=== PATIENT | female | born 1950 | race Caucasian/White ===

== ENCOUNTER 2020-12-06 01:38 | Observation (INO) ==
[2020-12-06] MEDS ORDERED: ONDANSETRON INJ 2 MG/ML 2 ML VIAL IV STA (01:48)
--- NOTE | 2020-12-06 01:50 | Emergency Department Note ---
History of Present Illness General Chief complaint: Abdominal Pain Stated complaint: ABDOMINAL PAIN Time Seen by Provider: 12/06/20 01:43 Source: patient Mode of arrival: EMS Limitations: no limitations History of Present Illness Provider complaint: Nausea, vomiting, diarrhea Onset (ago): day(s) 5 Location: abdomen Radiation: non-radiation Severity: moderate Pain Consistency: + colicky Relieved By: + none Exacerbated By: + eating Associated symptoms: + fever/chills, + loss of appetite, + malaise and + nausea/vomiting; no shortness of breath Treatments prior to arrival: none This is a 70-year-old female brought in by EMS due to concern for recurrent nausea, vomiting, diarrhea and abdominal pain. Patient states she began having symptoms on Thursday, had mild accompanying fevers, lightheadedness. No recent change in diet or known sick contact. Patient had been at a family member's house for and subsequently drove home on Thursday. She states Thursday she felt slightly improved although still not back to normal. She states on Thursday she was feeling improved and shows that she attempted to eat again, and then all of the symptoms began all over again. Patient denies any blood in the emesis or stool. No recurrent fevers today. No prior history of IBS, IBD, or PUD. No other change in medications. Pt seen during a time of high acuity and national emergency pandemic while wearing PPE. Home Medications Medication Instructions Recorded Confirmed Type amitriptyline 50 mg PO QPM 12/15/18 12/06/20 History omeprazole 40 mg capsule,delayed 40 mg PO QPM #90 cap 08/22/20 12/06/20 Rx release rosuvastatin 20 mg tablet 40 mg PO QPM #180 tab 08/22/20 12/06/20 Rx bupropion HCl 150 mg tablet,12 hr 150 mg PO BID #180 ea 10/26/20 12/06/20 Rx sustained-release metoprolol tartrate 25 mg tablet 25 mg PO BID #180 tab 10/26/20 12/06/20 Rx ondansetron 4 mg PO Q6H PRN #20 tab 12/07/20 Rx Allergies Allergy/AdvReac Type Severity Reaction Status Date / Time No Known Allergies Allergy Unverified 12/06/20 01:58 Past Med/Surg History Medical History Depression Fibromyalgia GERD without esophagitis History of diverticulitis Hyperlipidemia Leukocytosis Osteoporosis last Dexa noted 2019 Thoracic spine tumor Tobacco abuse Surgical History H/O abdominoplasty History of cholecystectomy History of tonsillectomy Hx of breast implants, bilateral Previous back surgery 2016 Family History Mother Myocardial infarction Stroke Father Cancer Denies family history of Ovarian cancer Prostate cancer Breast cancer Colorectal cancer Social History Smoking Status: Current every day smoker Tobacco Type: Cigarettes Age Started Using Tobacco: 37; packs per day: 1; Cigarettes Per Day: 20; Second Hand Exposure: Yes; Hx Alcohol Use: No Hx Substance Use: No Preferred Language: British Communication Ability: Effective Visual Impairment: Limited Hearing Ability: Normal 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 and A total of 10 systems reviewed and were otherwise negative Physical Exam Vital Signs Vital Signs - 24 hr 12/06/20 01:48 12/06/20 02:33 12/06/20 03:31 Temperature 36.8 C Temperature Source Oral Pulse Rate 109 H 109 H 102 H Respiratory Rate 18 20 23 Respiratory Effort / Characteristics Non-Labored Spontaneous Respiratory Depth Normal Respiratory Pattern Regular Blood Pressure 153/91 H 138/87 145/81 H Blood Pressure Mean 111 104 102 Blood Pressure Position Sitting Pulse Oximetry 99 96 Oxygen Delivery Method Room Air Room Air Sepsis Recent Fever Within 48 Hours No Sepsis New/Unexplained Change in Mental Status N/A Sepsis Action Taken by Nursing No Action Required 12/06/20 04:00 12/06/20 04:30 Temperature Temperature Source Pulse Rate 106 H 106 H Respiratory Rate 19 21 Respiratory Effort / Characteristics Respiratory Depth Respiratory Pattern Blood Pressure 129/77 156/74 H Blood Pressure Mean 94 101 Blood Pressure Position Pulse Oximetry Oxygen Delivery Method Sepsis Recent Fever Within 48 Hours Sepsis New/Unexplained Change in Mental Status Sepsis Action Taken by Nursing GENERAL: alert, uncomfortable and anxious appearing, well nourished, no distress, non-toxic EYE EXAM: normal conjunctiva, PERRL and EOM's grossly intact OROPHARYNX: no exudate, no erythema, lips, buccal mucosa, and tongue normal and mucous membranes are dry NECK: supple, no nuchal rigidity, no adenopathy, non-tender LUNGS: Clear to auscultation. Normal chest wall mechanics, no w/r/r HEART: no murmurs, S1 normal and S2 normal ABDOMEN: abdomen soft, non-tender, normo-active bowel sounds, no masses, no rebound or guarding. BACK: Back is symmetrical on inspection and there is no deformity, no midline tenderness, no CVA tenderness. SKIN: no rashes and no bruising UPPER EXTREMITIES: upper extremities are grossly normal. FROM, nml pulses b/l. LOWER EXTREMITIES: No pitting edema. FROM, nml pulses b/l. NEURO EXAM: Normal sensorium, cranial nerves II-XII grossly intact, normal speech, no gross weakness of arms, no gross weakness of legs. Gross sensation intact. Course Course 0332: Pt updated on results. States she does not use alcohol. Has already have her gallbladder removed. 0445: Patient updated on CT results. Still tachycardic. No active vomiting and nausea is improved although still states she does not feel well. Given patient does live alone she is concerned for going home and having recurrent vomiting and diarrhea. Etiology of her elevated lipase is still unclear, although could be related to a viral process. 0520: DIscussed with Dr. Marc. Administered Medications Discontinued Medications Amitriptyline HCl (Amitriptyline Hcl 50 Mg Tab) 50 mg PO QPM [facility] Stop: 01/05/21 20:59 Last Admin: 12/06/20 21:44 Dose: 50 mg Documented by: [id number] Bupropion HCl (Bupropion Sr 150 Mg Tabcr) 150 mg PO BID MARYLU Stop: 01/05/21 09:02 Last Admin: 12/07/20 08:18 Dose: 150 mg Documented by: [id number] Admin: 12/06/20 21:44 Dose: 150 mg Documented by: [id number] Admin: 12/06/20 09:35 Dose: 150 mg Documented by: [id number] Famotidine (Famotidine 20mg/5ml Iv Push) 20 mg IV ONE STA Stop: 12/06/20 03:39 Last Admin: 12/06/20 03:43 Dose: 20 mg Documented by: [id number] Sodium Chloride (Nss 1000ml) 1,000 mls @ 500 mls/hr IV .Q2H MARYLU Stop: 01/05/21 01:59 Last Admin: 12/06/20 04:12 Dose: Not Given Documented by: [id number] Infusion: 12/06/20 04:09 Dose: 0 mls/hr Documented by: [id number] Admin: 12/06/20 02:08 Dose: 500 mls/hr Documented by: [id number] Acetaminophen (Ofirmev) 1,000 mg in 100 mls @ 400 mls/hr IV NOW STA Stop: 12/06/20 02:05 Last Infusion: 12/06/20 02:24 Dose: 0 mls/hr Documented by: [id number] Admin: 12/06/20 02:09 Dose: 400 mls/hr Documented by: [id number] Sodium Chloride (Nss 1000ml) 1,000 mls @ 999 mls/hr IV .Q1H1M ONE Stop: 12/06/20 05:43 Last Infusion: 12/06/20 06:03 Dose: 0 mls/hr Documented by: [id number] Admin: 12/06/20 05:02 Dose: 999 mls/hr Documented by: [id number] Lactated Ringer's (Lr) 1,000 mls @ 125 mls/hr IV .Q8H MARYLU Stop: 12/07/20 01:02 Last Infusion: 12/07/20 01:43 Dose: 0 mls/hr Documented by: [id number] Admin: 12/06/20 17:46 Dose: 125 mls/hr Documented by: [id number] Infusion: 12/06/20 17:45 Dose: 0 mls/hr Documented by: [id number] Admin: 12/06/20 09:35 Dose: 125 mls/hr Documented by: [id number] Ioversol (Optiray 320 100ml) 100 ml IV ONCE ONE Stop: 12/06/20 03:34 Last Admin: 12/06/20 03:33 Dose: 93 ml Documented by: [id number] Metoprolol Tartrate (Metoprolol Tartrate 25 Mg Tab) 25 mg PO BID MARYLU Stop: 01/05/21 09:02 Last Admin: 12/07/20 08:18 Dose: 25 mg Documented by: [id number] Admin: 12/06/20 21:44 Dose: 25 mg Documented by: [id number] Admin: 12/06/20 09:35 Dose: 25 mg Documented by: [id number] Ondansetron HCl (Ondansetron Inj 2 Mg/Ml 2 Ml Vial) 4 mg IV NOW STA Stop: 12/06/20 01:49 Last Admin: 12/06/20 02:04 Dose: Not Given Documented by: [id number] Ondansetron HCl (Ondansetron Inj 2 Mg/Ml 2 Ml Vial) 4 mg IV Q6H PRN PRN Reason: Nausea And Vomiting Stop: 01/05/21 09:02 Last Admin: 12/06/20 17:10 Dose: 4 mg Documented by: [id number] Admin: 12/06/20 09:35 Dose: 4 mg Documented by: [id number] Pantoprazole Sodium (Pantoprazole 40 Mg Tab) 40 mg PO QPM MARYLU Stop: 01/05/21 20:59 Last Admin: 12/06/20 21:44 Dose: 40 mg Documented by: [id number] Potassium Chloride (Potassium Chloride Crtab 20 Meq Tabcr) 40 meq PO NOW STA Stop: 12/06/20 04:53 Last Admin: 12/06/20 05:02 Dose: 40 meq Documented by: [id number] Rosuvastatin Calcium (Rosuvastatin Calcium 20 Mg Tab) 40 mg PO QPM MARYLU Stop: 01/05/21 20:59 Last Admin: 12/06/20 21:44 Dose: 40 mg Documented by: [id number] Medical Decision Making Differential Diagnosis Differential: Gastroenteritis, Food Borne, Esophageal Perforation, , Electrolyte Abnormality, Dehydration, Intraabdominal Infection, UTI/Pyelonephritis, Bowel Obstruction, Biliary Pathology, amongst other pathology entertained. Medical Records Attestation: I reviewed the patient's medical records. Home Medications Current Medication List: was personally reviewed by me Laboratory Data Attestation: I reviewed the patient's lab results. Result diagrams: 12/07/20 09:30 12/07/20 09:30 Lab Results 12/06/20 12/06/2012/06/21 Range/Units 02:05 02:05 02:05 WBC 11.77 H (4.8-10.8) K/uL RBC 4.49 (4.2-5.4) M/uL Hgb 15.1 (12.0-16.0) g/dL Hct 42.1 (37-47) % MCV 93.8 (80-100) fL MCH 33.6 (25-34) pg MCHC 35.9 (32-36) g/dL RDW Std Deviation 41.5 (36.4-46.3) fL RDW Coeff of Armand 12.3 (11.5-14.5) % Plt Count 295 (130-400) K/uL MPV 9.6 (7.4-10.4) fL Immature Gran % (Auto) 0.5 % Neut % (Auto) 80.5 % Lymph % (Auto) 12.3 % Zavala % (Auto) 6.3 % Eos % (Auto) 0.3 % Baso % (Auto) 0.1 % Neut # (Auto) 9.48 H (1.4-6.5) K/uL Lymph # (Auto) 1.45 (1.2-3.4) K/uL Zavala # (Auto) 0.74 H (0.11-0.59) K/uL Eos # (Auto) 0.03 (0-0.5) K/uL Baso # (Auto) 0.01 (0-0.2) K/uL Immature Gran # (Auto) 0.06 H (0.00-0.02) K/uL RBC Morphology Unremarkable Sodium 140 (136-145) mmol/L Potassium 3.2 L (3.5-5.1) mmol/L Chloride 106 (98-107) mmol/L Carbon Dioxide 28 (21-32) mmol/L Anion Gap 6.0 (3-11) BUN 11 (7-18) mg/dl Creatinine 1.14 (0.6-1.2) mg/dl Est Cr Clr Drug Dosing Not Reportable Est GFR ( Amer) 57.2 ml/min Est GFR (Non-Af Amer) 49.4 ml/min BUN/Creatinine Ratio 9.4 L (10-20) Glucose 180 H (70-99) mg/dl Lactate 2.3 H* (0.4-2.0) mmol/L Calcium 9.1 (8.5-10.1) mg/dl Magnesium 2.0 (1.8-2.4) mg/dl Total Bilirubin 0.7 (0.2-1) mg/dl AST 21 (15-37) U/L ALT 25 (12-78) U/L Alkaline Phosphatase 113 (45-117) U/L Troponin I < 0.015 (0-0.045) ng/ml Total Protein 7.6 (6.4-8.2) gm/dl Albumin 4.0 (3.4-5.0) gm/dl Globulin 3.6 (2.5-4.0) gm/dl Albumin/Globulin Ratio 1.1 (0.9-2) Lipase 904 H (73-393) U/L COVID-19 Eval Order SARS-CoV-2 (PCR) (Negative) 12/06/20 12/06/20 12/06/20 Range/Units 04:00 05:00 05:00 WBC (4.8-10.8) K/uL RBC (4.2-5.4) M/uL Hgb (12.0-16.0) g/dL Hct (37-47) % MCV (80-100) fL MCH (25-34) pg MCHC (32-36) g/dL RDW Std Deviation (36.4-46.3) fL RDW Coeff of Armand (11.5-14.5) % Plt Count (130-400) K/uL MPV (7.4-10.4) fL Immature Gran % (Auto) % Neut % (Auto) % Lymph % (Auto) % Zavala % (Auto) % Eos % (Auto) % Baso % (Auto) % Neut # (Auto) (1.4-6.5) K/uL Lymph # (Auto) (1.2-3.4) K/uL Zavala # (Auto) (0.11-0.59) K/uL Eos # (Auto) (0-0.5) K/uL Baso # (Auto) (0-0.2) K/uL Immature Gran # (Auto) (0.00-0.02) K/uL RBC Morphology Sodium (136-145) mmol/L Potassium (3.5-5.1) mmol/L Chloride (98-107) mmol/L Carbon Dioxide (21-32) mmol/L Anion Gap (3-11) BUN (7-18) mg/dl Creatinine (0.6-1.2) mg/dl Est Cr Clr Drug Dosing Est GFR ( Amer) ml/min Est GFR (Non-Af Amer) ml/min BUN/Creatinine Ratio (10-20) Glucose (70-99) mg/dl Lactate 2.5 H* (0.4-2.0) mmol/L Calcium (8.5-10.1) mg/dl Magnesium (1.8-2.4) mg/dl Total Bilirubin (0.2-1) mg/dl AST (15-37) U/L ALT (12-78) U/L Alkaline Phosphatase (45-117) U/L Troponin I (0-0.045) ng/ml Total Protein (6.4-8.2) gm/dl Albumin (3.4-5.0) gm/dl Globulin (2.5-4.0) gm/dl Albumin/Globulin Ratio (0.9-2) Lipase (73-393) U/L COVID-19 Eval Order Covid19 at [facility] SARS-CoV-2 (PCR) NEGATIVE (Negative) Imaging Data Radiologist's Impression: CT abdomen pelvis with contrast: Comparison 12/21/2014. Lower thoracic spinal canal lipoma, as before. Hepatic steatosis. Calcified hepatic and splenic granulomas. Right renal cyst. No hydronephrosis. Solid organs otherwise unremarkable. Calcified abdominal aorta without aneurysm. Cholecystectomy, as before. No biliary dilatation. Absent appendix, consistent with surgical history. Mildly dilated and thickened small bowel with scattered air-fluid levels which may reflect nonspecific enteritis. Partial obstruction not excluded in the appropriate clinical setting. Liquid stool within the ascending and transverse colon which may reflect diarrheal illness. Sigmoid diverticulosis. No definite CT evidence for diverticulitis. Unremarkable uterus. No acute osseous abnormality. Radiologist: Francisco Roa MD ECG Data Attestation: I personally reviewed and interpreted this ECG as follows: Indication: + nausea Rate (beats per minute): 112 Rhythm: + sinus tachycardia ECG Intervals/blocks: + Normal QRS and + Normal QT ECG Coleman: + Normal ECG ST segments: + Normal ST segments MDM Narrative This is a 70-year-old female who presents with predominantly GI symptoms of unclear etiology. Labs drawn and sent, patient started on IV fluids and given medication for nausea and pain. Patient found to have an elevated lipase. Denies use of alcohol and is already had a prior cholecystectomy. In light of this patient sent for CT imaging. Patient symptoms were slightly improved although not resolved with treatment here. Initial elevated lactate I felt was likely secondary to dehydration. Patient had no further vomiting or diarrhea while here. Patient did have persistent tachycardia of unclear etiology after 1500 mL of IV fluids. I suspect this may be a combination of residual volume depletion, anxiety about her symptoms, and concern for etiology. Given patient still having difficulty tolerating p.o., persistent tachycardia, persistent elevated lactic acid, and elevated lipase of unclear etiology, case discussed with hospitalist for additional evaluation management. I do not suspect bacteremia/sepsis, GI bleed, perforation, mesenteric ischemia, colitis, or bowel obstruction. An order was placed for continuous cardiac monitoring. The monitor shows a rate of _112_ with _sinus tachycardia__ rhythm. Impression & Plan Abdominal pain, Nausea vomiting and diarrhea, Elevated lactic acid level, Elevated lipase Discharge Plan Visit Data Chief Complaint: Abdominal Pain Stated Complaint: ABDOMINAL PAIN ED Provider: Abi Smith Discharge Problem: Abdominal pain, Nausea vomiting and diarrhea, Elevated lactic acid level, Elevated lipase Patient Disposition: Admitted As Inpatient Discharge Instructions Interventions: ED Discharge Assessment Last Done: 12/06/20 08:42 Discharge Problem: Abdominal pain Qualifiers: Abdominal location: generalized Qualified Code(s): R10.84 - Generalized abdominal pain
[2020-12-06] MEDS ORDERED: ACETAMINOPHEN 1,000 MG/100 ML VIAL IV STA (01:51)
[2020-12-06] MEDS: SODIUM CHLORIDE 0.9% 1000ML 1,000 ML IV SCH ×2 (02:08→04:12)
[2020-12-06 02:20] LABS: Hematocrit (blood only) 42.1 % (37-47); Hemoglobin 15.1 g/dL (12.0-16.0); Mean Corpuscular Hemoglobin 33.6 pg (25-34); Mean Corpuscular Hgb Conc 35.9 g/dL (32-36); Mean Corpuscular Volume 93.8 fL (80-100); Mean Platelet Volume 9.6 fL (7.4-10.4); Platelet Count 295 K/uL (130-400); RDW Coefficient of Variation 12.3 % (11.5-14.5); RDW Standard Deviation 41.5 fL (36.4-46.3); Red Blood Count 4.49 M/uL (4.2-5.4); White Blood Count 11.77 K/uL (4.8-10.8)
[2020-12-06 02:39] LABS: Basophils # (auto) 0.01 K/uL (0-0.2); Basophils % (auto) 0.1 %; Eosinophils # (auto) 0.03 K/uL (0-0.5); Eosinophils % (auto) 0.3 %; Immature Granulocytes # (auto) 0.06 K/uL (0.00-0.02); Immature Granulocytes % (auto) 0.5 %; Lymphocytes # (auto) 1.45 K/uL (1.2-3.4); Lymphocytes % (auto) 12.3 %; Monocytes # (auto) 0.74 K/uL (0.11-0.59); Monocytes % (auto) 6.3 %; Neutrophils # (auto) 9.48 K/uL (1.4-6.5); Neutrophils % (auto) 80.5 %; RBC Morphology Unremarkable
[2020-12-06 02:41] LABS: Alanine Aminotransferase 25 U/L (12-78); Aspartate Aminotransferase 21 U/L (15-37); BUN Creatinine Ratio 9.4 (10-20); Blood Urea Nitrogen 11 mg/dl (7-18); Calcium 9.1 mg/dl (8.5-10.1); Carbon Dioxide 28 mmol/L (21-32); Chloride 106 mmol/L (98-107); Est GFR (African American) 57.2 ml/min; Est GFR (Non-African American) 49.4 ml/min; Glucose 180 mg/dl (70-99); Lipase 904 U/L (73-393); Potassium 3.2 mmol/L (3.5-5.1); Sodium 140 mmol/L (136-145)
[2020-12-06 02:46] LABS: Albumin Globulin Ratio 1.1 (0.9-2); Alkaline Phosphatase 113 U/L (45-117); Bilirubin,Total 0.7 mg/dl (0.2-1); Globulin 3.6 gm/dl (2.5-4.0); Total Protein 7.6 gm/dl (6.4-8.2); Troponin I < 0.015 ng/ml (0-0.045)
[2020-12-06] MEDS ORDERED: OPTIRAY 320 100ml IV ONE (03:33)
[2020-12-06] MEDS ORDERED: FAMOTIDINE 20MG/5ML IV PUSH IV STA (03:38)
[2020-12-06] MEDS ORDERED: SODIUM CHLORIDE 0.9% 1000ML 1,000 ML IV ONE (04:43)
[2020-12-06] MEDS ORDERED: POTASSIUM CHLORIDE CRTAB 20 MEQ TABCR PO STA (04:52)
--- NOTE | 2020-12-06 06:35 | History & Physical Report ---
Date of Service December 06, 2020 Assessment & Plan (1) Nausea vomiting and diarrhea: Suspect gastroenteritis. Patient hemodynamically stable -Check stool cultures -Check c. diff. No recent antibiotic use -IVF - LR at 125mL/hr x 2 liters -K repletion -Zofran PRN -Mildly elevated lipase - no comment on pancreatic inflammation on CT. Patient with diffuse abdominal pain. Monitor clinically for developing pancreatitis. -Mildly elevated lactate at 2.3 which did not improve with IV fluids. Repeat Present on Admission?: Yes (2) Hyperlipidemia: Chronic -Continue Crestor Present on Admission?: Yes (3) Fibromyalgia: Chronic -Continue Amitriptyline Present on Admission?: Yes (4) Depression: Chronic -Continue Bupropion Present on Admission?: Yes (5) GERD without esophagitis: Chronic -Continue Omeprazole F/E/N - LR at 125mL/hr x 2 liters, K repletion with PO, Clear liquid diet as tolerated Ppx - low risk for DVT Code -Full Dispo - Observation to medical Present on Admission?: Yes History of Present Illness Chief Complaint: nausea, vomiting, diarrhea Primary Care Provider: EWA Escobar Adelfo is a 70yo female presenting with nausea, vomiting and diarrhea. She was in [place] 5 days ago for her [id number] . She ate spaghetti with meat sauce after which she felt slightly ill. She developed vomiting at 0200 the next morning. She reports multiple episodes of non-bloody/non-bilious vomiting as well as non-bloody diarrhea. She had a brief resolution of symptoms for the last 1.5 days but they restarted today. She states she has had nonstop vomiting today and nonstop diarrhea. Also with subjective fevers and chills at home and diaphoresis. ER Course: Tylenol, Pepcid, Zofran, Potassium, NSS Allergies Allergy/AdvReac Type Severity Reaction Status Date / Time No Known Allergies Allergy Unverified 12/06/20 01:58 Home Medications Medication Instructions Recorded Confirmed Type amitriptyline 50 mg PO QPM 12/15/18 12/06/20 History omeprazole 40 mg capsule,delayed 40 mg PO QPM #90 cap 08/22/20 12/06/20 Rx release rosuvastatin 20 mg tablet 40 mg PO QPM #180 tab 08/22/20 12/06/20 Rx bupropion HCl 150 mg tablet,12 hr 150 mg PO BID #180 ea 10/26/20 12/06/20 Rx sustained-release metoprolol tartrate 25 mg tablet 25 mg PO BID #180 tab 10/26/20 12/06/20 Rx Past Med/Surg History Medical History Depression Fibromyalgia GERD without esophagitis History of diverticulitis Hyperlipidemia Leukocytosis Osteoporosis last Dexa noted 2019 Thoracic spine tumor Tobacco abuse Surgical History H/O abdominoplasty History of cholecystectomy History of tonsillectomy Hx of breast implants, bilateral Previous back surgery 2016 Family History Mother Myocardial infarction Stroke Father Cancer Denies family history of Ovarian cancer Prostate cancer Breast cancer Colorectal cancer Social History Smoking Status: Current every day smoker Tobacco Type: Cigarettes Age Started Using Tobacco: 37; packs per day: 1; Cigarettes Per Day: 20; Second Hand Exposure: No; Hx Alcohol Use: No Hx Substance Use: No Preferred Language: Senegalese Visual Impairment: Limited Hearing Ability: Normal 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 Beliefs That Will Affect Care: None marital status: Current Living Situation: Family and Other Current Living Situation Comment: living w son How many Children do You have: 2 Feels Safe at Home: Yes Childhood Exposure to Second-Hand Smoke: Yes caffeine: Yes during the past year weight has: increased > 10 lbs Dental Care, Regularly: Yes Physical Activity Frequency: Does not Exercise Seatbelt Use: sometimes Sunscreen Use: Yes Review of Systems Review of Systems: All systems reviewed & are unremarkable except as noted in HPI & below Physical Exam Physical Exam: General: patient resting comfortably, NAD, ill in appearance, AA&O x 4 Skin: warm, dry, intact, no rashes or lesions HEENT: NC/AT, PERRL, EOMI, anicteric sclera, conjunctiva without injection, external ear normal to inspection and nontender, nares patent, moist mucus membranes, dentition intact, no oropharyngeal lesions, neck supple, trachea midline, no LAD, no thyromegaly, no JVD Heart: +S1/S2, regular, no m/r/g Lungs: equal air entry bilaterally, no rales/rhonchi/wheezes Abd: +BS, soft, diffusely tender without rebound/guarding/peritoneal signs, no masses/organomegaly/ascites Ext: warm, 2+ pulses in UE/LE bilaterally, no clubbing/cyanosis or edema Neuro: nonfocal, patient AA&O x 4, speech intact, no facial droop, moving all extremities on command with equal strength 5/5 Results & Data Results & Data ([facility]) Vital Signs (Past 12 Hours) Vital Signs Temp Pulse Resp BP Pulse Ox 12/06/20 06:00 97 H 18 123/69 12/06/20 05:02 95 H 22 12/06/20 04:30 106 H 21 156/74 H 12/06/20 04:00 106 H 19 129/77 12/06/20 03:31 102 H 23 145/81 H 12/06/20 02:33 109 H 20 138/87 96 12/06/20 01:48 36.8 C 109 H 18 153/91 H 99 Laboratory Results Laboratory Results WBC 11.77 K/uL (4.8-10.8) H 12/06/20 02:05 RBC 4.49 M/uL (4.2-5.4) 12/06/20 02:05 Hgb 15.1 g/dL (12.0-16.0) 12/06/20 02:05 Hct 42.1 % (37-47) 12/06/20 02:05 MCV 93.8 fL (80-100) 12/06/20 02:05 MCH 33.6 pg (25-34) 12/06/20 02:05 MCHC 35.9 g/dL (32-36) 12/06/20 02:05 RDW Std Deviation 41.5 fL (36.4-46.3) 12/06/20 02:05 RDW Coeff of Armand 12.3 % (11.5-14.5) 12/06/20 02:05 Plt Count 295 K/uL (130-400) 12/06/20 02:05 MPV 9.6 fL (7.4-10.4) 12/06/20 02:05 Immature Gran % (Auto) 0.5 % 12/06/20 02:05 Neut % (Auto) 80.5 % 12/06/20 02:05 Lymph % (Auto) 12.3 % 12/06/20 02:05 [place]gett % (Auto) 6.3 % 12/06/20 02:05 Eos % (Auto) 0.3 % 12/06/20 02:05 Baso % (Auto) 0.1 % 12/06/20 02:05 Neut # (Auto) 9.48 K/uL (1.4-6.5) H 12/06/20 02:05 Lymph # (Auto) 1.45 K/uL (1.2-3.4) 12/06/20 02:05 Daggett # (Auto) 0.74 K/uL (0.11-0.59) H 12/06/20 02:05 Eos # (Auto) 0.03 K/uL (0-0.5) 12/06/20 02:05 Baso # (Auto) 0.01 K/uL (0-0.2) 12/06/20 02:05 Immature Gran # (Auto) 0.06 K/uL (0.00-0.02) H 12/06/20 02:05 RBC Morphology Unremarkable 12/06/20 02:05 Sodium 140 mmol/L (136-145) 12/06/20 02:05 Potassium 3.2 mmol/L (3.5-5.1) L 12/06/20 02:05 Chloride 106 mmol/L (98-107) 12/06/20 02:05 Carbon Dioxide 28 mmol/L (21-32) 12/06/20 02:05 Anion Gap 6.0 (3-11) 12/06/20 02:05 BUN 11 mg/dl (7-18) 12/06/20 02:05 Creatinine 1.14 mg/dl (0.6-1.2) 12/06/20 02:05 Est Cr Clr Drug Dosing Not Reportable 12/06/20 02:05 Est GFR ( Amer) 57.2 ml/min 12/06/20 02:05 Est GFR (Non-Af Amer) 49.4 ml/min 12/06/20 02:05 BUN/Creatinine Ratio 9.4 (10-20) L 12/06/20 02:05 Glucose 180 mg/dl (70-99) H 12/06/20 02:05 Lactate 2.5 mmol/L (0.4-2.0) H* 12/06/20 04:00 Calcium 9.1 mg/dl (8.5-10.1) 12/06/20 02:05 Magnesium 2.0 mg/dl (1.8-2.4) 12/06/20 02:05 Total Bilirubin 0.7 mg/dl (0.2-1) 12/06/20 02:05 AST 21 U/L (15-37) 12/06/20 02:05 ALT 25 U/L (12-78) 12/06/20 02:05 Alkaline Phosphatase 113 U/L (45-117) 12/06/20 02:05 Troponin I < 0.015 ng/ml (0-0.045) 12/06/20 02:05 Total Protein 7.6 gm/dl (6.4-8.2) 12/06/20 02:05 Albumin 4.0 gm/dl (3.4-5.0) 12/06/20 02:05 Globulin 3.6 gm/dl (2.5-4.0) 12/06/20 02:05 Albumin/Globulin Ratio 1.1 (0.9-2) 12/06/20 02:05 Lipase 904 U/L (73-393) H 12/06/20 02:05 COVID-19 Eval Order Covid19 at [facility] 12/06/20 05:00 SARS-CoV-2 (PCR) NEGATIVE (Negative) 12/06/20 05:00 PG Care Time/CCT Total # of Minutes Spent Total Time Spent with Patient: Total time spent is greater than 50% in coordination of care (as documented) at patient's floor/unit and/or counseling patient: Coding Level of Care Code 86162 Initial Inpt Care Lvl 2 Diagnoses Nausea vomiting and diarrhea R11.2; R19.7 Hyperlipidemia E78.5 Hyperlipidemia type: unspecified Fibromyalgia M79.7 Depression F32.9 Depression Type: major depressive disorder Major depression recurrence: unspecified whether recurrent Active/Remission status: remission status unspecified GERD without esophagitis K21.9 (1) Hyperlipidemia Hyperlipidemia type: unspecified Qualified Code(s): E78.5 - Hyperlipidemia, unspecified (2) Depression Depression Type: major depressive disorder Major depression recurrence: unspecified whether recurrent Active/Remission status: remission status unspecified Qualified Code(s): F32.9 - Major depressive disorder, single episode, unspecified
--- NOTE | 2020-12-06 07:49 | XRay Report ---
PA CHEST WITH ABDOMINAL SERIES CLINICAL HISTORY: Nausea and vomiting. Diarrhea. FINDINGS: A PA chest radiograph is correlated with chest CT dated 08/06/2020. The cardiomediastinal silhouette is unremarkable noting atherosclerotic calcification of the thoracic aorta. There is mild elevation of the right hemidiaphragm and bibasilar atelectasis. No airspace consolidation or pleural effusion is i dentified. No pneumothorax is seen. The skeletal structures are osteopenic. The bony thorax is grossl y intact. Supine and erect abdominal radiographs are correlated with abdominal CT dated 12/21/2014. Cholecystect juan m clips are noted in the right upper quadrant. There is a nonobstructed abdominal bowel gas pattern . No evidence of intraperitoneal free air is seen. Calcified splenic granulomas are seen in the left upper quadrant. There is no radiographic evidence of nephrolithiasis. Phleboliths are seen in the pel vis. The lumbosacral spine and bony pelvis appear intact. IMPRESSION: 1. No active disease in the chest. 2. Nonobstructed abdominal bowel gas pattern. ACT 112: Negative or not required by law. Electronically signed by: Narinder Velasquez M.D. 12/06/2020 7:48 AM
--- NOTE | 2020-12-06 08:00 | CT Scan Report ---
CT SCAN OF THE ABDOMEN AND PELVIS WITH IV CONTRAST CLINICAL HISTORY: Generalized abdominal pain. Nausea and vomiting. Diarrhea. COMPARISON STUDY: Abdominal CT dated 12/21/2014. Abdominal radiographs dated 12/06/2020. TECHNIQUE: Following the IV administration of 93 cc of Optiray 320, CT scan of the abdomen and pelvi s is performed from the lung bases to the proximal femora. Images are reviewed in the axial, sagittal , and coronal planes. IV contrast was administered without complication. A dose lowering technique wa s utilized adhering to the principles of ALARA. CT DOSE: 825.11 mGycm FINDINGS: Lung bases: The heart is normal in size and without pericardial effusion. The lung bases are clear no ting dependent atelectasis. There is a tiny hiatal hernia. Bilateral breast implants are partially im aged. Liver: The contrast-enhanced liver is normal in size and contour. The liver demonstrates diffusely di minished attenuation consistent with hepatic steatosis. There is no intrahepatic biliary ductal dilat ation. The hepatic veins and portal veins are patent. Gallbladder: Surgically absent noting clips in the gallbladder fossa. Spleen: Normal in size and attenuation. There are calcified splenic granulomas. Pancreas: Unremarkable. Adrenal glands: Unremarkable. Kidneys: The contrast enhanced kidneys are normal in size and without hydronephrosis. The kidneys enh ance symmetrically. A subcentimeter cortical hypodensity in the right kidney likely represents a cyst but is too small for definitive characterization. Abdominal vasculature: The abdominal aorta is normal in course and caliber noting moderate to advance d atherosclerotic calcification. Bowel: The small bowel loops are mildly distended and fluid-filled, measuring up to 2.4 cm diameter. Liquid stool is also seen throughout the colon. There is no focal transition point to suggest high-gr jessica obstruction. No pneumatosis intestinalis or portal venous gas is seen. Scattered bowel loops appe ar mildly thick-walled and hyperemic. There is mild to moderate colonic diverticulosis without CT bev dence of acute diverticulitis. The appendix is not identified and reported surgically absent. Peritoneum: There is no intraperitoneal free air or abdominal ascites. There is a fat-containing umbi lical hernia. Lymphadenopathy: None. Pelvic viscera: The bladder, uterus, and adnexa are normal as visualized. Skeletal structures: No lytic or blastic lesions are seen. Postoperative change is noted in the thora cic spine. 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 IMPRESSION: 1. Findings suggest a nonspecific enterocolitis. Clinical correlation will be required. 2. The small bowel loops are mildly distended with no focal transition point or evidence of high-grad e obstruction. Low-grade or partial obstruction would be impossible to exclude. 3. No intraperitoneal free air or abdominal ascites is identified. 4. Hepatic steatosis. 5. 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 6. Additional findings as above. ACT 112: Negative or not required by law. Electronically signed by: Narinder Velasquez M.D. 12/06/2020 7:59 AM
[2020-12-06] MEDS ORDERED: ACETAMINOPHEN 325 MG TAB PO PRN (09:03)
[2020-12-06] MEDS: ONDANSETRON INJ 2 MG/ML 2 ML VIAL IV PRN ×2 (09:35→17:10)
[2020-12-06] MEDS: METOPROLOL TARTRATE 25 MG TAB PO SCH ×2 (09:35→21:44)
[2020-12-06] MEDS: LACTATED RINGER'S 1,000 ML IV SCH ×2 (09:35→17:46)
[2020-12-06] MEDS: buPROPion SR 150 MG TABCR PO SCH ×2 (09:35→21:44)
[2020-12-06] MEDS ORDERED: AMITRIPTYLINE HCL 50 MG TAB PO SCH (21:00)
[2020-12-06] MEDS ORDERED: PANTOprazole 40 MG TAB PO SCH (21:00)
[2020-12-06] MEDS ORDERED: ROSUVASTATIN CALCIUM 20 MG TAB PO SCH (21:00)
--- NOTE | 2020-12-07 05:43 | Electrocardiogram Report ---
Test Reason : Blood Pressure : / mmHG Vent. Rate : 112 BPM Atrial Rate : 112 BPM P-R Int : 188 ms QRS Dur : 074 ms QT Int : 332 ms P-R-T Axes : 044 018 041 degrees QTc Int : 453 ms Sinus tachycardia Nonspecific ST abnormality Abnormal ECG No previous ECGs available Confirmed by Gustavo Almanzar ([id number]) on 12/07/2020 5:43:30 AM Referred By: REFERRED SELF Confirmed By:Gustavo Almanzar
[2020-12-07] MEDS: METOPROLOL TARTRATE 25 MG TAB PO SCH (08:18)
[2020-12-07] MEDS: buPROPion SR 150 MG TABCR PO SCH (08:18)
[2020-12-07 09:42] LABS: Basophils # (auto) 0.01 K/uL (0-0.2); Basophils % (auto) 0.1 %; Eosinophils # (auto) 0.11 K/uL (0-0.5); Eosinophils % (auto) 1.2 %; Hematocrit (blood only) 33.3 % (37-47); Hemoglobin 11.7 g/dL (12.0-16.0); Immature Granulocytes # (auto) 0.02 K/uL (0.00-0.02); Immature Granulocytes % (auto) 0.2 %; Lymphocytes # (auto) 3.72 K/uL (1.2-3.4); Lymphocytes % (auto) 41.4 %; Mean Corpuscular Hemoglobin 33.2 pg (25-34); Mean Corpuscular Hgb Conc 35.1 g/dL (32-36); Mean Corpuscular Volume 94.6 fL (80-100); Mean Platelet Volume 9.6 fL (7.4-10.4); Monocytes # (auto) 0.57 K/uL (0.11-0.59); Monocytes % (auto) 6.3 %; Neutrophils # (auto) 4.55 K/uL (1.4-6.5); Neutrophils % (auto) 50.8 %; Platelet Count 240 K/uL (130-400); RDW Coefficient of Variation 12.7 % (11.5-14.5); RDW Standard Deviation 43.6 fL (36.4-46.3); Red Blood Count 3.52 M/uL (4.2-5.4); White Blood Count 8.98 K/uL (4.8-10.8)
[2020-12-07 10:41] LABS: BUN Creatinine Ratio 6.2 (10-20); Bilirubin,Total 0.4 mg/dl (0.2-1); Calcium 8.2 mg/dl (8.5-10.1); Creatinine Clr Calc Pharmacy 58.1 ml/min; Est GFR (African American) 80.5 ml/min; Est GFR (Non-African American) 69.4 ml/min; Globulin 2.9 gm/dl (2.5-4.0); Potassium 3.3 mmol/L (3.5-5.1); Total Protein 5.9 gm/dl (6.4-8.2)
--- NOTE | 2020-12-07 15:54 | Discharge Summary ---
Date of Service December 07, 2020 Admission HPI Per Admitting Provider Hortensia Emanuel is a 70yo female presenting with nausea, vomiting and diarrhea. She was in [place] 5 days ago for her [id number]'s . She ate spaghetti with meat sauce after which she felt slightly ill. She developed vomiting at 0200 the next morning. She reports multiple episodes of non-bloody/non-bilious vomiting as well as non-bloody diarrhea. She had a brief resolution of symptoms for the last 1.5 days but they restarted today. She states she has had nonstop vomiting today and nonstop diarrhea. Also with subjective fevers and chills at home and diaphoresis. ER Course: Tylenol, Pepcid, Zofran, Potassium, NSS Admission Exam Per Admitting Provider General: patient resting comfortably, NAD, ill in appearance, AA&O x 4 Skin: warm, dry, intact, no rashes or lesions HEENT: NC/AT, PERRL, EOMI, anicteric sclera, conjunctiva without injection, external ear normal to inspection and nontender, nares patent, moist mucus membranes, dentition intact, no oropharyngeal lesions, neck supple, trachea midline, no LAD, no thyromegaly, no JVD Heart: +S1/S2, regular, no m/r/g Lungs: equal air entry bilaterally, no rales/rhonchi/wheezes Abd: +BS, soft, diffusely tender without rebound/guarding/peritoneal signs, no masses/organomegaly/ascites Ext: warm, 2+ pulses in UE/LE bilaterally, no clubbing/cyanosis or edema Neuro: nonfocal, patient AA&O x 4, speech intact, no facial droop, moving all extremities on command with equal strength 5/5 Principal Diagnosis Non-specific enterocolitis Discharge Data Allergies Allergy/AdvReac Type Severity Reaction Status Date / Time No Known Allergies Allergy Unverified 12/17/20 10:36 Consultations 12/06/20 04:52 ED Decision to Admit Stat Ordered Studies 12/06/20 02:43 CT abd pelvis IV con only Urgent IMPRESSION: 1. Findings suggest a nonspecific enterocolitis. Clinical correlation will be re quired. 2. The small bowel loops are mildly distended with no focal transition point or evidence of high-grade obstruction. Low-grade or partial obstruction would be impossible to exclude. 3. No intraperitoneal free air or abdominal ascites is identified. 4. Hepatic steatosis. 5. 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 6. Additional findings as above. Hospital Course (1) Nausea vomiting and diarrhea: Alba Emanuel is a 70 year old female observed at [facility] from December 06 07/10/2020 due to nausea, vomiting, diarrhea, abdominal pain. CT abdomen/pelvis showed nonspecific enterocolitis with mildly distended small bowel loops. C. difficile testing was negative. Stool cultures are negative to date but final culture is outstanding on discharge. She improved overnight and is now tolerating a low fiber, lactose intolerant diet. Recommend sticking to a low fiber and lactose diet for the next 7 days. If mild pain recurs go back to a clear liquid diet and follow up with your primary care physician. If severe please return to the ER as a possible low-grade or partial obstruction would be impossible to exclude on CT and possible symptom may develop into a full bowel obstruction. Use ondansetron for nausea. Use Imodium as needed for diarrhea. She was also noted to have hypokalemia, recommend over the counter potassium supplements (20 meq PO daily) for the duration of the diarrhea. She was also noted to have reflux with excessive Tums use. Recommend reducing Tums to once weekly as needed. Use omeprazole as you have been regularly and famotidine (pepcid) if you need something extra. Recommended she follows up with her PCP for this. (2) Hyperlipidemia: (3) Fibromyalgia: (4) Depression: (5) GERD without esophagitis: Total Time Total Time Spent Total Time Spent (In Minutes): 35 Discharge Plan Discharge Items Patient Disposition: Home - Self-Care Reason For Visit: NAUSEA, VOMITING, DIARRHEA Discharge Diagnosis: Non-specific enterocolitis Activity: Resume your previous activity Non-emergency contact: Primary Care Provider Call non-emergency contact if: you have any medication questions and your symptoms worsen Follow-up/Referrals: Kevan Simpson CRNP [Primary Care Provider] - 12/17/20 10:20 am Diet: Low Fiber and Lactose Intolerant Addtl Attending Provider Instructions: You are observed at [facility] from December 06 07/10/2020 due to nausea, vomiting, diarrhea, abdominal pain. CT abdomen/pelvis showed nonspecific enterocolitis with mildly distended small bowel loops. C. difficile testing was negative. Stool cultures are negative to date but final culture is outstanding on discharge. Recommend sticking to a low fiber and lactose diet for the next 7 days. If mild pain recurs go back to a clear liquid diet and follow up with your primary care physician. If severe please return to the ER as a possible low-grade or partial obstruction would be impossible to exclude on CT and possible symptom may develop into a full bowel obstruction. Use ondansetron for nausea. Use Imodium as needed for diarrhea. Your potassium was also noted to be mildly low from your diarrhea. If you continue to have diarrhea recommend potassium supplementation in electrolyte drinks or potassium chloride 20 meq PO daily for the duration of the diarrhea. Regarding your reflux recommend reducing Tums to once weekly as needed. Use omeprazole as you have been regularly and famotidine (pepcid) if you need something extra. Please follow up with your PCP regarding this. Kind regards, Dr Vahid Kim Pending Studies at Discharge: Yes Stand-Alone Forms: [facility] DoubleRecall, Smoking Cessation Medications and DC Order Prescriptions: New ondansetron 4 mg tablet,disintegrating 4 mg PO Q6H PRN (Reason: nausea and vomiting) Qty: 20 RF: 0 Continued bupropion HCl 150 mg tablet sustained-release 12 hr 150 mg PO BID Qty: 180 RF: 2 metoprolol tartrate 25 mg tablet 25 mg PO BID Qty: 180 RF: 2 omeprazole 40 mg capsule,delayed release(DR/EC) 40 mg PO QPM Qty: 90 RF: 3 rosuvastatin 20 mg tablet 40 mg PO QPM Qty: 180 RF: 5 amitriptyline 50 mg tablet 50 mg PO QPM RF: 0 Discharge Orders: Discharge Order (Routine); Ordered 12/07/20 Ordered By: Vahid Dover/Other Patient Handouts: Low-Fiber Diet, Communicating About Pain, ED Food Poison Or Gastroenteritis, ED Fibromyalgia Admission Data Admit Date/Time: 12/06/20 06:30 Attending Provider: Vahid Kim Admit Provider: Melissa Marc Primary Care Provider: Kevan Simpson Other Providers: Melissa Marc Other Interventions: Discharge Summary Assessment (RN) Last Done: 12/07/20 16:19 Coding Level of Care Code 72468 OBS Care - Discharge Diagnoses Nausea vomiting and diarrhea R11.2; R19.7 Hyperlipidemia E78.5 Hyperlipidemia type: unspecified Fibromyalgia M79.7 Depression F32.9 Active/Remission status: remission status unspecified Depression Type: major depressive disorder Major depression recurrence: unspecified whether recurrent GERD without esophagitis K21.9
== END 2020-12-07 17:08 | disposition home or self-care (01) ==
LOC: 3N 01:38 → ED 01:38 → SUATTDRO 06:30 → 3N 08:42
DX: M79.7 Fibromyalgia; R11.2 Nausea with vomiting, unspecified; E78.5 Hyperlipidemia, unspecified; F17.210 Nicotine dependence, cigarettes, uncomplicated; K21.9 Gastro-esophageal reflux disease without esophagitis; R74.02 Elevation of levels of lactic acid dehydrogenase [LDH]; Z79.899 Other long term (current) drug therapy; R19.7 Diarrhea, unspecified; R74.8 Abnormal levels of other serum enzymes

== ENCOUNTER 2022-07-14 14:28 | Inpatient (IN) ==
[2022-07-14 16:31] LABS: Basophils # (auto) 0.03 K/uL (0-0.2); Basophils % (auto) 0.3 %; Eosinophils # (auto) 0.09 K/uL (0-0.50); Eosinophils % (auto) 0.9 %; Hematocrit (blood only) 36.9 % (37.0-47.0); Hemoglobin 12.5 g/dl (12.0-16.0); Immature Granulocytes # (auto) 0.05 K/uL (0.01-0.20); Immature Granulocytes % (auto) 0.5 %; Lymphocytes # (auto) 3.16 K/uL (1.2-3.4); Lymphocytes % (auto) 30.4 %; Mean Corpuscular Hemoglobin 33.6 pg (25.0-34.0); Mean Corpuscular Hgb Conc 33.9 g/dL (32.0-36.0); Mean Corpuscular Volume 99.2 fL (80.0-100.0); Mean Platelet Volume 9.3 fL (9.4-12.4); Monocytes # (auto) 0.47 K/uL (0.11-0.59); Monocytes % (auto) 4.5 %; Neutrophils % (auto) 63.4 %; Platelet Count 379 K/uL (130-400); RDW Coefficient of Variation 13.1 % (11.5-14.5); RDW Standard Deviation 46.6 fL (36.4-46.3); Red Blood Count 3.72 M/uL (4.20-5.40)
[2022-07-14 16:40] LABS: Appearance Urine Clear (Clear); Bilirubin Urine Negative (Negative); Blood Urine Negative (Negative); Color Urine Yellow; Glucose Urine UA Negative (Negative); Ketones Urine Negative (Negative); Leukocyte Esterase Urine Negative (Negative); Nitrite Urine Negative (Negative); Protein Urine Negative (Negative); Specific Gravity Urine 1.008 (1.000-1.030); Urobilinogen Urine Negative (Negative); pH Urine 6.5 (4.5-7.5)
[2022-07-14 16:53] LABS: Albumin Globulin Ratio 1.2 (0.9-2); BUN Creatinine Ratio 10.6 (10-20); Bilirubin,Total 0.7 mg/dl (0.2-1.0); Calcium 9.2 mg/dl (8.5-10.1); Creatinine Clr Calc Pharmacy 53.2 ml/min; Est GFR (African American) 80.5 ml/min; Est GFR (Non-African American) 69.4 ml/min; Globulin 3.4 gm/dl (2.5-4.0); Potassium 4.2 mmol/L (3.5-5.1); Total Protein 7.4 gm/dl (6.0-8.3)
[2022-07-14] MEDS ORDERED: MoRPHine SULFATE 4 MG/ML 1 ML CARP\\VIAL IV STA ×2 (17:32→18:53)
[2022-07-14] MEDS ORDERED: ACETAMINOPHEN 1,000 MG/100 ML VIAL IV STA (17:32)
[2022-07-14] MEDS ORDERED: ONDANSETRON INJ 2 MG/ML 2 ML VIAL IV STA (17:32)
--- NOTE | 2022-07-14 17:36 | Emergency Department Note ---
Impression & Plan Abdominal pain, Nausea & vomiting, Diverticulitis, Failure of outpatient treatment ED Provider Note ED Provider Note NAME: BRENDA HENRY AGE:72 SEX: Female : 1950 ARRIVES VIA: Private vehicle INFORMANT: Patient ED PROVIDER(s): Abi Smith DO CHIEF COMPLAINT: Abdominal pain, nausea HPI: This is a 72-year-old female who presents emerged part due to concern for persistent abdominal pain and nausea. Patient states the end of June she had a virtual colonoscopy performed at [facility] and was diagnosed with severe diverticulitis. Patient states she had multiple episodes of diverticulitis previously and they typically get better with Cipro and Flagyl. She states she was started on Cipro and Flagyl and had finished a 10-day course but was not feeling any better and since now finishing the course she has begun to feel worse. She states she is fatigued, has abdominal bloating, has had minimal stool out, has nausea and decreased appetite. She denies fevers or chills. She denies noting any blood with her bowel movements. No change in urine. PAST MEDICAL HISTORY:See Below PAST SURGICAL HISTORY:See Below FAMILY HISTORY:See Below SOCIAL HISTORY:See Below HOME MEDICATIONS:See Below ALLERGIES:See Below VITALS:See Below PHYSICAL EXAMINATION: GENERAL: alert, well appearing, well nourished, no distress, non-toxic EYE EXAM: normal conjunctiva, PERRL and EOM's grossly intact OROPHARYNX: no exudate, no erythema, lips, buccal mucosa, and tongue normal and mucous membranes are moist NECK: supple, no nuchal rigidity, no adenopathy, non-tender LUNGS: Clear to auscultation. Normal chest wall mechanics, no w/r/r HEART: no murmurs, S1 normal and S2 normal ABDOMEN: abdomen soft, tenderness with palpation across the lower abdomen, normo-active bowel sounds, no masses, no rebound or guarding. BACK: Back is symmetrical on inspection and there is no deformity, no midline tenderness, no CVA tenderness. SKIN: no rashes, petechiae, orbruising UPPER EXTREMITIES: upper extremities are grossly normal. FROM, nml pulses b/l. LOWER EXTREMITIES: No pitting edema. FROM, nml pulses b/l. NEURO EXAM: Normal sensorium, cranial nerves II-XII grossly intact, normal speech, no facial droop,nogross weakness of arms, no gross weakness of legs. Gross sensation intact. No ataxia. Vital Signs: reviewed and remarkable Differential Diagnosis: Differential diagnoses includes but is not limited to small bowel obstruction, ischemic bowel, irritable bowel disease, irritable bowel syndrome, appendicitis, diverticulitis, malignancy, hernia, urinary tract infection, perforation, complicated diverticulitis, Flora syndrome MEDICAL DECISION MAKING: THis is a 72 yo female with a history of diverticulitis and recent treatment for diverticulitis who presents with worsening pain, nausea, decreased oral intake, and increased fatigue. Prior virtual colonoscopy concerning for diverticulitis as well as possible mass/malignancy but also revealed severe diverticulitis. Patient with worsening symptoms despite outpatient treatment. VS stable on arrival although patient appeared clinically dehydrated. Labs drawn and sent, IV established, pt started on IVF and given morphine for pain and zofran for nausea. She was sent for CT a/p which revealed diverticulitis. Patient started on IV zosyn and flagyl. DUe to persistent pain requiring multiple doses of IV narcotics, dehydration, and recent failed outpatient treatment, case was discussed with hospitalist. All results discussed with patient at bedside. Consultation(s): [] ER Treatment Provided: See below Diagnostics Interpreted By Me: -ECG: [] -Cardiac Monitoring: An order was placed for continuous cardiac monitoring. The monitor shows a rate of [] with [] rhythm. -Laboratory studies: As stated above and show below. 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 Depression Diverticulitis Fibromyalgia GERD without esophagitis History of diverticulitis Hyperlipidemia Hypertension Osteoporosis last Dexa noted 2019 Pre-diabetes Slow to wake up after anesthesia "a long time ago after tonsillectomy as a child", no issues since Suprapubic pain 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 Tobacco abuse still currently smokes Surgical History H/O abdominoplasty History of cholecystectomy History of esophagogastroduodenoscopy (EGD) History of tonsillectomy Hx of appendectomy Hx of breast implants, bilateral Hx of colonoscopy Hx of tubal ligation Previous back surgery 2016 Family History Mother Myocardial infarction Stroke Father Cancer Denies family history of Ovarian cancer Prostate cancer Breast cancer Colorectal cancer Social History Smoking Status: Current every day smoker Tobacco Type: Cigarettes Age Started Using Tobacco: 37; packs per day: 1; Cigarettes Per Day: 20; Second Hand Exposure: No; Hx Alcohol Use: No Hx Substance Use: No Preferred Language: Armenian Communication Ability: Effective Visual Impairment: Limited Hearing Ability: Normal Consultant In Ergonomics And Safety Required: No Beliefs That Will Affect Care: None marital status: Current Living Situation: Family Current Living Situation Comment: living w son How many Children do You have: 2 Other Information That Helps Us Care for You: No Feels Safe at Home: Yes Safety Concerns: Feels Safe At This Time Childhood Exposure to Second-Hand Smoke: Yes caffeine: Yes during the past year weight has: increased > 10 lbs Dental Care, Regularly: Yes Physical Activity Frequency: Does not Exercise Seatbelt Use: always Sunscreen Use: Yes Assistive Devices: None Allergies Allergies Allergy/AdvReac Type Severity Reaction Status Date / Time No Known Allergies Allergy Verified 07/14/22 20:51 Home Meds Home Medications Medication Instructions Recorded Confirmed atorvastatin 80 mg tablet 80 mg PO HS 03/20/22 07/14/22 omeprazole 40 mg capsule,delayed 40 mg PO HS 03/20/22 07/14/22 release metoprolol tartrate 25 mg tablet 25 mg PO BID 07/14/22 07/14/22 Previous Rx's Medication Instructions Recorded potassium chloride 20 mEq 20 meq PO BID 2 weeks #28 tabs 07/02/22 tablet,extended release(part/cryst) Results & Data (ED) Vital Signs Vital Signs - 24 hr 07/14/22 14:41 07/14/22 18:27 Temperature 37.1 C Temperature Source Temporal Artery Scan Pulse Rate 105 H Pulse Rate [Apical] 76 Respiratory Rate 18 16 Respiratory Effort / Characteristics Non-Labored Spontaneous Respiratory Depth Normal Respiratory Pattern Regular Blood Pressure 123/74 Blood Pressure [Left Arm] 106/52 L Blood Pressure Mean 90 Blood Pressure Mean [Left Arm] 70 Blood Pressure Position Sitting Pulse Oximetry 96 97 Oxygen Delivery Method Room Air Room Air Sepsis Recent Fever Within 48 Hours No Sepsis New/Unexplained Change in Mental Status N/A Sepsis Action Taken by Nursing No Action Required Laboratory Data 07/14/22 16:10 07/14/22 16:10 Lab Results 07/14/22 07/14/22 07/14/22 Range/Units 16:10 16:10 19:00 WBC 10.40 (4.8-10.8) K/ul RBC 3.72 L (4.20-5.40) M/uL Hgb 12.5 (12.0-16.0) g/dl Hct 36.9 L (37.0-47.0) % MCV 99.2 (80.0-100.0) fL MCH 33.6 (25.0-34.0) pg MCHC 33.9 (32.0-36.0) g/dL RDW Std Deviation 46.6 H (36.4-46.3) fL RDW Coeff of Armand 13.1 (11.5-14.5) % Plt Count 379 (130-400) K/uL MPV 9.3 L (9.4-12.4) fL Immature Gran % (Auto) 0.5 % Neut % (Auto) 63.4 % Lymph % (Auto) 30.4 % Randolph % (Auto) 4.5 % Eos % (Auto) 0.9 % Baso % (Auto) 0.3 % Neut # (Auto) 6.60 H (1.40-6.50) K/uL Lymph # (Auto) 3.16 (1.2-3.4) K/uL Randolph # (Auto) 0.47 (0.11-0.59) K/uL Eos # (Auto) 0.09 (0-0.50) K/uL Baso # (Auto) 0.03 (0-0.2) K/uL Immature Gran # (Auto) 0.05 (0.01-0.20) K/uL Sodium 139 (136-145) mmol/L Potassium 4.2 (3.5-5.1) mmol/L Chloride 104 (98-107) mmol/L Carbon Dioxide 30 (21-32) mmol/L Anion Gap 5 (3-11) BUN 9 (6-23) mg/dl Creatinine 0.85 (0.6-1.2) mg/dl Est Cr Clr Drug Dosing 53.2 ml/min Est GFR ( Amer) 80.5 ml/min Est GFR (Non-Af Amer) 69.4 ml/min BUN/Creatinine Ratio 10.6 (10-20) Glucose 101 H (70-99(Fasting)) mg/dl Calcium 9.2 (8.5-10.1) mg/dl Total Bilirubin 0.7 (0.2-1.0) mg/dl AST 9 L (13-39) U/L ALT 4 L (7-52) U/L Alkaline Phosphatase 110 H (34-104) U/L Total Protein 7.4 (6.0-8.3) gm/dl Albumin 4.0 (3.4-5.0) gm/dl Globulin 3.4 (2.5-4.0) gm/dl Albumin/Globulin Ratio 1.2 (0.9-2) Lipase 25 (11-82) U/L SARS-CoV-2, RNA, NAAT NEGATIVE (NEGATIVE) Administered Medications Atorvastatin Calcium (Atorvastatin 40 Mg Tab) 80 mg PO HS MARYLU Stop: 08/13/22 21:34 Last Admin: 07/15/22 20:01 Dose: 80 mg Documented By: Admin: 07/14/22 22:24 Dose: 80 mg Documented By: CONSUELO Acetaminophen (Ofirmev) 1,000 mg in 100 mls @ 400 mls/hr IV Q8H PRN PRN Reason: mild pain (1,2,3) Stop: 07/17/22 21:34 Last Infusion: 07/15/22 11:04 Dose: 0 mls/hr Documented By: Admin: 07/15/22 09:24 Dose: 400 mls/hr Documented By: ANNI Lactated Ringer's (Lr) 1,000 mls @ 105 mls/hr IV .Q9H32M MARYLU Stop: 08/13/22 21:34 Last Admin: 07/15/22 20:55 Dose: 105 mls/hr Documented By: Infusion: 07/15/22 15:35 Dose: 105 mls/hr Documented By: Admin: 07/15/22 06:03 Dose: 105 mls/hr Documented By: Infusion: 07/15/22 06:03 Dose: 105 mls/hr Documented By: TKEbony Admin: 07/14/22 22:20 Dose: 105 mls/hr Documented By: TKEbony Piperacillin Sod/Tazobactam (Sod 4.5 gm/ Dextrose) 120 mls @ 30 mls/hr IV Q8H MARYLU; Protocol Stop: 07/25/22 02:59 Last Admin: 07/15/22 20:00 Dose: 30 mls/hr Documented By: Infusion: 07/15/22 16:20 Dose: 0 mls/hr Documented By: SMJuliet Admin: 07/15/22 11:59 Dose: 30 mls/hr Documented By: Infusion: 07/15/22 06:01 Dose: 0 mls/hr Documented By: Admin: 07/15/22 02:00 Dose: 30 mls/hr Documented By: CONSUELO Metoprolol Tartrate (Metoprolol Tartrate 25 Mg Tab) 25 mg PO BID MARYLU Stop: 08/13/22 21:34 Last Admin: 07/15/22 20:01 Dose: 25 mg Documented By: Admin: 07/15/22 09:24 Dose: Not Given Documented By: Admin: 07/14/22 22:26 Dose: Not Given Documented By: CONSUELO Pantoprazole Sodium (Pantoprazole 40 Mg Tab) 40 mg PO HS MARYLU Stop: 08/13/22 21:59 Last Admin: 07/15/22 20:01 Dose: 40 mg Documented By: Admin: 07/14/22 22:24 Dose: 40 mg Documented By: CONSUELO Potassium Chloride (Potassium Chloride Crtab 20 Meq Tabcr) 20 meq PO BID [facility] Stop: 08/13/22 21:34 Last Admin: 07/15/22 20:00 Dose: 20 meq Documented By: Admin: 07/15/22 09:24 Dose: Not Given Documented By: SMJuliet Admin: 07/14/22 22:24 Dose: 20 meq Documented By: TKEbony Discontinued Medications Sodium Chloride (Nss 1000ml) 1,000 mls @ 250 mls/hr IV .Q4H MARYLU Stop: 08/13/22 17:44 Last Infusion: 07/14/22 22:06 Dose: 0 mls/hr Documented By: Admin: 07/14/22 20:53 Dose: 250 mls/hr Documented By: Infusion: 07/14/22 20:53 Dose: 250 mls/hr Documented By: Admin: 07/14/22 17:52 Dose: 250 mls/hr Documented By: ZAINAB Acetaminophen (Ofirmev) 1,000 mg in 100 mls @ 400 mls/hr IV NOW STA Stop: 07/14/22 17:46 Last Infusion: 07/14/22 18:06 Dose: 0 mls/hr Documented By: Admin: 07/14/22 17:51 Dose: 400 mls/hr Documented By: ZAINAB Piperacillin Sod/Tazobactam Sod (Zosyn) 4.5 gm in 120 mls @ 240 mls/hr IV NOW O NE Stop: 07/14/22 19:06 Last Infusion: 07/14/22 19:42 Dose: 0 mls/hr Documented By: Admin: 07/14/22 19:04 Dose: 240 mls/hr Documented By: MARTHA Metronidazole (Flagyl) 500 mg in 100 mls @ 100 mls/hr IV NOW STA Stop: 07/14/22 19:52 Last Infusion: 07/14/22 20:54 Dose: 0 mls/hr Documented By: Admin: 07/14/22 19:47 Dose: 100 mls/hr Documented By: MARTHA Ioversol (Optiray 350 100ml) 87 ml IV ONCE ONE Stop: 07/14/22 18:14 Last Admin: 07/14/22 18:13 Dose: 87 ml Documented By: ELMA Morphine Sulfate (Morphine Sulfate 4 Mg/Ml 1 Ml Carp\\Vial) 4 mg IV NOW STA Stop: 07/14/22 17:33 Last Admin: 07/14/22 17:51 Dose: 4 mg Documented By: ZAINAB Morphine Sulfate (Morphine Sulfate 4 Mg/Ml 1 Ml Carp\\Vial) 4 mg IV NOW STA Stop: 07/14/22 18:54 Last Admin: 07/14/22 19:05 Dose: 4 mg Documented By: MARTHA Ondansetron HCl (Ondansetron Inj 2 Mg/Ml 2 Ml Vial) 4 mg IV NOW STA Stop: 07/14/22 17:33 Last Admin: 07/14/22 17:52 Dose: 4 mg Documented By: [facility] Imaging Data Radiologist's Impression: Abdomen/Pelvis CT 07/14/22 17:32 CT SCAN OF THE ABDOMEN AND PELVIS WITH IV CONTRAST CLINICAL HISTORY: Lower abdominal pain. Reported history of recent diverticulitis. COMPARISON STUDY: Abdominal CT dated 12/06/2020. TECHNIQUE: Following the IV administration of 87 cc of Optiray 350, CT scan of the abdomen and pelvis is performed from the lung bases to the proximal femora. Images are reviewed in the axial, sagittal, and coronal planes. IV contrast was administered without complication. A dose lowering technique was utilized adhering to the principles of ALARA. CT DOSE: 359.03 mGy.cm FINDINGS: Lung bases: The heart is normal in size and without pericardial effusion. The ashvin ng bases are clear noted bibasilar atelectasis. Bilateral breast implants are partially visualized. Liver: The contrast-enhanced liver is normal in size, contour, and attenuation. There is minimal central intrahepatic biliary ductal dilatation. The hepatic veins and portal veins are patent. Gallbladder: Surgically absent noting clips in the gallbladder fossa. Spleen: Normal in size and attenuation. There are calcified splenic granulomas. Pancreas: Unremarkable. Adrenal glands: Unremarkable. Kidneys: The contrast enhanced kidneys are normal in size and without hydronephrosis. The kidneys enhance symmetrically. Scattered subcentimeter cor tical hypodensities likely represent cysts but are too small for definitive characterization. Abdominal vasculature: The abdominal aorta is normal in course and caliber notin g advanced atherosclerotic calcification. Bowel: There is moderate colonic diverticulosis. There are significant wall thickening and edema involving the sigmoid colon with surrounding inflammation consistent with acute diverticulitis. No organized/drainable fluid collection is seen to indicate abscess. No bowel obstruction is seen. There are mildly thick- walled loops of small bowel in the pelvis adjacent to the diverticular disease. Mild fecal retention is noted in the right colon. Prominent fluid filled loops of small bowel may represent a mild ileus. The appendix is not identified and reported surgically absent. Peritoneum: There is no intraperitoneal free air or abdominal ascites. Lymphadenopathy: None. Pelvic viscera: The bladder, uterus, and adnexa are normal as visualized. Skeletal structures: The skeletal structures are osteopenic. No lytic or blastic lesions are seen. 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 Mild lumbosacral spondylosis is observed. IMPRESSION: 1. Acute diverticulitis of the sigmoid colon. 2. No intraperitoneal free air is identified and there is no organized fluid collection to suggest abscess. 3. Mild wall thickening involving loops of small bowel in the pelvis is likely related to adjacent diverticulitis. 4. There is no bowel obstruction. Prominent loops of fluid-filled small bowel may represent a mild ileus. Clinical correlation will be required. 5. Additional findings as above. ACT 112: Negative or not required by law. Electronically signed by: Narinder Velasquez M.D. 07/14/2022 6:26 PM Discharge Plan Visit Data Chief Complaint: Abdominal Pain Stated Complaint: SEVERE LOWER ABD PAIN ED Provider: Abi Smith Discharge Problem: Abdominal pain, Nausea & vomiting, Diverticulitis, Failure of outpatient treatment Patient Disposition: Admitted As Inpatient Discharge Instructions Interventions: ED Discharge Assessment Last Done: 07/14/22 21:30
[2022-07-14] MEDS: SODIUM CHLORIDE 0.9% 1000ML 1,000 ML IV SCH ×2 (17:52→20:53)
[2022-07-14] MEDS ORDERED: OPTIRAY 350 100ml IV ONE (18:13)
--- NOTE | 2022-07-14 18:28 | CT Scan Report ---
CT SCAN OF THE ABDOMEN AND PELVIS WITH IV CONTRAST CLINICAL HISTORY: Lower abdominal pain. Reported history of recent diverticulitis. COMPARISON STUDY: Abdominal CT dated 12/06/2020. TECHNIQUE: Following the IV administration of 87 cc of Optiray 350, CT scan of the abdomen and pelvi s is performed from the lung bases to the proximal femora. Images are reviewed in the axial, sagittal , and coronal planes. IV contrast was administered without complication. A dose lowering technique wa s utilized adhering to the principles of ALARA. CT DOSE: 359.03 mGy.cm FINDINGS: Lung bases: The heart is normal in size and without pericardial effusion. The lung bases are clear no billie bibasilar atelectasis. Bilateral breast implants are partially visualized. Liver: The contrast-enhanced liver is normal in size, contour, and attenuation. There is minimal cent ral intrahepatic biliary ductal dilatation. The hepatic veins and portal veins are patent. Gallbladder: Surgically absent noting clips in the gallbladder fossa. Spleen: Normal in size and attenuation. There are calcified splenic granulomas. Pancreas: Unremarkable. Adrenal glands: Unremarkable. Kidneys: The contrast enhanced kidneys are normal in size and without hydronephrosis. The kidneys enh ance symmetrically. Scattered subcentimeter cortical hypodensities likely represent cysts but are too small for definitive characterization. Abdominal vasculature: The abdominal aorta is normal in course and caliber noting advanced atheroscle rotic calcification. Bowel: There is moderate colonic diverticulosis. There are significant wall thickening and edema invo lving the sigmoid colon with surrounding inflammation consistent with acute diverticulitis. No organi zed/drainable fluid collection is seen to indicate abscess. No bowel obstruction is seen. There are m ildly thick-walled loops of small bowel in the pelvis adjacent to the diverticular disease. Mild feca l retention is noted in the right colon. Prominent fluid filled loops of small bowel may represent a mild ileus. The appendix is not identified and reported surgically absent. Peritoneum: There is no intraperitoneal free air or abdominal ascites. Lymphadenopathy: None. Pelvic viscera: The bladder, uterus, and adnexa are normal as visualized. Skeletal structures: The skeletal structures are osteopenic. No lytic or blastic lesions are seen. Th ere is a right-sided pars defect at L5. Mild lumbosacral spondylosis is observed. IMPRESSION: 1. Acute diverticulitis of the sigmoid colon. 2. No intraperitoneal free air is identified and there is no organized fluid collection to suggest ab scess. 3. Mild wall thickening involving loops of small bowel in the pelvis is likely related to adjacent di verticulitis. 4. There is no bowel obstruction. Prominent loops of fluid-filled small bowel may represent a mild il eus. Clinical correlation will be required. 5. Additional findings as above. ACT 112: Negative or not required by law. Electronically signed by: Narinder Velasquez M.D. 07/14/2022 6:26 PM
[2022-07-14] MEDS ORDERED: PIPERACILLIN/TAZOBACTAM 4.5 GM/120 ML BAG IV ONE (18:37)
[2022-07-14] MEDS ORDERED: metroNIDAZOLE 500 MG/100 ML BAG IV STA (18:53)
--- NOTE | 2022-07-14 19:53 | History & Physical Report ---
Date of Service July 14, 2022 Assessment & Plan (1) Diverticulitis: Plan: CT A/P showing acute sigmoid diverticulitis without abscess or perforation. Also with mild wall thickening involving loops of small bowel likely related to diverticulitis. Also with prominent loops of fluid-filled small bowel representing mild ileus. Persistent despite Cipro/Flagyl x10 days. - s/p Zosyn/Flagyl in ED - continue with Zosyn monotherapy - ordered blood cx (not taken before initation of abx) - s/p 1L NSS bolus - continue with full maintenance IVFs with LR @105cc/hr - maintain NPO status due to mild ileus and nausea with intolerance of PO intake - PRN Zofran for N/V - PRN graduated pain regimen: Tylenol 1g IV; Morphine 2mg IV; Morphine 4mg IV - trend CBC in AM (2) Abnormal CT scan, sigmoid colon: Plan: Virtual colonoscopy on 06/27 (done by Dr. Broderick) showed 8cm circumferential mass involving proximal sigmoid colon - smooth muscle hypertrophy vs colonic neoplasm with recs for further eval/biopsy. May be contributing to CT appearance of diverticulitis as well as ileus. - consult GI - appreciate recs (3) Hyperlipidemia: Plan: Continue home Atorvastatin (4) Hypertension: Plan: Normotensive thus far. Continue home Metoprolol tartrate. (5) Tobacco abuse: Plan: 40 pack year smoking history, currently 1ppd. - counseled on cessation (6) GERD without esophagitis: Plan: Protonix per hospital formulary. PRN Zofran as stated above. Plan FEN/GI: NPO, LR @105cc/hr DVT Prophylaxis: SCDs, will hold on chemoppx for now (pending GI recs) Code Status: full Disposition: med/surg History of Present Illness Chief Complaint: abdominal pain Primary Care Provider: EWA Escobar Alba Emanuel is a 72yo female with PMHx significant for HLD and tobacco use disorder (40 pack year history, currently 1ppd) who presented to [facility] ED for for persistent abdominal pain and nausea despite recent 10-day course of Cipro/Flagyl for diverticulitis.Patient states the end of June she had a virtual colonoscopy performed at [facility] and was diagnosed with severe diverticulitis. Of note the colonoscopy also showed 8cm circumferential mass involving proximal sigmoid colon - smooth muscle hypertrophy vs colonic neoplasm with recs for further eval/biopsy. Patient states she had multiple episodes of diverticulitis previously and they typically get better with Cipro and Flagyl.She states she was started on Cipro and Flagyl and had finished a 10-day course but was not feeling any better and since now finishing the course she has begun to feel worse.She states she is fatigued, has abdominal bloating, has had minimal stool out, has nausea and decreased appetite as well as intermittent subjective fever/chills.No hematochezia/melena. In the ED the patient was afebrile and hemodynamically stable on room air. CBC/CMP/lipase WNL. UA clean. CT A/P showing acute sigmoid diverticulitis wi thout abscess or perforation. Also with mild wall thickening involving loops of small bowel likely related to diverticulitis. Also with prominent loops of fluid-filled small bowel representing mild ileus. Patient was given Tylenol 1g, Morphine 4mg IV x2, NSS 1L bolus, Zofran 4mg IV, and Zosyn/Flagyl. Allergies Allergy/AdvReac Type Severity Reaction Status Date / Time No Known Allergies Allergy Verified 07/14/22 20:51 Home Medications Medication Instructions Recorded Confirmed Type atorvastatin 80 mg tablet 80 mg PO HS 03/20/22 07/14/22 History omeprazole 40 mg capsule,delayed 40 mg PO HS 03/20/22 07/14/22 History release potassium chloride 20 mEq 20 meq PO BID 2 weeks #28 tabs 07/02/22 07/14/22 Rx tablet,extended release(part/cryst) metoprolol tartrate 25 mg tablet 25 mg PO BID 07/14/22 07/14/22 History 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 Depression Diverticulitis Fibromyalgia GERD without esophagitis History of diverticulitis Hyperlipidemia Hypertension Osteoporosis last Dexa noted 2018 Pre-diabetes Slow to wake up after anesthesia "a long time ago after tonsillectomy as a child", no issues since Suprapubic pain 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 Tobacco abuse still currently smokes Surgical History H/O abdominoplasty History of cholecystectomy History of esophagogastroduodenoscopy (EGD) History of tonsillectomy Hx of appendectomy Hx of breast implants, bilateral Hx of colonoscopy Hx of tubal ligation Previous back surgery 2016 Family History Mother Myocardial infarction Stroke Father Cancer Denies family history of Ovarian cancer Prostate cancer Breast cancer Colorectal cancer Social History Smoking Status: Current every day smoker Tobacco Type: Cigarettes Age Started Using Tobacco: 37; packs per day: 1; Cigarettes Per Day: 20; Second Hand Exposure: No; Hx Alcohol Use: No Hx Substance Use: No Preferred Language: Gabonese Communication Ability: Effective Visual Impairment: Limited Hearing Ability: Normal Ampoule Examiner Required: No Beliefs That Will Affect Care: None marital status: Current Living Situation: Family Current Living Situation Comment: living w son How many Children do You have: 2 Other Information That Helps Us Care for You: No Feels Safe at Home: Yes Safety Concerns: Feels Safe At This Time Childhood Exposure to Second-Hand Smoke: Yes caffeine: Yes during the past year weight has: increased > 10 lbs Dental Care, Regularly: Yes Physical Activity Frequency: Does not Exercise Seatbelt Use: always Sunscreen Use: Yes Assistive Devices: None Review of Systems Review of Systems: All systems reviewed & are unremarkable except as noted in HPI & below Physical Exam Physical Exam: General: A&Ox3. NAD. Cooperative. HEENT: Atraumatic, normocephalic. Pulm: CTAB A&P. -wheezes, -rales, -rhonchi. Symmetrical chest rise. No increase work of breathing. No respiratory distress. Cardiac: RRR, -mrg. Radial pulses intact and symmetrical. Abdominal: soft, non-distended, generalized tenderness but worst in LLQ, without guarding/rebound, hypoactive BS x 4 Skin: warm, dry, no rash Results & Data Results & Data ([facility]) Vital Signs (Past 12 Hours) Vital Signs Temp Pulse Pulse Resp BP BP Pulse Ox 07/14/22 19:11 71 07/14/22 19:04 73 16 112/56 L 93 07/14/22 18:27 76 16 106/52 L 97 07/14/22 14:41 37.1 C 105 H 18 123/74 96 O2 Del Method 07/14/22 19:11 07/14/22 19:04 Room Air 07/14/22 18:27 Room Air 07/14/22 14:41 Room Air Supervising Physician Co-Signing Physician Notes Attending addendum: I have physically seen this patient, have supervised the medical residents activities, and agree with the H&P unless as otherwise noted. Assessment and Plan: Diverticulitis- CT scan abdomen pelvis consistent with acute sigmoid diverticulitis without abscess or perforation Received Zosyn and Flagyl IV in ED Zosyn 4.5 g IV every 8 hours Follow blood culture and sensitivity Received 1 L normal saline from the ED continue with LR at 105 MLS per hour N.p.o. for now due to associated mild ileus Zofran 4 mg IV every 6 hours as needed Acetaminophen 1 g IV every 8 hours as needed mild pain or fever Morphine sulfate 2 mg IV every 4 hours as needed for moderate pain Morphine sulfate 4 mg IV every 4 hours as needed for severe pain 8 cm circumferential mass in the proximal sigmoid colon- Noted on virtual colonoscopy on 06/27/2022 Patient will need to have full colonoscopy once diverticulitis cleared Hyperlipidemia- Continue atorvastatin Hypertension- 6 continue Toprol tartrate with hold parameters Tobacco abuse- Cessation counseling Remaining orders and notations as noted Resident Activity Tracking Resident Involvement: Resident Care Provided Care Provided: Adult Hospital Medicine (3) Hyperlipidemia Hyperlipidemia type: unspecified Qualified Code(s): E78.5 - Hyperlipidemia, unspecified
[2022-07-14] MEDS ORDERED: MoRPHine SULFATE 4 MG/ML 1 ML CARP\\VIAL IV PRN (21:35)
[2022-07-14] MEDS: LACTATED RINGER'S 1,000 ML IV SCH (22:20)
[2022-07-14] MEDS: ATORVASTATIN 40 MG TAB PO SCH (22:24)
[2022-07-14] MEDS: PANTOprazole 40 MG TAB PO SCH (22:24)
[2022-07-14] MEDS: POTASSIUM CHLORIDE CRTAB 20 MEQ TABCR PO SCH (22:24)
[2022-07-14] MEDS: METOPROLOL TARTRATE 25 MG TAB PO SCH (22:26)
[2022-07-15] MEDS: PIPERACILLIN/TAZOBACTAM 4.5 GM in DEXTROSE 5% 100 ML IV SCH ×3 (02:00→20:00)
[2022-07-15] MEDS: LACTATED RINGER'S 1,000 ML IV SCH ×2 (06:03→20:55)
[2022-07-15 06:38] LABS: Basophils # (auto) 0.01 K/uL (0-0.2); Basophils % (auto) 0.1 %; Eosinophils # (auto) 0.06 K/uL (0-0.50); Eosinophils % (auto) 0.8 %; Hematocrit (blood only) 30.4 % (37.0-47.0); Hemoglobin 10.3 g/dl (12.0-16.0); Immature Granulocytes # (auto) 0.03 K/uL (0.01-0.20); Immature Granulocytes % (auto) 0.4 %; Lymphocytes # (auto) 1.66 K/uL (1.2-3.4); Lymphocytes % (auto) 21.6 %; Mean Corpuscular Hemoglobin 33.8 pg (25.0-34.0); Mean Corpuscular Hgb Conc 33.9 g/dL (32.0-36.0); Mean Corpuscular Volume 99.7 fL (80.0-100.0); Mean Platelet Volume 9.7 fL (9.4-12.4); Monocytes # (auto) 0.42 K/uL (0.11-0.59); Monocytes % (auto) 5.5 %; Neutrophils # (auto) 5.51 K/uL (1.40-6.50); Neutrophils % (auto) 71.6 %; Platelet Count 285 K/uL (130-400); RDW Coefficient of Variation 12.9 % (11.5-14.5); RDW Standard Deviation 47.4 fL (36.4-46.3); Red Blood Count 3.05 M/uL (4.20-5.40); White Blood Count 7.69 K/ul (4.8-10.8)
[2022-07-15 06:43] LABS: BUN Creatinine Ratio 8.6 (10-20); Calcium 8.1 mg/dl (8.5-10.1); Creatinine Clr Calc Pharmacy 48.6 ml/min; Est GFR (African American) 72.2 ml/min; Est GFR (Non-African American) 62.3 ml/min; Magnesium 2.1 mg/dl (1.7-2.4); Potassium 4.2 mmol/L (3.5-5.1)
[2022-07-15] MEDS: ACETAMINOPHEN 1,000 MG/100 ML VIAL IV PRN (09:24)
[2022-07-15] MEDS: POTASSIUM CHLORIDE CRTAB 20 MEQ TABCR PO SCH ×2 (09:24→20:00)
[2022-07-15] MEDS: METOPROLOL TARTRATE 25 MG TAB PO SCH ×2 (09:24→20:01)
--- NOTE | 2022-07-15 10:49 | Gastrointestinal Consultation ---
Date of Consultation July 15, 2022 Assessment & Plan (1) Diverticulitis: -Continue IV Zosyn -Ok to advance to liquid diet -Pain control -Consider bowel regimen with Miralax 17 gm daily -Avoid fiber supplementation during acute flare -See #2 (2) Abnormal CT scan, sigmoid colon: Patient is being arranged to see an advanced endoscopist at a tertiary center for further evaluation of this finding. The 8 cm circumferential mass seen on CT colonography is likely due to hypertrophic smooth muscle thickening in the setting of recurrent diverticulitis, however will need direct visualization/biopsy to rule out neoplasm. The CT colonography also identified several large polyps that will need addressed as well. Would avoid colonoscopy evaluation for 6-8 weeks after acute diverticulitis. History of Present Illness Reason for Consultation: Diverticulitis Attending Physician: Jonathan Morgan History of Present Illness Patient is a 72 yo female with PMH of hypertension, GERD, osteoporosis, tobacco abuse, depression, fibromyalgia, hyperlipidemia, & recurrent diverticulitis. In March 2022, she underwent a colonoscopy that indicated significant diverticulosis of the sigmoid colon and the pediatric endoscope was unable to be advanced beyond the sigmoid colon so the procedure was aborted. She was advised to have a virtual colonoscopy which was performed on 06/27/22. This indicated extensive diverticulosis with acute sigmoid diverticulitis with long segment circumferential thickening of the sigmoid colon. This area indicated an 8 cm circumferential mass that appears to be either smooth muscle hypertrophy vs neoplasm. She was treated with po Cipro & Flagyl, however did not improve. She notes that her abdominal pain became so unbearable that she presented to the ED. She is now on IV Zosyn and IV Morphine and has had improvement of her symptoms. She notes constipation but she is now passing gas. She is NPO. She is very thirsty. She denies other new complaints. Outpatient GI clinic nursing staff is arranging an appointment with an advanced endoscopist at a tertiary center for further evaluation of CT findings once her diverticulitis resolves. She notes family history of GI malignancy but notes family history of diverticulitis. H/H 10.3/30.4. WBC count 7,690. Allergies Allergy/AdvReac Type Severity Reaction Status Date / Time No Known Allergies Allergy Verified 07/14/22 20:51 Home Medications Medication Instructions Recorded Confirmed Type atorvastatin 80 mg tablet 80 mg PO HS 03/20/22 07/14/22 History omeprazole 40 mg capsule,delayed 40 mg PO HS 03/20/22 07/14/22 History release potassium chloride 20 mEq 20 meq PO BID 2 weeks #28 tabs 07/02/22 07/14/22 Rx tablet,extended release(part/cryst) metoprolol tartrate 25 mg tablet 25 mg PO BID 07/14/22 07/14/22 History Patient History Medical History Abnormal CT scan, sigmoid colon (06/27/22) 8 cm 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 Depression Diverticulitis Fibromyalgia GERD without esophagitis History of diverticulitis Hyperlipidemia Hypertension Osteoporosis last Dexa noted 2018 Pre-diabetes Slow to wake up after anesthesia "a long time ago after tonsillectomy as a child", no issues since Suprapubic pain 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 Tobacco abuse still currently smokes Surgical History H/O abdominoplasty History of cholecystectomy History of esophagogastroduodenoscopy (EGD) History of tonsillectomy Hx of appendectomy Hx of breast implants, bilateral Hx of colonoscopy Hx of tubal ligation Previous back surgery 2016 Family History Mother Myocardial infarction Stroke Father Cancer Denies family history of Ovarian cancer Prostate cancer Breast cancer Colorectal cancer Social History Smoking Status: Current every day smoker Tobacco Type: Cigarettes Age Started Using Tobacco: 37; packs per day: 1; Cigarettes Per Day: 20; Second Hand Exposure: No; Hx Alcohol Use: No Hx Substance Use: No Preferred Language: Welsh Communication Ability: Effective Visual Impairment: Limited Hearing Ability: Normal Embedded Engineer Required: No Beliefs That Will Affect Care: None marital status: Current Living Situation: Family Current Living Situation Comment: living w son How many Children do You have: 2 Other Information That Helps Us Care for You: No Feels Safe at Home: Yes Safety Concerns: Feels Safe At This Time Childhood Exposure to Second-Hand Smoke: Yes caffeine: Yes during the past year weight has: increased > 10 lbs Dental Care, Regularly: Yes Physical Activity Frequency: Does not Exercise Seatbelt Use: always Sunscreen Use: Yes Assistive Devices: None Review of Systems Constitutional: no fever and no chills Respiratory: no cough and no dyspnea Cardiovascular: no chest pain Gastrointestinal: + abdominal pain (improving) and + constipation Psychiatric: no problem reported Physical Exam Constitutional: well developed Respiratory: normal respiratory effort Gastrointestinal (Abdomen): normal bowel sounds, soft, nontender, no hepatosplenomegaly Psychiatric: A+Ox3, euthymic affect Results & Data ([facility]) Vital Signs (Past 12 Hours) Vital Signs Temp Pulse Resp BP Pulse Ox O2 Del Method 07/15/22 07:34 37.3 C 86 18 97/62 L 97 Room Air 07/15/22 00:01 35.5 C L 69 16 103/62 96 Room Air 07/14/22 23:05 36.4 C L 68 14 97/68 L 97 Room Air PG Care Time/CCT Total # of Minutes Spent Total Time Spent with Patient: Total time spent is greater than 50% in coordination of care (as documented) at patient's floor/unit and/or counseling patient: Coding Level of Care Code INP/OBS CONSULT LVL 4, 60 MIN Diagnoses Diverticulitis K57.[address] scan, sigmoid colon R93.3
--- NOTE | 2022-07-15 16:30 | Surgery Consultation ---
Date of Consultation July 15, 2022 Assessment & Plan (1) Abdominal pain: (2) Diverticulitis: (3) Abnormal CT scan, sigmoid colon: Plan 72-year-old female with history of recurrent episodes of diverticulitis treated with oral antibiotics for 10+ years presented to the emergency room with increasing abdominal pain with no significant improvement of her symptoms with a 10-day course of oral Cipro and Flagyl. She had a colonoscopy in March 2022 in which scope was not able to be traversed past the sigmoid colon and then underwent a virtual CT colonoscopy on 06/27/2022 which showed acute sigmoid diverticulitis with 8 cm circumferential mass versus thickening. She has not easton d any biopsy. CT scan here showing significant acute sigmoid diverticulitis with no evidence of obstruction, perforation, abscess. She has no leukocytosis, afebrile and her pain is improving with IV Zosyn. Plan: Dr. Harrison and I reviewed patient's CT scan from 07/14/[address] Chen in radiology. He believes based on her history that this is a episode of severe acute and chronic sigmoid diverticulitis with significant surrounding inflammation. There is some reactive lymph nodes however these are not significantly increased in size to suggest this might be a neoplasm. Dr. Laureano discussed with patient her imaging findings are consistent with a severe acute diverticulitis and with this we would recommend conservative management with IV antibiotics, pain management as needed, IV antiemetics emetics as needed, and slow advancement of diet (will revert back to clear liquids as she had pain with full liquids). She will need an advanced endoscopist for colonoscopy when she is out of this acute phase for colonoscopy and possible biopsy. Given her recurrent episodes of diverticulitis for 10+ years and this episode of severe diverticulitis causing admission she will need surgical management of her diverticulitis once she is through this acute phase. She she has expressed interest in seeing colorectal specialist Dr. Cohen from [facility]. Dr. Harrison has seen and examined patient and agrees with above. Please see addendum for further recommendations/plan History of Present Illness Reason for Consultation: Sigmoid diverticulitis with possible mass Requesting Physician: Tasneem Sánchez PA-C Attending Physician: Jonathan Morgan History of Present Illness Alba is a pleasant 72-year-old female with history of recurrent diverticulitis for 10+ years treated with oral antibiotics on multiple occasions, hypertension, prediabetes, osteoporosis, GERD, depression, fibromyalgia, hyperlipidemia who presented to the emergency room with increasing abdominal pain in the setting of recent 10-day course of oral Cipro and Flagyl for acute diverticulitis. Her history is pertinent for a colonoscopy for screening purposes in March in which a colonoscopy scope was unable to be traversed through the sigmoid colon. She then had a virtual CT colonoscopy on 06/27/2022 at [facility] which showed Extensive colonic diverticulitis involving the proximal sigmoid colon with 8 cm 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 and a few colonic polyps. She states she presented to the emergency room because her pain was not improving and she was not feeling any better with oral antibiotics. She had significant abdominal pain. She states that her bowel movements have been irregular for many years usually thin in nature. However recently she has noticed decrease bowel movements with her last bowel movement being 5 days and has been passing some mucus and some blood as well. She denies of any significant unintentional weight loss. There is no significant family history of colon cancer. CT scan of abdomen and pelvis with IV contrast yesterday showing significant acute sigmoid diverticulitis however no evidence of obstruction or perforation or abscess. She has no leukocytosis. She is hemodynamically stable. She states her pain is significantly improved since presentation to the emergency room. And she has noticed improvement with IV antibiotics. She did start some full liquids for lunch and started having some abdominal pain and nausea. Has not had any vomiting here in the hospital. She denies of any stool in her urine or passing any gas within her urine stream. Allergies Allergy/AdvReac Type Severity Reaction Status Date / Time No Known Allergies Allergy Verified 07/14/22 20:51 Home Medications Medication Instructions Recorded Confirmed Type atorvastatin 80 mg tablet 80 mg PO HS 03/20/22 07/14/22 History omeprazole 40 mg capsule,delayed 40 mg PO HS 03/20/22 07/14/22 History release potassium chloride 20 mEq 20 meq PO BID 2 weeks #28 tabs 07/02/22 07/14/22 Rx tablet,extended release(part/cryst) metoprolol tartrate 25 mg tablet 25 mg PO BID 07/14/22 07/14/22 History Patient History Medical History Abnormal CT scan, sigmoid colon (06/27/22) 8 cm 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 Depression Diverticulitis Fibromyalgia GERD without esophagitis History of diverticulitis Hyperlipidemia Hypertension Osteoporosis last Dexa noted 2019 Pre-diabetes Slow to wake up after anesthesia "a long time ago after tonsillectomy as a child", no issues since Suprapubic pain 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 Tobacco abuse still currently smokes Surgical History H/O abdominoplasty History of cholecystectomy History of esophagogastroduodenoscopy (EGD) History of tonsillectomy Hx of appendectomy Hx of breast implants, bilateral Hx of colonoscopy Hx of tubal ligation Previous back surgery 2016 Family History Mother Myocardial infarction Stroke Father Cancer Denies family history of Ovarian cancer Prostate cancer Breast cancer Colorectal cancer Social History Smoking Status: Current every day smoker Tobacco Type: Cigarettes Age Started Using Tobacco: 37; packs per day: 1; Cigarettes Per Day: 20; Second Hand Exposure: No; Hx Alcohol Use: No Hx Substance Use: No Preferred Language: [place] Communication Ability: Effective Visual Impairment: Limited Hearing Ability: Normal Test Rider Required: No Beliefs That Will Affect Care: None marital status: Current Living Situation: Family Current Living Situation Comment: living w son How many Children do You have: 2 Other Information That Helps Us Care for You: No Feels Safe at Home: Yes Safety Concerns: Feels Safe At This Time Childhood Exposure to Second-Hand Smoke: Yes caffeine: Yes during the past year weight has: increased > 10 lbs Dental Care, Regularly: Yes Physical Activity Frequency: Does not Exercise Seatbelt Use: always Sunscreen Use: Yes Assistive Devices: None Review of Systems Review of Systems: All systems reviewed & are unremarkable except as noted in HPI & below Physical Exam Constitutional: WD/WN, vitals as above well groomed, cooperative, comfortable and + overweight; no acute distress, not ill appearing and not frail appearing Neck: normal visual inspection and trachea midline Respiratory: normal respiratory effort; no respiratory distress, no labored breathing and no retractions Gastrointestinal (Abdomen): Inspection/Auscultation: + abdomen distended (mild distention), normal bowel sounds and + abdominal surgical scar (lower midline transverse abdominoplasty scar); no high-pitched sounds Percussion/Palpation: + abdomen tender (lower abdomen more on the LLQ ) and abdomen soft; no guarding, abdomen not rigid and abdomen not firm Skin: no rashes, warm and dry Psychiatric: Orientation: alert and oriented x 3 Results & Data ([facility]) Vital Signs (Past 12 Hours) Vital Signs Temp Pulse Pulse Resp BP Pulse Ox O2 Del Method 07/15/22 15:24 36.8 C 72 18 150/80 H 99 Room Air 07/15/22 07:34 37.3 C 86 18 97/62 L 97 Room Air Laboratory Results 07/15/22 07/15/22 07/14/22 Range/Units 05:51 05:51 Unknown WBC 7.69 (4.8-10.8) K/ul RBC 3.05 L (4.20-5.40) M/uL Hgb 10.3 L (12.0-16.0) g/dl Hct 30.4 L (37.0-47.0) % MCV 99.7 (80.0-100.0) fL MCH 33.8 (25.0-34.0) pg MCHC 33.9 (32.0-36.0) g/dL RDW Std Deviation 47.4 H (36.4-46.3) fL RDW Coeff of Armand 12.9 (11.5-14.5) % Plt Count 285 (130-400) K/uL MPV 9.7 (9.4-12.4) fL Immature Gran % (Auto) 0.4 % Neut % (Auto) 71.6 % Lymph % (Auto) 21.6 % Placer % (Auto) 5.5 % Eos % (Auto) 0.8 % Baso % (Auto) 0.1 % Neut # (Auto) 5.51 (1.40-6.50) K/uL Lymph # (Auto) 1.66 (1.2-3.4) K/uL Placer # (Auto) 0.42 (0.11-0.59) K/uL Eos # (Auto) 0.06 (0-0.50) K/uL Baso # (Auto) 0.01 (0-0.2) K/uL Immature Gran # (Auto) 0.03 (0.01-0.20) K/uL Sodium 139 (136-145) mmol/L Potassium 4.2 (3.5-5.1) mmol/L Chloride 107 (98-107) mmol/L Carbon Dioxide 28 (21-32) mmol/L Anion Gap 4 (3-11) BUN 8 (6-23) mg/dl Creatinine 0.93 (0.6-1.2) mg/dl Est Cr Clr Drug Dosing 48.6 ml/min Est GFR ( Amer) 72.2 ml/min Est GFR (Non-Af Amer) 62.3 ml/min BUN/Creatinine Ratio 8.6 L (10-20) Glucose 104 H (70-99(Fasting)) mg/dl Calcium 8.1 L (8.5-10.1) mg/dl Magnesium 2.1 (1.7-2.4) mg/dl Total Bilirubin (0.2-1.0) mg/dl AST (13-39) U/L ALT (7-52) U/L Alkaline Phosphatase (34-104) U/L Total Protein (6.0-8.3) gm/dl Albumin (3.4-5.0) gm/dl Globulin (2.5-4.0) gm/dl Albumin/Globulin Ratio (0.9-2) Lipase (11-82) U/L Procalcitonin (0-0.5) ng/ml Urine Color Yellow Urine Appearance Clear (Clear) Urine pH 6.5 (4.5-7.5) Ur Specific [place] 1.008 (1.000-1.030) Urine Protein Negative (Negative) Urine Glucose (UA) Negative (Negative) Urine Ketones Negative (Negative) Urine Blood Negative (Negative) Urine Nitrite Negative (Negative) Urine Bilirubin Negative (Negative) Urine Urobilinogen Negative (Negative) Ur Leukocyte Esterase Negative (Negative) SARS-CoV-2, RNA, NAAT (NEGATIVE) 07/14/22 07/14/22 07/14/22 Range/Units 20:36 19:00 16:10 WBC (4.8-10.8) K/ul RBC (4.20-5.40) M/uL Hgb (12.0-16.0) g/dl Hct (37.0-47.0) % MCV (80.0-100.0) fL MCH (25.0-34.0) pg MCHC (32.0-36.0) g/dL RDW Std Deviation (36.4-46.3) fL RDW Coeff of Armand (11.5-14.5) % Plt Count (130-400) K/uL MPV (9.4-12.4) fL Immature Gran % (Auto) % Neut % (Auto) % Lymph % (Auto) % [place] % (Auto) % Eos % (Auto) % Baso % (Auto) % Neut # (Auto) (1.40-6.50) K/uL Lymph # (Auto) (1.2-3.4) K/uL [place] # (Auto) (0.11-0.59) K/uL Eos # (Auto) (0-0.50) K/uL Baso # (Auto) (0-0.2) K/uL Immature Gran # (Auto) (0.01-0.20) K/uL Sodium 139 (136-145) mmol/L Potassium 4.2 (3.5-5.1) mmol/L Chloride 104 (98-107) mmol/L Carbon Dioxide 30 (21-32) mmol/L Anion Gap 5 (3-11) BUN 9 (6-23) mg/dl Creatinine 0.85 (0.6-1.2) mg/dl Est Cr Clr Drug Dosing 53.2 ml/min Est GFR ( Amer) 80.5 ml/min Est GFR (Non-Af Amer) 69.4 ml/min BUN/Creatinine Ratio 10.6 (10-20) Glucose 101 H (70-99(Fasting)) mg/dl Calcium 9.2 (8.5-10.1) mg/dl Magnesium (1.7-2.4) mg/dl Total Bilirubin 0.7 (0.2-1.0) mg/dl AST 9 L (13-39) U/L ALT 4 L (7-52) U/L Alkaline Phosphatase 110 H (34-104) U/L Total Protein 7.4 (6.0-8.3) gm/dl Albumin 4.0 (3.4-5.0) gm/dl Globulin 3.4 (2.5-4.0) gm/dl Albumin/Globulin Ratio 1.2 (0.9-2) Lipase 25 (11-82) U/L Procalcitonin 0.10 (0-0.5) ng/ml Urine Color Urine Appearance (Clear) Urine pH (4.5-7.5) Ur Specific [place] (1.000-1.030) Urine Protein (Negative) Urine Glucose (UA) (Negative) Urine Ketones (Negative) Urine Blood (Negative) Urine Nitrite (Negative) Urine Bilirubin (Negative) Urine Urobilinogen (Negative) Ur Leukocyte Esterase (Negative) SARS-CoV-2, RNA, NAAT NEGATIVE (NEGATIVE) 07/14/22 Range/Units 16:10 WBC 10.40 (4.8-10.8) K/ul RBC 3.72 L (4.20-5.40) M/uL Hgb 12.5 (12.0-16.0) g/dl Hct 36.9 L (37.0-47.0) % MCV 99.2 (80.0-100.0) fL MCH 33.6 (25.0-34.0) pg MCHC 33.9 (32.0-36.0) g/dL RDW Std Deviation 46.6 H (36.4-46.3) fL RDW Coeff of Armand 13.1 (11.5-14.5) % Plt Count 379 (130-400) K/uL MPV 9.3 L (9.4-12.4) fL Immature Gran % (Auto) 0.5 % Neut % (Auto) 63.4 % Lymph % (Auto) 30.4 % Placer % (Auto) 4.5 % Eos % (Auto) 0.9 % Baso % (Auto) 0.3 % Neut # (Auto) 6.60 H (1.40-6.50) K/uL Lymph # (Auto) 3.16 (1.2-3.4) K/uL Pl[place] # (Auto) 0.47 (0.11-0.59) K/uL Eos # (Auto) 0.09 (0-0.50) K/uL Baso # (Auto) 0.03 (0-0.2) K/uL Immature Gran # (Auto) 0.05 (0.01-0.20) K/uL Sodium (136-145) mmol/L Potassium (3.5-5.1) mmol/L Chloride (98-107) mmol/L Carbon Dioxide (21-32) mmol/L Anion Gap (3-11) BUN (6-23) mg/dl Creatinine (0.6-1.2) mg/dl Est Cr Clr Drug Dosing ml/min Est GFR ( Amer) ml/min Est GFR (Non-Af Amer) ml/min BUN/Creatinine Ratio (10-20) Glucose (70-99(Fasting)) mg/dl Calcium (8.5-10.1) mg/dl Magnesium (1.7-2.4) mg/dl Total Bilirubin (0.2-1.0) mg/dl AST (13-39) U/L ALT (7-52) U/L Alkaline Phosphatase (34-104) U/L Total Protein (6.0-8.3) gm/dl Albumin (3.4-5.0) gm/dl Globulin (2.5-4.0) gm/dl Albumin/Globulin Ratio (0.9-2) Lipase (11-82) U/L Procalcitonin (0-0.5) ng/ml Urine Color Urine Appearance (Clear) Urine pH (4.5-7.5) Ur Specific [place] (1.000-1.030) Urine Protein (Negative) Urine Glucose (UA) (Negative) Urine Ketones (Negative) Urine Blood (Negative) Urine Nitrite (Negative) Urine Bilirubin (Negative) Urine Urobilinogen (Negative) Ur Leukocyte Esterase (Negative) SARS-CoV-2, RNA, NAAT (NEGATIVE) Diagnostic Findings CT SCAN OF THE ABDOMEN AND PELVIS WITH IV CONTRAST CLINICAL HISTORY: Lower abdominal pain. Reported history of recent diverticulitis. COMPARISON STUDY: Abdominal CT dated 12/06/2020. TECHNIQUE: Following the IV administration of 87 cc of Optiray 350, CT scan of the abdomen and pelvis is performed from the lung bases to the proximal femora. Images are reviewed in the axial, sagittal, and coronal planes. IV contrast was administered without complication. A dose lowering technique was utilized adhering to the principles of ALARA. CT DOSE: 359.03 mGy.cm FINDINGS: Lung bases: The heart is normal in size and without pericardial effusion. The lung bases are clear noted bibasilar atelectasis. Bilateral breast implants are partially visualized. Liver: The contrast-enhanced liver is normal in size, contour, and attenuation. There is minimal central intrahepatic biliary ductal dilatation. The hepatic veins and portal veins are patent. Gallbladder: Surgically absent noting clips in the gallbladder fossa. Spleen: Normal in size and attenuation. There are calcified splenic granulomas. Pancreas: Unremarkable. Adrenal glands: Unremarkable. Kidneys: The contrast enhanced kidneys are normal in size and without hydronephrosis. The kidneys enhance symmetrically. Scattered subcentimeter cortical hypodensities likely represent cysts but are too small for definitive characterization. Abdominal vasculature: The abdominal aorta is normal in course and caliber noting advanced atherosclerotic calcification. Bowel: There is moderate colonic diverticulosis. There are significant wall thickening and edema involving the sigmoid colon with surrounding inflammation consistent with acute diverticulitis. No organized/drainable fluid collection is seen to indicate abscess. No bowel obstruction is seen. There are mildly thick- walled loops of small bowel in the pelvis adjacent to the diverticular disease. Mild fecal retention is noted in the right colon. Prominent fluid filled loops of small bowel may represent a mild ileus. The appendix is not identified and reported surgically absent. Peritoneum: There is no intraperitoneal free air or abdominal ascites. Lymphadenopathy: None. Pelvic viscera: The bladder, uterus, and adnexa are normal as visualized. Skeletal structures: The skeletal structures are osteopenic. No lytic or blastic lesions are seen. 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 Mild lumbosacral spondylosis is observed. IMPRESSION: 1. Acute diverticulitis of the sigmoid colon. 2. No intraperitoneal free air is identified and there is no organized fluid collection to suggest abscess. 3. Mild wall thickening involving loops of small bowel in the pelvis is likely related to adjacent diverticulitis. 4. There is no bowel obstruction. Prominent loops of fluid-filled small bowel may represent a mild ileus. Clinical correlation will be required. 5. Additional findings as above. OUTPATIENT VIRTUAL COLONOSCOPY 06/27/2022 AT [facility] - Extensive diverticulosis of the descending colon and sigmoid colon. Diverticular and colonic wall thickening within the proximal sigmoid colon, suggests acute diverticulitis. Moderate inflammatory changes within the surrounding pericolonic fat. Trace fluid within the sigmoid mesentery. No extraluminal free air locules within the pericolonic fat. - Long segment circumferential wall thickening of the proximal sigmoid colon extending a proximal 8 cm in length. - 6.8 mm polyp in the proximal ascending colon 134 cm from the rectum. - 17.4 mm polyp within the distal ascending colon, 150 cm from the rectum. - Partial cecumectomy and appendectomy. EXTRACOLONIC This examination was performed with low-dose technique which limits evaluation of the extracolonic abdomen and pelvis. - Cholecystectomy. Numerous calcified granulomata throughout the spleen. IMPRESSION IMPRESSION C-RADS - 4: Colonic mass 1. Extensive colonic diverticulitis. Suspect acute diverticulitis involving the proximal sigmoid colon. No perforation 2. 8 cm 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, smooth muscle hypertrophy of diverticulosis versus colonic neoplasm. Further evaluation with biopsy recommended. 3. 17.4 mm polyp within the distal ascending colon. Management: Consider direct visualization/biopsy.
--- NOTE | 2022-07-15 16:34 | Hospitalist Progress Note ---
Date of Service July 15, 2022 Assessment & Plan (1) Diverticulitis: Plan: CT A/P showing acute sigmoid diverticulitis without abscess or perforation. Also with mild wall thickening involving loops of small bowel likely related to diverticulitis. Also with prominent loops of fluid-filled small bowel representing mild ileus. Persistent despite Cipro/Flagyl x10 days outpatient Also with recent virtual colo in June 2022 (incomplete [place] in 03/2022 due to sigmoid colon) 1. extensive colonic diverticulitis. 2. 8cm Circumferential mass involving the proximal sigmoid colon, smooth muscle hypertrophy of the diverticulosis vs colonic neoplasm 3. 17.4 mm polyp in the distal AC - s/p Zosyn/Flagyl in ED - continue with Zosyn monotherapy - ordered blood cx (not taken before initation of abx) pending - tolerating full liquid diet - PRN Zofran for N/V - PRN graduated pain regimen: Tylenol 1g IV; Morphine 2mg IV; Morphine 4mg IV - trend CBC in AM - Consult surgery - GI following and per the note, "Patient is being arranged to see an advanced endoscopist at a tertiary center for further evaluation of this finding" (2) Abnormal CT scan, sigmoid colon: Plan: - Consult surgery - GI following. (3) Abdominal pain: Plan: - see above #1 and #2 - on full liquid diet - on Tylenol and Morphine as needed (4) Hypertension: Plan: continue home Metoprolol continue to monitor (5) Hyperlipidemia: Plan: continue home atorvastatin (6) Tobacco abuse: Plan: Currently still smoking 1ppd Discussed cessation Plan Encourage up nd OOB SCDs Admission and Anticipated Discharge Date Admission Date: July 14, 2022 Subjective Patient is awake in bed and appears uncomfortable. She states she is sick of the abdominal pain and wants to feel better. Review of Systems Review of Systems: Patient denies any chest pain, SOB, Dyspnea, vomiting. She states she has not had a BM since admission. She was having some BRB GA over the past few weeks from time to time She denies any urinary sxs. She admits to a 10-15# weight loss over the pas few months and states she has had the lower abdominal pain now for the past 2 months All other ROS negative unless stated otherwise in the HPI Physical Exam Constitutional: WD/WN, vitals as above Neck: trachea midline, no thyromegaly Cardiovascular: RRR, no murmur, no edema Extremities: normal capillary refill; no calf tenderness and no edema Gastrointestinal (Abdomen): Inspection/Auscultation: abdomen normal to inspection and + abdomen distended Percussion/Palpation: + abdomen tender and abdomen soft tender to palpation over suprapubic and LLQ, No R/R voluntary guarding Skin: no rashes, warm and dry Psychiatric: A+Ox3, euthymic affect Results & Data Results & Data ([facility] [place]) Vital Signs (Past 12 Hours) Vital Signs Temp Pulse Pulse Resp BP Pulse Ox O2 Del Method 07/15/22 15:24 36.8 C 72 18 150/80 H 99 Room Air 07/15/22 07:34 37.3 C 86 18 97/62 L 97 Room Air Laboratory Results Abnormal lab results 07/14/22 07/14/22 07/15/22 Range/Units 16:10 16:10 05:51 RBC 3.72 L 3.05 L (4.20-5.40) M/uL Hgb 10.3 L (12.0-16.0) g/dl Hct 36.9 L 30.4 L (37.0-47.0) % RDW Std Deviation 46.6 H 47.4 H (36.4-46.3) fL MPV 9.3 L (9.4-12.4) fL Neut # (Auto) 6.60 H (1.40-6.50) K/uL BUN/Creatinine Ratio (10-20) Glucose 101 H (70-99(Fasting)) mg/dl Calcium (8.5-10.1) mg/dl AST 9 L (13-39) U/L ALT 4 L (7-52) U/L Alkaline Phosphatase 110 H (34-104) U/L 07/15/22 Range/Units 05:51 RBC (4.20-5.40) M/uL Hgb (12.0-16.0) g/dl Hct (37.0-47.0) % RDW Std Deviation (36.4-46.3) fL MPV (9.4-12.4) fL Neut # (Auto) (1.40-6.50) K/uL BUN/Creatinine Ratio 8.6 L (10-20) Glucose 104 H (70-99(Fasting)) mg/dl Calcium 8.1 L (8.5-10.1) mg/dl AST (13-39) U/L ALT (7-52) U/L Alkaline Phosphatase (34-104) U/L Diagnostic Findings Abdomen/Pelvis CT 07/14/22 17:32 CT SCAN OF THE ABDOMEN AND PELVIS WITH IV CONTRAST CLINICAL HISTORY: Lower abdominal pain. Reported history of recent diverticulitis. COMPARISON STUDY: Abdominal CT dated 12/06/2020. TECHNIQUE: Following the IV administration of 87 cc of Optiray 350, CT scan of the abdomen and pelvis is performed from the lung bases to the proximal femora. Images are reviewed in the axial, sagittal, and coronal planes. IV contrast was administered without complication. A dose lowering technique was utilized adh ering to the principles of ALARA. CT DOSE: 359.03 mGy.cm FINDINGS: Lung bases: The heart is normal in size and without pericardial effusion. The lung bases are clear noted bibasilar atelectasis. Bilateral breast implants are partially visualized. Liver: The contrast-enhanced liver is normal in size, contour, and attenuation. There is minimal central intrahepatic biliary ductal dilatation. The hepatic veins and portal veins are patent. Gallbladder: Surgically absent noting clips in the gallbladder fossa. Spleen: Normal in size and attenuation. There are calcified splenic granulomas. Pancreas: Unremarkable. Adrenal glands: Unremarkable. Kidneys: The contrast enhanced kidneys are normal in size and without hydronephrosis. The kidneys enhance symmetrically. Scattered subcentimeter cortical hypodensities likely represent cysts but are too small for definitive characterization. Abdominal vasculature: The abdominal aorta is normal in course and caliber noting advanced atherosclerotic calcification. Bowel: There is moderate colonic diverticulosis. There are significant wall thickening and edema involving the sigmoid colon with surrounding inflammation consistent with acute diverticulitis. No organized/drainable fluid collection is seen to indicate abscess. No bowel obstruction is seen. There are mildly thick- walled loops of small bowel in the pelvis adjacent to the diverticular disease. Mild fecal retention is noted in the right colon. Prominent fluid filled loops of small bowel may represent a mild ileus. The appendix is not identified and reported surgically absent. Peritoneum: There is no intraperitoneal free air or abdominal ascites. Lymphadenopathy: None. Pelvic viscera: The bladder, uterus, and adnexa are normal as visualized. Skeletal structures: The skeletal structures are osteopenic. No lytic or blastic lesions are seen. 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 Mild lumbosacral spondylosis is observed. IMPRESSION: 1. Acute diverticulitis of the sigmoid colon. 2. No intraperitoneal free air is identified and there is no organized fluid collection to suggest abscess. 3. Mild wall thickening involving loops of small bowel in the pelvis is likely related to adjacent diverticulitis. 4. There is no bowel obstruction. Prominent loops of fluid-filled small bowel may represent a mild ileus. Clinical correlation will be required. 5. Additional findings as above. ACT 112: Negative or not required by law. Electronically signed by: Narinder Velasquez M.D. 07/14/2022 6:26 PM PG Care Time/CCT Total # of Minutes Spent Total Time Spent with Patient: Total time spent is greater than 50% in coordination of care (as documented) at patient's floor/unit and/or counseling patient: Coding Level of Care Code 53773 SUB INP/OBS CARE 235MIN Diagnoses Diverticulitis K57.[address] scan, sigmoid colon R93.3 Abdominal pain R10.9 Hypertension I10 Hyperlipidemia E78.5 Hyperlipidemia type: unspecified Tobacco abuse Z72.0 (5) Hyperlipidemia Hyperlipidemia type: unspecified Qualified Code(s): E78.5 - Hyperlipidemia, unspecified
[2022-07-15] MEDS: ATORVASTATIN 40 MG TAB PO SCH (20:01)
[2022-07-15] MEDS: PANTOprazole 40 MG TAB PO SCH (20:01)
--- NOTE | 2022-07-15 21:20 | Billing Data ---
Date of Service July 15, 2022 Coding Level of Care Code 13001 INT INP/OBS CARE
[2022-07-16] MEDS: PIPERACILLIN/TAZOBACTAM 4.5 GM in DEXTROSE 5% 100 ML IV SCH ×3 (03:12→18:28)
[2022-07-16] MEDS: LACTATED RINGER'S 1,000 ML IV SCH ×2 (03:13→12:28)
[2022-07-16] MEDS: METOPROLOL TARTRATE 25 MG TAB PO SCH ×2 (09:22→19:32)
[2022-07-16] MEDS: POTASSIUM CHLORIDE CRTAB 20 MEQ TABCR PO SCH ×2 (09:23→19:32)
[2022-07-16] MEDS: MoRPHine SULFATE 2 MG/ML CARP IV PRN (10:21)
[2022-07-16] MEDS: ONDANSETRON INJ 2 MG/ML 2 ML VIAL IV PRN (10:21)
--- NOTE | 2022-07-16 12:52 | Surgery Progress Note ---
Date of Service July 16, 2022 Assessment & Plan (1) Abdominal pain: (2) Diverticulitis: (3) Abnormal CT scan, sigmoid colon: Plan 72-year-old female with history of recurrent episodes of diverticulitis treated with oral antibiotics for 10+ years presented to the emergency room with increasing abdominal pain with no significant improvement of her symptoms with a 10-day course of oral Cipro and Flagyl. She had a colonoscopy in March 2022 in which scope was not able to be traversed past the sigmoid colon and then underwent a virtual CT colonoscopy on 06/27/2022 which showed acute sigmoid diverticulitis with 8 cm circumferential mass versus thickening. She has not had any biopsy. CT scan here showing significant acute sigmoid diverticulitis with no evidence of obstruction, perforation, abscess. She has no leukocytosis, afebrile and her pain is improving with IV Zosyn. Plan: Dr. Harrison and I reviewed patient's CT scan from 07/14/[address] Chen in radiology. He believes based on her history that this is a episode of severe acute and chronic sigmoid diverticulitis with significant surrounding inflammation. There is some reactive lymph nodes however these are not significantly increased in size to suggest this might be a neoplasm. Dr. Laureano discussed with patient her imaging findings are consistent with a severe acute diverticulitis and with this we would recommend conservative management with IV antibiotics, pain management as needed, IV antiemetics emetics as needed, and slow advancement of diet (will revert back to clear liquids as she had pain with full liquids). She will need an advanced endoscopist for colonoscopy when she is out of this acute phase for colonoscopy and possible biopsy. Given her recurrent episodes of diverticulitis for 10+ years and this episode of severe diverticulitis causing admission she will need surgical management of her diverticulitis once she is through this acute phase. She she has expressed interest in seeing colorectal specialist Dr. Cohen from [facility]. Now having bowel movements with increased pain prior and after. Advised to ask for pain management as needed (she is not taking anything). Also advised there is medication for nausea as needed. Continue clear liquids today. She will likely need at least 4 days of IV zosyn given the severe diverticulitis. Hopefully now that she is about 48 hours of IV antibiotics she will start noticing an improvement in her pain and discomfort. Encourage ambulation continue medical management Dr. Harrison has seen patient and agrees with above. Admission and Anticipated Discharge Date Admission Date: July 14, 2022 Subjective started having bowel movement this am and is having some more pain due to that. Cramping pain at baseline and then severe pain prior and after bowel movements soft loose stools with some blood x 4 mild nausea, no vomiting had sweats last night Physical Exam Constitutional: WD/WN, vitals as above cooperative and comfortable; no acute distress and not ill appearing Neck: normal visual inspection and trachea midline Respiratory: normal respiratory effort; no respiratory distress Gastrointestinal (Abdomen): Inspection/Auscultation: abdomen normal to inspection, + abdomen distended (mild), + abdominal surgical scar (low transverse scar) and + caput medusae present; + abnormal bowel sounds Percussion/Palpation: + abdomen tender (LLQ on mild palpation), + guarding (voluntary LLQ) and abdomen soft; abdomen not rigid and abdomen not firm Skin: no rashes, warm and dry Psychiatric: Orientation: alert and oriented x 3 Results & Data ([facility]) Vital Signs (Past 12 Hours) Vital Signs Temp Pulse Resp BP Pulse Ox O2 Del Method 07/16/22 09:21 80 112/67 07/16/22 06:55 36.7 C 64 18 132/70 96 Room Air
--- NOTE | 2022-07-16 16:02 | Hospitalist Progress Note ---
Date of Service July 16, 2022 Assessment & Plan (1) Diverticulitis: Plan: CT A/P showing acute sigmoid diverticulitis without abscess or perforation. Also with mild wall thickening involving loops of small bowel likely related to diverticulitis. Also with prominent loops of fluid-filled small bowel representing mild ileus. Persistent despite Cipro/Flagyl x10 days. - s/p Zosyn/Flagyl in ED - continue with Zosyn monotherapy - ordered blood cx (not taken before initation of abx) - s/p 1L NSS bolus - continue with full maintenance IVFs with LR @105cc/hr - maintain NPO status due to mild ileus and nausea with intolerance of PO intake - PRN Zofran for N/V - PRN graduated pain regimen: Tylenol 1g IV; Morphine 2mg IV; Morphine 4mg IV - Monitor CBC in AM - Surgery was consulted and appreciate their recs Advised at least 4 days of IV Zosyn (currently almost at 48 hour gladis with 5 doses) (2) Abnormal CT scan, sigmoid colon: Plan: Virtual colonoscopy on 06/27 (done by Dr. Broderick) showed 8cm circumferential mass involving proximal sigmoid colon - smooth muscle hypertrophy vs colonic neoplasm with recs for further eval/biopsy. May be contributing to CT appearance of diverticulitis as well as ileus. - GI on consult - appreciate recs - Surgery on consult - appreciate recs Patient will eventually need a full colonoscopy 6-8 weeks after resolution of this infection for biopsy and direct visualization GI is arranging appointment with [facility] in [place] Then may eventually need outpatient colon resection (3) Hyperlipidemia: Plan: Continue home Atorvastatin (4) Hypertension: Plan: Normotensive thus far. BP 111/69 Continue home Metoprolol tartrate. (5) Tobacco abuse: Plan: 40 pack year smoking history, currently 1ppd. - counseled on cessation (6) GERD without esophagitis: Plan: Protonix per hospital formulary. PRN Zofran as stated above. Plan FEN/GI: clear liquid diet DVT Prophylaxis: SCDs, will hold on chemoppx for now (pending GI recs) Encourage up and OOB/ambulation Code Status: full Disposition: med/surg Admission and Anticipated Discharge Date Admission Date: July 14, 2022 Subjective Patient is awake in bed and she states that her bowels are continuing to move multiple times per day and are brown loose and BRB ME in toilet and with wiping. She continues to have lower abdominal pain. Yesterday she did not tolerate full liquid diet and surgery down graded her diet to clears. She seems to be tolerating the clear diet for now. Review of Systems Review of Systems: Patient denies any chest pain, SOB, Dyspnea, vomiting. She was having some BRB ME over the past few weeks from time to time and currently with liquid BMs and BRB ME. She denies any urinary sxs. She admits to a 10-15# weight loss over the pas few months and states she has had the lower abdominal pain now for the past 2 months All other ROS negative unless stated otherwise in the HPI Physical Exam Constitutional: WD/WN, vitals as above Neck: trachea midline, no thyromegaly Cardiovascular: RRR, no murmur, no edema Extremities: normal capillary refill; no calf tenderness and no edema Gastrointestinal (Abdomen): Inspection/Auscultation: abdomen normal to inspection and + abdomen distended Percussion/Palpation: + abdomen tender and abdomen soft Pain to palpation suprapubic and LLQ, no rebound or rigidity Skin: no rashes, warm and dry Psychiatric: A+Ox3, euthymic affect Results & Data Results & Data ([facility]) Vital Signs (Past 12 Hours) Vital Signs Temp Pulse Resp BP Pulse Ox O2 Del Method 07/16/22 15:11 37.0 C 71 18 111/69 96 Room Air 07/16/22 09:21 80 112/67 07/16/22 06:55 36.7 C 64 18 132/70 96 Room Air PG Care Time/CCT Total # of Minutes Spent Total Time Spent with Patient: Total time spent is greater than 50% in coordination of care (as documented) at patient's floor/unit and/or counseling patient: Coding Level of Care Code 75482 SUB INP/OBS CARE 235MIN Diagnoses Diverticulitis K57.[address] scan, sigmoid colon R93.3 Hyperlipidemia E78.5 Hyperlipidemia type: unspecified Hypertension I10 Tobacco abuse Z72.0 GERD without esophagitis K21.9 (3) Hyperlipidemia Hyperlipidemia type: unspecified Qualified Code(s): E78.5 - Hyperlipidemia, unspecified
[2022-07-16] MEDS: ATORVASTATIN 40 MG TAB PO SCH (19:31)
[2022-07-16] MEDS: PANTOprazole 40 MG TAB PO SCH (19:31)
[2022-07-16] MEDS: ACETAMINOPHEN 1,000 MG/100 ML VIAL IV PRN (22:15)
[2022-07-17] MEDS: PIPERACILLIN/TAZOBACTAM 4.5 GM in DEXTROSE 5% 100 ML IV SCH ×3 (04:38→18:09)
[2022-07-17 07:08] LABS: Basophils # (auto) 0.02 K/uL (0-0.2); Basophils % (auto) 0.3 %; Eosinophils # (auto) 0.08 K/uL (0-0.50); Eosinophils % (auto) 1.2 %; Hematocrit (blood only) 29.4 % (37.0-47.0); Hemoglobin 10.1 g/dl (12.0-16.0); Immature Granulocytes # (auto) 0.01 K/uL (0.01-0.20); Immature Granulocytes % (auto) 0.2 %; Lymphocytes # (auto) 2.34 K/uL (1.2-3.4); Mean Corpuscular Hemoglobin 33.9 pg (25.0-34.0); Mean Corpuscular Hgb Conc 34.4 g/dL (32.0-36.0); Mean Corpuscular Volume 98.7 fL (80.0-100.0); Mean Platelet Volume 9.8 fL (9.4-12.4); Monocytes # (auto) 0.32 K/uL (0.11-0.59); Monocytes % (auto) 4.9 %; Neutrophils # (auto) 3.73 K/uL (1.40-6.50); Neutrophils % (auto) 57.4 %; Platelet Count 277 K/uL (130-400); RDW Coefficient of Variation 12.5 % (11.5-14.5); RDW Standard Deviation 45.1 fL (36.4-46.3); Red Blood Count 2.98 M/uL (4.20-5.40)
[2022-07-17 07:15] LABS: BUN Creatinine Ratio 4.5 (10-20); Calcium 8.2 mg/dl (8.5-10.1); Creatinine Clr Calc Pharmacy 51.3 ml/min; Est GFR (African American) 77.2 ml/min; Est GFR (Non-African American) 66.6 ml/min; Potassium 3.6 mmol/L (3.5-5.1)
[2022-07-17] MEDS: POTASSIUM CHLORIDE CRTAB 20 MEQ TABCR PO SCH ×2 (08:12→21:19)
[2022-07-17] MEDS: METOPROLOL TARTRATE 25 MG TAB PO SCH ×2 (08:13→21:16)
[2022-07-17] MEDS: MoRPHine SULFATE 2 MG/ML CARP IV PRN (08:14)
[2022-07-17] MEDS ORDERED: ACETAMINOPHEN 325 MG TAB PO PRN (09:44)
--- NOTE | 2022-07-17 09:49 | Surgery Progress Note ---
Date of Service July 17, 2022 Assessment & Plan (1) Abdominal pain: (2) Diverticulitis: (3) Abnormal CT scan, sigmoid colon: Plan 72-year-old female with history of recurrent episodes of diverticulitis treated with oral antibiotics for 10+ years presented to the emergency room with increasing abdominal pain with no significant improvement of her symptoms with a 10-day course of oral Cipro and Flagyl. She had a colonoscopy in March 2022 in which scope was not able to be traversed past the sigmoid colon and then underwent a virtual CT colonoscopy on 06/27/2022 which showed acute sigmoid diverticulitis with 8 cm circumferential mass versus thickening. She has not had any biopsy. CT scan here showing significant acute sigmoid diverticulitis with no evidence of obstruction, perforation, abscess. She has no leukocytosis, afebrile and her pain is improving with IV Zosyn. Plan: Dr. Harrsion and I reviewed patient's CT scan from 07/14/[address] Chen in radiology. He believes based on her history that this is a episode of severe acute and chronic sigmoid diverticulitis with significant surrounding inflammation. There is some reactive lymph nodes however these are not significantly increased in size to suggest this might be a neoplasm. Dr. Laureano discussed with patient her imaging findings are consistent with a severe acute diverticulitis and with this we would recommend conservative management with IV antibiotics, pain management as needed, IV antiemetics emetics as needed, and slow advancement of diet. She will need an advanced endoscopist for colonoscopy when she is out of this acute phase for colonoscopy and possible biopsy. Given her recurrent episodes of diverticulitis for 10+ years and this episode of severe diverticulitis causing admission she will need surgical management of her diverticulitis once she is through this acute phase. She she has expressed interest in seeing colorectal specialist Dr. Cohen from [facility]. She will likely need at least 4 days of IV zosyn given the severe diverticulitis. (currently 2.5 days IV Zosyn) Advance to full liquids for lunch stopped IV tylenol and start PO Tylenol and Percocet prn pain IV morphine for severe pain still available continue medical management Admission and Anticipated Discharge Date Admission Date: July 14, 2022 Subjective had diarrhea with blood this am around 3 am with abdominal pressure prior and now pain had morphine which helped mild nausea but improving still having sweats at night but no fevers Physical Exam Constitutional: WD/WN, vitals as above cooperative and comfortable; no acute distress, not ill appearing and not frail appearing Neck: normal visual inspection and trachea midline Respiratory: normal respiratory effort; no respiratory distress Gastrointestinal (Abdomen): Inspection/Auscultation: abdomen normal to inspection and normal bowel sounds; abdomen not distended Percussion/P alpation: + abdomen tender (LUQ and LLQ, slowly improving), + guarding (Voluntary in LLQ) and abdomen soft; abdomen not rigid Skin: no rashes, warm and dry Psychiatric: Orientation: alert and oriented x 3 Results & Data ([facility]) Vital Signs (Past 12 Hours) Vital Signs Temp Pulse Resp BP Pulse Ox O2 Del Method 07/17/22 07:23 36.7 C 60 18 133/69 95 Room Air 07/16/22 23:33 36.6 C 64 16 97/59 L 98 Room Air Laboratory Results 07/17/22 07/17/22 Range/Units 06:26 06:26 WBC 6.50 (4.8-10.8) K/ul RBC 2.98 L (4.20-5.40) M/uL Hgb 10.1 L (12.0-16.0) g/dl Hct 29.4 L (37.0-47.0) % MCV 98.7 (80.0-100.0) fL MCH 33.9 (25.0-34.0) pg MCHC 34.4 (32.0-36.0) g/dL RDW Std Deviation 45.1 (36.4-46.3) fL RDW Coeff of Armand 12.5 (11.5-14.5) % Plt Count 277 (130-400) K/uL MPV 9.8 (9.4-12.4) fL Immature Gran % (Auto) 0.2 % Neut % (Auto) 57.4 % Lymph % (Auto) 36.0 % [place] % (Auto) 4.9 % Eos % (Auto) 1.2 % Baso % (Auto) 0.3 % Neut # (Auto) 3.73 (1.40-6.50) K/uL Lymph # (Auto) 2.34 (1.2-3.4) K/uL [place] # (Auto) 0.32 (0.11-0.59) K/uL Eos # (Auto) 0.08 (0-0.50) K/uL Baso # (Auto) 0.02 (0-0.2) K/uL Immature Gran # (Auto) 0.01 (0.01-0.20) K/uL Sodium 140 (136-145) mmol/L Potassium 3.6 (3.5-5.1) mmol/L Chloride 108 H (98-107) mmol/L Carbon Dioxide 27 (21-32) mmol/L Anion Gap 5 (3-11) BUN 4 L (6-23) mg/dl Creatinine 0.88 (0.6-1.2) mg/dl Est Cr Clr Drug Dosing 51.3 ml/min Est GFR ( Amer) 77.2 ml/min Est GFR (Non-Af Amer) 66.6 ml/min BUN/Creatinine Ratio 4.5 L (10-20) Glucose 124 H (70-99(Fasting)) mg/dl Calcium 8.2 L (8.5-10.1) mg/dl
--- NOTE | 2022-07-17 13:03 | Hospitalist Progress Note ---
Date of Service July 17, 2022 Assessment & Plan (1) Diverticulitis: Plan: CT A/P showing acute sigmoid diverticulitis without abscess or perforation despite Cipro/Flagyl x10 days. - s/p Zosyn/Flagyl in ED - continue with Zosyn monotherapy - ordered blood cx (not taken before initiation of abx) - s/p 1L NSS bolus - continued mIVFs with LR @105cc/hr - kept NPO on admit - PRN graduated pain regimen: Tylenol 1g IV; Morphine 2mg IV; Morphine 4mg IV - Advanced to clears on 07/16 and now on fulls on 07/17 - Surgery consulted, recommending 4 days of IV Zosyn and will assist in referral to colorectal surgery (2) Abnormal CT scan, sigmoid colon: Plan: Virtual colonoscopy on 06/27 (done by Dr. Broderick) showed 8cm circumferential mass involving proximal sigmoid colon - smooth muscle hypertrophy vs colonic neoplasm with recs for further eval/biopsy. May be contributing to CT appearance of diverticulitis as well as ileus. - GI on consult - appreciate recs - Surgery on consult - believes appearance is more likely secondary to severe diverticulitis Patient will eventually need a full colonoscopy 6-8 weeks after resolution of this infection for biopsy and direct visualization Plan is [facility] (3) Hyperlipidemia: Plan: Continue home Atorvastatin (4) Hypertension: Plan: Controlled Continue home Metoprolol tartrate. (5) Tobacco abuse: Plan: 40 pack year smoking history, currently 1ppd. - counseled on cessation - will provide nicotine patch upon request (6) GERD without esophagitis: Plan: Protonix per hospital formulary. PRN Zofran as stated above. Plan Continue hospitalization, today day #3/4 of IV Zosyn. Dietary advancement as outlined above to fulls. Patient is considered high risk due to severe acute diverticulitis with risk of perforation in addition also receiving IV narcotics for pain control. Above plan of care has been d/w Dr. Morgan. Admission and Anticipated Discharge Date Admission Date: July 14, 2022 Subjective Patient seen this morning. She is currently resting comfortably in bed and has no complaints. Noted that she was up early this AM passing BRB and a large golf- ball sized blood clot from rectum. Has since tapered off. She denies abd pain at present and denies n/v. She is tolerating clear liquids. Physical Exam Physical Exam: GENERAL: 72 yo Well-developed, well-nourished WF. NAD. LUNGS: Clear to auscultation bilaterally. CARDIOVASCULAR: Regular rate and rhythm. ABDOMEN: Soft, non-tender and non-distended. No palpable masses. Bowel sounds normoactive x 4 quad. Results & Data Results & Data ([facility]) Vital Signs (Past 12 Hours) Vital Signs Temp Pulse Resp BP Pulse Ox O2 Del Method 07/17/22 07:23 36.7 C 60 18 133/69 95 Room Air Laboratory Results 07/17/22 06:26 07/17/22 06:26 PG Care Time/CCT Total # of Minutes Spent Total Time Spent with Patient: Total time spent is greater than 50% in coordination of care (as documented) at patient's floor/unit and/or counseling patient: Coding Level of Care Code 46397 SUB INP/OBS CARE 3/50MIN Diagnoses Diverticulitis K57.[address] scan, sigmoid colon R93.3 Hyperlipidemia E78.5 Hyperlipidemia type: unspecified Hypertension I10 Tobacco abuse Z72.0 GERD without esophagitis K21.9 (3) Hyperlipidemia Hyperlipidemia type: unspecified Qualified Code(s): E78.5 - Hyperlipidemia, unspecified
[2022-07-17] MEDS: oxyCODONE/ACETAMINOPHEN 5mg/325mg TAB PO PRN (13:04)
[2022-07-17] MEDS: PANTOprazole 40 MG TAB PO SCH (21:18)
[2022-07-17] MEDS: ATORVASTATIN 40 MG TAB PO SCH (21:19)
[2022-07-17] MEDS: ACETAMINOPHEN 1,000 MG/100 ML VIAL IV PRN (21:55)
[2022-07-18] MEDS: PIPERACILLIN/TAZOBACTAM 4.5 GM in DEXTROSE 5% 100 ML IV SCH ×3 (03:25→18:15)
[2022-07-18] MEDS: oxyCODONE/ACETAMINOPHEN 5mg/325mg TAB PO PRN ×3 (05:37→16:10)
[2022-07-18] MEDS: METOPROLOL TARTRATE 25 MG TAB PO SCH ×2 (08:31→20:14)
[2022-07-18] MEDS: POTASSIUM CHLORIDE CRTAB 20 MEQ TABCR PO SCH ×2 (08:31→20:14)
--- NOTE | 2022-07-18 11:07 | Surgery Progress Note ---
Date of Service July 18, 2022 Assessment & Plan (1) Abdominal pain: (2) Diverticulitis: (3) Abnormal CT scan, sigmoid colon: Plan 72-year-old female with history of recurrent episodes of diverticulitis treated with oral antibiotics for 10+ years presented to the emergency room with increasing abdominal pain with no significant improvement of her symptoms with a 10-day course of oral Cipro and Flagyl. She had a colonoscopy in March 2022 in which scope was not able to be traversed past the sigmoid colon and then underwent a virtual CT colonoscopy on 06/27/2022 which showed acute sigmoid diverticulitis with 8 cm circumferential mass versus thickening. She has not had any biopsy. CT scan here showing significant acute sigmoid diverticulitis with no evidence of obstruction, perforation, abscess. She has no leukocytosis, afebrile and her pain is improving with IV Zosyn. Plan: Dr. Harrison and I reviewed patient's CT scan from 07/14/[address] Chen in radiology. He believes based on her history that this is a episode of severe acute and chronic sigmoid diverticulitis with significant surrounding inflammation. There is some reactive lymph nodes however these are not significantly increased in size to suggest this might be a neoplasm. Dr. Laureano discussed with patient her imaging findings are consistent with a severe acute diverticulitis and with this we would recommend conservative management with IV antibiotics, pain management as needed, IV antiemetics emetics as needed, and slow advancement of diet. She will need an advanced endoscopist for colonoscopy when she is out of this acute phase for colonoscopy and possible biopsy. Given her recurrent episodes of diverticulitis for 10+ years and this episode of severe diverticulitis causing admission she will need surgical management of her diverticulitis once she is through this acute phase. She she has expressed interest in seeing colorectal specialist Dr. Cohen from [facility]. She will likely need at least 4 days of IV zosyn given the severe diverticulitis. (currently 3.5 days IV Zosyn) Advance to low fiber for lunch continue pain management as needed continue medical management, discussed with Hemalatha VALADEZ with medicine plan for possible discharge tomorrow with Augmentin. Will need Diflucan given history of yeast infection. Discussed with patient GI follow-up for colonoscopy and outpatient colorectal referral with Dr. Cohen. Appointment time is in discharge instructions. [facility] surgery covering this weekend Dr. Harrison has seen and examined pt, agrees with above. Admission and Anticipated Discharge Date Admission Date: July 14, 2022 Subjective feeling better but still having pain pain is not as constant and not as severe, percocet controls pain soft stools today, no blood no fevers tolerating full liquids Physical Exam Constitutional: WD/WN, vitals as above cooperative and comfortable; no acute distress and not ill appearing Neck: normal visual inspection and trachea midline Respiratory: normal respiratory effort; no respiratory distress Gastrointestinal (Abdomen): Inspection/Auscultation: abdomen normal to inspection; abdomen not distended Percussion/Palpation: + abdomen tender (LLQ on palpation) and abdomen soft; no guarding and abdomen not rigid Skin: no rashes, warm and dry Psychiatric: A+Ox3, euthymic affect Results & Data ([facility]) Vital Signs (Past 12 Hours) Vital Signs Temp Pulse Resp BP Pulse Ox O2 Del Method 07/18/22 07:05 36.6 C 60 16 110/67 96 Room Air
--- NOTE | 2022-07-18 11:22 | Hospitalist Progress Note ---
Date of Service July 18, 2022 Assessment & Plan (1) Diverticulitis: Plan: CT A/P showing acute sigmoid diverticulitis without abscess or perforation despite Cipro/Flagyl x10 days. - s/p Zosyn/Flagyl in ED - continue with Zosyn monotherapy - ordered blood cx (not taken before initiation of abx) - s/p 1L NSS bolus - continued mIVFs with LR @105cc/hr - kept NPO on admit - PRN graduated pain regimen: Tylenol 1g IV; Percocet; Morphine for severe/breakthrough - Advanced to clears on 07/16, fulls on 07/17, low residue on 07/18 - Surgery consulted, recommending 4 days of IV Zosyn and will assist in referral to colorectal surgery - Will plan to transition to Augmentin on 07/19 and treat for 10 days (for total duration of 14 days) (2) Abnormal CT scan, sigmoid colon: Plan: Virtual colonoscopy on 06/27 (done by Dr. Broderick) showed 8cm circumferential mass involving proximal sigmoid colon - smooth muscle hypertrophy vs colonic neoplasm with recs for further eval/biopsy. May be contributing to CT appearance of diverticulitis as well as ileus. - GI on consult - appreciate recs - Surgery on consult - believes appearance is more likely secondary to severe diverticulitis - Patient will eventually need a full colonoscopy 6-8 weeks after resolution of this infection for biopsy and direct visualization - Plan is to see Dr. Cohen with [facility] (3) Hyperlipidemia: Plan: - Continue home Atorvastatin (4) Hypertension: Plan: Controlled - Continue home Metoprolol tartrate. (5) Tobacco abuse: Plan: 40 pack year smoking history, currently 1ppd. - counseled on cessation - will provide nicotine patch upon request (6) GERD without esophagitis: Plan: - Protonix per hospital formulary. PRN Zofran as stated above. Plan Continue hospitalization, today day #4/4 of IV Zosyn. Transition to Augmentin tomorrow AM. Advance diet. Patient is considered high risk due to severe acute diverticulitis with risk of perforation in addition also receiving IV narcotics for pain control. Above plan of care has been d/w Dr. Pierce. Admission and Anticipated Discharge Date Admission Date: July 14, 2022 Subjective Patient seen on daily rounds this morning. She is tolerating full liquids. No n/v. Still with some abdominal discomfort but is relieved by Percocet. Soft BMs, no hematochezia or melena or dal[place] blood/clots. Remains fearful about going home. Physical Exam Physical Exam: GENERAL: 72 yo Well-developed, well-nourished WF. NAD. LUNGS: Clear to auscultation bilaterally. CARDIOVASCULAR: Regular rate and rhythm. ABDOMEN: Soft, non-distended. No palpable masses. Mildly TTP in LLQ. Bs normoactive x 4 quad. Results & Data Results & Data ([place]) Vital Signs (Past 12 Hours) Vital Signs Temp Pulse Resp BP Pulse Ox O2 Del Method 07/18/22 07:05 36.6 C 60 16 110/67 96 Room Air PG Care Time/CCT Total # of Minutes Spent Total Time Spent with Patient: Total time spent is greater than 50% in coordination of care (as documented) at patient's floor/unit and/or counseling patient: Coding Level of Care Code 06268 SUB INP/OBS CARE 3/50MIN Diagnoses Diverticulitis K57.[address] scan, sigmoid colon R93.3 Hyperlipidemia E78.5 Hyperlipidemia type: unspecified Hypertension I10 Tobacco abuse Z72.0 GERD without esophagitis K21.9 (3) Hyperlipidemia Hyperlipidemia type: unspecified Qualified Code(s): E78.5 - Hyperlipidemia, unspecified
[2022-07-18] MEDS: ACETAMINOPHEN 1,000 MG/100 ML VIAL IV PRN (19:43)
[2022-07-18] MEDS: ATORVASTATIN 40 MG TAB PO SCH (20:14)
[2022-07-18] MEDS: PANTOprazole 40 MG TAB PO SCH (20:14)
[2022-07-19] MEDS: oxyCODONE/ACETAMINOPHEN 5mg/325mg TAB PO PRN (00:53)
[2022-07-19] MEDS: ONDANSETRON INJ 2 MG/ML 2 ML VIAL IV PRN ×3 (04:44→12:25)
--- NOTE | 2022-07-19 05:17 | Surgery Progress Note ---
Date of Service July 19, 2022 Assessment & Plan (1) Diverticulitis: Plan: Patient has been admitted on the hospitalist service. Proceed as follows: Continue antibiotics in the form of intravenous Zosyn and oral Augmentin Continue diet as tolerated Continue analgesics Continue antiemetics Patient will follow-up with gastroenterology for colonoscopy and Dr. Cohen of colorectal surgery once she has recovered from this acute illness Admission and Anticipated Discharge Date Admission Date: July 14, 2022 Supervising Physician Co-Signing Physician Notes As per Dhruv Oliva physician physical therapist assistant The patient does describe more pain than previously which appears to be going towards the left flank area The abdomen shows minimal guarding in the left left flank and left lower quadrant Patient is voicing frustration with the ongoing issues regarding diverticular problem now with a possible mass in these to be further defined she wanted were not taken to that part of colon including the mass out at this time At this time we will continue low fiber diet but if the pain persists may have to back down to a full liquid diet Subjective Patient is resting comfortably in bed. The patient notes that she has had some slight worsening abdominal pain each time her diet has been advanced and this held true yesterday when her diet was advanced to solids. She denies any fevers, shakes, or chills. She denies any nausea or vomiting. She notes that she has had a small bowel movement over the past 24 hours. Physical Exam Gastrointestinal (Abdomen): Abdomen is soft and nondistended. She does have some tenderness in the left lower quadrant without rebound tenderness. Bowel sounds are hypoactive. Results & Data ([facility]) Vital Signs (Past 12 Hours) Vital Signs Temp Pulse Resp BP Pulse Ox O2 Del Method 07/19/22 04:38 36.6 C 73 18 104/66 97 Room Air 07/18/22 20:15 36.7 C 68 18 110/66 95 Room Air PG Care Time/CCT Total # of Minutes Spent Total Time Spent with Patient: Total time spent is greater than 50% in coordination of care (as documented) at patient's floor/unit and/or counseling patient: Coding Level of Care Code 83495 SUB INP/OBS CARE 06/25MIN Diagnoses Diverticulitis K57.92
[2022-07-19] MEDS: MoRPHine SULFATE 2 MG/ML CARP IV PRN ×2 (05:44→12:02)
[2022-07-19] MEDS: METOPROLOL TARTRATE 25 MG TAB PO SCH (08:41)
[2022-07-19] MEDS: POTASSIUM CHLORIDE CRTAB 20 MEQ TABCR PO SCH (08:41)
[2022-07-19] MEDS ORDERED: AMOXICILLIN/CLAVULANATE 875 MG TAB PO SCH (09:00)
--- NOTE | 2022-07-19 11:07 | Discharge Summary ---
Date of Service July 19, 2022 Admission HPI Per Admitting Provider Alba Emanuel is a 72yo female with PMHx significant for HLD and tobacco use disorder (40 pack year history, currently 1ppd) who presented to [facility] ED for for persistent abdominal pain and nausea despite recent 10-day course of Cipro/Flagyl for diverticulitis.Patient states the end of June she had a virtual colonoscopy performed at [facility] and was diagnosed with severe diverticulitis. Of note the colonoscopy also showed 8cm circumferential mass involving proximal sigmoid colon - smooth muscle hypertrophy vs colonic neoplasm with recs for further eval/biopsy. Patient states she had multiple episodes of diverticulitis previously and they typically get better with Cipro and Flagyl.She states she was started on Cipro and Flagyl and had finished a 10-day course but was not feeling any better and since now finishing the course she has begun to feel worse.She states she is fatigued, has abdominal bloating, has had minimal stool out, has nausea and decreased appetite as well as intermittent subjective fever/chills.No hematochezia/melena. In the ED the patient was afebrile and hemodynamically stable on room air. CBC/CMP/lipase WNL. UA clean. CT A/P showing acute sigmoid diverticulitis without abscess or perforation. Also with mild wall thickening involving loops of small bowel likely related to diverticulitis. Also with prominent loops of fluid-filled small bowel representing mild ileus. Patient was given Tylenol 1g, Morphine 4mg IV x2, NSS 1L bolus, Zofran 4mg IV, and Zosyn/Flagyl. Principal Diagnosis 1. Diverticulitis 2. Abnormal CT of sigmoid colon Discharge Exam GENERAL: 72 yo Well-developed, well-nourished WF. NAD. LUNGS: Clear to auscultation bilaterally. CARDIOVASCULAR: Regular rate and rhythm. ABDOMEN: Soft, non-distended. No palpable masses. Mild TTP in LLQ. Bs normoactive x 4 quad. Discharge Data Allergies Allergy/AdvReac Type Severity Reaction Status Date / Time No Known Allergies Allergy Verified 07/14/22 20:51 Consultations 07/14/22 19:38 ED Decision to Admit Stat 07/14/22 21:35 Consult Gastroenterology Routine 07/15/22 16:10 Consult General Surgery Routine Ordered Studies Abdomen/Pelvis CT 07/14/22 17:32 CT SCAN OF THE ABDOMEN AND PELVIS WITH IV CONTRAST CLINICAL HISTORY: Lower abdominal pain. Reported history of recent diverticulitis. COMPARISON STUDY: Abdominal CT dated 12/06/2020. TECHNIQUE: Following the IV administration of 87 cc of Optiray 350, CT scan of the abdomen and pelvis is performed from the lung bases to the proximal femora. Images are reviewed in the axial, sagittal, and coronal planes. IV contrast was administered without complication. A dose lowering technique was utilized adhering to the principles of ALARA. CT DOSE: 359.03 mGy.cm FINDINGS: Lung bases: The heart is normal in size and without pericardial effusion. The lung bases are clear noted bibasilar atelectasis. Bilateral breast implants are partially visualized. Liver: The contrast-enhanced liver is normal in size, contour, and attenuation. There is minimal central intrahepatic biliary ductal dilatation. The hepatic veins and portal veins are patent. Gallbladder: Surgically absent noting clips in the gallbladder fossa. Spleen: Normal in size and attenuation. There are calcified splenic granulomas. Pancreas: Unremarkable. Adrenal glands: Unremarkable. Kidneys: The contrast enhanced kidneys are normal in size and without hydronephrosis. The kidneys enhance symmetrically. Scattered subcentimeter cortical hypodensities likely represent cysts but are too small for definitive characterization. Abdominal vasculature: The abdominal aorta is normal in course and caliber noti ng advanced atherosclerotic calcification. Bowel: There is moderate colonic diverticulosis. There are significant wall thickening and edema involving the sigmoid colon with surrounding inflammation consistent with acute diverticulitis. No organized/drainable fluid collection is seen to indicate abscess. No bowel obstruction is seen. There are mildly thick- walled loops of small bowel in the pelvis adjacent to the diverticular disease. Mild fecal retention is noted in the right colon. Prominent fluid filled loops of small bowel may represent a mild ileus. The appendix is not identified and reported surgically absent. Peritoneum: There is no intraperitoneal free air or abdominal ascites. Lymphadenopathy: None. Pelvic viscera: The bladder, uterus, and adnexa are normal as visualized. Skeletal structures: The skeletal structures are osteopenic. No lytic or blastic lesions are seen. 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 Mild lumbosacral spondylosis is observed. IMPRESSION: 1. Acute diverticulitis of the sigmoid colon. 2. No intraperitoneal free air is identified and there is no organized fluid collection to suggest abscess. 3. Mild wall thickening involving loops of small bowel in the pelvis is likely related to adjacent diverticulitis. 4. There is no bowel obstruction. Prominent loops of fluid-filled small bowel may represent a mild ileus. Clinical correlation will be required. 5. Additional findings as above. ACT 112: Negative or not required by law. Electronically signed by: Narinder Velasquez M.D. 07/14/2022 6:26 PM Hospital Course (1) Diverticulitis: CT A/P showing acute sigmoid diverticulitis without abscess or perforation despite Cipro/Flagyl x10 days. - s/p Zosyn/Flagyl in ED - continue with Zosyn monotherapy - ordered blood cx (not taken before initiation of abx) - s/p 1L NSS bolus - continued mIVFs with LR @105cc/hr - kept NPO on admit - PRN graduated pain regimen: Tylenol 1g IV; Percocet; Morphine for severe/breakthrough - Advanced to clears on 07/16, fulls on 07/17, low residue on 07/18 and tolerating - Surgery consulted, recommending 4 days of IV Zosyn (which has been completed) - Patient has scheduled appt to colorectal surgery (Dr. Cohen) on 09/01/22 - Will plan to transition to Augmentin on 07/19 and treat for 10 days (for total duration of 14 days) (2) Abnormal CT scan, sigmoid colon: Virtual colonoscopy on 06/27 (done by Dr. Broderick) showed 8cm circumferential mass involving proximal sigmoid colon - smooth muscle hypertrophy vs colonic neoplasm with recs for further eval/biopsy. May be contributing to CT appearance of diverticulitis as well as ileus. - GI on consult - appreciate recs - Surgery on consult - believes appearance is more likely secondary to severe diverticulitis - Patient will eventually need a full colonoscopy 6-8 weeks after resolution of this infection for biopsy and direct visualization - Plan is to see Dr. Cohen with quan at [facility] (3) Hyperlipidemia: - Continue home Atorvastatin (4) Hypertension: Controlled - Continue home Metoprolol tartrate. (5) Tobacco abuse: 40 pack year smoking history, currently 1ppd. - counseled on cessation - will provide nicotine patch upon request (6) GERD without esophagitis: - Protonix per hospital formulary. PRN Zofran as stated above. Plan Continue hospitalization, completed 4 days of IV Zosyn and has been transitioned to Augmentin starting this morning. She is tolerating advanced diet and pain is adequately controlled. She is felt to be medically and hemodynamically stable for discharge home today on 9 more days of Augmentin. Pt has had yeast infections associated with use of this antibiotic and requested Diflucan, rx has been sent to her pharmacy. She has a scheduled follow up with Dr. Cohen (colorectal surgeon) at [facility] on 09/01/22. Will follow up with GI to schedule a colonoscopy 6-8 weeks after resolution of acute diverticular flare. Above plan of care has been d/w Dr. Pierce who has also seen and evaluated this patient and agrees with aforementioned. Total Time Total Time Spent Total Time Spent (In Minutes): >30 minutes Discharge Plan Discharge Items Patient Disposition: Home - Self-Care Reason For Visit: DIVERTICULITIS Discharge Diagnosis: diverticulitis Activity: Resume your previous activity Non-emergency contact: Primary Care Provider, Surgeon and Design Engineer Call non-emergency contact if: you have any medication questions and your symptoms worsen Follow-up/Referrals: Kevan Simpson CRNP [Primary Care Provider] - Diet: Low Fiber Addtl Attending Provider Instructions: You were hospitalized due to severe diverticulitis that failed treatment on oral antibiotics at home. You were placed on IV antibiotics, given fluids, pain and anti-nausea medications and have slowly shown improvement. You're now tolerating solid food and although you are still having some pain, overall you are doing better. There will continue to be discomfort as your colon heals. In the event that you have worsening pain, nausea, or vomiting, you need to promptly be re- evaluated in the emergency room. You have now been transitioned to oral antibiotics, called Augmentin, which you will need to continue for the next 9 days. Your next dose is due on 07/19 with dinner. Make sure you take this antibiotic with food to minimize any nausea. You may experience diarrhea with this medication, that is a common side effect. We are sending you home with Percocet to take as needed for pain. Please ensure that you do not drive or operate any machinery while taking this medication. You can take Tylenol in between doses of the Percocet if needed but be mindful that Percocet also contains Tylenol and you cannot exceed 3000mg of Tylenol in a 24 hour period of time. You have also been sent in Diflucan 150mg tablets to use as directed for a vaginal yeast infection. Please follow up as scheduled with gastroenterology to arrange for a follow up colonoscopy 6-8 weeks after resolution of your diverticulitis for further work up of the abnormal findings in your colon. You will need to follow up with your primary care provider within 1 week of discharge. In the event of any questions or concerns after you leave the hospital, please call the nonemergency number listed on your discharge paperwork. In the event of a medical emergency, call 911. [facility] Provider Instructions: Surgical discharge instructions/Recommendations: Low fiber diet for 2-4 weeks. You will need a colonoscopy in about 6-8 weeks once through acute phase to evaluate your colon and potential biopsy. I have set you up with a referral to colorectal specialist Dr. Fide Cohen with [facility] on 09/01/2022 at 9:00 am at [facility]. Pending Studies at Discharge: No Stand-Alone Forms: [facility], Smoking Cessation Medications and DC Order Prescriptions: New oxycodone-acetaminophen [Percocet] 5-325 mg Tablet 1 tab PO Q4H PRN (Reason: pain) Qty: 15 0RF amoxicillin-pot clavulanate 875-125 mg Tablet 1 tab PO BIDM Qty: 19 0RF fluconazole [Diflucan] 150 mg tablet 150 mg PO Q3D Qty: 3 0RF Rx Instructions: may repeat second dose 72 hrs after first dose if symptoms persist Continued potassium chloride 20 mEq tablet,ER particles/crystals 20 meq PO BID 14 Days Qty: 28 0RF atorvastatin 80 mg tablet 80 mg PO HS omeprazole 40 mg capsule,delayed release(DR/EC) 40 mg PO HS metoprolol tartrate 25 mg tablet 25 mg PO BID Admission Data Admit Date/Time: 07/14/22 20:15 Attending Provider: Edilberto Pierce Admit Provider: Sandip Ocampo Primary Care Provider: Kevan Simpson Other Providers: Marquise Francois ; Gerry Broderick ; Ramiro Harrison ; Steven Baird ; Bainka Gabriel ; Niki Orozco ; Wale Monreal ; Dave Perez ; Mariana Lee ; Roxana Hernández ; Lit Oliva Jr ; Rosario Martinez ; Kevan Dacosta ; Dana Fitzgerald Coding Level of Care Code HOSP INP/OBS DISCH >30 MIN Diagnoses Diverticulitis K57.[address] scan, sigmoid colon R93.3 Hyperlipidemia E78.5 Hyperlipidemia type: unspecified Hypertension I10 Tobacco abuse Z72.0 GERD without esophagitis K21.9
[2022-07-19] MEDS ORDERED: FAMOTIDINE 40 MG TABLET PO ONE (12:36)
[2022-07-19] MEDS ORDERED: ONDANSETRON 4 MG OD TAB PO STA (12:36)
--- NOTE | 2022-07-20 11:19 | Electrocardiogram Report ---
Test Reason : Blood Pressure : / mmHG Vent. Rate : 076 BPM Atrial Rate : 076 BPM P-R Int : 188 ms QRS Dur : 076 ms QT Int : 376 ms P-R-T Axes : 040 008 056 degrees QTc Int : 423 ms Normal sinus rhythm Normal ECG When compared with ECG of 22-APR-2022 12:26, No significant change was found Confirmed by Ismael Kyle ([id number]) on 07/20/2022 11:19:22 AM Referred By: REFERRED SELF Confirmed By:Ismael Kyle
== END 2022-07-19 15:09 | disposition home or self-care (01) | DRG 392 ==
LOC: ED 14:28 → SUATTDRO 20:15 → 3E 20:15

== ENCOUNTER 2022-09-03 13:06 | Inpatient (IN) ==
[2022-09-03 13:43] LABS: Basophils # (auto) 0.04 K/uL (0-0.2); Basophils % (auto) 0.3 %; Eosinophils # (auto) 0.19 K/uL (0-0.50); Eosinophils % (auto) 1.5 %; Hematocrit (blood only) 37.1 % (37.0-47.0); Hemoglobin 13.3 g/dl (12.0-16.0); Immature Granulocytes # (auto) 0.06 K/uL (0.01-0.20); Immature Granulocytes % (auto) 0.5 %; Lymphocytes % (auto) 38.1 %; Mean Corpuscular Hemoglobin 31.6 pg (25.0-34.0); Mean Corpuscular Hgb Conc 35.8 g/dL (32.0-36.0); Mean Corpuscular Volume 88.1 fL (80.0-100.0); Mean Platelet Volume 9.2 fL (9.4-12.4); Monocytes # (auto) 0.73 K/uL (0.11-0.59); Monocytes % (auto) 5.9 %; Neutrophils % (auto) 53.7 %; Platelet Count 286 K/uL (130-400); RDW Coefficient of Variation 14.6 % (11.5-14.5); RDW Standard Deviation 47.3 fL (36.4-46.3); Red Blood Count 4.21 M/uL (4.20-5.40); White Blood Count 12.32 K/ul (4.8-10.8)
--- NOTE | 2022-09-03 13:55 | XRay Report ---
XR chest 1V not portable HISTORY: Shortness of breath. Cough. Atypical Chest pain, nonspecific COMPARISON: Chest CT 08/12/2021. FINDINGS: The lungs are clear. Cardiac silhouette is normal in size. No pleural effusions. No pneumot horax. Prior cholecystectomy. IMPRESSION: No acute process. ACT 112: Negative or not required by law. Electronically signed by: Richard Alegria M.D. 09/03/2022 1:53 PM
[2022-09-03 13:58] LABS: Alanine Aminotransferase 44 U/L (7-52); Albumin Globulin Ratio 1.2 (0.9-2); Albumin Level 4.5 gm/dl (3.4-5.0); Alkaline Phosphatase 345 U/L (34-104); Anion Gap 15 (3-11); Aspartate Aminotransferase 43 U/L (13-39); BUN Creatinine Ratio 27.9 (10-20); Bilirubin,Total 0.5 mg/dl (0.2-1.0); Blood Urea Nitrogen 38 mg/dl (6-23); Calcium 10.2 mg/dl (8.6-10.3); Carbon Dioxide 17 mmol/L (21-32); Chloride 92 mmol/L (98-107); Est GFR (African American) 45.6 ml/min; Est GFR (Non-African American) 39.3 ml/min; Globulin 3.9 gm/dl (2.5-4.0); Glucose 131 mg/dl (70-99(Fasting)); Potassium 5.1 mmol/L (3.5-5.1); Sodium 124 mmol/L (136-145); Total Protein 8.4 gm/dl (6.0-8.3)
[2022-09-03 14:11] LABS: Partial Thromboplastin Ratio 0.8; Partial Thromboplastin Time 23.1 Seconds (21.0-31.0); Prothrombin Time 10.2 Seconds (9.0-12.0)
[2022-09-03 14:14] LABS: Troponin I High Sensitivity 58.2 pg/ml (0-14)
[2022-09-03] MEDS ORDERED: SODIUM CHLORIDE 0.9% 1000ML 1,000 ML IV ONE ×3 (14:29→22:30)
--- NOTE | 2022-09-03 14:40 | Emergency Department Note ---
History of Present Illness General Chief Complaint: Cardiac Assessment Stated Complaint: SOB, CHEST TIGHTNESS Time Seen by Provider: 09/03/22 14:21 History of Present Illness Provider Complaint: shortness of breath Onset (ago): day(s) (3) Severity: moderate Maximum Pain Intensity: 5 Relieved By: + nothing Exacerbated By: + exertion Associated symptoms: + palpitations and + other (back pain); no chest pain, no fever, no cough, no hemoptysis or no abdominal pain HPI Narrative: Patient was recently discharged from [facility] status post colectomy. Patient states she is not taking any Eliquis for the last 6 days. Patient is also reporting pain between her shoulder blades. Home Medications Medication Instructions Recorded Confirmed Type atorvastatin 80 mg tablet 80 mg PO HS 03/20/22 09/03/22 History omeprazole 40 mg capsule,delayed 40 mg PO HS 03/20/22 09/03/22 History release metoprolol tartrate 25 mg tablet 25 mg PO BID 07/14/22 09/03/22 History ondansetron 4 mg disintegrating 4 mg PO Q8H PRN nausea and 07/24/22 09/03/22 Rx tablet vomiting #30 tabs sertraline 50 mg tablet 50 mg PO DAILY #90 tabs 08/26/22 09/03/22 Rx Allergies Allergy/AdvReac Type Severity Reaction Status Date / Time No Known Allergies Allergy Verified 09/03/22 15:56 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 present Depression Diverticulitis Fibromyalgia GERD without esophagitis History of diverticulitis History of flexible sigmoidoscopy History of open sigmoidectomy Hyperlipidemia Hypertension Osteoporosis last Dexa noted 2019 Pre-diabetes Slow to wake up after anesthesia "a long time ago after tonsillectomy as a child", no issues since 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 Tobacco abuse still currently smokes Surgical History H/O abdominoplasty History of cholecystectomy History of esophagogastroduodenoscopy (EGD) History of tonsillectomy Hx of appendectomy Hx of breast implants, bilateral Hx of colonoscopy Hx of exploratory laparotomy Hx of tubal ligation Previous back surgery 2016 Family History Mother Myocardial infarction Stroke Father Cancer Denies family history of Ovarian cancer Prostate cancer Breast cancer Colorectal cancer Social History Smoking Status: Former smoker Tobacco Type: Cigarettes Age Started Using Tobacco: 37; packs per day: 1; Cigarettes Per Day: 20; Second Hand Exposure: No; Hx Alcohol Use: No Hx Substance Use: No Preferred Language: Turkish Communication Ability: Effective Visual Impairment: Limited Hearing Ability: Normal Bounty Hunter Required: No Beliefs That Will Affect Care: None marital status: Current Living Situation: Family Current Living Situation Comment: living w son How many Children do You have: 2 Feels Safe at Home: Yes Childhood Exposure to Second-Hand Smoke: Yes caffeine: Yes during the past year weight has: increased > 10 lbs Dental Care, Regularly: Yes Physical Activity Frequency: Does not Exercise Seatbelt Use: always Sunscreen Use: Yes Assistive Devices: None Physical Exam Vital Signs: Vital Signs - 24 hr 09/03/22 13:10 09/03/22 14:30 09/03/22 14:30 Temperature 35 C L Temperature Source Temporal Artery Sc an Pulse Rate 130 H 130 H Pulse Rate [Left B rachial] 126 H Pulse Rhythm Regular Pulse Rhythm [Left Brachial] Regular Pulse Strength [Le ft Brachial] Normal Respiratory Rate 20 18 Respiratory Effort / Characteristics Non-Labored Sponta neous Respiratory Depth Normal Respiratory Patter n Regular Blood Pressure 103/67 Blood Pressure [Le ft Arm] 75/56 L Blood Pressure Maddie n 79 Blood Pressure Maddie n [Left Arm] 62 Blood Pressure Pos ition [Left Arm] Lying Pulse Oximetry 99 99 99 Oxygen Delivery Me thod Room Air Room Air Room Air Oxygen Flow Rate Sepsis Recent Feve r Within 48 Hours No Sepsis New/Unexpla ined Change in Men jessica Status N/A Sepsis Action Take n by Nursing No Action Required Oxygen Flow Rate - Titration Pulse Oximetry Pos t Tiitration 09/03/22 14:49 09/03/22 15:01 09/03/22 15:49 Temperature 36.3 C L Temperature Source Oral Pulse Rate Pulse Rate [Left B rachial] 94 H 81 Pulse Rhythm Pulse Rhythm [Left Brachial] Regular Regular Pulse Strength [Le ft Brachial] Normal Normal Respiratory Rate 19 18 Respiratory Effort / Characteristics Non-Labored Sponta neous Non-Labored Sponta neous Respiratory Depth Normal Normal Respiratory Patter n Regular Blood Pressure Blood Pressure [Le ft Arm] 105/71 118/75 Blood Pressure Maddie n Blood Pressure Maddie n [Left Arm] 82 89 Blood Pressure Pos ition [Left Arm] Pulse Oximetry 89 L 97 100 Oxygen Delivery Me thod Room Air Nasal Cannula Room Air Oxygen Flow Rate 2 Sepsis Recent Feve r Within 48 Hours Sepsis New/Unexpla ined Change in Men jessica Status Sepsis Action Take n by Nursing Oxygen Flow Rate - Titration 2 Pulse Oximetry Pos t Tiitration 94 09/03/22 16:32 Temperature Temperature Source Pulse Rate 83 Pulse Rate [Left B rachial] Pulse Rhythm Pulse Rhythm [Left Brachial] Pulse Strength [Le ft Brachial] Respiratory Rate Respiratory Effort / Characteristics Respiratory Depth Respiratory Patter n Blood Pressure Blood Pressure [Le ft Arm] Blood Pressure Maddie n Blood Pressure Maddie n [Left Arm] Blood Pressure Pos ition [Left Arm] Pulse Oximetry Oxygen Delivery Me thod Oxygen Flow Rate Sepsis Recent Feve r Within 48 Hours Sepsis New/Unexpla ined Change in Men jessica Status Sepsis Action Take n by Nursing Oxygen Flow Rate - Titration Pulse Oximetry Pos t Tiitration Physical Exam: Physical Exam HENT: Exam performed. -Head: Normocephalic and atraumatic. -Right Ear: External ear normal. No mastoid erythema -Left Ear: External ear normal. No mastoid erythema CV: Tachycardic rate, regular rhythm, normal heart sounds and intact distal pulses. There is no peripheral edema. Palpable radial pulses bue. PULM/CHEST: Effort normal and breath sounds normal. No respiratory distress. No stridor. She has no wheezes. She has no rales. ABD: The abdomen is soft. Colostomy is present there is no tenderness. There is no rebound, no guarding NEURO: Motor and sensation grossly intact. SKIN: Skin is warm and dry. She is not diaphoretic. PSYCH: She has a normal mood and affect. Behavior is normal. Judgment and thought content normal. Course Course 1421: The patient was evaluated in room A12. A complete history and physical exam was performed Cardiac monitoring: An order was placed for continuous cardiac monitoring. The monitor shows a rate of 120 with sinus tachycardia rhythm interpreted by me Patient was seen during a time of extreme volume and extreme acuity in the emergency department. Nursing triage protocols were initiated and labs were drawn by protocol in the triage area. Patient found to be hypotensive. 2 L IV fluids ordered for the patient lactic and blood cultures ordered for the patient. 1600: Vital signs stable. Patient's blood pressure improved status post 2 L IV fluid infusion. Labs showed a mild leukocytosis of 12.32. Sodium 124. Creatinine 1.36. Lactic acid elevated 2.4. High-sensitivity troponin elevated 58.2. Urinalysis does appear to be infected with 1+ bacteria. Patient treated with cefepime empirically. CTA of the chest negative for PE. CT of the abdomen pelvis shows no abscess perforation or obstruction. Mild colitis. Patient will be admitted to the [facility] hospitalist team will discuss the case with the hospitalist. Administered Medications Discontinued Medications Sodium Chloride (Nss 1000ml) 1,000 mls @ 999 mls/hr IV .Q1H1M ONE Stop: 09/03/22 15:29 Last Infusion: 09/03/22 15:36 Dose: 0 mls/hr Documented By: Admin: 09/03/22 14:32 Dose: 999 mls/hr Documented By: TARIQ Sodium Chloride (Nss 1000ml) 1,000 mls @ 999 mls/hr IV .Q1H1M ONE Stop: 09/03/22 15:40 Last Infusion: 09/03/22 16:17 Dose: 0 mls/hr Documented By: Admin: 09/03/22 15:14 Dose: 999 mls/hr Documented By: TARIQ Cefepime HCl (Maxipime) 2,000 mg in 20 mls @ 5 mls/min IV NOW STA; Protocol Stop: 09/03/22 16:02 Last Admin: 09/03/22 16:06 Dose: 5 mls/min Documented By: TARIQ Ioversol (Optiray 320 500ml) 116 ml IV ONCE ONE Stop: 09/03/22 14:58 Last Admin: 09/03/22 14:57 Dose: 116 ml Documented By: PRECIOUS Miscellaneous (Patient's Height &/Or Weight Needed) 1 each N/A NOW STA Stop: 09/03/22 14:44 Last Admin: 09/03/22 15:14 Dose: 1 each Documented By: TARIQ Medical Decision Making Medical Records Attestation: I reviewed the patient's medical records. External medical records reviewed. Patient was seen in the emergency department July 29, 2022 for recurrent diverticulitis. At that time the [facility] hospitalist team Dr. Morgan was consulted for admission as patient had recurrent diverticulitis with no evidence of abscess perforation. The patient had no fevers and white blood cell count 11.2. Patient was evaluated for admission and the [facility] Hospitalist team did not think that they could manage patient here and attempt was made to transfer the patient to [facility] where the patient was scheduled to meet with a colorectal surgeon however that was not able to be completed so then the [facility] hospitalist team transferred the patient to [facility]. While at [facility] the patient was transitioned to TPN on July 31. She had a full liquid diet on August 01. On August 05, [address] abdomen pelvis showed an unchanged laboratory appearing of the sigmoid colon with fatty stranding and tethering involving uterus and adjacent small bowel loops concerning for fistulous tract. On August 06 the patient was taken to the OR for laparoscopic procedure but then was converted to an open exploratory laparotomy and sigmoidectomy with end-to-end colorectal anastomosis. There were no complications from the procedure. Postop day 1 her hemoglobin fell to 7.6 and patient was transfused 1 unit packed red blood cells. The ostomy appeared healthy with viable output and the patient was deemed stable for discharge tomorrow 08/11/2022. The patient had a follow-up appointment with her primary care physician Kevan Graves the following day. The patient had a subsequent visit on August 26, 2022 with her PCP again and at that time the patient was hypotensive so her metoprolol was held and she was supposed to restart her metoprolol if her pulse was greater than 90. Home Medications Current Medication List: was personally reviewed by me Laboratory Data Attestation: I reviewed the patient's lab results. 09/03/22 13:17 09/03/22 13:17 Lab Results 09/03/22 09/03/22 09/03/22 Range/Units 12:25 13:17 13:17 WBC 12.32 H (4.8-10.8) K/ul RBC 4.21 (4.20-5.40) M/uL Hgb 13.3 (12.0-16.0) g/dl Hct 37.1 (37.0-47.0) % MCV 88.1 (80.0-100.0) fL MCH 31.6 (25.0-34.0) pg MCHC 35.8 (32.0-36.0) g/dL RDW Std Deviation 47.3 H (36.4-46.3) fL RDW Coeff of Armand 14.6 H (11.5-14.5) % Plt Count 286 (130-400) K/uL MPV 9.2 L (9.4-12.4) fL Immature Gran % (Auto) 0.5 % Neut % (Auto) 53.7 % Lymph % (Auto) 38.1 % [place] % (Auto) 5.9 % Eos % (Auto) 1.5 % Baso % (Auto) 0.3 % Neut # (Auto) 6.60 H (1.40-6.50) K/uL Lymph # (Auto) 4.70 H (1.2-3.4) K/uL [place] # (Auto) 0.73 H (0.11-0.59) K/uL Eos # (Auto) 0.19 (0-0.50) K/uL Baso # (Auto) 0.04 (0-0.2) K/uL Immature Gran # (Auto) 0.06 (0.01-0.20) K/uL PT 10.2 (9.0-12.0) Seconds INR 1.0 (0.9-1.1) APTT 23.1 (21.0-31.0) Seconds PTT Ratio 0.8 VBG pH (7.36-7.41) VBG pCO2 (38-50) mmHg VBG pO2 mmHg VBG HCO3 mmol/L VBG O2 Saturation % VBG Base Excess mEq/L Sodium (136-145) mmol/L Potassium (3.5-5.1) mmol/L Chloride (98-107) mmol/L Carbon Dioxide (21-32) mmol/L Anion Gap (3-11) BUN (6-23) mg/dl Creatinine (0.6-1.2) mg/dl Est Cr Clr Drug Dosing Est GFR ( Amer) ml/min Est GFR (Non-Af Amer) ml/min BUN/Creatinine Ratio (10-20) Glucose (70-99(Fasting)) mg/dl Lactate (0.4-2.0) mmol/L Calcium (8.6-10.3) mg/dl Total Bilirubin (0.2-1.0) mg/dl AST (13-39) U/L ALT (7-52) U/L Alkaline Phosphatase (34-104) U/L Troponin I High Sens (0-14) pg/ml Total Protein (6.0-8.3) gm/dl Albumin (3.4-5.0) gm/dl Globulin (2.5-4.0) gm/dl Albumin/Globulin Ratio (0.9-2) Urine Color Yellow Urine Appearance Cloudy A (Clear) Urine pH 5.5 (4.5-7.5) Ur Specific [address] 1.032 H (1.000-1.030) Urine Protein Trace H (Negative) Urine Glucose (UA) Negative (Negative) Urine Ketones Negative (Negative) Urine Blood Trace H (Negative) Urine Nitrite Negative (Negative) Urine Bilirubin Negative (Negative) Urine Urobilinogen Negative (Negative) Ur Leukocyte Esterase 3+ H (Negative) Urine WBC (Auto) >30 H (0-5) /hpf Urine RBC (Auto) 0-4 (0-4) /hpf U Hyaline Cast (Auto) 5-10 H (0-5) /lpf U Epithel Cells (Auto) >30 H (0-5) /lpf Urine Bacteria (Auto) 1+ H (Negative) 09/03/22 09/03/22 09/03/22 Range/Units 13:17 15:07 16:43 WBC (4.8-10.8) K/ul RBC (4.20-5.40) M/uL Hgb (12.0-16.0) g/dl Hct (37.0-47.0) % MCV (80.0-100.0) fL MCH (25.0-34.0) pg MCHC (32.0-36.0) g/dL RDW Std Deviation (36.4-46.3) fL RDW Coeff of Armand (11.5-14.5) % Plt Count (130-400) K/uL MPV (9.4-12.4) fL Immature Gran % (Auto) % Neut % (Auto) % Lymph % (Auto) % [place] % (Auto) % Eos % (Auto) % Baso % (Auto) % Neut # (Auto) (1.40-6.50) K/uL Lymph # (Auto) (1.2-3.4) K/uL [place] # (Auto) (0.11-0.59) K/uL Eos # (Auto) (0-0.50) K/uL Baso # (Auto) (0-0.2) K/uL Immature Gran # (Auto) (0.01-0.20) K/uL PT (9.0-12.0) Seconds INR (0.9-1.1) APTT (21.0-31.0) Seconds PTT Ratio VBG pH (7.36-7.41) VBG pCO2 (38-50) mmHg VBG pO2 mmHg VBG HCO3 mmol/L VBG O2 Saturation % VBG Base Excess mEq/L Sodium 124 L (136-145) mmol/L Potassium 5.1 (3.5-5.1) mmol/L Chloride 92 L (98-107) mmol/L Carbon Dioxide 17 L (21-32) mmol/L Anion Gap 15 H (3-11) BUN 38 H (6-23) mg/dl Creatinine 1.36 H (0.6-1.2) mg/dl Est Cr Clr Drug Dosing Not Reportable Est GFR ( Amer) 45.6 ml/min Est GFR (Non-Af Amer) 39.3 ml/min BUN/Creatinine Ratio 27.9 H (10-20) Glucose 131 H (70-99(Fasting)) mg/dl Lactate 2.4 H* 1.4 (0.4-2.0) mmol/L Calcium 10.2 (8.6-10.3) mg/dl Total Bilirubin 0.5 (0.2-1.0) mg/dl AST 43 H (13-39) U/L ALT 44 (7-52) U/L Alkaline Phosphatase 345 H (34-104) U/L Troponin I High Sens 58.2 H* (0-14) pg/ml Total Protein 8.4 H (6.0-8.3) gm/dl Albumin 4.5 (3.4-5.0) gm/dl Globulin 3.9 (2.5-4.0) gm/dl Albumin/Globulin Ratio 1.2 (0.9-2) Urine Color Urine Appearance (Clear) Urine pH (4.5-7.5) Ur Specific [address] (1.000-1.030) Urine Protein (Negative) Urine Glucose (UA) (Negative) Urine Ketones (Negative) Urine Blood (Negative) Urine Nitrite (Negative) Urine Bilirubin (Negative) Urine Urobilinogen (Negative) Ur Leukocyte Esterase (Negative) Urine WBC (Auto) (0-5) /hpf Urine RBC (Auto) (0-4) /hpf U Hyaline Cast (Auto) (0-5) /lpf U Epithel Cells (Auto) (0-5) /lpf Urine Bacteria (Auto) (Negative) 09/03/22 09/03/22 Range/Units 16:43 16:43 WBC (4.8-10.8) K/ul RBC (4.20-5.40) M/uL Hgb (12.0-16.0) g/dl Hct (37.0-47.0) % MCV (80.0-100.0) fL MCH (25.0-34.0) pg MCHC (32.0-36.0) g/dL RDW Std Deviation (36.4-46.3) fL RDW Coeff of Armand (11.5-14.5) % Plt Count (130-400) K/uL MPV (9.4-12.4) fL Immature Gran % (Auto) % Neut % (Auto) % Lymph % (Auto) % [place] % (Auto) % Eos % (Auto) % Baso % (Auto) % Neut # (Auto) (1.40-6.50) K/uL Lymph # (Auto) (1.2-3.4) K/uL [place] # (Auto) (0.11-0.59) K/uL Eos # (Auto) (0-0.50) K/uL Baso # (Auto) (0-0.2) K/uL Immature Gran # (Auto) (0.01-0.20) K/uL PT (9.0-12.0) Seconds INR (0.9-1.1) APTT (21.0-31.0) Seconds PTT Ratio VBG pH 7.28 L (7.36-7.41) VBG pCO2 34 L (38-50) mmHg VBG pO2 28 mmHg VBG HCO3 16 mmol/L VBG O2 Saturation < 60.0 % VBG Base Excess -9.8 mEq/L Sodium 124 L (136-145) mmol/L Potassium 4.3 (3.5-5.1) mmol/L Chloride 100 (98-107) mmol/L Carbon Dioxide 17 L (21-32) mmol/L Anion Gap 7 (3-11) BUN 31 H (6-23) mg/dl Creatinine 1.07 (0.6-1.2) mg/dl Est Cr Clr Drug Dosing 40.1 Est GFR ( Amer) 60.9 ml/min Est GFR (Non-Af Amer) 52.6 ml/min BUN/Creatinine Ratio 29.0 H (10-20) Glucose 99 (70-99(Fasting)) mg/dl Lactate (0.4-2.0) mmol/L Calcium 8.2 L D (8.6-10.3) mg/dl Total Bilirubin (0.2-1.0) mg/dl AST (13-39) U/L ALT (7-52) U/L Alkaline Phosphatase (34-104) U/L Troponin I High Sens (0-14) pg/ml Total Protein (6.0-8.3) gm/dl Albumin (3.4-5.0) gm/dl Globulin (2.5-4.0) gm/dl Albumin/Globulin Ratio (0.9-2) Urine Color Urine Appearance (Clear) Urine pH (4.5-7.5) Ur Specific [address] (1.000-1.030) Urine Protein (Negative) Urine Glucose (UA) (Negative) Urine Ketones (Negative) Urine Blood (Negative) Urine Nitrite (Negative) Urine Bilirubin (Negative) Urine Urobilinogen (Negative) Ur Leukocyte Esterase (Negative) Urine WBC (Auto) (0-5) /hpf Urine RBC (Auto) (0-4) /hpf U Hyaline Cast (Auto) (0-5) /lpf U Epithel Cells (Auto) (0-5) /lpf Urine Bacteria (Auto) (Negative) Imaging Data Attestation: I personally reviewed and interpreted this imaging study as follows: My Impression: Chest x-ray negative. Airway clear. No pneumothorax. No consolidation. No cardiomegaly or cephalization.. No free air under the diaphragm. No fractures of the skeletal structures. Radiologist's Impression: Chest X-Ray 09/03/22 13:13 XR chest 1V not portable HISTORY: Shortness of breath. Cough. Atypical Chest pain, nonspecific COMPARISON: Chest CT 08/12/2021. FINDINGS: The lungs are clear. Cardiac silhouette is normal in size. No pleural effusions. No pneumothorax. Prior cholecystectomy. IMPRESSION: No acute process. ACT 112: Negative or not required by law. Electronically signed by: Richard Alegria M.D. 09/03/2022 1:53 PM Chest CTA 09/03/22 14:30 CT ANGIOGRAPHY OF THE CHEST, PULMONARY EMBOLUS PROTOCOL CLINICAL HISTORY: Possible sepsis. Evaluate for pulmonary embolus. COMPARISON STUDY: Chest CT August 12, 2021 and chest radiograph performed earlier today. TECHNIQUE: Following IV administration of 116 mL of Optiray, helical axial images of the chest were obtained utilizing the pulmonary embolus protocol. Maximal intensity projections and sagittal and coronal reformats were viewed on an independent 3D workstation. IV contrast was administered without complicat ion. Automated exposure control was utilized for the study. A dose lowering technique was utilized adhering to the principles of ALARA. FINDINGS: No pulmonary emboli are identified. There is no thoracic aortic dissection. Size of the heart is normal. There is no pericardial effusion. No enlarged thoracic lymph nodes are present. Calcified mediastinal and right hilar lymph nodes are incidentally noted. Bilateral breast implants are present. No pneumothorax or pleural effusion. There is no consolidation to suggest pneumonia. There are no suspicious pulmonary nodules. The abdomen and pelvis CT will be reported separately. Calcified granulomas within the spleen are present.. Postoperative findings within the thoracic spine are similar to prior CT. IMPRESSION: 1. No pulmonary emboli identified. 2. No acute intrathoracic findings. ACT 112: Negative or not required by law. Electronically signed by: Duong Chen M.D. 09/03/2022 3:22 PM Abdomen/Pelvis CT 09/03/22 14:[address] WITH IV CONTRAST CT DOSE: 585.51 mGy.cm HISTORY: sepsis TECHNIQUE: Multiaxial CT images of the abdomen and pelvis were performed follow ing the use of intravenous contrast. A dose lowering technique was utilized adhering to the principles of ALARA. COMPARISON STUDY: Abdomen and pelvis CT 07/29/2022. FINDINGS: The lung bases are clear. No pneumoperitoneum. No pneumatosis. There is a right L5 pars defect. Postoperative changes again noted within the lower thoracic spine. No acute fractures identified. Bilateral breast implants are partially visualized. Interval midline incision for a right lower quadrant ileostomy and partial resection of the sigmoid colon with a rectosigmoid anastomosis. Mild thickening and fat stranding at the rectosigmoid anastomosis. This favors the recent postoperative change. A low-grade residual colitis could also have a similar appearance. No perforation or abscess identified. A few colonic diverticula. No evidence for acute diverticulitis. Mild thickening, fat stranding, enhancement at the midline incision which favors the recent postoperative change. No fluid collections to suggest an abscess. The bladder is unremarkable. The uterus and adnexa are within normal limits. No pelvic free fluid or pelvic lymphadenopathy. Cholecystectomy. The main portal vein is patent. The liver, pancreas, and adrenal glands unremarkable. Multiple calcified splenic granulomas. There are 2 hypodense lesions within the right kidney which favor cysts. The left kidney enhances normally. No hydronephrosis. No retroperitoneal lymphadenopathy. Moderate calcified plaque within the normal caliber abdominal aorta. R appendectomy. IMPRESSION: 1. Interval postoperative changes consistent with partial resection of the sigmoid colon and a right lower quadrant ileostomy. 2. Mild thickening and adjacent fat stranding at the rectosigmoid anastomosis. This favors the recent postoperative change. A residual low-grade colitis could also have a similar appearance. 3. No abscess or perforation identified at this time. 4. No evidence for a bowel obstruction. 5. Cholecystectomy. ACT 112: Negative or not required by law. Electronically signed by: Richard Alegria M.D. 09/03/2022 3:55 PM ECG Data Attestation: I personally reviewed and interpreted this ECG as follows: Interpretation: Sinus tachycardia with rate 140. MA 166 QRS [address] elevation or ST depression. [facility] Narrative 1421: The patient was evaluated in room A12. A complete history and physical exam was performed Cardiac monitoring: An order was placed for continuous cardiac monitoring. The monitor shows a rate of 120 with sinus tachycardia rhythm interpreted by me Patient was seen during a time of extreme volume and extreme acuity in the emergency department. Nursing triage protocols were initiated and labs were drawn by protocol in the triage area. Patient found to be hypotensive. 2 L IV fluids ordered for the patient lactic and blood cultures ordered for the patient. 1600: Vital signs stable. Patient's blood pressure improved status post 2 L IV fluid infusion. Labs showed a mild leukocytosis of 12.32. Sodium 124. Creatinine 1.36. Lactic acid elevated 2.4. High-sensitivity troponin elevated 58.2. Urinalysis does appear to be infected with 1+ bacteria. Patient treated with cefepime empirically. CTA of the chest negative for PE. CT of the abdomen pelvis shows no abscess perforation or obstruction. Mild colitis. Patient will be admitted to the [facility] hospitalist team will discuss the case with the hospitalist. Impression & Plan Sepsis, Acute hyponatremia, Elevated troponin, Acute UTI Critical Care Time Critical Care Time: Yes Total Critical Care Time: 43 I have personally spent greater than 43 minutes of critical care time in the direct management of this patient. This includes bedside care, interpretation of diagnostic studies, and testing, discussion with consultants, patient, and family members, and other required patient management activities. This 43 minutes is in excess of all separately billable procedures. Discharge Plan Visit Data Chief Complaint: Cardiac Assessment Stated Complaint: SOB, CHEST TIGHTNESS ED Provider: Justin Dial Discharge Problem: Sepsis, Acute hyponatremia, Elevated troponin, Acute UTI Patient Disposition: Admitted As Inpatient Forms Stand Alone Forms: My [facility] Prescriptions Prescriptions: No Action sertraline 50 mg tablet 50 mg PO DAILY Qty: 90 3RF ondansetron 4 mg tablet,disintegrating 4 mg PO Q8H PRN (Reason: nausea and vomiting) Qty: 30 0RF atorvastatin 80 mg tablet 80 mg PO HS omeprazole 40 mg capsule,delayed release(DR/EC) 40 mg PO HS metoprolol tartrate 25 mg tablet 25 mg PO BID Rx Instructions: PER PT "NOT REGULARLY, I FORGET TO TAKE". Referrals Referrals: Kevan Simpson CRNP [Primary Care Provider] - Sepsis Qualifiers: Sepsis type: sepsis due to unspecified organism Sepsis acute organ dysfunction status: without acute organ dysfunction Qualified Code(s): A41.9 - Sepsis, unspecified organism
[2022-09-03] MEDS ORDERED: Patient's HEIGHT &/or WEIGHT Needed STA (14:43)
[2022-09-03] MEDS ORDERED: OPTIRAY 320 500ml IV ONE (14:57)
--- NOTE | 2022-09-03 15:24 | CT Scan Report ---
CT ANGIOGRAPHY OF THE CHEST, PULMONARY EMBOLUS PROTOCOL CLINICAL HISTORY: Possible sepsis. Evaluate for pulmonary embolus. COMPARISON STUDY: Chest CT August 12, 2021 and chest radiograph performed earlier today. TECHNIQUE: Following IV administration of 116 mL of Optiray, helical axial images of the chest were o btained utilizing the pulmonary embolus protocol. Maximal intensity projections and sagittal and cor onal reformats were viewed on an independent 3D workstation. IV contrast was administered without co mplication. Automated exposure control was utilized for the study. A dose lowering technique was ut ilized adhering to the principles of ALARA. FINDINGS: No pulmonary emboli are identified. There is no thoracic aortic dissection. Size of the he art is normal. There is no pericardial effusion. No enlarged thoracic lymph nodes are present. Calcif ied mediastinal and right hilar lymph nodes are incidentally noted. Bilateral breast implants are pre sent. No pneumothorax or pleural effusion. There is no consolidation to suggest pneumonia. There are no suspicious pulmonary nodules. The abdomen and pelvis CT will be reported separately. Calcified gra nulomas within the spleen are present.. Postoperative findings within the thoracic spine are similar to prior CT. IMPRESSION: 1. No pulmonary emboli identified. 2. No acute intrathoracic findings. ACT 112: Negative or not required by law. Electronically signed by: Duong Chen M.D. 09/03/2022 3:22 PM
[2022-09-03 15:48] LABS: Appearance Urine Cloudy (Clear); Bacteria Urine Automated 1+ (Negative); Bilirubin Urine Negative (Negative); Blood Urine Trace (Negative); Color Urine Yellow; Epithelial Cell Urine Auto >30 /lpf (0-5); Glucose Urine UA Negative (Negative); Ketones Urine Negative (Negative); Leukocyte Esterase Urine 3+ (Negative); Nitrite Urine Negative (Negative); Protein Urine Trace (Negative); Specific Gravity Urine 1.032 (1.000-1.030); Urobilinogen Urine Negative (Negative); WBC Urine Automated >30 /hpf (0-5); pH Urine 5.5 (4.5-7.5)
--- NOTE | 2022-09-03 15:56 | CT Scan Report ---
ABDOMEN AND PELVIS CT WITH IV CONTRAST CT DOSE: 585.51 mGy.cm HISTORY: sepsis TECHNIQUE: Multiaxial CT images of the abdomen and pelvis were performed following the use of intrave nous contrast. A dose lowering technique was utilized adhering to the principles of ALARA. COMPARISON STUDY: Abdomen and pelvis CT 07/29/2022. FINDINGS: The lung bases are clear. No pneumoperitoneum. No pneumatosis. There is a right L5 pars def ect. Postoperative changes again noted within the lower thoracic spine. No acute fractures identified . Bilateral breast implants are partially visualized. Interval midline incision for a right lower angelito drant ileostomy and partial resection of the sigmoid colon with a rectosigmoid anastomosis. Mild thic kening and fat stranding at the rectosigmoid anastomosis. This favors the recent postoperative change . A low-grade residual colitis could also have a similar appearance. No perforation or abscess identi fied. A few colonic diverticula. No evidence for acute diverticulitis. Mild thickening, fat stranding , enhancement at the midline incision which favors the recent postoperative change. No fluid collecti ons to suggest an abscess. The bladder is unremarkable. The uterus and adnexa are within normal limit s. No pelvic free fluid or pelvic lymphadenopathy. Cholecystectomy. The main portal vein is patent. T he liver, pancreas, and adrenal glands unremarkable. Multiple calcified splenic granulomas. There are 2 hypodense lesions within the right kidney which favor cysts. The left kidney enhances normally. No hydronephrosis. No retroperitoneal lymphadenopathy. Moderate calcified plaque within the normal enzo steve abdominal aorta. R appendectomy. IMPRESSION: 1. Interval postoperative changes consistent with partial resection of the sigmoid colon and a right lower quadrant ileostomy. 2. Mild thickening and adjacent fat stranding at the rectosigmoid anastomosis. This favors the recent postoperative change. A residual low-grade colitis could also have a similar appearance. 3. No abscess or perforation identified at this time. 4. No evidence for a bowel obstruction. 5. Cholecystectomy. ACT 112: Negative or not required by law. Electronically signed by: Richard Alegria M.D. 09/03/2022 3:55 PM
[2022-09-03] MEDS ORDERED: CEFEPIME 2,000 MG/20 ML VIAL IV STA (15:59)
--- NOTE | 2022-09-03 16:22 | History & Physical Report ---
Date of Service September 03, 2022 Assessment & Plan (1) Sepsis: Plan: Suspected urinary source (foul smelling urine) - follow up urine and blood cultures Watery stool suspected just due to colostomy however will take stool PCR and c. diff toxin PCR to rule these out as sources but not suspected based on CT and no acute changes. Switch antibiotics to Zosyn as previously tolerated and unclear if hives secondary to this Add daptomycin empirically given recent hospital admission (2) Acute UTI: (3) Metabolic acidosis: Plan: Mixed anion and non-anion gap metabolic acidosis Lactate level increased due to hypotension - improved with IV fluids Suspect non-anion gap due to bicarb loss from high output colostomy - await sodium workup to decide on IV fluids. (4) Acute hyponatremia: Plan: Repeat level following NSS bolus given in the ER. Serum osm, urine osm/Na if not improving. TSH and cortisol level. ?SIADH due to infection +/- sertraline. Will d/c sertraline and place on 1L fluid restriction ?high free water intake as described by the patient (5) Elevated troponin: Plan: low suspicion of ACS as no acute chest pain or shortness of breath - back pain is more acute on chronic pain will trend troponin levels and get TTE to further investigate (6) Hypertension: Plan: Stop metoprolol as current issue is hypotension (7) Colostomy present: Plan: Test stool PCR, c. diff toxin PCR (8) Urticaria: Plan: Fexofenadine 180mg PO daily Plan VTE Prophylaxis - Lovenox 40mg SQ daily Diet - low fiber, fluid restrict Disposition - admit to PCU Admission and Anticipated Discharge Date Admission Date: September 03, 2022 History of Present Illness Chief Complaint: Shortness of breath, palpitations, chills Primary Care Provider: EWA Escobar Alba Emanuel is a 72 year old female with recent sigmoidectomy performed on August 06 who presents to the ER with increased heart rate, shortness of breath, chills and back pain between shoulder blades. She reports the back pain is chronic ever since she had thoracic spine surgery for a tumor in [place] 4-5 years ago but it is just worse than usual. Worse whenever she gets up and moves and around. She was seen by her PCP last week and was noted to be hypotensive as was told to stop her metoprolol if her BP was low. She has not taken this for the last 2 days. In the ER she was noted to be tachycardic and hypotensive with WBC 12.32 concerning for sepsis. Lactate 2.4. She was given fluid bolus NSS 2L. She was given cefepime 2g IV for empiric coverage. Suspected source urine - she reports her urine smelled horrible since the surgery. She has difficulty ambulating therefore holds in her urine frequently. She reports no acute changes in her abdominal pain or stool output since surgery. No acute URI symptoms. She was also noted to be hyponatremic - Na level 124. She reports high free water intake to keep up with her colostomy output. She also recently started Zoloft due to concerns with insomnia and depression. Allergies Allergy/AdvReac Type Severity Reaction Status Date / Time No Known Allergies Allergy Verified 09/03/22 15:56 Home Medications Medication Instructions Recorded Confirmed Type atorvastatin 80 mg tablet 80 mg PO HS 03/20/22 09/03/22 History omeprazole 40 mg capsule,delayed 40 mg PO HS 03/20/22 09/03/22 History release metoprolol tartrate 25 mg tablet 25 mg PO BID 07/14/22 09/03/22 History ondansetron 4 mg disintegrating 4 mg PO Q8H PRN nausea and 07/24/22 09/03/22 Rx tablet vomiting #30 tabs sertraline 50 mg tablet 50 mg PO DAILY #90 tabs 08/26/22 09/03/22 Rx 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 present Depression Diverticulitis Fibromyalgia GERD without esophagitis History of diverticulitis History of flexible sigmoidoscopy History of open sigmoidectomy Hyperlipidemia Hypertension Osteoporosis last Dexa noted 2019 Pre-diabetes Slow to wake up after anesthesia "a long time ago after tonsillectomy as a child", no issues since 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 Tobacco abuse still currently smokes Surgical History H/O abdominoplasty History of cholecystectomy History of esophagogastroduodenoscopy (EGD) History of tonsillectomy Hx of appendectomy Hx of breast implants, bilateral Hx of colonoscopy Hx of exploratory laparotomy Hx of tubal ligation Previous back surgery 2016 Family History Mother Myocardial infarction Stroke Father Cancer Denies family history of Ovarian cancer Prostate cancer Breast cancer Colorectal cancer Social History Smoking Status: Former smoker Tobacco Type: Cigarettes Age Started Using Tobacco: 37; packs per day: 1; Cigarettes Per Day: 20; Second Hand Exposure: No; Hx Alcohol Use: No Hx Substance Use: No Preferred Language: Hebrew Communication Ability: Effective Visual Impairment: Limited Hearing Ability: Normal Skinning Machine Feeder Required: No Beliefs That Will Affect Care: None marital status: Current Living Situation: Family Current Living Situation Comment: living w son How many Children do You have: 2 Feels Safe at Home: Yes Safety Concerns: Feels Safe At This Time Childhood Exposure to Second-Hand Smoke: Yes caffeine: Yes during the past year weight has: increased > 10 lbs Dental Care, Regularly: Yes Physical Activity Frequency: Does not Exercise Seatbelt Use: always Sunscreen Use: Yes Assistive Devices: Glasses and Walker Review of Systems Review of Systems: All systems reviewed & are unremarkable except as noted in HPI & below Physical Exam Constitutional: WD/WN, vitals as above Eyes: + anicteric sclerae; normal pupil size ENMT: external ear and nose normal, oropharynx normal Neck: trachea midline, no thyromegaly Respiratory: normal respiratory effort, lungs clear to auscultation Cardiovascular: Rate/Rhythm: regular rhythm and + tachycardic Heart Sounds: no murmur Extremities: normal capillary refill; no calf tenderness and no pedal edema Gastrointestinal (Abdomen): Inspection/Auscultation: normal bowel sounds; abdomen not distended Percussion/Palpation: + abdomen tender (generalized, mild) and abdomen soft; no guarding and abdomen not rigid healthy pink colostomy with liquid brown output umbilical open surgical wound without surrounding cellulitis Musculoskeletal: no cyanosis or clubbing, extremities motor strength 5/5 Spine: + thoracic spinal tenderness Skin: + rash (raised urticaria on anterior abdomen) Neurologic: moves all extremities and awake; not confused Psychiatric: A+Ox3, euthymic affect Genitourinary: no CVA tenderness Results & Data Results & Data Vital Signs (Past 12 Hours) Vital Signs Temp Pulse Pulse Resp BP BP Pulse Ox 09/03/22 15:49 81 18 118/75 100 09/03/22 15:01 36.3 C L 94 H 19 105/71 97 09/03/22 14:49 89 L 09/03/22 14:30 126 H 18 75/56 L 99 09/03/22 14:30 130 H 99 09/03/22 13:10 35 C L 130 H 20 103/67 99 O2 Del Method O2 Flow Rate 09/03/22 15:49 Room Air 09/03/22 15:01 Nasal Cannula 2 09/03/22 14:49 Room Air 09/03/22 14:30 Room Air 09/03/22 14:30 Room Air 09/03/22 13:10 Room Air Laboratory Results Abnormal lab results 09/03/22 09/03/22 09/03/22 Range/Units 12:25 12:25 13:17 WBC 12.32 H (4.8-10.8) K/ul RDW Std Deviation 47.3 H (36.4-46.3) fL RDW Coeff of Armand 14.6 H (11.5-14.5) % MPV 9.2 L (9.4-12.4) fL Neut # (Auto) 6.60 H (1.40-6.50) K/uL Lymph # (Auto) 4.70 H (1.2-3.4) K/uL Th[place]morton # (Auto) 0.73 H (0.11-0.59) K/uL VBG pH (7.36-7.41) VBG pCO2 (38-50) mmHg Sodium (136-145) mmol/L Chloride (98-107) mmol/L Carbon Dioxide (21-32) mmol/L Anion Gap (3-11) BUN (6-23) mg/dl Creatinine (0.6-1.2) mg/dl BUN/Creatinine Ratio (10-20) Glucose (70-99(Fasting)) mg/dl Osmolality (280-300) mOsm/kg Lactate (0.4-2.0) mmol/L Calcium (8.6-10.3) mg/dl AST (13-39) U/L Alkaline Phosphatase (34-104) U/L Troponin I High Sens (0-14) pg/ml Total Protein (6.0-8.3) gm/dl Urine Appearance Cloudy A (Clear) Ur Specific [place] 1.032 H (1.000-1.030) Urine Protein Trace H (Negative) Urine Blood Trace H (Negative) Ur Leukocyte Esterase 3+ H (Negative) Urine WBC (Auto) >30 H (0-5) /hpf U Hyaline Cast (Auto) 5-10 H (0-5) /lpf U Epithel Cells (Auto) >30 H (0-5) /lpf Urine Bacteria (Auto) 1+ H (Negative) Urine Osmolality 489 L (500-800) mOsm/kg 09/03/22 09/03/22 09/03/22 Range/Units 13:17 13:17 15:07 WBC (4.8-10.8) K/ul RDW Std Deviation (36.4-46.3) fL RDW Coeff of Armand (11.5-14.5) % MPV (9.4-12.4) fL Neut # (Auto) (1.40-6.50) K/uL Lymph # (Auto) (1.2-3.4) K/uL [place]mort[place] # (Auto) (0.11-0.59) K/uL VBG pH (7.36-7.41) VBG pCO2 (38-50) mmHg Sodium 124 L (136-145) mmol/L Chloride 92 L (98-107) mmol/L Carbon Dioxide 17 L (21-32) mmol/L Anion Gap 15 H (3-11) BUN 38 H (6-23) mg/dl Creatinine 1.36 H (0.6-1.2) mg/dl BUN/Creatinine Ratio 27.9 H (10-20) Glucose 131 H (70-99(Fasting)) mg/dl Osmolality 279 L (280-300) mOsm/kg Lactate 2.4 H* (0.4-2.0) mmol/L Calcium (8.6-10.3) mg/dl AST 43 H (13-39) U/L Alkaline Phosphatase 345 H (34-104) U/L Troponin I High Sens 58.2 H* (0-14) pg/ml Total Protein 8.4 H (6.0-8.3) gm/dl Urine Appearance (Clear) Ur Specific [place] (1.000-1.030) Urine Protein (Negative) Urine Blood (Negative) Ur Leukocyte Esterase (Negative) Urine WBC (Auto) (0-5) /hpf U Hyaline Cast (Auto) (0-5) /lpf U Epithel Cells (Auto) (0-5) /lpf Urine Bacteria (Auto) (Negative) Urine Osmolality (500-800) mOsm/kg 09/03/22 09/03/22 09/03/22 Range/Units 16:43 16:43 16:43 WBC (4.8-10.8) K/ul RDW Std Deviation (36.4-46.3) fL RDW Coeff of Armand (11.5-14.5) % MPV (9.4-12.4) fL Neut # (Auto) (1.40-6.50) K/uL Lymph # (Auto) (1.2-3.4) K/uL [place] # (Auto) (0.11-0.59) K/uL VBG pH 7.28 L (7.36-7.41) VBG pCO2 34 L (38-50) mmHg Sodium 124 L (136-145) mmol/L Chloride (98-107) mmol/L Carbon Dioxide 17 L (21-32) mmol/L Anion Gap (3-11) BUN 31 H (6-23) mg/dl Creatinine (0.6-1.2) mg/dl BUN/Creatinine Ratio 29.0 H (10-20) Glucose (70-99(Fasting)) mg/dl Osmolality (280-300) mOsm/kg Lactate (0.4-2.0) mmol/L Calcium 8.2 L D (8.6-10.3) mg/dl AST (13-39) U/L Alkaline Phosphatase (34-104) U/L Troponin I High Sens 67.7 H* (0-14) pg/ml Total Protein (6.0-8.3) gm/dl Urine Appearance (Clear) Ur Specific [place] (1.000-1.030) Urine Protein (Negative) Urine Blood (Negative) Ur Leukocyte Esterase (Negative) Urine WBC (Auto) (0-5) /hpf U Hyaline Cast (Auto) (0-5) /lpf U Epithel Cells (Auto) (0-5) /lpf Urine Bacteria (Auto) (Negative) Urine Osmolality (500-800) mOsm/kg 09/03/22 Range/Units 22:46 WBC (4.8-10.8) K/ul RDW Std Deviation (36.4-46.3) fL RDW Coeff of Armand (11.5-14.5) % MPV (9.4-12.4) fL Neut # (Auto) (1.40-6.50) K/uL Lymph # (Auto) (1.2-3.4) K/uL [place] # (Auto) (0.11-0.59) K/uL VBG pH (7.36-7.41) VBG pCO2 (38-50) mmHg Sodium 126 L (136-145) mmol/L Chloride (98-107) mmol/L Carbon Dioxide 17 L (21-32) mmol/L Anion Gap (3-11) BUN 26 H (6-23) mg/dl Creatinine (0.6-1.2) mg/dl BUN/Creatinine Ratio 23.2 H (10-20) Glucose 106 H (70-99(Fasting)) mg/dl Osmolality (280-300) mOsm/kg Lactate (0.4-2.0) mmol/L Calcium 8.2 L (8.6-10.3) mg/dl AST (13-39) U/L Alkaline Phosphatase (34-104) U/L Troponin I High Sens 63.3 H* (0-14) pg/ml Total Protein (6.0-8.3) gm/dl Urine Appearance (Clear) Ur Specific [place] (1.000-1.030) Urine Protein (Negative) Urine Blood (Negative) Ur Leukocyte Esterase (Negative) Urine WBC (Auto) (0-5) /hpf U Hyaline Cast (Auto) (0-5) /lpf U Epithel Cells (Auto) (0-5) /lpf Urine Bacteria (Auto) (Negative) Urine Osmolality (500-800) mOsm/kg Diagnostic Findings XR chest 1V not portable HISTORY: Shortness of breath. Cough. Atypical Chest pain, nonspecific COMPARISON: Chest CT 08/12/2021. FINDINGS: The lungs are clear. Cardiac silhouette is normal in size. No pleural effusions. No pneumothorax. Prior cholecystectomy. IMPRESSION: No acute process. CT ANGIOGRAPHY OF THE CHEST, PULMONARY EMBOLUS PROTOCOL CLINICAL HISTORY: Possible sepsis. Evaluate for pulmonary embolus. COMPARISON STUDY: Chest CT August 12, 2021 and chest radiograph performed e marcos today. TECHNIQUE: Following IV administration of 116 mL of Optiray, helical axial images of the chest were obtained utilizing the pulmonary embolus protocol. Maximal intensity projections and sagittal and coronal reformats were viewed on an independent 3D workstation. IV contrast was administered without complication. Automated exposure control was utilized for the study. A dose lowering technique was utilized adhering to the principles of ALARA. FINDINGS: No pulmonary emboli are identified. There is no thoracic aortic dissection. Size of the heart is normal. There is no pericardial effusion. No enlarged thoracic lymph nodes are present. Calcified mediastinal and right hilar lymph nodes are incidentally noted. Bilateral breast implants are present. No pneumothorax or pleural effusion. There is no consolidation to suggest pneumonia. There are no suspicious pulmonary nodules. The abdomen and pelvis CT will be reported separately. Calcified granulomas within the spleen are p resent.. Postoperative findings within the thoracic spine are similar to prior CT. IMPRESSION: 1. No pulmonary emboli identified. 2. No acute intrathoracic findings. ABDOMEN AND PELVIS CT WITH IV CONTRAST CT DOSE: 585.51 mGy.cm HISTORY: sepsis TECHNIQUE: Multiaxial CT images of the abdomen and pelvis were performed following the use of intravenous contrast. A dose lowering technique was utilized adhering to the principles of ALARA. COMPARISON STUDY: Abdomen and pelvis CT 07/29/2022. FINDINGS: The lung bases are clear. No pneumoperitoneum. No pneumatosis. There is a right L5 pars defect. Postoperative changes again noted within the lower thoracic spine. No acute fractures identified. Bilateral breast implants are partially visualized. Interval midline incision for a right lower quadrant ileostomy and partial resection of the sigmoid colon with a rectosigmoid anastomosis. Mild thickening and fat stranding at the rectosigmoid anastomosis. This favors the recent postoperative change. A low-grade residual colitis could also have a similar appearance. No perforation or abscess identified. A few colonic diverticula. No evidence for acute diverticulitis. Mild thickening, fat stranding, enhancement at the midline incision which favors the recent postoperative change. No fluid collections to suggest an abscess. The bladder is unremarkable. The uterus and adnexa are within normal limits. No pelvic free fluid or pelvic lymphadenopathy. Cholecystectomy. The main portal vein is patent. The liver, pancreas, and adrenal glands unremarkable. Multiple calcified splenic granulomas. There are 2 hypodense lesions within the right kidney which favor cysts. The left kidney enhances normally. No hydronephrosis. No retroperitoneal lymphadenopathy. Moderate calcified plaque within the normal caliber abdominal aorta. R appendectomy. IMPRESSION: 1. Interval postoperative changes consistent with partial resection of the sigmoid colon and a right lower quadrant ileostomy. 2. Mild thickening and adjacent fat stranding at the rectosigmoid anastomosis. This favors the recent postoperative change. A residual low-grade colitis could also have a similar appearance. 3. No abscess or perforation identified at this time. 4. No evidence for a bowel obstruction. 5. Cholecystectomy. Medications Administered ER Medications Given: Code Status & VTE Plan Code Status Full VTE Prophylaxis Plan VTE Prophylaxis will be ordered: Yes PG Care Time/CCT Total # of Minutes Spent Total Time Spent with Patient: Total time spent is greater than 50% in coordination of care (as documented) at patient's floor/unit and/or counseling patient: Coding Level of Care Code 25904 INT INP/OBS CARE 3/75MIN Diagnoses Sepsis A41.9 Sepsis acute organ dysfunction status: without acute organ dysfunction Sepsis type: sepsis due to unspecified organism Acute UTI N39.0 Metabolic acidosis E87.20 Acute hyponatremia E87.1 Elevated troponin R77.8 Hypertension I10 Colostomy present Z93.3 Urticaria L50.9 (1) Sepsis Sepsis acute organ dysfunction status: without acute organ dysfunction Sepsis type: sepsis due to unspecified organism Qualified Code(s): A41.9 - Sepsis, unspecified organism
[2022-09-03 16:24] LABS: RBC Urine Automated 0-4 /hpf (0-4)
[2022-09-03 16:54] LABS: Base Excess VBG -9.8 mEq/L; HCO3 VBG 16 mmol/L; Oxygen Saturation VBG < 60.0 %; PCO2 VBG 34 mmHg (38-50); PO2 VBG 28 mmHg; pH VBG 7.28 (7.36-7.41)
[2022-09-03 17:14] LABS: Calcium 8.2 mg/dl (8.6-10.3); Creatinine Clr Calc Pharmacy 40.1 ml/min; Est GFR (African American) 60.9 ml/min; Est GFR (Non-African American) 52.6 ml/min; Potassium 4.3 mmol/L (3.5-5.1)
[2022-09-03] MEDS ORDERED: ACETAMINOPHEN 325 MG TAB PO PRN (18:04)
[2022-09-03] MEDS ORDERED: ONDANSETRON INJ 2 MG/ML 2 ML VIAL IV PRN (18:04)
[2022-09-03] MEDS ORDERED: PIPERACILLIN/TAZOBACTAM 3.375 GM (over 30 mins) IV ONE (18:30)
[2022-09-03 18:37] LABS: Adenovirus F 40/41 PCR Not Detected (NotDetected); Astrovirus PCR Not Detected (NotDetected); Campylobacter PCR Not Detected (NotDetected); Cryptosporidium PCR Not Detected (NotDetected); Cyclospora cayetanensis PCR Not Detected (NotDetected); Entamoeba histolytica PCR Not Detected (NotDetected); Enteroaggregative E.coli(EAEC) Not Detected (NotDetected); Enteropathogenic E.coli (EPEC) Not Detected (NotDetected); Enterotoxigenic E.coli (ETEC) Not Detected (NotDetected); Giardia lamblia PCR Not Detected (NotDetected); Norovirus GI/GII PCR Not Detected (NotDetected); Plesiomonas shigelloides PCR Not Detected (NotDetected); Rotavirus A PCR Not Detected (NotDetected); Salmonella PCR Not Detected (NotDetected); Sapovirus PCR Not Detected (NotDetected); Shiga-like Toxin E.coli (STEC) Not Detected (NotDetected); Shigella/Enteroinvasive E.coli Not Detected (NotDetected); Vibrio cholerae PCR Not Detected (NotDetected); Vibrio species PCR Not Detected (NotDetected); Yersinia enterocolitica PCR Not Detected (NotDetected)
[2022-09-03] MEDS ORDERED: DAPTOmycin 300 MG in SYRINGE 0 ML IV SCH (19:00)
[2022-09-03] MEDS: FEXOFENADINE HCL 180 MG TAB PO SCH (20:23)
[2022-09-03] MEDS ORDERED: PANTOprazole 40 MG in SYRINGE 0 ML IV SCH (21:00)
[2022-09-03] MEDS ORDERED: ATORVASTATIN 40 MG TAB PO SCH (21:00)
[2022-09-03] MEDS: PIPERACILLIN/TAZOBACTAM 3.375 GM in DEXTROSE 5% 100 ML IV SCH (23:09)
[2022-09-03] MEDS ORDERED: SODIUM CHLORIDE 0.9% 1000ML 1,000 ML IV SCH (23:30)
[2022-09-03 23:38] LABS: BUN Creatinine Ratio 23.2 (10-20); Calcium 8.2 mg/dl (8.6-10.3); Creatinine Clr Calc Pharmacy 35.3 ml/min; Est GFR (African American) 57.6 ml/min; Est GFR (Non-African American) 49.7 ml/min; Potassium 3.9 mmol/L (3.5-5.1)
[2022-09-03 23:40] LABS: Troponin I High Sensitivity 63.3 pg/ml (0-14)
[2022-09-04] MEDS ORDERED: STAT IV STA (01:43)
[2022-09-04] MEDS ORDERED: SODIUM BICARBONATE 8.4% 150 MEQ in DEXTROSE 5% 1,000 ML IV SCH (02:00)
[2022-09-04 05:59] LABS: Basophils # (auto) 0.03 K/uL (0-0.2); Basophils % (auto) 0.4 %; Eosinophils # (auto) 0.25 K/uL (0-0.50); Hematocrit (blood only) 25.6 % (37.0-47.0); Hemoglobin 9.1 g/dl (12.0-16.0); Immature Granulocytes # (auto) 0.06 K/uL (0.01-0.20); Immature Granulocytes % (auto) 0.7 %; Lymphocytes # (auto) 2.78 K/uL (1.2-3.4); Lymphocytes % (auto) 33.6 %; Mean Corpuscular Hemoglobin 31.8 pg (25.0-34.0); Mean Corpuscular Hgb Conc 35.5 g/dL (32.0-36.0); Mean Corpuscular Volume 89.5 fL (80.0-100.0); Mean Platelet Volume 8.9 fL (9.4-12.4); Monocytes # (auto) 0.38 K/uL (0.11-0.59); Monocytes % (auto) 4.6 %; Neutrophils # (auto) 4.77 K/uL (1.40-6.50); Neutrophils % (auto) 57.7 %; Platelet Count 187 K/uL (130-400); RDW Coefficient of Variation 14.7 % (11.5-14.5); RDW Standard Deviation 48.1 fL (36.4-46.3); Red Blood Count 2.86 M/uL (4.20-5.40); White Blood Count 8.27 K/ul (4.8-10.8)
[2022-09-04 06:09] LABS: Albumin Globulin Ratio 1.3 (0.9-2); Albumin Level 3.1 gm/dl (3.4-5.0); BUN Creatinine Ratio 18.2 (10-20); Bilirubin,Total 0.5 mg/dl (0.2-1.0); Calcium 7.7 mg/dl (8.6-10.3); Creatinine Clr Calc Pharmacy 35.9 ml/min; Est GFR (African American) 58.9 ml/min; Est GFR (Non-African American) 50.8 ml/min; Globulin 2.3 gm/dl (2.5-4.0); Total Protein 5.4 gm/dl (6.0-8.3)
[2022-09-04 06:12] LABS: Troponin I High Sensitivity 49.8 pg/ml (0-14)
[2022-09-04] MEDS: PIPERACILLIN/TAZOBACTAM 3.375 GM in DEXTROSE 5% 100 ML IV SCH ×3 (08:29→23:22)
[2022-09-04] MEDS: ENOXAPARIN INJ 40 MG/0.4 ML SYR SQ SCH (08:34)
[2022-09-04] MEDS: FEXOFENADINE HCL 180 MG TAB PO SCH (08:35)
--- NOTE | 2022-09-04 08:38 | XCELERA ---
[id number] [id number]
--- NOTE | 2022-09-04 08:59 | Electrocardiogram Report ---
Test Reason : Blood Pressure : / mmHG Vent. Rate : 086 BPM Atrial Rate : 086 BPM P-R Int : 180 ms QRS Dur : 072 ms QT Int : 362 ms P-R-T Axes : 038 -14 010 degrees QTc Int : 433 ms Normal sinus rhythm Normal ECG When compared with ECG of 03-SEP-2022 13:17, Vent. rate has decreased BY 54 BPM Confirmed by Sarbjit Morfin ([id number]) on 09/04/2022 8:58:55 AM Referred By: Kevan Simpson Confirmed By:aSrbjit Morfin
--- NOTE | 2022-09-04 09:00 | Electrocardiogram Report ---
Test Reason : Blood Pressure : / mmHG Vent. Rate : 140 BPM Atrial Rate : 140 BPM P-R Int : 166 ms QRS Dur : 070 ms QT Int : 260 ms P-R-T Axes : 042 -32 056 degrees QTc Int : 396 ms Sinus tachycardia with occasional Premature ventricular complexes Left atrial enlargement Left axis deviation Low voltage QRS Abnormal ECG When compared with ECG of 19-JUL-2022 14:35, Premature ventricular complexes are now Present Vent. rate has increased BY 64 BPM Confirmed by Sarbjit Morfin ([id number]) on 09/03/2022 4:37:31 PM Referred By: Kevan Simpson Confirmed By:Sarbjit Morfin
--- NOTE | 2022-09-04 09:01 | Electrocardiogram Report ---
Test Reason : Blood Pressure : / mmHG Vent. Rate : 083 BPM Atrial Rate : 083 BPM P-R Int : 200 ms QRS Dur : 076 ms QT Int : 376 ms P-R-T Axes : 054 020 039 degrees QTc Int : 441 ms Normal sinus rhythm Normal ECG When compared with ECG of 04-SEP-2022 03:34, No significant change Confirmed by Sarbjit Morfin ([id number]) on 09/04/2022 9:01:12 AM Referred By: Kevan Simpson Confirmed By:Sarbjit Morfin
--- NOTE | 2022-09-04 15:46 | Hospitalist Progress Note ---
Date of Service September 04, 2022 Assessment & Plan (1) Sepsis: Plan: Suspected on admission. Blood and urine cultures remain negative. Daptomycin has been discontinued. She will remain on Zosyn until final cultures are negative. C. difficile assay is negative. (2) Acute UTI: Plan: Ruled out. Urine culture is negative to date (3) Metabolic acidosis: Plan: Mild on admission. Treated with bicarbonate infusion. Now resolved. Suspect non-anion gap due to bicarb loss from high output colostomy (4) Acute hyponatremia: Plan: Mild on admission. Possible SIADH. Serum osmolarity is mildly low. Improving with fluid restriction. Sodium up to 130. Serial labs ordered. (5) Elevated troponin: Plan: low suspicion of ACS as no acute chest pain or shortness of breath. No acute EKG changes. Telemetry (6) Hypertension: Plan: Hypotensive on admission. Metoprolol is on hold. Telemetry (7) Colostomy present: Plan: C. difficile assay is negative (8) Urticaria: Plan: Fexofenadine 180mg PO daily. No current complaints Plan The patient has requested SNF placement. OT and PT assessments requested. Admission and Anticipated Discharge Date Admission Date: September 03, 2022 Subjective Alert and oriented. She has a plethora of complaints, nonspecific. She presented with weakness and rapid heart rate which she says is chronic. Sodium was low and osmolarity mildly low. Sertraline was discontinued as possible cause of SIADH. She does have sinus tachycardia but her blood pressure is somewhat low. Thyroid profile is pending. She was given a bicarbonate drip on admission which has been discontinued. Daptomycin was discontinued and she remains on intravenous Zosyn. However, urine and blood cultures are negative to date. Zosyn will be discontinued tomorrow, September 05, if cultures remain negat susanne. She is requesting SNF placement at discharge. OT and PT evaluations requested Review of Systems Review of Systems: Constitutional-no fever. Generalized weakness. Difficulty with ambulation ENT-no blurred vision, no double vision, no epistaxis, no sore throat Respiratory-no cough, no wheezing. She does complain of shortness of breath with exertion and with her chest discomfort Cardiac-she has palpitations and intermittent chest pain but this does not seem to be a new problem for her. No syncope GI-no nausea, vomiting, diarrhea, melena, hematochezia -no urinary retention, no urinary incontinence, no dysuria, no hematuria Musculoskeletal-no joint pain, no muscle tenderness Skin-no bruising, no rashes, no pruritus Neuro-generalized weakness. Ambulatory dysfunction. No focal deficits Psych-flat affect. Physical Exam Physical Exam: General-alert and oriented x3. No acute distress HEENT-head atraumatic and normocephalic, pupils equal and reactive to light, extraocular muscles intact Neck-no lymphadenopathy or thyromegaly, trachea midline Chest-clear to auscultation percussion. No rales wheezing or rhonchi Cardiac-tachycardic regular rate and rhythm, normal S1 and S2 Abdomen-normal bowel sounds, nontender, no hepatosplenomegaly Extremities-no cyanosis, clubbing, or edema Neuro-cranial nerves II through XII intact, motor and sensory function within normal limits, strength symmetrical with generalized weakness, no focal deficits Psych-flat affect Results & Data Results & Data Vital Signs (Past 12 Hours) Vital Signs Temp Pulse Pulse Resp BP BP Pulse Ox 09/04/22 15:19 36.7 C 115 H 18 99/58 L 98 09/04/22 11:47 81 09/04/22 11:17 36.6 C 105 H 16 92/52 L 100 09/04/22 07:22 36.8 C 75 16 97/51 L 99 09/04/22 05:30 76 98/55 L 09/04/22 04:00 87 100/53 L 09/04/22 03:40 36.6 C 102 H 24 88/54 L 99 O2 Del Method 09/04/22 15:19 Room Air 09/04/22 11:47 09/04/22 11:17 Room Air 09/04/22 07:22 Room Air 09/04/22 05:30 09/04/22 04:00 09/04/22 03:40 Room Air Laboratory Results 09/04/22 05:26 09/04/22 05:26 PG Care Time/CCT Total # of Minutes Spent Total Time Spent with Patient: Total time spent is greater than 50% in coordination of care (as documented) at patient's floor/unit and/or counseling patient: Coding Level of Care Code 85179 SUB INP/OBS CARE 3/50MIN Diagnoses Sepsis A41.9 Sepsis acute organ dysfunction status: without acute organ dysfunction Sepsis type: sepsis due to unspecified organism Acute UTI N39.0 Metabolic acidosis E87.20 Acute hyponatremia E87.1 Elevated troponin R77.8 Hypertension I10 Colostomy present Z93.3 Urticaria L50.9 (1) Sepsis Sepsis acute organ dysfunction status: without acute organ dysfunction Sepsis type: sepsis due to unspecified organism Qualified Code(s): A41.9 - Sepsis, unspecified organism
[2022-09-05 06:11] LABS: Basophils # (auto) 0.03 K/uL (0-0.2); Basophils % (auto) 0.4 %; Eosinophils # (auto) 0.23 K/uL (0-0.50); Hemoglobin 9.9 g/dl (12.0-16.0); Immature Granulocytes # (auto) 0.02 K/uL (0.01-0.20); Immature Granulocytes % (auto) 0.3 %; Lymphocytes # (auto) 3.11 K/uL (1.2-3.4); Lymphocytes % (auto) 40.5 %; Mean Corpuscular Hemoglobin 31.4 pg (25.0-34.0); Mean Corpuscular Hgb Conc 35.4 g/dL (32.0-36.0); Mean Corpuscular Volume 88.9 fL (80.0-100.0); Mean Platelet Volume 9.4 fL (9.4-12.4); Monocytes # (auto) 0.38 K/uL (0.11-0.59); Neutrophils % (auto) 50.8 %; Platelet Count 206 K/uL (130-400); RDW Coefficient of Variation 14.8 % (11.5-14.5); RDW Standard Deviation 48.1 fL (36.4-46.3); Red Blood Count 3.15 M/uL (4.20-5.40); White Blood Count 7.67 K/ul (4.8-10.8)
[2022-09-05 06:35] LABS: BUN Creatinine Ratio 10.4 (10-20); Calcium 8.2 mg/dl (8.6-10.3); Creatinine Clr Calc Pharmacy 41.1 ml/min; Est GFR (African American) 69.4 ml/min; Est GFR (Non-African American) 59.9 ml/min; Potassium 3.2 mmol/L (3.5-5.1)
[2022-09-05] MEDS: PIPERACILLIN/TAZOBACTAM 3.375 GM in DEXTROSE 5% 100 ML IV SCH (08:57)
[2022-09-05] MEDS: FEXOFENADINE HCL 180 MG TAB PO SCH (08:57)
[2022-09-05] MEDS: ENOXAPARIN INJ 40 MG/0.4 ML SYR SQ SCH (08:59)
[2022-09-05] MEDS ORDERED: POTASSIUM CHLORIDE CRTAB 20 MEQ TABCR PO STA (09:42)
[2022-09-05] MEDS: METOPROLOL TARTRATE 25 MG TAB PO SCH ×2 (10:20→21:10)
--- NOTE | 2022-09-05 14:09 | Hospitalist Progress Note ---
Date of Service September 05, 2022 Assessment & Plan (1) Sepsis: Plan: Suspected on admission. Blood and urine cultures remain negative. Daptomycin and Zosyn have been discontinued. C. difficile assay is negative. (2) Acute UTI: Plan: Ruled out. Urine culture is negative to date (3) Metabolic acidosis: Plan: Mild on admission. Treated with bicarbonate infusion. Now resolved. Suspect non-anion gap due to bicarb loss from high output colostomy (4) Acute hyponatremia: Plan: Mild on admission. Possible SIADH. Serum osmolarity is mildly low. Improving with fluid restriction. Sodium up to 130 and stable. Serial labs ordered. (5) Elevated troponin: Plan: Appears to be due to demand ischemia. No evidence of ACS. No acute EKG changes. Telemetry (6) Hypertension: Plan: Low-dose metoprolol has been restarted. Tachycardia has resolved. Thyroid profile is unremarkable. Telemetry (7) Colostomy present: Plan: C. difficile assay is negative (8) Urticaria: Plan: Fexofenadine 180mg PO daily. No current complaints Plan Anticipate discharge to SNF or IPR when arrangements are finalized. Admission and Anticipated Discharge Date Admission Date: September 03, 2022 Subjective Alert and oriented. Low-dose metoprolol was restarted today, September 05, and has already helped with heart rate and blood pressure. Sodium stable at 130. Potassium supplementation given today for potassium 3.2. Zosyn has been discontinued. Physical therapy evaluation completed and they do recommend IPR or SNF at discharge. Review of Systems Review of Systems: Constitutional-no fever. Generalized weakness. Difficulty with ambulation ENT-no blurred vision, no double vision, no epistaxis, no sore throat Respiratory-no cough, no wheezing. She does complain of shortness of breath with exertion and with her chest discomfort Cardiac-she has palpitations and intermittent chest pain but this does not seem to be a new problem for her. No syncope GI-no nausea, vomiting, diarrhea, melena, hematochezia -no urinary retention, no urinary incontinence, no dysuria, no hematuria Musculoskeletal-no joint pain, no muscle tenderness Skin-no bruising, no rashes, no pruritus Neuro-generalized weakness. Ambulatory dysfunction. No focal deficits Psych-flat affect. Physical Exam Physical Exam: General-alert and oriented x3. No acute distress HEENT-head atraumatic and normocephalic, pupils equal and reactive to light, extraocular muscles intact Neck-no lymphadenopathy or thyromegaly, trachea midline Chest-clear to auscultation percussion. No rales wheezing or rhonchi Cardiac- regular rate and rhythm, normal S1 and S2. Tachycardia has resolved Abdomen-normal bowel sounds, nontender, no hepatosplenomegaly Extremities-no cyanosis, clubbing, or edema Neuro-cranial nerves II through XII intact, motor and sensory function within normal limits, strength symmetrical with generalized weakness, no focal deficits Psych-flat affect Results & Data Results & Data Vital Signs (Past 12 Hours) Vital Signs Temp Pulse Pulse Resp BP BP Pulse Ox 09/05/22 12:11 36.4 C L 82 22 91/58 L 99 09/05/22 08:00 83 09/05/22 08:00 09/05/22 08:34 36.8 C 95 H 17 108/67 99 09/05/22 04:42 36.3 C L 94 H 18 106/59 L 99 O2 Del Method 09/05/22 12:11 Room Air 09/05/22 08:00 09/05/22 08:00 Room Air 09/05/22 08:34 Room Air 09/05/22 04:42 Room Air Laboratory Results 09/05/22 05:29 09/05/22 05:29 PG Care Time/CCT Total # of Minutes Spent Total Time Spent with Patient: Total time spent is greater than 50% in coordination of care (as documented) at patient's floor/unit and/or counseling patient: Coding Level of Care Code 61081 SUB INP/OBS CARE 3/50MIN Diagnoses Sepsis A41.9 Sepsis acute organ dysfunction status: without acute organ dysfunction Sepsis type: sepsis due to unspecified organism Acute UTI N39.0 Metabolic acidosis E87.20 Acute hyponatremia E87.1 Elevated troponin R77.8 Hypertension I10 Colostomy present Z93.3 Urticaria L50.9 (1) Sepsis Sepsis acute organ dysfunction status: without acute organ dysfunction Sepsis type: sepsis due to unspecified organism Qualified Code(s): A41.9 - Sepsis, unspecified organism
[2022-09-06 06:27] LABS: Basophils # (auto) 0.03 K/uL (0-0.2); Basophils % (auto) 0.3 %; Eosinophils % (auto) 4.4 %; Hematocrit (blood only) 31.9 % (37.0-47.0); Hemoglobin 11.3 g/dl (12.0-16.0); Immature Granulocytes # (auto) 0.04 K/uL (0.01-0.20); Immature Granulocytes % (auto) 0.4 %; Lymphocytes # (auto) 3.85 K/uL (1.2-3.4); Lymphocytes % (auto) 42.7 %; Mean Corpuscular Hemoglobin 31.6 pg (25.0-34.0); Mean Corpuscular Hgb Conc 35.4 g/dL (32.0-36.0); Mean Corpuscular Volume 89.1 fL (80.0-100.0); Mean Platelet Volume 9.4 fL (9.4-12.4); Monocytes # (auto) 0.37 K/uL (0.11-0.59); Monocytes % (auto) 4.1 %; Neutrophils # (auto) 4.32 K/uL (1.40-6.50); Neutrophils % (auto) 48.1 %; Platelet Count 253 K/uL (130-400); RDW Coefficient of Variation 14.6 % (11.5-14.5); RDW Standard Deviation 47.8 fL (36.4-46.3); Red Blood Count 3.58 M/uL (4.20-5.40); White Blood Count 9.01 K/ul (4.8-10.8)
[2022-09-06 06:47] LABS: BUN Creatinine Ratio 12.4 (10-20); Creatinine Clr Calc Pharmacy 40.7 ml/min; Est GFR (African American) 68.6 ml/min; Est GFR (Non-African American) 59.2 ml/min; Potassium 3.8 mmol/L (3.5-5.1)
[2022-09-06] MEDS: METOPROLOL TARTRATE 25 MG TAB PO SCH (07:55)
[2022-09-06] MEDS: ENOXAPARIN INJ 40 MG/0.4 ML SYR SQ SCH (07:55)
[2022-09-06] MEDS: FEXOFENADINE HCL 180 MG TAB PO SCH (07:55)
--- NOTE | 2022-09-06 10:57 | Discharge Summary ---
Date of Service September 06, 2022 Admission HPI Per Admitting Provider Alba Emanuel is a 72 year old female with recent sigmoidectomy performed on August 06 who presents to the ER with increased heart rate, shortness of breath, chills and back pain between shoulder blades. She reports the back pain is chronic ever since she had thoracic spine surgery for a tumor in [place] 4-5 years ago but it is just worse than usual. Worse whenever she gets up and moves and around. She was seen by her PCP last week and was noted to be hypotensive as was told to stop her metoprolol if her BP was low. She has not taken this for the last 2 days. In the ER she was noted to be tachycardic and hypotensive with WBC 12.32 concerning for sepsis. Lactate 2.4. She was given fluid bolus NSS 2L. She was given cefepime 2g IV for empiric coverage. Suspected source urine - she reports her urine smelled horrible since the surgery. She has difficulty ambulating therefore holds in her urine frequently. She reports no acute changes in her abdominal pain or stool output since surgery. No acute URI symptoms. She was also noted to be hyponatremic - Na level 124. She reports high free water intake to keep up with her colostomy output. She also recently started Zoloft due to concerns with insomnia and depression. Principal Diagnosis Sinus tachycardia, demand ischemia, hyponatremia due to SIADH, hypokalemia, hypotension Discharge Exam General-alert and oriented x3. No acute distress HEENT-head atraumatic and normocephalic, pupils equal and reactive to light, extraocular muscles intact Neck-no lymphadenopathy or thyromegaly, trachea midline Chest-clear to auscultation percussion. No rales wheezing or rhonchi Cardiac- regular rate and rhythm, normal S1 and S2. Tachycardia has resolved Abdomen-normal bowel sounds, nontender, no hepatosplenomegaly Extremities-no cyanosis, clubbing, or edema Neuro-cranial nerves II through XII intact, motor and sensory function within normal limits, strength symmetrical with generalized weakness, no focal deficits Psych-flat affect Discharge Data Allergies Allergy/AdvReac Type Severity Reaction Status Date / Time No Known Allergies Allergy Verified 09/03/22 15:56 Consultations 09/03/22 16:08 ED Decision to Admit Stat Ordered Studies 09/03/22 14:30 CT angio chest PE protocol Stat 09/03/22 14:42 CT abd pelvis IV con only Stat Hospital Course (1) Sepsis: Suspected on admission. Blood and urine cultures are negative. Daptomycin and Zosyn have been discontinued. C. difficile assay is negative. (2) Acute UTI: Ruled out. Urine culture is negative to date (3) Metabolic acidosis: Mild on admission. Treated with bicarbonate infusion. Now resolved. Suspect non-anion gap due to bicarb loss from high output colostomy (4) Acute hyponatremia: Mild on admission. Possible SIADH. Serum osmolarity is mildly low. Improved with fluid restriction. Sodium now stable. Serial labs ordered. (5) Elevated troponin: Appears to be due to demand ischemia. No evidence of ACS. No acute EKG changes. Telemetry (6) Hypertension: Low-dose metoprolol has been restarted. Tachycardia has resolved. Thyroid profile is unremarkable. Telemetry (7) Colostomy present: C. difficile assay is negative (8) Urticaria: Fexofenadine 180mg PO daily. No current complaints Plan Discharge to [facility] todaySeptember 06 Total Time Total Time Spent Total Time Spent (In Minutes): 40 minutes Discharge Plan Discharge Items Patient Disposition: Transfer Inpatient Rehab Fac Reason For Visit: SEPSIS, SUSPECTED URINE SOURCE Discharge Diagnosis: Tachycardia, demand ischemia, hyponatremia due to SIADH, hypokalemia, transient hypotension Activity: Resume your previous activity Non-emergency contact: Primary Care Provider Call non-emergency contact if: you have any medication questions and your symptoms worsen Follow-up/Referrals: Kevan Simpson CRNP [Primary Care Provider] - Diet: Regular and Heart Healthy Add Attending Provider Instructions: Follow-up with primary care provider after discharge from [facility] Pending Studies at Discharge: No Stand-Alone Forms: [facility] Skilled Items Patient informed of condition?: Yes DNR: No Discharge Level of Care: Acute rehab Communicable Disease: No Discharge Prognosis: Stable Lines: None Urinary Catheter: No Medications and DC Order Prescriptions: New metoprolol tartrate 25 mg Tablet 12.5 mg PO BID Qty: 0 0RF Continued sertraline 50 mg tablet 50 mg PO DAILY Qty: 90 3RF ondansetron 4 mg tablet,disintegrating 4 mg PO Q8H PRN (Reason: nausea and vomiting) Qty: 30 0RF atorvastatin 80 mg tablet 80 mg PO HS omeprazole 40 mg capsule,delayed release(DR/EC) 40 mg PO HS Discontinued metoprolol tartrate 25 mg tablet 25 mg PO BID Rx Instructions: PER PT "NOT REGULARLY, I FORGET TO TAKE". Discharge Orders: Discharge Order (Routine); Ordered 09/06/22 Ordered By: Lit Lyn Admission Data Admit Date/Time: 09/03/22 16:45 Attending Provider: Lit Lyn Admit Provider: Vahid Kim Primary Care Provider: Kevan Simpson Other Providers: Vahid Kim ; [facility] Coding Level of Care Code 18673 INP/OBS DISCH >30 MIN Diagnoses Sepsis A41.9 Sepsis acute organ dysfunction status: without acute organ dysfunction Sepsis type: sepsis due to unspecified organism Acute UTI N39.0 Metabolic acidosis E87.20 Acute hyponatremia E87.1 Elevated troponin R77.8 Hypertension I10 Colostomy present Z93.3 Urticaria L50.9
--- NOTE | 2022-09-16 10:44 | Coding Query ---
To promote full compliance with coding requirements relating to patient care, provider participation is requested in all cases of streetcar motorman uncertainty. Please assist us with the question(s) below: Coding Question(s): The diagnosis below was documented in the ER, H&P with suspected urinary source, and the Progress Notes document Sepsis, suspected on admission, and acute UTI is documented as ruled-out, and the Discharge Summary documents,"Sepsis: Suspected on admission. Blood and urine cultures are negative. Daptomycin and Zosyn have been discontinued. C. difficile assay is negative". It is not clear if Sepsis was initially suspected and treated, or if Sepsis was Ruled-Out. Please indicate if it is still a possible diagnosis or ruled out. Physician's Response(s): SEPSIS/SUSPECTED SEPSIS ( ) Diagnosed and POA. Please specify further, in your clinical opinion, the most likely source: ( ) most likely source is: ( ) unknown source ( ) Diagnosed and not POA. Please specify further, in your clinical opinion, the most likely source: ( ) most likely source is: ( ) unknown source ( x ) Ruled out ( ) Other (please specify) MTDD
--- NOTE | 2022-09-16 10:47 | Coding Query ---
CODING QUERY To promote full compliance with coding requirements relating to patient care, provider participation is requested in all cases of director of pulmonary unit uncertainty. Please assist us with the question(s) below: Coding Question(s): Please specify below, in your clinical opinion, the diagnosis most responsible for occasioning the inpatient admission: ( ) Metabolic Acidosis ( x ) Hypotension ( ) Sinus Tachycardia ( ) Hyponatremia due to SIADH ( ) Sepsis ( ) Other: Please Specify Physician's Response(s): Thank you Alyssa Kowalski Principal Diagnosis: "that condition established after study, to be chiefly responsible for occasioning the admission of the patient to the hospital for care." Co-Existing Principal Diagnosis: "when two or more diagnoses equally meet the criteria for principal diagnosis as determined by the circumstances of admission, diagnostic work up, and/or therapy provided, and the Alphabetic Index, Tabular List, or another coding guideline does not provide sequencing direction, any one of the diagnoses may be sequenced first." "When the physician has documented what appears to be a current diagnosis in the body of the record, but has not included the diagnosis in the final diagnostic statement, the physician should be asked whether the diagnosis should be added." (Source [facility]oding [facility] 2 QTR90. p3-4) TRACIE
== END 2022-09-06 13:20 | DRG 315 ==
LOC: ED 13:06 → 2E 16:45 → SUATTDRO 16:45 → 2E 17:40

== ENCOUNTER 2022-09-29 23:26 | Inpatient (IN) ==
[2022-09-29] MEDS ORDERED: SODIUM CHLORIDE 0.9% 1000ML 1,000 ML IV STA (23:54)
[2022-09-30] MEDS ORDERED: fentaNYL citrate PF 100 MCG/2 ML VIAL IV ONE ×2 (00:01→01:36)
[2022-09-30] MEDS ORDERED: ONDANSETRON INJ 2 MG/ML 2 ML VIAL IV STA (00:03)
[2022-09-30 00:17] LABS: Basophils # (auto) 0.02 K/uL (0-0.2); Basophils % (auto) 0.3 %; Eosinophils # (auto) 0.06 K/uL (0-0.50); Eosinophils % (auto) 0.8 %; Hematocrit (blood only) 30.7 % (37.0-47.0); Hemoglobin 10.7 g/dl (12.0-16.0); Immature Granulocytes # (auto) 0.02 K/uL (0.01-0.20); Immature Granulocytes % (auto) 0.3 %; Lymphocytes # (auto) 3.23 K/uL (1.2-3.4); Lymphocytes % (auto) 44.9 %; Mean Corpuscular Hemoglobin 31.6 pg (25.0-34.0); Mean Corpuscular Hgb Conc 34.9 g/dL (32.0-36.0); Mean Corpuscular Volume 90.6 fL (80.0-100.0); Mean Platelet Volume 9.5 fL (9.4-12.4); Monocytes # (auto) 0.28 K/uL (0.11-0.59); Monocytes % (auto) 3.9 %; Neutrophils # (auto) 3.59 K/uL (1.40-6.50); Neutrophils % (auto) 49.8 %; Platelet Count 126 K/uL (130-400); RDW Coefficient of Variation 15.4 % (11.5-14.5); RDW Standard Deviation 50.8 fL (36.4-46.3); Red Blood Count 3.39 M/uL (4.20-5.40)
[2022-09-30 00:25] LABS: Alanine Aminotransferase 26 U/L (7-52); Albumin Globulin Ratio 1.4 (0.9-2); Albumin Level 3.8 gm/dl (3.4-5.0); Alkaline Phosphatase 212 U/L (34-104); Anion Gap 11 (3-11); Aspartate Aminotransferase 23 U/L (13-39); BUN Creatinine Ratio 6.8 (10-20); Bilirubin,Total 0.7 mg/dl (0.2-1.0); Blood Urea Nitrogen 9 mg/dl (6-23); Calcium 6.7 mg/dl (8.6-10.3); Carbon Dioxide 23 mmol/L (21-32); Chloride 98 mmol/L (98-107); Est GFR (African American) 46.8 ml/min; Est GFR (Non-African American) 40.4 ml/min; Globulin 2.8 gm/dl (2.5-4.0); Glucose 128 mg/dl (70-99(Fasting)); Lipase 42 U/L (11-82); Potassium 3.9 mmol/L (3.5-5.1); Sodium 132 mmol/L (136-145); Total Protein 6.6 gm/dl (6.0-8.3)
[2022-09-30] MEDS ORDERED: CALCIUM GLUCONATE 1,000 MG/60 ML BAG IV STA (00:39)
[2022-09-30] MEDS ORDERED: OPTIRAY 320 100ml IV ONE (00:40)
--- NOTE | 2022-09-30 01:16 | CT Scan Report ---
Exam(s): CT ABDOMEN + PELVIS With Contrast IV Amt: 86 ml optiray 320 EXAM: CT Abdomen and Pelvis With Intravenous Contrast CLINICAL HISTORY: Reason for exam: R flank pain. TECHNIQUE: Axial computed tomography images of the abdomen and pelvis with intravenous contrast. Automated exposure control was utilized for the study. A dose lowering technique was utilized adhering to the principles of ALARA. CONTRAST: Patient received 86 ml optiray 320 of IV contrast COMPARISON: 09/03/22 FINDINGS: There are partially imaged bilateral breast implants. Subsegmental atelectasis is present at the right lung base. Gallbladder is surgically absent. There is no biliary dilatation. Liver, pancreas, and adrenal glands are unremarkable. There are multiple calcified splenic granulomata. Kidneys enhance symmetrically. There is no hydronephrosis. Simple cortical cysts in the right kidney are stable from prior; no further follow-up is required. There is aortoiliac atherosclerosis without aneurysm. There is no adenopathy. There is no free air or significant free fluid. There are postoperative changes of the bowel with anastomotic staple line in the sigmoid colon and right lower quadrant ileostomy. There is no bowel obstruction or inflammation. Appendix is not visualized. Uterus and urinary bladder are unremarkable. There are no acute osseous findings. IMPRESSION: No acute or inflammatory process. Electronically signed by: Farhat Hastings M.D. 09/30/22 01:16 AM
[2022-09-30 01:51] LABS: Appearance Urine Turbid (Clear); Bacteria Urine Automated 2+ (Negative); Bilirubin Urine Negative (Negative); Blood Urine 1+ (Negative); Color Urine Yellow; Epithelial Cell Urine Auto >30 /lpf (0-5); Glucose Urine UA Negative (Negative); Ketones Urine Negative (Negative); Leukocyte Esterase Urine 3+ (Negative); Nitrite Urine Negative (Negative); Protein Urine Trace (Negative); RBC Urine Automated 0-4 /hpf (0-4); Specific Gravity Urine 1.023 (1.000-1.030); Urobilinogen Urine Negative (Negative); WBC Urine Automated >30 /hpf (0-5)
--- NOTE | 2022-09-30 01:53 | History & Physical Report ---
Date of Service September 30, 2022 History of Present Illness Chief Complaint: R flank pain Primary Care Provider: EWA Escobar Alba is a 72 year Allergies Allergy/AdvReac Type Severity Reaction Status Date / Time No Known Allergies Allergy Verified 09/30/22 00:51 Home Medications Medication Instructions Recorded Confirmed Type atorvastatin 80 mg tablet 80 mg PO HS 03/20/22 09/30/22 History omeprazole 40 mg capsule,delayed 40 mg PO HS 03/20/22 09/30/22 History release ondansetron 4 mg disintegrating 4 mg PO Q8H PRN nausea and 07/24/22 09/30/22 Rx tablet vomiting #30 tabs metoprolol tartrate 25 mg tablet 12.5 mg PO BID #0 tabs 09/06/22 09/30/22 Rx loperamide 2 mg capsule 4 mg PO QID #360 caps 09/25/22 09/30/22 Rx sodium bicarbonate 325 mg tablet 650 mg PO BID PER [facility] DC 09/25/22 09/30/22 Rx MEDLIST #60 tabs sodium chloride 1,000 mg soluble 1,000 mg PO TID #30 tabs 09/25/22 09/30/22 Rx tablet 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 present Depression Diverticulitis Fibromyalgia GERD without esophagitis History of diverticulitis History of flexible sigmoidoscopy History of open sigmoidectomy Hyperlipidemia Hypertension Osteoporosis last Dexa noted 2018 Pre-diabetes Slow to wake up after anesthesia "a long time ago after tonsillectomy as a child", no issues since 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 Tobacco abuse still currently smokes Surgical History H/O abdominoplasty History of cholecystectomy History of esophagogastroduodenoscopy (EGD) History of tonsillectomy Hx of appendectomy Hx of breast implants, bilateral Hx of colonoscopy Hx of exploratory laparotomy Hx of tubal ligation Previous back surgery 2016 Family History Mother Myocardial infarction Stroke Father Cancer Denies family history of Ovarian cancer Prostate cancer Breast cancer Colorectal cancer Social History Smoking Status: Former smoker Tobacco Type: Cigarettes Age Started Using Tobacco: 37; packs per day: 1; Cigarettes Per Day: 20; Second Hand Exposure: No; Do You Dip or Chew Tobacco: No; Hx Alcohol Use: No Hx Substance Use: No Preferred Language: Belarusian Communication Ability: Effective Visual Impairment: Limited Hearing Ability: Normal 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 Beliefs That Will Affect Care: None marital status: Current Living Situation: Family Current Living Situation Comment: living w son How many Children do You have: 2 Feels Safe at Home: Yes Childhood Exposure to Second-Hand Smoke: Yes Diet: regular caffeine: Yes during the past year weight has: increased > 10 lbs Dental Care, Regularly: Yes Physical Activity Frequency: Does not Exercise Seatbelt Use: always Sunscreen Use: Yes Assistive Devices: Other Results & Data Results & Data Vital Signs (Past 12 Hours) Vital Signs Temp Pulse Pulse Resp BP BP Pulse Ox 09/30/22 01:30 93 H 18 105/59 L 95 09/29/22 23:54 88 09/29/22 23:59 96 09/29/22 23:31 36.5 C 93 H 18 97/69 L 96 O2 Del Method 09/30/22 01:30 Room Air 09/29/22 23:54 09/29/22 23:59 Room Air 09/29/22 23:31 Room Air
--- NOTE | 2022-09-30 02:26 | History & Physical Report ---
Date of Service September 30, 2022 Assessment & Plan (1) Flank pain: Plan: 72yo female presenting with right flank pain. UA suggestive of infection. No stone, hydronephrosis or pyelonephritis noted on CT. UA suggestive of infection - dirty sample -Follow cultures -Ceftriaxone 1gm IV daily -Pain control with Tylenol PRN (2) Diarrhea: Plan: Patient with liquid output from colostomy -Check C.diff -IVF and electrolyte repletion -Monitor I/Os -Continue Sodium bicarbonate (3) Hyponatremia: Plan: Patient with history of hyponatremia. Na mildly low today at 132. She had been on NaCl tablets - did miss several doses but restarted taking them 09/29/22 PM. -Continue NaCl 1gm po TID -Monitor Na (4) GERD without esophagitis: Plan: Chronic. -Protonix 40mg po daily while inpatient (5) Hyperlipidemia: Plan: Chronic. Stable -Continue Atorvastatin 80mg po qHS (6) Hypertension: Plan: Blood pressure borderline low -Hold metoprolol for now -Monitor BP/HR F/E/N - NSS at 100mL/hr x 2L, monitor electrolytes and replete as needed - check ICal, Mg and PO4, Regular diet as tolerated Ppx - Lovenox Code - Full Dispo - Observation to medical History of Present Illness Chief Complaint: nausea, vomiting, weakness Primary Care Provider: EWA Escobar Alba Emanuel is a 72yo female with history fo HTN, HLP, GERD, FM, colostomy in place presenting with 5 days of nausea, vomiting and increased liquid output from her colostomy. Patient was recently admitted to [facility] from - 09/06/22 after presenting with suspected sepsis. Cultures were negative. Patient was treated with empiric antibiotics and ultimately discharged to rehab. She stayed in rehab for two weeks. Reports she greatly improved while at rehab - was able to walk without difficulty, had a good appetite and felt well. She returned home three days after which she developed nausea and vomiting as well as increased liquid output from her colostomy. Also with chills, generalized weakness, poor oral intake and one day of right flank pain. She denies chest pain, cough, SOB, diarrhea, dysuria, urinary frequency or urgency. No additional complaints at this time. In the ER she is afebrile, HR borderline high at 93bpm, blood pressure borderline low at 105/59. ER Course: Calcium gluconate x 1gm Fentanyl 25mcg IV x 2 doses Zofran 4mg IV NSS x 1L Allergies Allergy/AdvReac Type Severity Reaction Status Date / Time No Known Allergies Allergy Verified 09/30/22 00:51 Home Medications Medication Instructions Recorded Confirmed Type atorvastatin 80 mg tablet 80 mg PO HS 03/20/22 09/30/22 History omeprazole 40 mg capsule,delayed 40 mg PO HS 03/20/22 09/30/22 History release ondansetron 4 mg disintegrating 4 mg PO Q8H PRN nausea and 07/24/22 09/30/22 Rx tablet vomiting #30 tabs metoprolol tartrate 25 mg tablet 12.5 mg PO BID #0 tabs 09/06/22 09/30/22 Rx loperamide 2 mg capsule 4 mg PO QID #360 caps 09/25/22 09/30/22 Rx sodium bicarbonate 325 mg tablet 650 mg PO BID PER [facility] DC 09/25/22 09/30/22 Rx MEDLIST #60 tabs sodium chloride 1,000 mg soluble 1,000 mg PO TID #30 tabs 09/25/22 09/30/22 Rx tablet Past Med/Surg History Medical History (Updated 09/30/22 @ 03:36 by Melissa Marc DO) Abnormal CT scan, sigmoid colon (06/27/22) 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 present Depression Diverticulitis Fibromyalgia GERD without esophagitis History of diverticulitis History of flexible sigmoidoscopy History of open sigmoidectomy Hyperlipidemia Hypertension Osteoporosis last Dexa noted 2019 Pre-diabetes Slow to wake up after anesthesia "a long time ago after tonsillectomy as a child", no issues since 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 Tobacco abuse still currently smokes Urticaria Surgical History H/O abdominoplasty History of cholecystectomy History of esophagogastroduodenoscopy (EGD) History of tonsillectomy Hx of appendectomy Hx of breast implants, bilateral Hx of colonoscopy Hx of exploratory laparotomy Hx of tubal ligation Previous back surgery 2016 Family History Mother Myocardial infarction Stroke Father Cancer Denies family history of Ovarian cancer Prostate cancer Breast cancer Colorectal cancer Social History Smoking Status: Former smoker Tobacco Type: Cigarettes Age Started Using Tobacco: 37; packs per day: 1; Cigarettes Per Day: 20; Second Hand Exposure: No; Do You Dip or Chew Tobacco: No; Hx Alcohol Use: No Hx Substance Use: No Preferred Language: [place] Communication Ability: Effective Visual Impairment: Limited Hearing Ability: Normal Private Inquiry Agent Required: No Beliefs That Will Affect Care: None marital status: Current Living Situation: Family Current Living Situation Comment: living w son How many Children do You have: 2 Feels Safe at Home: Yes Childhood Exposure to Second-Hand Smoke: Yes Diet: regular caffeine: Yes during the past year weight has: increased > 10 lbs Dental Care, Regularly: Yes Physical Activity Frequency: Does not Exercise Seatbelt Use: always Sunscreen Use: Yes Assistive Devices: Other Review of Systems Review of Systems: All systems reviewed & are unremarkable except as noted in HPI & below Physical Exam Physical Exam: General: patient resting comfortably, NAD, non-toxic in appearance, AA&O x 4 Skin: warm, dry, intact, no rashes or lesions HEENT: NC/AT, PERRL, EOMI, anicteric sclera, conjunctiva without injection, external ear normal to inspection and nontender, nares patent, slightly dry mucus membranes, dentition intact, no oropharyngeal lesions, neck supple, trachea midline, no LAD, no thyromegaly, no JVD Heart: +S1/S2, regular, no m/r/g Lungs: equal air entry bilaterally, no rales/rhonchi/wheezes Abd: +BS hyperactive, soft, NT/ND, no masses/organomegaly/ascites, ostomy in place with liquid output Right flank pain present Ext: warm, 2+ pulses in UE/LE bilaterally, no clubbing/cyanosis or edema Neuro: nonfocal, patient AA&O x 4, speech intact, no facial droop, moving all extremities on command with equal strength 5/5 Results & Data Results & Data Vital Signs (Past 12 Hours) Vital Signs Temp Pulse Pulse Resp BP BP Pulse Ox 09/30/22 01:30 93 H 18 105/59 L 95 09/29/22 23:54 88 09/29/22 23:59 96 09/29/22 23:31 36.5 C 93 H 18 97/69 L 96 O2 Del Method 09/30/22 01:30 Room Air 09/29/22 23:54 09/29/22 23:59 Room Air 09/29/22 23:31 Room Air Laboratory Results Laboratory Results WBC 7.20 K/ul (4.8-10.8) 09/29/22 23:48 RBC 3.39 M/uL (4.20-5.40) L 09/29/22 23:48 Hgb 10.7 g/dl (12.0-16.0) L 09/29/22 23:48 Hct 30.7 % (37.0-47.0) L 09/29/22 23:48 MCV 90.6 fL (80.0-100.0) 09/29/22 23:48 MCH 31.6 pg (25.0-34.0) 09/29/22 23:48 MCHC 34.9 g/dL (32.0-36.0) 09/29/22 23:48 RDW Std Deviation 50.8 fL (36.4-46.3) H 09/29/22 23:48 RDW Coeff of Armand 15.4 % (11.5-14.5) H 09/29/22 23:48 Plt Count 126 K/uL (130-400) L 09/29/22 23:48 MPV 9.5 fL (9.4-12.4) 09/29/22 23:48 Immature Gran % (Auto) 0.3 % 09/29/22 23:48 Neut % (Auto) 49.8 % 09/29/22 23:48 Lymph % (Auto) 44.9 % 09/29/22 23:48 Dent % (Auto) 3.9 % 09/29/22 23:48 Eos % (Auto) 0.8 % 09/29/22 23:48 Baso % (Auto) 0.3 % 09/29/22 23:48 Neut # (Auto) 3.59 K/uL (1.40-6.50) 09/29/22 23:48 Lymph # (Auto) 3.23 K/uL (1.2-3.4) 09/29/22 23:48 Dent # (Auto) 0.28 K/uL (0.11-0.59) 09/29/22 23:48 Eos # (Auto) 0.06 K/uL (0-0.50) 09/29/22 23:48 Baso # (Auto) 0.02 K/uL (0-0.2) 09/29/22 23:48 Immature Gran # (Auto) 0.02 K/uL (0.01-0.20) 09/29/22 23:48 Sodium 132 mmol/L (136-145) L 09/29/22 23:48 Potassium 3.9 mmol/L (3.5-5.1) 09/29/22 23:48 Chloride 98 mmol/L (98-107) 09/29/22 23:48 Carbon Dioxide 23 mmol/L (21-32) 09/29/22 23:48 Anion Gap 11 (3-11) 09/29/22 23:48 BUN 9 mg/dl (6-23) 09/29/22 23:48 Creatinine 1.33 mg/dl (0.6-1.2) H 09/29/22 23:48 Est Cr Clr Drug Dosing Not Reportable 09/29/22 23:48 Est GFR ( Amer) 46.8 ml/min 09/29/22 23:48 Est GFR (Non-Af Amer) 40.4 ml/min 09/29/22 23:48 BUN/Creatinine Ratio 6.8 (10-20) L 09/29/22 23:48 Glucose 128 mg/dl (70-99(Fasting)) H 09/29/22 23:48 Calcium 6.7 mg/dl (8.6-10.3) L 09/29/22 23:48 Total Bilirubin 0.7 mg/dl (0.2-1.0) 09/29/22 23:48 AST 23 U/L (13-39) 09/29/22 23:48 ALT 26 U/L (7-52) 09/29/22 23:48 Alkaline Phosphatase 212 U/L (34-104) H 09/29/22 23:48 Total Protein 6.6 gm/dl (6.0-8.3) 09/29/22 23:48 Albumin 3.8 gm/dl (3.4-5.0) 09/29/22 23:48 Globulin 2.8 gm/dl (2.5-4.0) 09/29/22 23:48 Albumin/Globulin Ratio 1.4 (0.9-2) 09/29/22 23:48 Lipase 42 U/L (11-82) 09/29/22 23:48 Urine Color Yellow 09/30/22 01:41 Urine Appearance Turbid (Clear) A 09/30/22 01:41 Urine pH 5.0 (4.5-7.5) 09/30/22 01:41 Ur Specific [place] 1.023 (1.000-1.030) 09/30/22 01:41 Urine Protein Trace (Negative) H 09/30/22 01:41 Urine Glucose (UA) Negative (Negative) 09/30/22 01:41 Urine Ketones Negative (Negative) 09/30/22 01:41 Urine Blood 1+ (Negative) H 09/30/22 01:41 Urine Nitrite Negative (Negative) 09/30/22 01:41 Urine Bilirubin Negative (Negative) 09/30/22 01:41 Urine Urobilinogen Negative (Negative) 09/30/22 01:41 Ur Leukocyte Esterase 3+ (Negative) H 09/30/22 01:41 Urine WBC (Auto) >30 /hpf (0-5) H 09/30/22 01:41 Urine RBC (Auto) 0-4 /hpf (0-4) 09/30/22 01:41 U Hyaline Cast (Auto) 1-5 /lpf (0-5) 09/30/22 01:41 U Epithel Cells (Auto) >30 /lpf (0-5) H 09/30/22 01:41 Urine Bacteria (Auto) 2+ (Negative) H 09/30/22 01:41 SARS-CoV-2, RNA, NAAT NEGATIVE (NEGATIVE) 09/30/22 00:13 Impressions Abdomen/Pelvis CT 09/30/22 00:04 Exam(s): CT ABDOMEN + PELVIS With Contrast IV Amt: 86 ml optiray 320 EXAM: CT Abdomen and Pelvis With Intravenous Contrast CLINICAL HISTORY: Reason for exam: R flank pain. TECHNIQUE: Axial computed tomography images of the abdomen and pelvis with intravenous contrast. Automated exposure control was utilized for the study. A dose lowering technique was utilized adhering to the principles of ALARA. CONTRAST: Patient received 86 ml optiray 320 of IV contrast COMPARISON: 09/03/22 FINDINGS: There are partially imaged bilateral breast implants. Subsegmental atelectasis is present at the right lung base. Gallbladder is surgically absent. There is no biliary dilatation. Liver, pancreas, and adrenal glands are unremarkable. There are multiple calcified splenic granulomata. Kidneys enhance symmetrically. There is no hydronephrosis. Simple cortical cysts in the right kidney are stable from prior; no further follow-up is required. There is aortoiliac atherosclerosis without aneurysm. There is no adenopathy. There is no free air or significant free fluid. There are postoperative changes of the bowel with anastomotic staple line in the sigmoid colon and right lower quadrant ileostomy. There is no bowel obstruction or inflammation. Appendix is not visualized. Uterus and urinary bladder are unremarkable. There are no acute osseous findings. IMPRESSION: No acute or inflammatory process. Electronically signed by: Farhat Hastings M.D. 09/30/22 01:16 AM PG Care Time/CCT Total # of Minutes Spent Total Time Spent with Patient: Total time spent is greater than 50% in coordination of care (as documented) at patient's floor/unit and/or counseling patient: Coding Level of Care Code 70904 INT INP/OBS CARE 3/75MIN Diagnoses Flank pain R10.9 Diarrhea R19.7 Hyponatremia E87.1 GERD without esophagitis K21.9 Hyperlipidemia E78.5 Hyperlipidemia type: unspecified Hypertension I10 (5) Hyperlipidemia Hyperlipidemia type: unspecified Qualified Code(s): E78.5 - Hyperlipidemia, unspecified
--- NOTE | 2022-09-30 04:02 | Emergency Department Note ---
Impression & Plan Hypocalcemia, H/O ileostomy ED Provider Note CHIEF COMPLAINT: Right flank pain HISTORY OF PRESENT ILLNESS: This 72-year-old female patient with past medical history of diverticulitis status post bowel resection and ileostomy presents to the emergency department approximately 10 days after being discharged [facility]. Patient states she was unable to get her prescription for sodium bic arb tablets filled. Patient states she has just not been feeling well, but notably tonight started with right-sided flank pain. She has been having liquid discharge into the ostomy. She has not had any vomiting there is no gross blood or black stool. She denies any urinary symptoms. Patient did receive IV Zofran prior to my evaluation. REVIEW OF SYSTEMS: A review of systems was performed with positives and pertinent negatives listed in the history of present illness. 10 systems were reviewed and are otherwise negative. ALLERGIES: see below MEDICATIONS: see below PMH: see below SOCIAL HISTORY: see below DDx: Gastroenteritis, food borne illness, infections, appendicitis, dive rticulitis, inflammatory bowel disease, obstruction, GI bleed, biliary pathology, volvulus, as well as other pathologies. PHYSICAL EXAM: Vital signs reviewed. General: Well-appearing 72-year-old female, in no significant distress. HEENT: No scleral icterus, PERRLA, neck supple. Atraumatic. Cardiovascular: Regular rate and rhythm, no extra sounds. Pulmonary: Clear to auscultation bilaterally, normal work of breathing. Abdomen: Soft, mildly tender to palpation in the right upper quadrant, no hayden ound or guarding. Nondistended, positive bowel sounds. No CVA tenderness. Ileostomy noted with liquid brown stool. Musculoskeletal: Atraumatic, no peripheral edema. Neurologic: Patient awake alert and oriented x 3, speech is clear Skin: Warm, dry, no rash EMERGENCY DEPARTMENT COURSE/MDM: This patient was evaluated and appeared to be in no significant distress. IV access was obtained and laboratory work was drawn. External medical records were reviewed. The patient was hydrated with normal saline solution. She was medicated with IV Zofran. Patient did receive IV fentanyl for her discomfort. Laboratory work reveals a hypocalcemia. Sodium is only mildly low at 132. Patient was given 1000 mg of IV calcium gluconate. UA is contaminated and will be sent for culture. Case was discussed with the hospitalist service who will evaluate the patient for admission and further management. MONITORING: An order for cardiac monitoring was placed and the patient is noted to be in a normal sinus rhythm at 93 beats per minute. RADIOLOGY: CT imaging to my review reveals no obstructive uropathy. Otherwise defer to radiology's read below. 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 Tobacco abuse still currently smokes Urticaria Surgical History H/O abdominoplasty History of cholecystectomy History of esophagogastroduodenoscopy (EGD) History of tonsillectomy Hx of appendectomy Hx of breast implants, bilateral Hx of colonoscopy Hx of exploratory laparotomy Hx of tubal ligation Previous back surgery 2016 Family History Mother Myocardial infarction Stroke Father Cancer Denies family history of Ovarian cancer Prostate cancer Breast cancer Colorectal cancer Social History Smoking Status: Former smoker Tobacco Type: Cigarettes Age Started Using Tobacco: 37; packs per day: 1; Cigarettes Per Day: 20; Second Hand Exposure: No; Do You Dip or Chew Tobacco: No; Tobacco Cessation Education Requested by Patient: No Hx Alcohol Use: No Hx Substance Use: No Preferred Language: Serbian Communication Ability: Effective Visual Impairment: Limited Hearing Ability: Normal [employer] Required: No Beliefs That Will Affect Care: None marital status: Current Living Situation: Family Current Living Situation Comment: living w son How many Children do You have: 2 Other Information That Helps Us Care for You: No Feels Safe at Home: Yes Safety Concerns: Feels Safe At This Time Childhood Exposure to Second-Hand Smoke: Yes Diet: regular caffeine: Yes during the past year weight has: increased > 10 lbs Dental Care, Regularly: Yes Physical Activity Frequency: Does not Exercise Seatbelt Use: always Sunscreen Use: Yes Assistive Devices: Glasses and Walker Allergies Allergies Allergy/AdvReac Type Severity Reaction Status Date / Time No Known Allergies Allergy Verified 09/30/22 00:51 Home Meds Home Medications Medication Instructions Recorded Confirmed atorvastatin 80 mg tablet 80 mg PO HS 03/20/22 09/30/22 omeprazole 40 mg capsule,delayed 40 mg PO HS 03/20/22 09/30/22 release Previous Rx's Medication Instructions Recorded ondansetron 4 mg disintegrating 4 mg PO Q8H PRN nausea and 07/24/22 tablet vomiting #30 tabs metoprolol tartrate 25 mg tablet 12.5 mg PO BID #0 tabs 09/06/22 loperamide 2 mg capsule 4 mg PO QID #360 caps 09/25/22 sodium bicarbonate 325 mg tablet 650 mg PO BID PER [facility] DC 09/25/22 MEDLIST #60 tabs sodium chloride 1,000 mg soluble 1,000 mg PO TID #30 tabs 09/25/22 tablet Results & Data (ED) Vital Signs Vital Signs - 24 hr 09/30/22 03:30 09/30/22 03:35 09/30/22 04:10 Temperature 36.8 C Temperature Source Oral Pulse Rate 994 H Pulse Rate [Finger] 94 H 72 Pulse Rhythm [Finger] Regular Pulse Strength [Finger] Normal Respiratory Rate 18 18 Respiratory Effort / Characteristics Non-Labored Spontaneous Respiratory Depth Normal Respiratory Pattern Regular Blood Pressure [Right Arm] 92/58 L 95/65 L Blood Pressure Mean [Right Arm] 69 75 Blood Pressure Position [Right Arm] Semi-fowlers Pulse Oximetry 98 96 Oxygen Delivery Method Room Air Room Air EWS Level of Consciousness - Last Result EWS Temperature - Last Result EWS Respiratory Rate - Last Result EWS Oxygen Saturation - Last Result EWS Oxygen in Use - Last Result EWS Score EWS Clinical Risk 09/30/22 04:10 09/30/22 04:10 09/30/22 04:10 Temperature Temperature Source Pulse Rate Pulse Rate [Finger] Pulse Rhythm [Finger] Pulse Strength [Finger] Respiratory Rate Respiratory Effort / Characteristics Non-Labored Spontaneous Non-Labored Spontaneous Respiratory Depth Normal Normal Respiratory Pattern Regular Regular Blood Pressure [Right Arm] Blood Pressure Mean [Right Arm] Blood Pressure Position [Right Arm] Pulse Oximetry Oxygen Delivery Method Room Air Room Air EWS Level of Consciousness - Last Result Spontaneously Alert EWS Temperature - Last Result 36.8 EWS Respiratory Rate - Last Result 18 EWS Oxygen Saturation - Last Result 96 EWS Oxygen in Use - Last Result No EWS Score 2 EWS Clinical Risk Low Risk 09/30/22 08:28 09/30/22 08:29 09/30/22 07:20 Temperature 36.4 C L Temperature Source Axillary Pulse Rate Pulse Rate [Finger] 84 Pulse Rhythm [Finger] Pulse Strength [Finger] Respiratory Rate 16 Respiratory Effort / Characteristics Non-Labored Spontaneous Respiratory Depth Normal Respiratory Pattern Regular Blood Pressure [Right Arm] 93/60 L Blood Pressure Mean [Right Arm] 71 Blood Pressure Position [Right Arm] Lying Pulse Oximetry 96 Oxygen Delivery Method Room Air Room Air EWS Level of Consciousness - Last Result Spontaneously Alert EWS Temperature - Last Result 36.4 EWS Respiratory Rate - Last Result 16 EWS Oxygen Saturation - Last Result 96 EWS Oxygen in Use - Last Result No EWS Score 2 EWS Clinical Risk Low Risk Home Medications Current Medication List: was personally reviewed by me Laboratory Data Attestation: I reviewed the patient's lab results. 09/29/22 23:48 09/29/22 23:48 Lab Results 09/29/22 09/29/22 09/30/22 Range/Units 23:48 23:48 00:13 WBC 7.20 (4.8-10.8) K/ul RBC 3.39 L (4.20-5.40) M/uL Hgb 10.7 L (12.0-16.0) g/dl Hct 30.7 L (37.0-47.0) % MCV 90.6 (80.0-100.0) fL MCH 31.6 (25.0-34.0) pg MCHC 34.9 (32.0-36.0) g/dL RDW Std Deviation 50.8 H (36.4-46.3) fL RDW Coeff of Armand 15.4 H (11.5-14.5) % Plt Count 126 L (130-400) K/uL MPV 9.5 (9.4-12.4) fL Immature Gran % (Auto) 0.3 % Neut % (Auto) 49.8 % Lymph % (Auto) 44.9 % [place] % (Auto) 3.9 % Eos % (Auto) 0.8 % Baso % (Auto) 0.3 % Neut # (Auto) 3.59 (1.40-6.50) K/uL Lymph # (Auto) 3.23 (1.2-3.4) K/uL [place] # (Auto) 0.28 (0.11-0.59) K/uL Eos # (Auto) 0.06 (0-0.50) K/uL Baso # (Auto) 0.02 (0-0.2) K/uL Immature Gran # (Auto) 0.02 (0.01-0.20) K/uL Sodium 132 L (136-145) mmol/L Potassium 3.9 (3.5-5.1) mmol/L Chloride 98 (98-107) mmol/L Carbon Dioxide 23 (21-32) mmol/L Anion Gap 11 (3-11) BUN 9 (6-23) mg/dl Creatinine 1.33 H (0.6-1.2) mg/dl Est Cr Clr Drug Dosing Not Reportable Est GFR ( Amer) 46.8 ml/min Est GFR (Non-Af Amer) 40.4 ml/min BUN/Creatinine Ratio 6.8 L (10-20) Glucose 128 H (70-99(Fasting)) mg/dl Calcium 6.7 L (8.6-10.3) mg/dl Ionized Calcium (1.12-1.32) mmol/L Phosphorus (2.5-4.9) mg/dl Magnesium (1.7-2.4) mg/dl Total Bilirubin 0.7 (0.2-1.0) mg/dl Direct Bilirubin (0-0.2) mg/dl AST 23 (13-39) U/L ALT 26 (7-52) U/L Alkaline Phosphatase 212 H (34-104) U/L Total Protein 6.6 (6.0-8.3) gm/dl Albumin 3.8 (3.4-5.0) gm/dl Globulin 2.8 (2.5-4.0) gm/dl Albumin/Globulin Ratio 1.4 (0.9-2) Lipase 42 (11-82) U/L Urine Color Urine Appearance (Clear) Urine pH (4.5-7.5) Ur Specific [place] (1.000-1.030) Urine Protein (Negative) Urine Glucose (UA) (Negative) Urine Ketones (Negative) Urine Blood (Negative) Urine Nitrite (Negative) Urine Bilirubin (Negative) Urine Urobilinogen (Negative) Ur Leukocyte Esterase (Negative) Urine WBC (Auto) (0-5) /hpf Urine RBC (Auto) (0-4) /hpf U Hyaline Cast (Auto) (0-5) /lpf U Epithel Cells (Auto) (0-5) /lpf Urine Bacteria (Auto) (Negative) Stl C. diff Tox B Gene (Neg) SARS-CoV-2, RNA, NAAT NEGATIVE (NEGATIVE) 09/30/22 09/30/22 09/30/22 Range/Units 01:41 05:29 05:29 WBC (4.8-10.8) K/ul RBC (4.20-5.40) M/uL Hgb (12.0-16.0) g/dl Hct (37.0-47.0) % MCV (80.0-100.0) fL MCH (25.0-34.0) pg MCHC (32.0-36.0) g/dL RDW Std Deviation (36.4-46.3) fL RDW Coeff of Armand (11.5-14.5) % Plt Count (130-400) K/uL MPV (9.4-12.4) fL Immature Gran % (Auto) % Neut % (Auto) % Lymph % (Auto) % [place] % (Auto) % Eos % (Auto) % Baso % (Auto) % Neut # (Auto) (1.40-6.50) K/uL Lymph # (Auto) (1.2-3.4) K/uL [place] # (Auto) (0.11-0.59) K/uL Eos # (Auto) (0-0.50) K/uL Baso # (Auto) (0-0.2) K/uL Immature Gran # (Auto) (0.01-0.20) K/uL Sodium (136-145) mmol/L Potassium (3.5-5.1) mmol/L Chloride (98-107) mmol/L Carbon Dioxide (21-32) mmol/L Anion Gap (3-11) BUN (6-23) mg/dl Creatinine (0.6-1.2) mg/dl Est Cr Clr Drug Dosing Est GFR ( Amer) ml/min Est GFR (Non-Af Amer) ml/min BUN/Creatinine Ratio (10-20) Glucose (70-99(Fasting)) mg/dl Calcium (8.6-10.3) mg/dl Ionized Calcium 0.92 L (1.12-1.32) mmol/L Phosphorus 4.3 (2.5-4.9) mg/dl Magnesium 0.5 L* (1.7-2.4) mg/dl Total Bilirubin (0.2-1.0) mg/dl Direct Bilirubin (0-0.2) mg/dl AST (13-39) U/L ALT (7-52) U/L Alkaline Phosphatase (34-104) U/L Total Protein (6.0-8.3) gm/dl Albumin (3.4-5.0) gm/dl Globulin (2.5-4.0) gm/dl Albumin/Globulin Ratio (0.9-2) Lipase (11-82) U/L Urine Color Yellow Urine Appearance Turbid A (Clear) Urine pH 5.0 (4.5-7.5) Ur Specific [place] 1.023 (1.000-1.030) Urine Protein Trace H (Negative) Urine Glucose (UA) Negative (Negative) Urine Ketones Negative (Negative) Urine Blood 1+ H (Negative) Urine Nitrite Negative (Negative) Urine Bilirubin Negative (Negative) Urine Urobilinogen Negative (Negative) Ur Leukocyte Esterase 3+ H (Negative) Urine WBC (Auto) >30 H (0-5) /hpf Urine RBC (Auto) 0-4 (0-4) /hpf U Hyaline Cast (Auto) 1-5 (0-5) /lpf U Epithel Cells (Auto) >30 H (0-5) /lpf Urine Bacteria (Auto) 2+ H (Negative) Stl C. diff Tox B Gene (Neg) SARS-CoV-2, RNA, NAAT (NEGATIVE) 09/30/22 09/30/22 Range/Units 06:46 09:33 WBC (4.8-10.8) K/ul RBC (4.20-5.40) M/uL Hgb (12.0-16.0) g/dl Hct (37.0-47.0) % MCV (80.0-100.0) fL MCH (25.0-34.0) pg MCHC (32.0-36.0) g/dL RDW Std Deviation (36.4-46.3) fL RDW Coeff of Armand (11.5-14.5) % Plt Count (130-400) K/uL MPV (9.4-12.4) fL Immature Gran % (Auto) % Neut % (Auto) % Lymph % (Auto) % [place] % (Auto) % Eos % (Auto) % Baso % (Auto) % Neut # (Auto) (1.40-6.50) K/uL Lymph # (Auto) (1.2-3.4) K/uL [place] # (Auto) (0.11-0.59) K/uL Eos # (Auto) (0-0.50) K/uL Baso # (Auto) (0-0.2) K/uL Immature Gran # (Auto) (0.01-0.20) K/uL Sodium 133 L (136-145) mmol/L Potassium 3.3 L (3.5-5.1) mmol/L Chloride 100 (98-107) mmol/L Carbon Dioxide 22 (21-32) mmol/L Anion Gap 11 (3-11) BUN 7 (6-23) mg/dl Creatinine 1.06 (0.6-1.2) mg/dl Est Cr Clr Drug Dosing 40.3 Est GFR ( Amer) 61.6 ml/min Est GFR (Non-Af Amer) 53.2 ml/min BUN/Creatinine Ratio 6.6 L (10-20) Glucose 146 H (70-99(Fasting)) mg/dl Calcium 6.5 L (8.6-10.3) mg/dl Ionized Calcium (1.12-1.32) mmol/L Phosphorus (2.5-4.9) mg/dl Magnesium (1.7-2.4) mg/dl Total Bilirubin 0.5 (0.2-1.0) mg/dl Direct Bilirubin 0.1 (0-0.2) mg/dl AST 17 (13-39) U/L ALT 19 (7-52) U/L Alkaline Phosphatase 169 H (34-104) U/L Total Protein 5.5 L (6.0-8.3) gm/dl Albumin 3.1 L (3.4-5.0) gm/dl Globulin (2.5-4.0) gm/dl Albumin/Globulin Ratio (0.9-2) Lipase (11-82) U/L Urine Color Urine Appearance (Clear) Urine pH (4.5-7.5) Ur Specific [place] (1.000-1.030) Urine Protein (Negative) Urine Glucose (UA) (Negative) Urine Ketones (Negative) Urine Blood (Negative) Urine Nitrite (Negative) Urine Bilirubin (Negative) Urine Urobilinogen (Negative) Ur Leukocyte Esterase (Negative) Urine WBC (Auto) (0-5) /hpf Urine RBC (Auto) (0-4) /hpf U Hyaline Cast (Auto) (0-5) /lpf U Epithel Cells (Auto) (0-5) /lpf Urine Bacteria (Auto) (Negative) Stl C. diff Tox B Gene Negative Cdiff Gene (Neg) SARS-CoV-2, RNA, NAAT (NEGATIVE) Administered Medications Atorvastatin Calcium (Atorvastatin 40 Mg Tab) 80 mg PO HS [facility] Stop: 10/30/22 20:59 Last Admin: 09/30/22 20:51 Dose: 80 mg Documented By: TONIO Enoxaparin Sodium (Enoxaparin Inj 40 Mg/0.4 Ml Syr) 40 mg SQ QAM [facility] Stop: 10/30/22 08:59 Last Admin: 09/30/22 08:10 Dose: Not Given Documented By: MARIJA Ceftriaxone Sodium 1,000 mg/ (Dextrose) 50 mls @ 100 mls/hr IV Q24H [facility]; Protocol Stop: 10/05/22 05:59 Last Infusion: 09/30/22 05:45 Dose: 0 mls/hr Documented By: LUZ MARIA Admin: 09/30/22 05:14 Dose: 100 mls/hr Documented By: LUZ MARIA Ondansetron HCl (Ondansetron Inj 2 Mg/Ml 2 Ml Vial) 4 mg IV Q6H PRN PRN Reason: Nausea Stop: 10/30/22 04:22 Last Admin: 09/30/22 22:30 Dose: 4 mg Documented By: Admin: 09/30/22 08:15 Dose: 4 mg Documented By: MARIJA Pantoprazole Sodium (Pantoprazole 40 Mg Tab) 40 mg PO DAILY [facility] Stop: 10/30/22 08:59 Last Admin: 09/30/22 08:09 Dose: 40 mg Documented By: MARIJA Sodium Bicarbonate (Sodium Bicarbonate 650 Mg Tab) 650 mg PO BID [facility] Stop: 10/30/22 08:59 Last Admin: 09/30/22 20:51 Dose: 650 mg Documented By: Admin: 09/30/22 08:09 Dose: 650 mg Documented By: MARIJA Sodium Chloride (Sodium Chloride 1 Gm Tablet) 1 gm PO TID [facility] Stop: 10/30/22 08:59 Last Admin: 09/30/22 20:51 Dose: 1 gm Documented By: Admin: 09/30/22 13:19 Dose: 1 gm Documented By: Admin: 09/30/22 08:09 Dose: 1 gm Documented By: MARIJA Discontinued Medications Fentanyl Citrate (Fentanyl Citrate Pf 100 Mcg/2 Ml Vial) 25 mcg IV NOW ONE Stop: 09/30/22 00:02 Last Admin: 09/30/22 00:10 Dose: 25 mcg Documented By: ADE Fentanyl Citrate (Fentanyl Citrate Pf 100 Mcg/2 Ml Vial) 25 mcg IV NOW ONE Stop: 09/30/22 01:37 Last Admin: 09/30/22 01:44 Dose: 25 mcg Documented By: ADE Sodium Chloride (Nss 1000ml) 1,000 mls @ 999 mls/hr IV .Q1H1M STA Stop: 09/30/22 00:54 Last Infusion: 09/30/22 01:08 Dose: 0 mls/hr Documented By: Admin: 09/30/22 00:10 Dose: 999 mls/hr Documented By: ADE Calcium Gluconate () 1,000 mg in 60 mls @ 240 mls/hr IV NOW STA Stop: 09/30/22 00:53 Last Infusion: 09/30/22 01:08 Dose: 0 mls/hr Documented By: Admin: 09/30/22 00:49 Dose: 240 mls/hr Documented By: ADE Sodium Chloride (Nss 1000ml) 1,000 mls @ 100 mls/hr IV .Q10H [facility] Stop: 10/01/22 00:22 Last Infusion: 09/30/22 23:45 Dose: 100 mls/hr Documented By: Infusion: 09/30/22 23:00 Dose: 0 mls/hr Documented By: Infusion: 09/30/22 22:50 Dose: 100 mls/hr Documented By: Infusion: 09/30/22 21:30 Dose: 0 mls/hr Documented By: Admin: 09/30/22 16:31 Dose: 100 mls/hr Documented By: Infusion: 09/30/22 14:38 Dose: 100 mls/hr Documented By: Admin: 09/30/22 04:38 Dose: 100 mls/hr Documented By: LUZ MARIA Magnesium Sulfate/Dextrose (Magnesium Sulfate / D5w) 1 gm in 100 mls @ 50 mls/hr IV Q2H [facility] Stop: 09/30/22 14:44 Last Infusion: 09/30/22 14:27 Dose: 0 mls/hr Documented By: Admin: 09/30/22 12:02 Dose: 50 mls/hr Documented By: Infusion: 09/30/22 12:02 Dose: 50 mls/hr Documented By: Admin: 09/30/22 10:09 Dose: 50 mls/hr Documented By: Infusion: 09/30/22 10:09 Dose: 50 mls/hr Documented By: Admin: 09/30/22 08:35 Dose: 50 mls/hr Documented By: Infusion: 09/30/22 08:35 Dose: 0 mls/hr Documented By: Admin: 09/30/22 06:47 Dose: 50 mls/hr Documented By: LUZ MARIA Sodium Chloride (Nss 1000ml) 1,000 mls @ 999 mls/hr IV .Q1H1M ONE Stop: 09/30/22 22:29 Last Infusion: 09/30/22 22:32 Dose: 0 mls/hr Documented By: Admin: 09/30/22 21:33 Dose: 999 mls/hr Documented By: TONIO Sodium Chloride (Nss 1000ml) 500 mls @ 999 mls/hr IV .Q31M ONE Stop: 09/30/22 23:31 Last Infusion: 09/30/22 23:58 Dose: 0 mls/hr Documented By: Admin: 09/30/22 23:04 Dose: 999 mls/hr Documented By: TONIO Calcium Gluconate 1,000 mg/ (Dextrose) 60 mls @ 240 mls/hr IV NOW ONE Stop: 10/01/22 02:07 Last Infusion: 10/01/22 02:27 Dose: 0 mls/hr Documented By: Admin: 10/01/22 02:10 Dose: 240 mls/hr Documented By: TONIO Ioversol (Optiray 320 100ml) 100 ml IV ONCE ONE Stop: 09/30/22 00:41 Last Admin: 09/30/22 00:41 Dose: 86 ml Documented By: OLINDA Ondansetron HCl (Ondansetron Inj 2 Mg/Ml 2 Ml Vial) 4 mg IV NOW STA Stop: 09/30/22 00:04 Last Admin: 09/30/22 00:10 Dose: 4 mg Documented By: ADE Potassium Chloride (Potassium Chloride Crtab 20 Meq Tabcr) 40 meq PO NOW STA Stop: 10/01/22 01:54 Last Admin: 10/01/22 02:10 Dose: 40 meq Documented By: TONIO Imaging Data Radiologist's Impression: Abdomen/Pelvis CT 09/30/22 00:04 Exam(s): CT ABDOMEN + PELVIS With Contrast IV Amt: 86 ml optiray 320 EXAM: CT Abdomen and Pelvis With Intravenous Contrast CLINICAL HISTORY: Reason for exam: R flank pain. TECHNIQUE: Axial computed tomography images of the abdomen and pelvis with intravenous contrast. Automated exposure control was utilized for the study. A dose lowering technique was utilized adhering to the principles of ALARA. CONTRAST: Patient received 86 ml optiray 320 of IV contrast COMPARISON: 09/03/22 FINDINGS: There are partially imaged bilateral breast implants. Subsegmental atelectasis is present at the right lung base. Gallbladder is surgically absent. There is no biliary dilatation. Liver, pancreas, and adrenal glands are unremarkable. There are multiple calcified splenic granulomata. Kidneys enhance symmetrically. There is no hydronephrosis. Simple cortical cysts in the right kidney are stable from prior; no further follow-up is required. There is aortoiliac atherosclerosis without aneurysm. There is no adenopathy. There is no free air or significant free fluid. There are postoperative changes of the bowel with anastomotic staple line in the sigmoid colon and right lower quadrant ileostomy. There is no bowel obstruction or inflammation. Appendix is not visualized. Uterus and urinary bladder are unremarkable. There are no acute osseous findings. IMPRESSION: No acute or inflammatory process. Electronically signed by: Farhat Hastings M.D. 09/30/22 01:16 AM Discharge Plan Visit Data Chief Complaint: Flank Pain Stated Complaint: LOWER RIGHT BACK PAIN,LLEOSTOMY ED Provider: Lupe Mitchell Discharge Problem: Hypocalcemia, H/O ileostomy Patient Disposition: Admitted As Inpatient Discharge Instructions Interventions: ED Discharge Assessment Last Done: 09/30/22 04:03
[2022-09-30] MEDS: SODIUM CHLORIDE 0.9% 1000ML 1,000 ML IV SCH ×2 (04:38→16:31)
[2022-09-30] MEDS: cefTRIAXone SODIUM 1,000 MG in DEXTROSE 5% AD-VAN 50 ML IV SCH (05:14)
[2022-09-30 06:25] LABS: Magnesium 0.5 mg/dl (1.7-2.4); Phosphorus 4.3 mg/dl (2.5-4.9)
[2022-09-30] MEDS: MAGNESIUM SULFATE / D5W 1 GM/100 ML BAG IV SCH ×4 (06:47→12:02)
[2022-09-30] MEDS: SODIUM CHLORIDE 1 GM TABLET PO SCH ×3 (08:09→20:51)
[2022-09-30] MEDS: SODIUM BICARBONATE 650 MG TAB PO SCH ×2 (08:09→20:51)
[2022-09-30] MEDS: PANTOprazole 40 MG TAB PO SCH (08:09)
[2022-09-30] MEDS: ENOXAPARIN INJ 40 MG/0.4 ML SYR SQ SCH (08:10)
[2022-09-30] MEDS: ONDANSETRON INJ 2 MG/ML 2 ML VIAL IV PRN ×2 (08:15→22:30)
[2022-09-30 10:38] LABS: Albumin Level 3.1 gm/dl (3.4-5.0); BUN Creatinine Ratio 6.6 (10-20); Bilirubin Direct 0.1 mg/dl (0-0.2); Bilirubin,Total 0.5 mg/dl (0.2-1.0); Calcium 6.5 mg/dl (8.6-10.3); Creatinine Clr Calc Pharmacy 40.3 ml/min; Est GFR (African American) 61.6 ml/min; Est GFR (Non-African American) 53.2 ml/min; Potassium 3.3 mmol/L (3.5-5.1); Total Protein 5.5 gm/dl (6.0-8.3)
[2022-09-30] MEDS ORDERED: Nursing to Pharmacy Communication SCH (19:30)
[2022-09-30] MEDS: ATORVASTATIN 40 MG TAB PO SCH (20:51)
[2022-09-30] MEDS ORDERED: SODIUM CHLORIDE 0.9% 1000ML 1,000 ML IV ONE (21:29)
[2022-09-30] MEDS ORDERED: SODIUM CHLORIDE 0.9% 1000ML 500 ML IV ONE (23:01)
--- NOTE | 2022-09-30 23:45 | Ultrasound Report ---
DOPPLER ULTRASOUND OF THE MESENTERIC VASCULATURE CLINICAL HISTORY: Right upper quadrant abdominal pain. COMPARISON STUDY: Abdominal CT dated 09/30/2022. FINDINGS: Real-time grayscale and color Doppler sonography of the mesenteric vasculature was performe d. The abdominal aorta is widely patent with noting atherosclerotic plaque and irregularity. Velociti es within the abdominal aorta measure up to 57 cm/s. The celiac trunk is patent with velocities measu ring up to 158 cm/s, and the superior mesenteric artery is patent with velocities measuring up to 13 6 cm/s. The inferior mesenteric artery was not visualized. IMPRESSION: The mesenteric vessels are patent, with no sonographic evidence of stenosis. See above. Dictated: 09/30/2022 10:39 PM Transcribed: 09/30/2022 10:51 PM Ismael [id number] Marquise [id number] Electronically signed by: Narinder Velasquez M.D. 09/30/2022 11:43 PM
[2022-10-01] MEDS ORDERED: Nursing to Pharmacy Communication SCH (00:45)
[2022-10-01] MEDS ORDERED: SODIUM CHLORIDE 0.9% 1000ML 1,000 ML IV SCH (00:45)
[2022-10-01] MEDS ORDERED: CALCIUM GLUCONATE 10% 1,000 MG in DEXTROSE 5% 50 ML IV ONE ×2 (01:53→10:45)
[2022-10-01] MEDS ORDERED: STAT IV STA ×2 (01:53→10:30)
[2022-10-01] MEDS ORDERED: POTASSIUM CHLORIDE CRTAB 20 MEQ TABCR PO STA ×2 (01:53→03:49)
[2022-10-01] MEDS ORDERED: PROMETHAZINE HCL 6.25 MG in SODIUM CHLORIDE 0.9% 50 ML IV STA (02:06)
[2022-10-01 03:39] LABS: Hematocrit (blood only) 23.3 % (37.0-47.0); Mean Corpuscular Hemoglobin 31.9 pg (25.0-34.0); Mean Corpuscular Hgb Conc 34.3 g/dL (32.0-36.0); Mean Corpuscular Volume 92.8 fL (80.0-100.0); Mean Platelet Volume 9.5 fL (9.4-12.4); Platelet Count 100 K/uL (130-400); RDW Coefficient of Variation 15.6 % (11.5-14.5); RDW Standard Deviation 52.4 fL (36.4-46.3); Red Blood Count 2.51 M/uL (4.20-5.40); White Blood Count 4.06 K/ul (4.8-10.8)
[2022-10-01 03:43] LABS: BUN Creatinine Ratio 5.3 (10-20); C Reactive Protein 9.49 mg/dl (0-0.5); Calcium 6.4 mg/dl (8.6-10.3); Creatinine Clr Calc Pharmacy 44.9 ml/min; Est GFR (African American) 70.3 ml/min; Est GFR (Non-African American) 60.7 ml/min; Magnesium 1.4 mg/dl (1.7-2.4); Potassium 3.4 mmol/L (3.5-5.1)
[2022-10-01] MEDS: MAGNESIUM SULFATE / D5W 1 GM/100 ML BAG IV SCH ×2 (04:35→07:12)
[2022-10-01] MEDS: cefTRIAXone SODIUM 1,000 MG in DEXTROSE 5% AD-VAN 50 ML IV SCH (05:20)
[2022-10-01] MEDS: SODIUM CHLORIDE 1 GM TABLET PO SCH ×2 (08:22→20:16)
[2022-10-01] MEDS: SODIUM BICARBONATE 650 MG TAB PO SCH ×2 (08:23→20:16)
[2022-10-01] MEDS: PANTOprazole 40 MG TAB PO SCH (08:23)
[2022-10-01] MEDS: ENOXAPARIN INJ 40 MG/0.4 ML SYR SQ SCH (08:24)
--- NOTE | 2022-10-01 10:43 | Hospitalist Progress Note ---
Date of Service October 01, 2022 Assessment & Plan (1) History of open sigmoidectomy: Plan: s/p sigmoidectomy and colostomy on 08/06/22 with watery high output - Suspect that the majority of her issues may be stemming from her high output ostomy causing nutritional and volume issues - She was taking Imodium QID following her discharge from [facility] [place] - Continue ostomy care - Check stool for occult blood and stool biofire - all negative - C diff gene was negative - Resumed scheduled Imodium - Continue sodium bicarb tabs for mild metabolic acidosis (2) Electrolyte disorder: Plan: Acute/unstable/high risk - Suspect secondary to high output ostomy, hypovolemia and GI losses - CMP, Mag reviewed: on admit Mag 0.5, i-calcium 0.92, K+ 3.2, Na 132 - Mag replaced with total of 6g IV Mag Sulfate - Received 1g of Calcium gluconate, order another gram now - Potassium replaced, repeat labs currently pending - She has received a total of 5L of NSS and currently has maintenance NSS running @ 100 ml/hr - Stop NaCl tablets - previous urine/serum osmol were not overtly diagnostic for SIADH - Did have drop to Na on repeat labs this afternoon to 130 - will stop IVF - Stop Protonix and change to Pepcid to avoid recurrent hypomagnesemia - Vitamin D level ordered, reviewed, low at 11 c/w deficiency. Replacement ordered with D3 5000 IU daily (3) Pancytopenia: Plan: Acute/unstable/uncertain risk - CBC reviewed, wbc 4.06, hgb 8.0, hct 23.3, and platelets 100 - Stop Lovenox d/t platelet count of 100 - Obtain peripheral smear, vitamin b12, folate, iron, anaplasmosis/Babesia smear - Stool check for occult blood - Given amount of fluid she has received since admission, due believe a component of her drop is dilutional - Trend CBC, repeat this afternoon notes wbc normalized, h/h stable, platelets 102 - iron is low at 14, Venofer ordered 300mg IV x1 - Vit B12 is 141, deficient, Cyanocobalamin 1000mcg IM daily x 7 days, then weekly x 4 weeks, then monthly (4) Flank pain: Plan: Acute/stable/low risk - UA suggestive of infection but also could be contaminated given >30 epi cells - Urine and blood cultures ordered/pending - Started on empiric Rocephin 1g IV daily, continue for now, denies gu symptoms - Afebrile, if no growth on culture stop abx (5) Hypertension: Plan: Chronic with borderline BP - Takes low dose Metoprolol at home, currently on hold - Continue IVF and can resume when BP will tolerate (6) GERD without esophagitis: Plan: Chronic/stable - As noted, stop PPI and start on Pepcid 40mg daily Plan SCDs now ordered for DVT ppx since Lovenox has been stopped. CBC, BMP, and Mag has been ordered for tomorrow AM. Above plan of care has been d/w Dr. Gallego. Admission and Anticipated Discharge Date Admission Date: September 30, 2022 Supervising Physician Co-Signing Physician Notes SLIM Supervision Note: I did not personally see or examine the patient today, but I verified all lal points of SLIM Holden's assessment and plan with the following exceptions/additions: None Subjective Patient seen on daily rounds this morning. She is resting in bed, she has no specific complaints but when asked how she is doing she replies "not good or I wouldn't be here." She underwent open exploratory laparotomy, sigmoidectomy with end to side colorectal anastomosis and colostomy on 08/06/22. Since then, she was readmitted 09/03-09/06 for sepsis syndrome with suspected urinary source but this was excluded at time of discharge and antibiotics were discontinued. She was di scharged to acute rehab on 09/06, was doing well at rehab until one week ago. She notes that when she left rehab she was "great" was able to walk laps around the facility. Now, she finds it difficult to perform simple tasks at home, doesn't feel well, has had some intermittent vomiting, denies abd pain. She denies BRB in her ostomy bag or hematemesis or coffee ground emesis. She denies fever but reports that she's always "freezing." She has had high output from her ostomy since surgery and denies that this has gotten worse leading up to her coming to the hospital last evening. Didn't eat breakfast this AM but states she never does. No vomiting since admission. Physical Exam Physical Exam: GENERAL: 72 yo well-developed, well-nourished F. AAOx4. NAD. LUNGS: Clear to auscultation bilaterally CARDIOVASCULAR: Mildly tachycardic no m/g/r ABDOMEN: Soft, non-tender and non-distended. Bs normoactive x 4 quad. Colostomy bag in RLQ, small amount of liquid stool in bag. Results & Data Results & Data Vital Signs (Past 12 Hours) Vital Signs Temp Pulse Resp BP BP Pulse Ox O2 Del Method 10/01/22 07:16 36.6 C 112 H 17 115/69 98 Room Air 10/01/22 02:35 110 H 10/01/22 02:05 135 H 10/01/22 01:45 126 H 09/30/22 23:40 36.7 C 115 H 18 98/63 L 96 Room Air 09/30/22 22:48 36.8 C 114 H 16 94/58 L 97 Room Air Laboratory Results Laboratory Results - last 24 hr 09/30/22 10/01/22 10/01/22 16:03 02:48 02:48 WBC 4.06 L RBC 2.51 L Hgb 8.0 L Hct 23.3 L MCV 92.8 MCH 31.9 MCHC 34.3 RDW Std Deviation 52.4 H RDW Coeff of Armand 15.6 H Plt Count 100 L MPV 9.5 Immature Gran % (Auto) Neut % (Auto) Lymph % (Auto) [place] % (Auto) Eos % (Auto) Baso % (Auto) Neut # (Auto) Lymph # (Auto) [place] # (Auto) Eos # (Auto) Baso # (Auto) Immature Gran # (Auto) Peripher Smr Path Cons Sodium 136 Potassium 3.4 L Chloride 103 Carbon Dioxide 20 L Anion Gap 13 H BUN 5 L Creatinine 0.95 Est Cr Clr Drug Dosing 44.9 Est GFR ( Amer) 70.3 Est GFR (Non-Af Amer) 60.7 BUN/Creatinine Ratio 5.3 L Glucose 141 H Calcium 6.4 L Magnesium 1.9 1.4 L Iron C-Reactive Protein 9.49 H Vitamin B12 25-OH Vitamin D Total Folate Procalcitonin Stool Occult Bld Scrn Stl C. cayetanensis PCR Stool Rotavirus A PCR Stl Adenov F 40/41 PCR Stool Astrovirus (PCR) Stool Campylobacter PCR Stool Cryptosporidium PCR Stl E.coli Shiga Tox PCR Stl Enterotoxigenic E PCR Stool EAEC (PCR) Stl E. histolytica PCR Stool Giardia Lamblia PCR Stool Salmonella PCR Stool Sapovirus (PCR) Stl P. shigelloides PCR Stl Shigella/EIEC PCR St Y.enterocolitica PCR Stool Vibrio (PCR) Stl Vibrio cholerae PCR Stl Norovirus GI/GII PCR Anaplasma Smear Babesia Smear PG Care Time/CCT Total # of Minutes Spent Total Time Spent with Patient: Total time spent is greater than 50% in coordination of care (as documented) at patient's floor/unit and/or counseling patient: Coding Level of Care Code 38359 SUB INP/OBS CARE 3/50MIN Diagnoses History of open sigmoidectomy Z98.890; Z90.49 Electrolyte disorder E87.8 Pancytopenia D61.818 Flank pain R10.9 Hypertension I10 GERD without esophagitis K21.9
[2022-10-01 11:02] LABS: Basophils # (auto) 0.01 K/uL (0-0.2); Basophils % (auto) 0.2 %; Eosinophils # (auto) 0.01 K/uL (0-0.50); Eosinophils % (auto) 0.2 %; Hematocrit (blood only) 24.4 % (37.0-47.0); Hemoglobin 8.3 g/dl (12.0-16.0); Immature Granulocytes # (auto) 0.03 K/uL (0.01-0.20); Immature Granulocytes % (auto) 0.6 %; Lymphocytes # (auto) 1.73 K/uL (1.2-3.4); Mean Corpuscular Hemoglobin 31.9 pg (25.0-34.0); Mean Corpuscular Volume 93.8 fL (80.0-100.0); Mean Platelet Volume 9.1 fL (9.4-12.4); Monocytes # (auto) 0.17 K/uL (0.11-0.59); Monocytes % (auto) 3.5 %; Neutrophils # (auto) 2.86 K/uL (1.40-6.50); Neutrophils % (auto) 59.5 %; Platelet Count 102 K/uL (130-400); RDW Coefficient of Variation 15.5 % (11.5-14.5); RDW Standard Deviation 52.9 fL (36.4-46.3); White Blood Count 4.81 K/ul (4.8-10.8)
[2022-10-01 11:19] LABS: BUN Creatinine Ratio 4.5 (10-20); Calcium 6.4 mg/dl (8.6-10.3); Creatinine Clr Calc Pharmacy 47.9 ml/min; Est GFR (African American) 76.1 ml/min; Est GFR (Non-African American) 65.7 ml/min; Potassium 3.9 mmol/L (3.5-5.1)
[2022-10-01 11:48] LABS: Vitamin D, 25 Hydrox 11.2 ng/ml (30-100)
[2022-10-01 11:54] LABS: Adenovirus F 40/41 PCR Not Detected (NotDetected); Astrovirus PCR Not Detected (NotDetected); Campylobacter PCR Not Detected (NotDetected); Cryptosporidium PCR Not Detected (NotDetected); Cyclospora cayetanensis PCR Not Detected (NotDetected); Entamoeba histolytica PCR Not Detected (NotDetected); Enteroaggregative E.coli(EAEC) Not Detected (NotDetected); Enteropathogenic E.coli (EPEC) Not Detected (NotDetected); Enterotoxigenic E.coli (ETEC) Not Detected (NotDetected); Giardia lamblia PCR Not Detected (NotDetected); Norovirus GI/GII PCR Not Detected (NotDetected); Plesiomonas shigelloides PCR Not Detected (NotDetected); Rotavirus A PCR Not Detected (NotDetected); Salmonella PCR Not Detected (NotDetected); Sapovirus PCR Not Detected (NotDetected); Shiga-like Toxin E.coli (STEC) Not Detected (NotDetected); Shigella/Enteroinvasive E.coli Not Detected (NotDetected); Vibrio cholerae PCR Not Detected (NotDetected); Vibrio species PCR Not Detected (NotDetected); Yersinia enterocolitica PCR Not Detected (NotDetected)
[2022-10-01] MEDS ORDERED: IRON SUCROSE 300 MG in SODIUM CHLORIDE 0.9% 250 ML IV ONE (14:00)
[2022-10-01] MEDS: CHOLECALCIFEROL 5,000 UNITS 125 MCG TAB PO SCH (14:35)
[2022-10-01] MEDS: LOPERAMIDE HCL 2 MG CAP PO SCH ×3 (14:45→20:16)
[2022-10-01] MEDS: CYANOCOBALAMIN 1000 MCG/ML VIAL IM SCH (17:12)
[2022-10-01] MEDS: ATORVASTATIN 40 MG TAB PO SCH (20:16)
[2022-10-02] MEDS: ONDANSETRON INJ 2 MG/ML 2 ML VIAL IV PRN (01:39)
[2022-10-02] MEDS: cefTRIAXone SODIUM 1,000 MG in DEXTROSE 5% AD-VAN 50 ML IV SCH (05:36)
[2022-10-02 07:29] LABS: Calcium 6.8 mg/dl (8.6-10.3); Creatinine Clr Calc Pharmacy 43.1 ml/min; Est GFR (African American) 66.9 ml/min; Est GFR (Non-African American) 57.7 ml/min; Magnesium 1.4 mg/dl (1.7-2.4); Potassium 3.3 mmol/L (3.5-5.1)
[2022-10-02 07:39] LABS: Basophils # (auto) 0.01 K/uL (0-0.2); Basophils % (auto) 0.2 %; Eosinophils # (auto) 0.02 K/uL (0-0.50); Eosinophils % (auto) 0.5 %; Hematocrit (blood only) 21.8 % (37.0-47.0); Hemoglobin 7.6 g/dl (12.0-16.0); Immature Granulocytes # (auto) 0.03 K/uL (0.01-0.20); Immature Granulocytes % (auto) 0.7 %; Lymphocytes # (auto) 1.18 K/uL (1.2-3.4); Lymphocytes % (auto) 27.1 %; Mean Corpuscular Hemoglobin 31.8 pg (25.0-34.0); Mean Corpuscular Hgb Conc 34.9 g/dL (32.0-36.0); Mean Corpuscular Volume 91.2 fL (80.0-100.0); Mean Platelet Volume 9.6 fL (9.4-12.4); Monocytes # (auto) 0.19 K/uL (0.11-0.59); Monocytes % (auto) 4.4 %; Neutrophils # (auto) 2.93 K/uL (1.40-6.50); Neutrophils % (auto) 67.1 %; Platelet Count 112 K/uL (130-400); Polychromasia 1+; RDW Coefficient of Variation 14.9 % (11.5-14.5); RDW Standard Deviation 50.4 fL (36.4-46.3); Red Blood Count 2.39 M/uL (4.20-5.40); White Blood Count 4.36 K/ul (4.8-10.8)
[2022-10-02] MEDS: ACETAMINOPHEN 325 MG TAB PO PRN (07:46)
--- NOTE | 2022-10-02 08:23 | Electrocardiogram Report ---
Test Reason : Blood Pressure : / mmHG Vent. Rate : 115 BPM Atrial Rate : 115 BPM P-R Int : 162 ms QRS Dur : 070 ms QT Int : 328 ms P-R-T Axes : 038 -09 037 degrees QTc Int : 454 ms Sinus tachycardia Low voltage QRS Septal infarct , age undetermined Cannot rule out Inferior infarct , age undetermined Abnormal ECG When compared with ECG of 04-SEP-2022 05:26, Septal infarct is now Present Minimal criteria for Inferior infarct are now Present Confirmed by Marshal Wong [id number]) on 10/01/2022 1:31:01 PM Referred By: REFERRED SELF Confirmed By:Marshal Wong
[2022-10-02] MEDS: CHOLECALCIFEROL 5,000 UNITS 125 MCG TAB PO SCH (08:44)
[2022-10-02] MEDS: SODIUM BICARBONATE 650 MG TAB PO SCH ×2 (08:45→20:15)
[2022-10-02] MEDS: CYANOCOBALAMIN 1000 MCG/ML VIAL IM SCH (08:45)
[2022-10-02] MEDS: FAMOTIDINE 40 MG TABLET PO SCH (08:45)
[2022-10-02] MEDS: SODIUM CHLORIDE 1 GM TABLET PO SCH ×2 (08:46→20:16)
[2022-10-02] MEDS: LOPERAMIDE HCL 2 MG CAP PO SCH ×2 (08:48→15:03)
[2022-10-02] MEDS ORDERED: STAT IV STA (10:17)
[2022-10-02] MEDS ORDERED: CALCIUM GLUCONATE 10% 2,000 MG in DEXTROSE 5% 50 ML IV ONE (10:30)
[2022-10-02] MEDS: POTASSIUM CHLORIDE CRTAB 20 MEQ TABCR PO SCH ×2 (11:46→20:15)
[2022-10-02] MEDS: CYANOCOBALAMIN (B-12) 500 MCG TABLET PO SCH (11:52)
[2022-10-02] MEDS: MAGNESIUM SULFATE / D5W 1 GM/100 ML BAG IV SCH ×3 (12:10→19:31)
--- NOTE | 2022-10-02 13:33 | Hospitalist Progress Note ---
Date of Service October 02, 2022 Assessment & Plan (1) History of open sigmoidectomy: Plan: s/p sigmoidectomy and colostomy on 08/06/22 with watery high output - Suspect that the majority of her issues may be stemming from her high output ostomy causing nutritional and volume issues - She was taking Imodium QID following her discharge from [facility] [place]-not helping-switch to Lomotil -Consult GI for further input - Continue ostomy care - Check stool for occult blood and stool biofire - all negative - C diff gene was negative - Continue sodium bicarb tabs for mild metabolic acidosis (2) Electrolyte disorder: Plan: Hypokalemia, hypomagnesemia, hypocalcemia, hyponatremia - Suspect secondary to high output ostomy, hypovolemia and GI losses -Continue to replace today with IV calcium, IV magnesium, oral potassium and monitor BMP, magnesium level in the morning - Mag replaced with total of 6g IV Mag Sulfate on admission - She has received a total of 5L of NSS on admission and sodium did drop down. Urine osmolality and sodium do seem consistent with possible SIADH but could be skewed by sodium tablets and more likely she has hypovolemic -Restart sodium tablets at a reduced dose of 1 g p.o. twice daily, have since discontinued IV fluids, encourage p.o. intake - Stopped Protonix and changed to Pepcid to avoid recurrent hypomagnesemia - Vitamin D level ordered, reviewed, low at 11 c/w deficiency. Replacement ordered with D3 5000 IU daily which should help improve her calcium levels (3) Pancytopenia: Plan: - CBC reviewed, wbc 4.06, hgb 8.0, hct 23.3, and platelets 100 on admission and hemoglobin slightly lower today at 7.6 likely some hemodilution. Platelets improved 112 -Likely due to severe iron deficiency, B12 deficiency, and borderline low folate deficiency -She is declining injections of B12 but will start oral B12, giving IV Venofer- second dose today - peripheral smear negative , anaplasmosis/Babesia smear negative - Stool check for occult blood -Follow CBC (4) Flank pain: Plan: - UA suggestive of infection but also could be contaminated given >30 epi cells - Urine culture mixed [place], blood cultures remain no growth to date -Continue ceftriaxone as flank pain is now improving. Did have a fever on 10/02 which could be related to pyelonephritis CT abdomen/pelvis no signs of pyelonephritis but does not rule it out (5) Hypertension: Plan: Chronic with borderline low BP likely due to hypovolemia - Takes low dose Metoprolol at home, currently on hold (6) GERD without esophagitis: Plan: Chronic/stable - As noted, stop PPI and start on Pepcid 40mg daily (7) Vitamin D deficiency: Plan: As above (8) B12 deficiency anemia: Plan: As above (9) Iron deficiency anemia: Plan: As above (10) Metabolic acidosis: Plan: As above Continue sodium bicarbonate tablets Follow BMP (11) Hyponatremia: Plan: As above Follow BMP (12) Fever: Plan: Possibly due to pyelonephritis Patient refusing bio fire viral respiratory panel but either way even if has a viral infection, supportive care would be indicated Continue ceftriaxone and follow cultures (13) Adjustment disorder with anxiety: Plan: Related to recent colectomy and multiple prolonged hospitalizations Offered psychiatry evaluation but she declined at this time Plan DVT prophylaxis-SCDs Disposition-continued stay Admission and Anticipated Discharge Date Admission Date: September 30, 2022 Subjective Still having ongoing multiple loose stools not improved with Imodium. Feels weak all over and is frustrated. Is refusing bio fire nasal swab and vitamin B shot as she states she is tired of being in hospitals and has "PTSD" from all of her prolonged recent hospitalizations and does not want to be poked with needles. No nausea and is eating some foods but not much. Physical Exam Constitutional: WD/WN, vitals as above Respiratory: normal respiratory effort, lungs clear to auscultation Cardiovascular: RRR, no murmur, no edema Gastrointestinal (Abdomen): Inspection/Auscultation: normal bowel sounds; + abdomen abnormal to inspection (Colostomy bag in place full of liquid with some pieces of solid stool) and abdomen not distended Percussion/Palpation: abdomen soft; abdomen nontender Psychiatric: Orientation: alert, oriented x 3 and cooperative Results & Data Results & Data Vital Signs (Past 12 Hours) Vital Signs Temp Pulse Resp BP Pulse Ox O2 Del Method 10/02/22 07:33 38.1 C H 112 H 16 103/62 94 Room Air Laboratory Results CBC, BMP, magnesium, vitamin D, calcium level, B12, folate, blood cultures, urine culture all reviewed PG Care Time/CCT Total # of Minutes Spent Total Time Spent with Patient: Total time spent is greater than 50% in coordination of care (as documented) at patient's floor/unit and/or counseling patient: Coding Level of Care Code 65530 SUB INP/OBS CARE 350MIN Diagnoses History of open sigmoidectomy Z98.890; Z90.49 Electrolyte disorder E87.8 Pancytopenia D61.818 Flank pain R10.9 Hypertension I10 GERD without esophagitis K21.9 Vitamin D deficiency E55.9 B12 deficiency anemia D51.9 Iron deficiency anemia D50.9 Metabolic acidosis E87.20 Hyponatremia E87.1 Fever R50.9 Adjustment disorder with anxiety F43.22
[2022-10-02] MEDS ORDERED: IRON SUCROSE 300 MG in SODIUM CHLORIDE 0.9% 250 ML IV SCH (14:00)
[2022-10-02] MEDS: PSYLLIUM or GUAR GUM FIBER POWDER PACKET PO SCH ×2 (15:25→20:16)
[2022-10-02] MEDS: DIPHENOXYLATE/ATROPINE 2.5/0.025MG TAB PO SCH ×2 (18:21→20:16)
[2022-10-02] MEDS: ATORVASTATIN 40 MG TAB PO SCH (20:16)
[2022-10-03] MEDS: cefTRIAXone SODIUM 1,000 MG in DEXTROSE 5% AD-VAN 50 ML IV SCH (06:04)
[2022-10-03 07:34] LABS: Basophils # (auto) 0.01 K/uL (0-0.2); Basophils % (auto) 0.2 %; Eosinophils # (auto) 0.08 K/uL (0-0.50); Eosinophils % (auto) 1.7 %; Hemoglobin 7.7 g/dl (12.0-16.0); Immature Granulocytes # (auto) 0.01 K/uL (0.01-0.20); Immature Granulocytes % (auto) 0.2 %; Lymphocytes # (auto) 1.84 K/uL (1.2-3.4); Lymphocytes % (auto) 39.1 %; Mean Corpuscular Volume 91.3 fL (80.0-100.0); Monocytes # (auto) 0.18 K/uL (0.11-0.59); Monocytes % (auto) 3.8 %; Neutrophils # (auto) 2.59 K/uL (1.40-6.50); Platelet Count 123 K/uL (130-400); RDW Coefficient of Variation 14.9 % (11.5-14.5); RDW Standard Deviation 50.2 fL (36.4-46.3); Red Blood Count 2.41 M/uL (4.20-5.40); White Blood Count 4.71 K/ul (4.8-10.8)
[2022-10-03 08:00] LABS: BUN Creatinine Ratio 5.4 (10-20); Calcium 7.7 mg/dl (8.6-10.3); Creatinine Clr Calc Pharmacy 45.9 ml/min; Est GFR (African American) 72.2 ml/min; Est GFR (Non-African American) 62.3 ml/min
[2022-10-03 08:01] LABS: Polychromasia 1+
[2022-10-03] MEDS: DIPHENOXYLATE/ATROPINE 2.5/0.025MG TAB PO SCH ×4 (08:09→20:37)
[2022-10-03] MEDS: POTASSIUM CHLORIDE CRTAB 20 MEQ TABCR PO SCH (08:09)
[2022-10-03] MEDS: SODIUM BICARBONATE 650 MG TAB PO SCH ×2 (08:09→20:37)
[2022-10-03] MEDS: FAMOTIDINE 40 MG TABLET PO SCH (08:09)
[2022-10-03] MEDS: SODIUM CHLORIDE 1 GM TABLET PO SCH ×2 (08:10→20:37)
[2022-10-03] MEDS: PSYLLIUM or GUAR GUM FIBER POWDER PACKET PO SCH ×2 (08:10→20:37)
[2022-10-03] MEDS: CYANOCOBALAMIN (B-12) 500 MCG TABLET PO SCH (08:10)
[2022-10-03] MEDS: CHOLECALCIFEROL 5,000 UNITS 125 MCG TAB PO SCH (08:10)
--- NOTE | 2022-10-03 10:19 | Gastrointestinal Consultation ---
Date of Consultation October 03, 2022 Assessment & Plan (1) H/O ileostomy: (2) Electrolyte disorder: Plan -Low residue and low lactose diet. -Continue Imodium as prescribed. -Add Octreotide 50 mcg SQ TID. -Consider ostomy nurse consult as patient reports difficulty with leakage. -Outpatient follow up with [facility] colorectal surgery to discuss reversal surgery. Thank you for allowing us to participate in the care of this patient. If you have any questions or concerns, please do not hesitate to contact us. Supervising Physician Co-Signing Physician Notes Agree with EWA Maciel as above Abd: RLQ ostomy with light brown liquid output, NT, ND Continue current therapy and supportive care Octreotide 50 mg SQ TID Recommend outpatient evaluation by [facility] Colorectal surgery to discuss reversal in the future. History of Present Illness Reason for Consultation: High ostomy output Requesting Physician: Dr. Gallego Attending Physician: Kristine Gallego MD History of Present Illness Patient is a 72 y.o. female s/p open exploratory laparotomy with end to side colorectal anastomosis with diverting loop ostomy on 08/06/[address] Benítez at [facility] admitted with right flank pain and significant ostomy output. She has been noted to have associated hypokalemia and hyponatremia. Patient reports liquid output filling her ostomy bag requiring emptying every 2 hours. She states the bag often leaks and messes her bed at night which has become a point of significant frustration. There is no blood in the stool. No black stools. Denies any abdominal pain. Tolerating diet. No nausea or vomiting. Has been using Imodium daily with no improvement. Allergies Allergy/AdvReac Type Severity Reaction Status Date / Time No Known Allergies Allergy Verified 09/30/22 00:51 Home Medications Medication Instructions Recorded Confirmed Type atorvastatin 80 mg tablet 80 mg PO HS 03/20/22 09/30/22 History omeprazole 40 mg capsule,delayed 40 mg PO HS 03/20/22 09/30/22 History release ondansetron 4 mg disintegrating 4 mg PO Q8H PRN nausea and 07/24/22 09/30/22 Rx tablet vomiting #30 tabs metoprolol tartrate 25 mg tablet 12.5 mg PO BID #0 tabs 09/06/22 09/30/22 Rx loperamide 2 mg capsule 4 mg PO QID #360 caps 09/25/22 09/30/22 Rx sodium bicarbonate 325 mg tablet 650 mg PO BID PER [facility] DC 09/25/22 09/30/22 Rx MEDLIST #60 tabs sodium chloride 1,000 mg soluble 1,000 mg PO TID #30 tabs 09/25/22 09/30/22 Rx tablet Patient History Medical History Abnormal CT scan, sigmoid colon (06/27/22) 8 cm 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 B12 deficiency anemia Colostomy present Depression Diverticulitis Fibromyalgia GERD without esophagitis History of diverticulitis History of flexible sigmoidoscopy History of open sigmoidectomy Hyperlipidemia Hypertension Iron deficiency anemia Osteoporosis last Dexa noted 2018 Pre-diabetes Slow to wake up after anesthesia "a long time ago after tonsillectomy as a child", no issues since 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 Tobacco abuse still currently smokes Urticaria Vitamin D deficiency Surgical History H/O abdominoplasty History of cholecystectomy History of esophagogastroduodenoscopy (EGD) History of tonsillectomy Hx of appendectomy Hx of breast implants, bilateral Hx of colonoscopy Hx of exploratory laparotomy Hx of tubal ligation Previous back surgery 2016 Family History Mother Myocardial infarction Stroke Father Cancer Denies family history of Ovarian cancer Prostate cancer Breast cancer Colorectal cancer Social History Smoking Status: Former smoker Tobacco Type: Cigarettes Age Started Using Tobacco: 37; packs per day: 1; Cigarettes Per Day: 20; Second Hand Exposure: No; Do You Dip or Chew Tobacco: No; Tobacco Cessation Education Requested by Patient: No Hx Alcohol Use: No Hx Substance Use: No Preferred Language: Khmer Communication Ability: Effective Visual Impairment: Limited Hearing Ability: Normal Medical Records Library Professor Required: No Beliefs That Will Affect Care: None marital status: Current Living Situation: Family Current Living Situation Comment: living w son How many Children do You have: 2 Other Information That Helps Us Care for You: No Feels Safe at Home: Yes Safety Concerns: Feels Safe At This Time Childhood Exposure to Second-Hand Smoke: Yes Diet: regular caffeine: Yes during the past year weight has: increased > 10 lbs Dental Care, Regularly: Yes Physical Activity Frequency: Does not Exercise Seatbelt Use: always Sunscreen Use: Yes Assistive Devices: Glasses and Walker Review of Systems Constitutional: + fatigue; no fever and no chills Respiratory: no cough and no dyspnea Cardiovascular: no chest pain and no palpitations Gastrointestinal: as per Subjective / HPI Physical Exam Constitutional: WD/WN, vitals as above Eyes: EOM intact bilaterally Neck: normal visual inspection Respiratory: normal respiratory effort, lungs clear to auscultation Cardiovascular: RRR, no murmur, no edema Gastrointestinal (Abdomen): Inspection/Auscultation: + hyperactive bowel sounds; abdomen not distended Percussion/Palpation: abdomen soft; abdomen nontender, no guarding and abdomen not rigid Ostomy in RLQ. Psychiatric: A+Ox3, euthymic affect Results & Data Vital Signs (Past 12 Hours) Vital Signs Temp Pulse Resp BP Pulse Ox O2 Del Method 10/03/22 07:34 37.0 C 95 H 16 99/62 L 96 Room Air 10/02/22 22:44 36.9 C 74 16 105/65 96 Room Air Diagnostic Findings Laboratory Results WBC 4.71 K/ul (4.8-10.8) L 10/03/22 06:43 RBC 2.41 M/uL (4.20-5.40) L 10/03/22 06:43 Hgb 7.7 g/dl (12.0-16.0) L 10/03/22 06:43 Hct 22.0 % (37.0-47.0) L 10/03/22 06:43 MCV 91.3 fL (80.0-100.0) 10/03/22 06:43 MCH 32.0 pg (25.0-34.0) 10/03/22 06:43 MCHC 35.0 g/dL (32.0-36.0) 10/03/22 06:43 RDW Std Deviation 50.2 fL (36.4-46.3) H 10/03/22 06:43 RDW Coeff of Armand 14.9 % (11.5-14.5) H 10/03/22 06:43 Plt Count 123 K/uL (130-400) L 10/03/22 06:43 MPV 10.0 fL (9.4-12.4) 10/03/22 06:43 Immature Gran % (Auto) 0.2 % 10/03/22 06:43 Neut % (Auto) 55.0 % 10/03/22 06:43 Lymph % (Auto) 39.1 % 10/03/22 06:43 [place] % (Auto) 3.8 % 10/03/22 06:43 Eos % (Auto) 1.7 % 10/03/22 06:43 Baso % (Auto) 0.2 % 10/03/22 06:43 Neut # (Auto) 2.59 K/uL (1.40-6.50) 10/03/22 06:43 Lymph # (Auto) 1.84 K/uL (1.2-3.4) 10/03/22 06:43 [place] # (Auto) 0.18 K/uL (0.11-0.59) 10/03/22 06:43 Eos # (Auto) 0.08 K/uL (0-0.50) 10/03/22 06:43 Baso # (Auto) 0.01 K/uL (0-0.2) 10/03/22 06:43 Immature Gran # (Auto) 0.01 K/uL (0.01-0.20) 10/03/22 06:43 Polychromasia 1+ 10/03/22 06:43 Peripher Smr Path Cons 10/01/22 10:42 Peripher Smr Path Cons Cancelled 10/01/22 10:42 Haptoglobin 343 mg/dL (43-212) H 10/02/22 10:28 Sodium 129 mmol/L (136-145) L 10/03/22 06:43 Potassium 4.0 mmol/L (3.5-5.1) D 10/03/22 06:43 Chloride 97 mmol/L (98-107) L 10/03/22 06:43 Carbon Dioxide 26 mmol/L (21-32) 10/03/22 06:43 Anion Gap 6 (3-11) 10/03/22 06:43 BUN 5 mg/dl (6-23) L 10/03/22 06:43 Creatinine 0.93 mg/dl (0.6-1.2) 10/03/22 06:43 Est Cr Clr Drug Dosing 45.9 ml/min 10/03/22 06:43 Est GFR ( Amer) 72.2 ml/min 10/03/22 06:43 Est GFR (Non-Af Amer) 62.3 ml/min 10/03/22 06:43 BUN/Creatinine Ratio 5.4 (10-20) L 10/03/22 06:43 Glucose 110 mg/dl (70-99(Fasting)) H 10/03/22 06:43 Osmolality 264 mOsm/kg (280-300) L 10/01/22 14:23 Calcium 7.7 mg/dl (8.6-10.3) L 10/03/22 06:43 Ionized Calcium 0.92 mmol/L (1.12-1.32) L 09/30/22 05:29 Phosphorus 4.3 mg/dl (2.5-4.9) 09/30/22 05:29 Magnesium 2.0 mg/dl (1.7-2.4) 10/03/22 06:43 Iron 14 mcg/dl (35-150) L 10/01/22 10:42 Total Bilirubin 0.5 mg/dl (0.2-1.0) 09/30/22 09:33 Direct Bilirubin 0.1 mg/dl (0-0.2) 09/30/22 09:33 AST 17 U/L (13-39) 09/30/22 09:33 ALT 19 U/L (7-52) 09/30/22 09:33 Alkaline Phosphatase 169 U/L (34-104) H 09/30/22 09:33 Lactate Dehydrogenase 131 U/L (86-244) 10/02/22 10:28 C-Reactive Protein 9.49 mg/dl (0-0.5) H 10/01/22 02:48 Total Protein 5.5 gm/dl (6.0-8.3) L 09/30/22 09:33 Albumin 3.1 gm/dl (3.4-5.0) L 09/30/22 09:33 Globulin 2.8 gm/dl (2.5-4.0) 09/29/22 23:48 Albumin/Globulin Ratio 1.4 (0.9-2) 09/29/22 23:48 Lipase 42 U/L (11-82) 09/29/22 23:48 Vitamin B12 141 pg/ml (180-914) L 10/01/22 10:42 25-OH Vitamin D Total 11.2 ng/ml (30-100) L 10/01/22 10:42 Folate 7.22 ng/ml (>5.38) 10/01/22 10:42 Procalcitonin 0.09 ng/ml (0-0.5) 10/01/22 02:48 Urine Color Yellow 09/30/22 01:41 Urine Appearance Turbid (Clear) A 09/30/22 01:41 Urine pH 5.0 (4.5-7.5) 09/30/22 01:41 Ur Specific [place] 1.023 (1.000-1.030) 09/30/22 01:41 Urine Protein Trace (Negative) H 09/30/22 01:41 Urine Glucose (UA) Negative (Negative) 09/30/22 01:41 Urine Ketones Negative (Negative) 09/30/22 01:41 Urine Blood 1+ (Negative) H 09/30/22 01:41 Urine Nitrite Negative (Negative) 09/30/22 01:41 Urine Bilirubin Negative (Negative) 09/30/22 01:41 Urine Urobilinogen Negative (Negative) 09/30/22 01:41 Ur Leukocyte Esterase 3+ (Negative) H 09/30/22 01:41 Urine WBC (Auto) >30 /hpf (0-5) H 09/30/22 01:41 Urine RBC (Auto) 0-4 /hpf (0-4) 09/30/22 01:41 U Hyaline Cast (Auto) 1-5 /lpf (0-5) 09/30/22 01:41 U Epithel Cells (Auto) >30 /lpf (0-5) H 09/30/22 01:41 Urine Bacteria (Auto) 2+ (Negative) H 09/30/22 01:41 Urine Osmolality 267 mOsm/kg (500-800) L 10/01/22 14:15 Ur Random Sodium 41 mmol/L 10/01/22 14:15 Stool Occult Bld Scrn Negative (Negative) 10/01/22 09:55 Stl C. cayetanensis PCR Not Detected (NotDetected) 10/01/22 09:55 Stool Rotavirus A PCR Not Detected (NotDetected) 10/01/22 09:55 Stl Adenov F 40/41 PCR Not Detected (NotDetected) 10/01/22 09:55 Stool Astrovirus (PCR) Not Detected (NotDetected) 10/01/22 09:55 Stool Campylobacter PCR Not Detected (NotDetected) 10/01/22 09:55 Stl C. diff Tox B Gene Negative Cdiff Gene (Neg) 09/30/22 06:46 Stool Cryptosporidium PCR Not Detected (NotDetected) 10/01/22 09:55 Stl E.coli Shiga Tox PCR Not Detected (NotDetected) 10/01/22 09:55 Stl Enterotoxigenic E PCR Not Detected (NotDetected) 10/01/22 09:55 Stool EPEC (PCR) Not Detected (NotDetected) 10/01/22 09:55 Stool EAEC (PCR) Not Detected (NotDetected) 10/01/22 09:55 Stl E. histolytica PCR Not Detected (NotDetected) 10/01/22 09:55 Stool Giardia Lamblia PCR Not Detected (NotDetected) 10/01/22 09:55 Stool Salmonella PCR Not Detected (NotDetected) 10/01/22 09:55 Stool Sapovirus (PCR) Not Detected (NotDetected) 10/01/22 09:55 Stl P. shigelloides PCR Not Detected (NotDetected) 10/01/22 09:55 Stl Shigella/EIEC PCR Not Detected (NotDetected) 10/01/22 09:55 St Y.enterocolitica PCR Not Detected (NotDetected) 10/01/22 09:55 Stool Vibrio (PCR) Not Detected (NotDetected) 10/01/22 09:55 Stl Vibrio cholerae PCR Not Detected (NotDetected) 10/01/22 09:55 Stl Norovirus GI/GII PCR Not Detected (NotDetected) 10/01/22 09:55 Anaplasma Smear Cancelled 10/01/22 10:42 Anaplasma Smear See Comment 10/01/22 10:42 Babesia Smear Cancelled 10/01/22 10:42 Babesia Smear See Comment 10/01/22 10:42 SARS-CoV-2, RNA, NAAT NEGATIVE (NEGATIVE) 09/30/22 00:13 Impressions Abdomen/Pelvis CT 09/30/22 00:04 Exam(s): CT ABDOMEN + PELVIS With Contrast IV Amt: 86 ml optiray 320 EXAM: CT Abdomen and Pelvis With Intravenous Contrast CLINICAL HISTORY: Reason for exam: R flank pain. TECHNIQUE: Axial computed tomography images of the abdomen and pelvis with intravenous contrast. Automated exposure control was utilized for the study. A dose lowering technique was utilized adhering to the principles of ALARA. CONTRAST: Patient received 86 ml optiray 320 of IV contrast COMPARISON: 09/03/22 FINDINGS: There are partially imaged bilateral breast implants. Subsegmental atelectasis is present at the right lung base. Gallbladder is surgically absent. There is no biliary dilatation. Liver, pancreas, and adrenal glands are unremarkable. There are multiple calcified splenic granulomata. Kidneys enhance symmetrically. There is no hydronephrosis. Simple cortical cysts in the right kidney are stable from prior; no further follow-up is required. There is aortoiliac atherosclerosis without aneurysm. There is no adenopathy. There is no free air or significant free fluid. There are postoperative changes of the bowel with anastomotic staple line in the sigmoid colon and right lower quadrant ileostomy. There is no bowel obstruction or inflammation. Appendix is not visualized. Uterus and urinary bladder are unremarkable. There are no acute osseous findings. IMPRESSION: No acute or inflammatory process. Electronically signed by: Farhat Hastings M.D. 09/30/22 01:16 AM Mesenteric US 09/30/22 13:10 DOPPLER ULTRASOUND OF THE MESENTERIC VASCULATURE CLINICAL HISTORY: Right upper quadrant abdominal pain. COMPARISON STUDY: Abdominal CT dated 09/30/2022. FINDINGS: Real-time grayscale and color Doppler sonography of the mesenteric vasculature was performed. The abdominal aorta is widely patent with noting atherosclerotic plaque and irregularity. Velocities within the abdominal aorta measure up to 57 cm/s. The celiac trunk is patent with velocities measuring up to 158 cm/s, and the superior mesenteric artery is patent with velocities measuring up to 136 cm/s. The inferior mesenteric artery was not visualized. IMPRESSION: The mesenteric vessels are patent, with no sonographic evidence of stenosis. See above. Dictated: 09/30/2022 10:39 PM Transcribed: 09/30/2022 10:51 PM Ismael [id number] Marquise [id number] Electronically signed by: Narinder Velasquez M.D. 09/30/2022 11:43 PM PG Care Time/CCT Total # of Minutes Spent Total Time Spent with Patient: Total time spent is greater than 50% in coordination of care (as documented) at patient's floor/unit and/or counseling patient: Coding Level of Care Code 18570 INT INP/OBS CARE 3/75MIN Diagnoses H/O ileostomy Z98.890 Electrolyte disorder E87.8
--- NOTE | 2022-10-03 13:15 | Hospitalist Progress Note ---
Date of Service October 03, 2022 Assessment & Plan (1) History of open sigmoidectomy: Plan: s/p sigmoidectomy and colostomy on 08/06/22 with watery high output - Suspect that the majority of her issues may be stemming from her high output ostomy causing multiple nutritional deficiencies and hypovolemia - She was taking Imodium QID following [place] [facility]not helping- switched to Lomotil -Consult GI for further input appreciated-changed to lactose intolerant and low fiber diet, start octreotide-food operations manager assisted patient to enroll with specialty pharmacy to see if octreotide will be covered as an outpatient - Continue ostomy care-consult wound care nurse due to leaking of ostomy bag - Check stool for occult blood and stool biofire - all negative - C diff gene was negative - Continue sodium bicarb tabs for mild metabolic acidosis which is now improving (2) Electrolyte disorder: Plan: Hypokalemia, hypomagnesemia, hypocalcemia, hyponatremia - Suspect secondary to high output ostomy, hypovolemia and GI losses -Replaced calcium with IV and this is improving-start p.o. calcium carbonate 1250 Mg p.o. twice daily -Replaced with IV magnesium and levels have normalized-continue to follow mag levels -Continue to replace oral potassium but reduce dose to 40 mEq once daily- monitor BMP - She initially received a total of 5L of NSS and sodium did drop down. Urine osmolality and sodium do seem consistent with possible SIADH but could be skewed by sodium tablets and more likely she has hypovolemic -Restarted sodium tablets at a reduced dose of 1 g p.o. twice daily, have since discontinued IV fluids, encourage p.o. intake-sodium improving up to 129-follow BMP in the morning - Stopped Protonix and changed to Pepcid to avoid recurrent hypomagnesemia - Vitamin D level low at 11 c/w deficiency. Replacement ordered with D3 5000 IU daily which should help improve her calcium levels (3) Pancytopenia: Plan: Likely due to severe iron deficiency, B12 deficiency, and borderline low folate No evidence of bleeding from anywhere-fecal occult blood negative CBC with wbc 4.06, hgb 7.7, and platelets low 100s Peripheral smear negative , anaplasmosis/Babesia smear negative -Start B12 SQ 1000 mcg once daily x3 doses, then continue oral B12 1000 mcg daily on discharge -Giving IV Venofer-third and final dose given on 5/5 -Follow CBC in the morning (4) Flank pain: Plan: Presented with significant right flank pain and developed fever the day after admission- UA suggestive of infection but also could be contaminated given >30 epi cells - Urine culture mixed [place], blood cultures remain no growth to date -Flank pain now improved after starting on ceftriaxone -Continue ceftriaxone as flank pain is now improving. Did have a fever on 10/02 which could be related to pyelonephritis CT abdomen/pelvis no signs of pyelonephritis but does not rule it out -Plan to continue ceftriaxone and convert to empiric p.o. antibiotics on discharge to complete 10-day course (5) Hypertension: Plan: Now with low BP likely due to hypovolemia - Takes low dose Metoprolol at home, currently on hold for soft blood pressures (6) GERD without esophagitis: Plan: Chronic/stable - As noted, stop PPI due to hypomagnesemia and start on Pepcid 40mg daily (7) Vitamin D deficiency: Plan: As above (8) B12 deficiency anemia: Plan: As above (9) Iron deficiency anemia: Plan: As above (10) Metabolic acidosis: Plan: As above, now improving Continue sodium bicarbonate tablets Working on slowing down high output ostomy Follow BMP (11) Hyponatremia: Plan: As above Follow BMP (12) Fever: Plan: Possibly due to pyelonephritis Patient refusing bio fire viral respiratory panel but either way even if has a viral infection, supportive care would be indicated Continue ceftriaxone and follow cultures (13) Adjustment disorder with anxiety: Plan: Related to recent colectomy and multiple prolonged hospitalizations-has fear of needles but has been able to tolerate blood draws and some subcutaneous injections Offered psychiatry evaluation but she declined at this time Plan DVT prophylaxis-SCDs Disposition-continued stay until ostomy output decreases so that she can keep up with hydration and electrolyte abnormalities without IV replacement Possible discharge in the next 1 to 2 days. Also need to make sure octreotide is approved for outpatient use prior to discharge PT/OT consults placed-OT recommending likely discharge to home if improves, PT consult pending Admission and Anticipated Discharge Date Admission Date: September 30, 2022 Subjective Patient reports feeling a little bit stronger today. She was able to work with physical therapy and walked to the bathroom and back. Still with high output from her ostomy mostly liquid. She reports she is willing to take B12 injections if they can be subcutaneous rather than IM. Denies abdominal pains, no chest pain or shortness of breath. She is eating regular food, no nausea or vomiting, no further flank pain Remains afebrile Physical Exam Constitutional: WD/WN, vitals as above Respiratory: normal respiratory effort, lungs clear to auscultation Cardiovascular: RRR, no murmur, no edema Gastrointestinal (Abdomen): Inspection/Auscultation: normal bowel sounds; + abdomen abnormal to inspection (Colostomy bag in place full of liquid with some pieces of solid stool) and abdomen not distended Percussion/Palpation: abdomen soft; abdomen nontender Psychiatric: Orientation: alert, oriented x 3 and cooperative Results & Data Results & Data Vital Signs (Past 12 Hours) Vital Signs Temp Pulse Resp BP Pulse Ox O2 Del Method 10/03/22 07:34 37.0 C 95 H 16 99/62 L 96 Room Air Laboratory Results CBC, BMP, magnesium, LDH, haptoglobin all reviewed Blood cultures-no growth to date PG Care Time/CCT Total # of Minutes Spent Total Time Spent with Patient: Total time spent is greater than 50% in coordination of care (as documented) at patient's floor/unit and/or counseling patient: Coding Level of Care Code 75585 SUB INP/OBS CARE 3/50MIN Diagnoses History of open sigmoidectomy Z98.890; Z90.49 Electrolyte disorder E87.8 Pancytopenia D61.818 Flank pain R10.9 Hypertension I10 GERD without esophagitis K21.9 Vitamin D deficiency E55.9 B12 deficiency anemia D51.9 Iron deficiency anemia D50.9 Metabolic acidosis E87.20 Hyponatremia E87.1 Fever R50.9 Adjustment disorder with anxiety F43.22
[2022-10-03] MEDS: CALCIUM CARBONATE 1250MG TAB PO SCH ×2 (13:20→20:36)
[2022-10-03] MEDS: OCTREOTIDE ACETATE 100 MCG/ML VIAL SQ SCH ×2 (13:23→20:47)
[2022-10-03] MEDS: CYANOCOBALAMIN 1000 MCG/ML VIAL SC SCH (13:48)
[2022-10-03] MEDS ORDERED: IRON SUCROSE 300 MG in SODIUM CHLORIDE 0.9% 250 ML IV ONE (14:00)
[2022-10-03] MEDS ORDERED: OCTREOTIDE ACETATE IV SCH (14:00)
[2022-10-03] MEDS: ATORVASTATIN 40 MG TAB PO SCH (20:37)
[2022-10-04] MEDS: cefTRIAXone SODIUM 1,000 MG in DEXTROSE 5% AD-VAN 50 ML IV SCH (05:25)
[2022-10-04 07:04] LABS: Basophils # (auto) 0.01 K/uL (0-0.2); Basophils % (auto) 0.3 %; Eosinophils % (auto) 2.7 %; Hematocrit (blood only) 21.6 % (37.0-47.0); Hemoglobin 7.3 g/dl (12.0-16.0); Immature Granulocytes # (auto) 0.01 K/uL (0.01-0.20); Immature Granulocytes % (auto) 0.3 %; Lymphocytes # (auto) 1.57 K/uL (1.2-3.4); Lymphocytes % (auto) 42.9 %; Mean Corpuscular Hemoglobin 31.5 pg (25.0-34.0); Mean Corpuscular Hgb Conc 33.8 g/dL (32.0-36.0); Mean Corpuscular Volume 93.1 fL (80.0-100.0); Mean Platelet Volume 9.7 fL (9.4-12.4); Monocytes # (auto) 0.15 K/uL (0.11-0.59); Monocytes % (auto) 4.1 %; Neutrophils # (auto) 1.82 K/uL (1.40-6.50); Neutrophils % (auto) 49.7 %; Platelet Count 140 K/uL (130-400); RDW Coefficient of Variation 14.7 % (11.5-14.5); RDW Standard Deviation 49.9 fL (36.4-46.3); Red Blood Count 2.32 M/uL (4.20-5.40); White Blood Count 3.66 K/ul (4.8-10.8)
[2022-10-04 07:30] LABS: BUN Creatinine Ratio 4.8 (10-20); Calcium 7.7 mg/dl (8.6-10.3); Est GFR (Non-African American) 54.4 ml/min; Magnesium 1.7 mg/dl (1.7-2.4); Potassium 3.8 mmol/L (3.5-5.1)
[2022-10-04 07:33] LABS: RBC Morphology Unremarkable
[2022-10-04] MEDS: SODIUM CHLORIDE 1 GM TABLET PO SCH ×2 (07:47→20:43)
[2022-10-04] MEDS: POTASSIUM CHLORIDE CRTAB 20 MEQ TABCR PO SCH (07:48)
[2022-10-04] MEDS: CALCIUM CARBONATE 1250MG TAB PO SCH ×2 (07:48→20:43)
[2022-10-04] MEDS: CHOLECALCIFEROL 5,000 UNITS 125 MCG TAB PO SCH (07:48)
[2022-10-04] MEDS: SODIUM BICARBONATE 650 MG TAB PO SCH ×2 (07:48→20:44)
[2022-10-04] MEDS: DIPHENOXYLATE/ATROPINE 2.5/0.025MG TAB PO SCH ×4 (07:49→20:43)
[2022-10-04] MEDS: PSYLLIUM or GUAR GUM FIBER POWDER PACKET PO SCH ×2 (07:49→20:45)
[2022-10-04] MEDS: FAMOTIDINE 40 MG TABLET PO SCH (07:49)
[2022-10-04] MEDS: CYANOCOBALAMIN 1000 MCG/ML VIAL SC SCH (07:55)
[2022-10-04] MEDS: OCTREOTIDE ACETATE 100 MCG/ML VIAL SQ SCH ×3 (09:15→23:08)
--- NOTE | 2022-10-04 16:29 | Hospitalist Progress Note ---
Date of Service October 04, 2022 Assessment & Plan (1) History of open sigmoidectomy: Plan: Mrs. Emanuel is a 72 yo F admitted for hypovolemia and electrolyte disturbances due to high ostomy output. - s/p sigmoidectomy and colostomy on 08/06/22 with watery high output (this was done due to recurrent diverticulitis / colonic cyst) - Suspect that the majority of her issues may be stemming from her high output ostomy causing multiple nutritional deficiencies and hypovolemia - She was taking Imodium QID following her discharge from [facility] [place]-not helping- switched to Lomotil - Consult GI for further input appreciated-changed to lactose intolerant and low fiber diet, started octreotide-affiliate marketing manager assisted patient to enroll with specialty pharmacy to see if octreotide will be covered as an outpatient. - Fortunately ostomy output is slowing -- down from 350cc to 200-250cc today; nursing also reports stool seems to be more formed. - Continue ostomy care-consult wound care nurse due to leaking of ostomy bag (however on further discussion with nurse, bag is not leaking, patient is just nervous it is going to) - Check stool for occult blood and stool biofire - all negative - C diff gene was negative - Continue sodium bicarb tabs for mild metabolic acidosis which is now improving (2) Electrolyte disorder: Plan: Hypokalemia, hypomagnesemia, hypocalcemia, hyponatremia - Suspect secondary to high output ostomy, hypovolemia and GI losses -Replaced calcium with IV and this is improving-start p.o. calcium carbonate 1250 Mg p.o. twice daily -Replaced with IV magnesium and levels have normalized-continue to follow mag levels -Continue to replace oral potassium but reduce dose to 40 mEq once daily- monitor BMP - She initially received a total of 5L of NSS and sodium did drop down. Urine osmolality and sodium do seem consistent with possible SIADH but could be skewed by sodium tablets and more likely she has hypovolemic -Restarted sodium tablets at a reduced dose of 1 g p.o. twice daily, have since discontinued IV fluids, encourage p.o. intake-sodium improving up to 129-follow BMP in the morning - Stopped Protonix and changed to Pepcid to avoid recurrent hypomagnesemia - Vitamin D level low at 11 c/w deficiency. Replacement ordered with D3 5000 IU daily which should help improve her calcium levels (3) Pancytopenia: Plan: Likely due to severe iron deficiency, B12 deficiency, and borderline low folate No evidence of bleeding from anywhere-fecal occult blood negative CBC with wbc 3.66, hgb 7.3, and platelets normalized Peripheral smear negative, anaplasmosis/Babesia smear negative -Start B12 SQ 1000 mcg once daily x3 doses, then continue oral B12 1000 mcg daily on discharge -Giving IV Venofer-third and final dose given on 10/03 -Follow CBC in the [facility] (4) Flank pain: Plan: Presented with significant right flank pain and developed fever the day after admission- UA suggestive of infection but also could be contaminated given >30 epi cells - Urine culture mixed chelsea, blood cultures remain no growth to date -Flank pain now improved after starting on ceftriaxone -Continue ceftriaxone as flank pain is now improving. Did have a fever on 10/02 which could be related to pyelonephritis CT abdomen/pelvis no signs of pyelonephritis but does not rule it out -Plan to continue ceftriaxone and convert to empiric p.o. antibiotics on discharge to complete 10-day course (5) Hypertension: Plan: Now with low BP likely due to hypovolemia - Takes low dose Metoprolol at home, currently on hold for soft blood pressures (6) GERD without esophagitis: Plan: Chronic/stable - As noted, stop PPI due to hypomagnesemia and start on Pepcid 40mg daily (7) Vitamin D deficiency: Plan: As above (8) B12 deficiency anemia: Plan: As above (9) Iron deficiency anemia: Plan: As above (10) Metabolic acidosis: Plan: As above, now improving Continue sodium bicarbonate tablets Working on slowing down high output ostomy Follow BMP (11) Hyponatremia: Plan: As above Follow BMP (12) Fever: Plan: Possibly due to pyelonephritis Patient refusing bio fire viral respiratory panel but either way even if has a viral infection, supportive care would be indicated Continue ceftriaxone and follow cultures (13) Adjustment disorder with anxiety: Plan: Related to recent colectomy and multiple prolonged hospitalizations-has fear of needles but has been able to tolerate blood draws and some subcutaneous injections Offered psychiatry evaluation but she declined at this time Plan DVT prophylaxis-SCDs Disposition-continued stay until ostomy output decreases so that she can keep up with hydration and electrolyte abnormalities without IV replacement Possible discharge in the next 1 to 2 days. Also need to make sure octreotide is approved for outpatient use prior to discharge PT/OT consults placed-OT recommending likely discharge to home if improves, PT recommending home with HH Admission and Anticipated Discharge Date Admission Date: September 30, 2022 Subjective No acute events overnight. Doing well - -spirits are low. She is frustrated with her overall situation. She is upset about the food. Review of Systems Review of Systems: All systems reviewed & are unremarkable except as noted in HPI & below Physical Exam Constitutional: WD/WN, vitals as above no acute distress Eyes: + anicteric sclerae ENMT: external ear and nose normal, oropharynx normal Neck: trachea midline, no thyromegaly Respiratory: normal respiratory effort, lungs clear to auscultation Cardiovascular: RRR, no murmur, no edema Heart Sounds: normal S1 and normal S2 Gastrointestinal (Abdomen): normal bowel sounds, soft, nontender, no hepatosplenomegaly + colostomy bag in place Musculoskeletal: Head/Neck/Chest: normocephalic and head atraumatic Skin: no rashes, warm and dry Neurologic: moves all extremities Psychiatric: A+Ox3, euthymic affect Results & Data Results & Data Vital Signs (Past 12 Hours) Vital Signs Temp Pulse Resp BP Pulse Ox O2 Del Method 10/04/22 15:33 36.9 C 83 18 96/61 L 96 Room Air 10/04/22 07:20 Room Air 10/04/22 07:40 37.1 C 79 19 99/61 L 96 Room Air PG Care Time/CCT Total # of Minutes Spent Total Time Spent with Patient: Total time spent is greater than 50% in coordination of care (as documented) at patient's floor/unit and/or counseling patient: Coding Level of Care Code 19227 SUB INP/OBS CARE 2/35MIN Diagnoses History of open sigmoidectomy Z98.890; Z90.49 Electrolyte disorder E87.8 Pancytopenia D61.818 Flank pain R10.9 Hypertension I10 GERD without esophagitis K21.9 Vitamin D deficiency E55.9 B12 deficiency anemia D51.9 Iron deficiency anemia D50.9 Metabolic acidosis E87.20 Hyponatremia E87.1 Fever R50.9 Adjustment disorder with anxiety F43.22
[2022-10-04] MEDS: ATORVASTATIN 40 MG TAB PO SCH (20:43)
[2022-10-05 07:06] LABS: Hematocrit (blood only) 22.6 % (37.0-47.0); Hemoglobin 7.8 g/dl (12.0-16.0); Mean Corpuscular Hemoglobin 31.8 pg (25.0-34.0); Mean Corpuscular Hgb Conc 34.5 g/dL (32.0-36.0); Mean Corpuscular Volume 92.2 fL (80.0-100.0); Mean Platelet Volume 9.6 fL (9.4-12.4); Platelet Count 166 K/uL (130-400); RDW Coefficient of Variation 14.6 % (11.5-14.5); RDW Standard Deviation 49.1 fL (36.4-46.3); Red Blood Count 2.45 M/uL (4.20-5.40); White Blood Count 3.83 K/ul (4.8-10.8)
[2022-10-05 07:24] LABS: BUN Creatinine Ratio 6.1 (10-20); Calcium 7.8 mg/dl (8.6-10.3); Creatinine Clr Calc Pharmacy 43.1 ml/min; Est GFR (African American) 66.9 ml/min; Est GFR (Non-African American) 57.7 ml/min; Magnesium 1.5 mg/dl (1.7-2.4); Phosphorus 3.5 mg/dl (2.5-4.9)
[2022-10-05 07:32] LABS: Basophils # (auto) 0.01 K/uL (0-0.2); Basophils % (auto) 0.3 %; Eosinophils % (auto) 2.6 %; Immature Granulocytes # (auto) 0.02 K/uL (0.01-0.20); Immature Granulocytes % (auto) 0.5 %; Lymphocytes # (auto) 2.08 K/uL (1.2-3.4); Lymphocytes % (auto) 54.3 %; Monocytes # (auto) 0.14 K/uL (0.11-0.59); Monocytes % (auto) 3.7 %; Neutrophils # (auto) 1.48 K/uL (1.40-6.50); Neutrophils % (auto) 38.6 %; Polychromasia 1+
[2022-10-05] MEDS: FAMOTIDINE 40 MG TABLET PO SCH (07:50)
[2022-10-05] MEDS: CALCIUM CARBONATE 1250MG TAB PO SCH ×2 (07:50→20:22)
[2022-10-05] MEDS: CHOLECALCIFEROL 5,000 UNITS 125 MCG TAB PO SCH (07:50)
[2022-10-05] MEDS: SODIUM CHLORIDE 1 GM TABLET PO SCH ×2 (07:50→20:22)
[2022-10-05] MEDS: DIPHENOXYLATE/ATROPINE 2.5/0.025MG TAB PO SCH ×4 (07:51→20:22)
[2022-10-05] MEDS: SODIUM BICARBONATE 650 MG TAB PO SCH ×2 (07:51→20:22)
[2022-10-05] MEDS: POTASSIUM CHLORIDE CRTAB 20 MEQ TABCR PO SCH (07:51)
[2022-10-05] MEDS: OCTREOTIDE ACETATE 100 MCG/ML VIAL SQ SCH ×3 (07:52→20:28)
[2022-10-05] MEDS: CYANOCOBALAMIN 1000 MCG/ML VIAL SC SCH (07:52)
[2022-10-05] MEDS: PSYLLIUM or GUAR GUM FIBER POWDER PACKET PO SCH ×2 (07:52→20:22)
--- NOTE | 2022-10-05 10:39 | Hospitalist Progress Note ---
Date of Service October 05, 2022 Assessment & Plan (1) Diarrhea: Plan: 72 yo F history of B12/iron deficiency anemia, hypertension, hyperlipidemia, diverticulitis s/p sigmoidectomy with end to side colorectal anastomosis admitted for hypovolemia and electrolyte disturbances due to high ostomy output. - S/p sigmoidectomy and colostomy on 08/06/22 with watery high output (this was done due to recurrent diverticulitis / colonic cyst) - Stool bio fire and Hemoccult negative, C. difficile negative - Likely that the majority of her electrolyte derangement as described below is secondary to her high output ostomy causing multiple nutritional deficiencies and hypovolemia - GI consult appreciated, started on octreotide SQ three times daily. general manager road production assisting patient to enroll with specialty pharmacy to see if octreotide will be covered as an outpatient - Ostomy output is improving however still with liquid brown output, continue psyllium, Imodium, octreotide - Continue ostomy care; ostomy bag changed today due to leaking - Continue sodium bicarb tabs for mild metabolic acidosis which is now improving (2) History of open sigmoidectomy: Plan: - Secondary to recurrent diverticulitis, see above (3) Electrolyte disorder: Plan: - Since admission has been noted to have hypokalemia, hypomagnesemia, hypocalcemia, hyponatremia - Suspect secondary to high output ostomy, hypovolemia and GI losses - Calcium level improving since admission, noted to be in the setting of vitamin D deficiency, will replete both with oral supplementation to continue on discharge - Magnesium level of 1.5 today, will give IV magnesium and repeat level tomorrow; Protonix changed to Pepcid given hypomagnesemia - Potassium 4.0 today, continue daily KCl supplementation with daily BMP while admitted - Hyponatremia resolving with sodium tablets and improvement in ostomy output, continue sodium tablets 1 g p.o. twice daily (4) Pancytopenia: Plan: Likely due to severe iron deficiency, B12 deficiency, and borderline low folate No evidence of bleeding, and FOBT negative Hemoglobin stable at 7.8, static for the last several days Peripheral smear negative, Anaplasma/Babesia smear negative Received B12 1000 mcg subcu x3 doses this admission, continue oral B12 500 mcg daily PO on discharge Received IV Venofer x3 doses this admission, repeat iron studies outpatient to ensure improvement Daily CBC (5) Flank pain: Plan: Presented with significant right flank pain and developed fever the day after admission UA suggestive of infection but also could be contaminant given >30 epithelial cells UCx with mixed chelsea and unfortunately not recollected. BCx negative to date. CTAP without evidence of pyelo, will treat as complicated UTI with Rocephin for now with transition to PO Abx on discharge for total 7 day course (6) Hypertension: Plan: History of, however with low BP in the setting of hypovolemia, and does have previous Hx of BP 90-100s systolic on previous admissions Takes low dose Metoprolol at home, currently on hold (7) GERD without esophagitis: Plan: Chronic/stable As noted, stop PPI due to hypomagnesemia and start on Pepcid 40mg daily (8) Vitamin D deficiency: Plan: As above (9) B12 deficiency anemia: Plan: As above (10) Iron deficiency anemia: Plan: As above (11) Metabolic acidosis: Plan: Improving Continue sodium bicarbonate tablets, also with Hx SIADH Treatment of high output ostomy as above Follow BMP (12) Hyponatremia: Plan: As above Follow BMP (13) Fever: Plan: Possibly due to UTI Patient refusing bio fire viral respiratory panel but either way even if has a viral infection, supportive care would be indicated Continue ceftriaxone as above (14) Adjustment disorder with anxiety: Plan: Related to recent colectomy and multiple prolonged hospitalizations-has fear of needles but has been able to tolerate blood draws and some subcutaneous injections Offered psychiatry evaluation but she declined at this time Plan DVT prophylaxis-SCDs Disposition- continued stay until ostomy output decreases so that she can keep up with hydration and electrolyte abnormalities without IV replacement PT/OT consults placed- OT recommending likely discharge to home if improves, PT recommending home with HH Possible discharge in the next 1 to 2 days. Also need to make sure octreotide is approved for outpatient use prior to discharge Admission and Anticipated Discharge Date Admission Date: September 30, 2022 Subjective Patient without any acute events overnight. She is overall feeling frustrated about her clinical course since her surgery and ostomy, has a lot of health- related anxiety and is feeling defeated over intermittent leakage from ostomy. She thinks that her ostomy output has been better over the last 24 hours compared to initial admission. Last night, she admits that she did not take the octreotide injection from nursing staff. She is also nervous about the prospect of giving herself octreotide injections at home. She denies any chest or abdominal pain, shortness of breath, nausea. Review of Systems Review of Systems: All systems reviewed & are unremarkable except as noted in Subjective Physical Exam Constitutional: WD/WN, vitals as above Respiratory: normal respiratory effort, lungs clear to auscultation Cardiovascular: RRR, no murmur, no edema Gastrointestinal (Abdomen): normal bowel sounds, soft, nontender, no hepatosplenomegaly Colostomy healthy and beefy red in appearance, brown liquid output noted, some small amount of leakage also noted from colostomy bag Skin: no rashes, warm and dry Psychiatric: A+Ox3, euthymic affect Results & Data Results & Data Vital Signs (Past 12 Hours) Vital Signs Temp Pulse Resp BP Pulse Ox O2 Del Method 10/05/22 09:23 Room Air 10/05/22 07:45 36.8 C 84 17 101/58 L 96 Room Air PG Care Time/CCT Total # of Minutes Spent Total Time Spent with Patient: Total time spent is greater than 50% in coordination of care (as documented) at patient's floor/unit and/or counseling patient: Coding Level of Care Code 66048 SUB INP/OBS CARE 3/50MIN Diagnoses Diarrhea R19.7 History of open sigmoidectomy Z98.890; Z90.49 Electrolyte disorder E87.8 Pancytopenia D61.818 Flank pain R10.9 Hypertension I10 GERD without esophagitis K21.9 Vitamin D deficiency E55.9 B12 deficiency anemia D51.9 Iron deficiency anemia D50.9 Metabolic acidosis E87.20 Hyponatremia E87.1 Fever R50.9 Adjustment disorder with anxiety F43.22
[2022-10-05] MEDS: MAGNESIUM SULFATE / D5W 1 GM/100 ML BAG IV SCH ×2 (12:56→16:35)
[2022-10-05] MEDS: cefTRIAXone SODIUM 2,000 MG in DEXTROSE 5% 50 ML IV SCH (15:54)
[2022-10-05] MEDS: ATORVASTATIN 40 MG TAB PO SCH (20:22)
[2022-10-06 07:32] LABS: Hematocrit (blood only) 23.7 % (37.0-47.0); Hemoglobin 8.2 g/dl (12.0-16.0); Mean Corpuscular Hemoglobin 31.8 pg (25.0-34.0); Mean Corpuscular Hgb Conc 34.6 g/dL (32.0-36.0); Mean Corpuscular Volume 91.9 fL (80.0-100.0); Mean Platelet Volume 9.6 fL (9.4-12.4); Platelet Count 192 K/uL (130-400); RDW Coefficient of Variation 14.6 % (11.5-14.5); RDW Standard Deviation 48.6 fL (36.4-46.3); Red Blood Count 2.58 M/uL (4.20-5.40); White Blood Count 4.18 K/ul (4.8-10.8)
[2022-10-06 07:47] LABS: BUN Creatinine Ratio 3.4 (10-20); Calcium 8.1 mg/dl (8.6-10.3); Creatinine Clr Calc Pharmacy 48.5 ml/min; Est GFR (African American) 77.2 ml/min; Est GFR (Non-African American) 66.6 ml/min; Magnesium 1.9 mg/dl (1.7-2.4); Phosphorus 3.4 mg/dl (2.5-4.9); Potassium 4.1 mmol/L (3.5-5.1)
[2022-10-06 08:01] LABS: Basophils # (auto) 0.01 K/uL (0-0.2); Basophils % (auto) 0.2 %; Eosinophils # (auto) 0.11 K/uL (0-0.50); Eosinophils % (auto) 2.6 %; Immature Granulocytes # (auto) 0.01 K/uL (0.01-0.20); Immature Granulocytes % (auto) 0.2 %; Lymphocytes # (auto) 2.15 K/uL (1.2-3.4); Lymphocytes % (auto) 51.4 %; Monocytes # (auto) 0.15 K/uL (0.11-0.59); Monocytes % (auto) 3.6 %; Neutrophils # (auto) 1.75 K/uL (1.40-6.50)
[2022-10-06] MEDS: DIPHENOXYLATE/ATROPINE 2.5/0.025MG TAB PO SCH ×4 (08:08→20:42)
[2022-10-06] MEDS: POTASSIUM CHLORIDE CRTAB 20 MEQ TABCR PO SCH (08:08)
[2022-10-06] MEDS: FAMOTIDINE 40 MG TABLET PO SCH (08:08)
[2022-10-06] MEDS: SODIUM CHLORIDE 1 GM TABLET PO SCH ×2 (08:09→20:42)
[2022-10-06] MEDS: CALCIUM CARBONATE 1250MG TAB PO SCH ×2 (08:09→20:42)
[2022-10-06] MEDS: PSYLLIUM or GUAR GUM FIBER POWDER PACKET PO SCH ×2 (08:09→20:42)
[2022-10-06] MEDS: SODIUM BICARBONATE 650 MG TAB PO SCH ×2 (08:09→20:42)
[2022-10-06] MEDS: CYANOCOBALAMIN (B-12) 500 MCG TABLET PO SCH (08:09)
[2022-10-06] MEDS: CHOLECALCIFEROL 5,000 UNITS 125 MCG TAB PO SCH (08:09)
[2022-10-06] MEDS: OCTREOTIDE ACETATE 100 MCG/ML VIAL SQ SCH (08:14)
--- NOTE | 2022-10-06 12:20 | Hospitalist Progress Note ---
Date of Service October 06, 2022 Assessment & Plan (1) Diarrhea: Plan: 72 yo F history of B12/iron deficiency anemia, hypertension, hyperlipidemia, diverticulitis s/p sigmoidectomy with end to side colorectal anastomosis admitted for hypovolemia and electrolyte disturbances due to high ostomy output. - S/p sigmoidectomy and colostomy on 08/06/22 with watery high output (this was done due to recurrent diverticulitis / colonic cyst) - Stool Biofire and Hemoccult negative, C. difficile negative - Likely that the majority of her electrolyte derangement as described below is secondary to her high output ostomy causing multiple nutritional deficiencies and hypovolemia - GI consult appreciated, started on octreotide SQ three times daily, however patient declines for today given no improvement in stools. employment specialist/program manager assisting patient to enroll with specialty pharmacy to see if octreotide will be covered as an outpatient should she elect to use it - Ostomy output is improving however still with liquid brown output, continue psyllium, Lamotil. Patient reports better stool bulk when she was at rehab center (not on low fiber diet), so will trial regular diet and see if stools improve as if viral gastroenteritis at this point should be able to escalate diet - Continue ostomy care; ostomy bag changed 10/05 due to leaking - Continue sodium bicarb tabs for mild metabolic acidosis and mild hyponatremia, stable for last several days (2) History of open sigmoidectomy: Plan: - Secondary to recurrent diverticulitis, see above (3) Electrolyte disorder: Plan: - Since admission has been noted to have hypokalemia, hypomagnesemia, hypocalcemia, hyponatremia - Suspect secondary to high output ostomy, hypovolemia and GI losses - Calcium level continues to improve since admission (8.1 today), noted to be in the setting of vitamin D deficiency, will replete both with oral supplementation to continue on discharge - Magnesium level of 1.9 today (improved), defer further IV supplementation in favor of resuming home Mag Oxide - Potassium 4.1 today, continue daily KCl supplementation with daily BMP while admitted - Hyponatremia stable with sodium tablets and improvement in ostomy output, continue sodium tablets 1 g p.o. twice daily (4) Pancytopenia: Plan: Likely due to severe iron deficiency, B12 deficiency, and borderline low folate No evidence of bleeding, and FOBT negative Hemoglobin improving (8.2 today), continue to monitor while admitted and will have follow up with PCP on discharge Peripheral smear negative, Anaplasma/Babesia smear negative Received B12 1000 mcg subcu x3 doses this admission, continue oral B12 500 mcg daily PO on discharge Received IV Venofer x3 doses this admission, repeat iron studies outpatient to ensure improvement (5) Flank pain: Plan: Presented with significant right flank pain and developed fever the day after admission UA suggestive of infection but also could be contaminant given >30 epithelial cells UCx with mixed chelsea and unfortunately not recollected. BCx negative to date. CTAP without evidence of pyelo, will treat as complicated UTI with Rocephin for now with transition to PO Abx on discharge for total 7 day course (6) Hypertension: Plan: History of, however with low BP in the setting of hypovolemia, and does have previous Hx of BP 90-100s systolic on previous admissions Takes low dose Metoprolol at home, currently on hold (7) GERD without esophagitis: Plan: Chronic/stable As noted, stopped PPI due to hypomagnesemia and started on Pepcid 40mg daily (8) Vitamin D deficiency: Plan: As above (9) B12 deficiency anemia: Plan: As above (10) Iron deficiency anemia: Plan: As above (11) Metabolic acidosis: Plan: Improving Continue sodium bicarbonate tablets Treatment of high output ostomy as above Follow BMP (12) Hyponatremia: Plan: As above (13) Fever: Plan: Patient refused Biofire viral respiratory panel but either way even if has a viral infection, supportive care would be indicated Continue ceftriaxone as above for complicated UTI (14) Adjustment disorder with anxiety: Plan: Related to recent colectomy and multiple prolonged hospitalizations Has fear of needles but has been able to tolerate blood draws and some subcutaneous injections Offered psychiatry evaluation this admission, but she declined offer from previous provider Plan DVT prophylaxis - SCDs with ambulation on demand Disposition- Continued stay as ostomy output decreases so that she can keep up with hydration and electrolyte abnormalities without IV replacement PT/OT consults placed- home with home health services Possible discharge in the next 1 to 2 days. Prior auth may be required for octreotide if symptoms do not improve with more conservative interventions, will follow Admission and Anticipated Discharge Date Admission Date: September 30, 2022 Subjective Patient without any acute overnight events. Notes that she is frustrated with her lack of progress with regard to firming up her stools. While the output is not as significant as prior to admission, her stools are still more liquid than they were when she was discharged from the rehab facility. She denies abdominal pain. She is concerned that the octreotide injections are not improving things with regard to her loose stools. Review of Systems Review of Systems: All systems reviewed & are unremarkable except as noted in Subjective Physical Exam Constitutional: WD/WN, vitals as above Respiratory: normal respiratory effort, lungs clear to auscultation Cardiovascular: RRR, no murmur, no edema Gastrointestinal (Abdomen): normal bowel sounds, soft, nontender, no hepatosplenomegaly Colostomy healthy and beefy red in appearance, brown liquid output noted, no leaking Skin: no rashes, warm and dry Psychiatric: A+Ox3, euthymic affect Results & Data Results & Data Vital Signs (Past 12 Hours) Vital Signs Temp Pulse Resp BP Pulse Ox O2 Del Method 10/06/22 07:30 Room Air 10/06/22 07:47 36.8 C 78 16 108/66 96 Room Air PG Care Time/CCT Total # of Minutes Spent Total Time Spent with Patient: Total time spent is greater than 50% in coordination of care (as documented) at patient's floor/unit and/or counseling patient: Coding Level of Care Code 99590 SUB INP/OBS CARE 3/50MIN Diagnoses Diarrhea R19.7 History of open sigmoidectomy Z98.890; Z90.49 Electrolyte disorder E87.8 Pancytopenia D61.818 Flank pain R10.9 Hypertension I10 GERD without esophagitis K21.9 Vitamin D deficiency E55.9 B12 deficiency anemia D51.9 Iron deficiency anemia D50.9 Metabolic acidosis E87.20 Hyponatremia E87.1 Fever R50.9 Adjustment disorder with anxiety F43.22
[2022-10-06] MEDS: cefTRIAXone SODIUM 2,000 MG in DEXTROSE 5% 50 ML IV SCH (13:34)
[2022-10-06] MEDS: ATORVASTATIN 40 MG TAB PO SCH (20:42)
[2022-10-07] MEDS: FAMOTIDINE 40 MG TABLET PO SCH (07:31)
[2022-10-07] MEDS: POTASSIUM CHLORIDE CRTAB 20 MEQ TABCR PO SCH (07:31)
[2022-10-07] MEDS: CYANOCOBALAMIN (B-12) 500 MCG TABLET PO SCH (07:32)
[2022-10-07] MEDS: DIPHENOXYLATE/ATROPINE 2.5/0.025MG TAB PO SCH ×3 (07:32→16:58)
[2022-10-07] MEDS: SODIUM CHLORIDE 1 GM TABLET PO SCH ×2 (07:32→20:20)
[2022-10-07] MEDS: CHOLECALCIFEROL 5,000 UNITS 125 MCG TAB PO SCH (07:32)
[2022-10-07] MEDS: SODIUM BICARBONATE 650 MG TAB PO SCH ×2 (07:32→20:20)
[2022-10-07] MEDS: CALCIUM CARBONATE 1250MG TAB PO SCH ×2 (07:32→20:19)
[2022-10-07] MEDS: PSYLLIUM or GUAR GUM FIBER POWDER PACKET PO SCH ×2 (07:33→20:19)
[2022-10-07 07:52] LABS: Hematocrit (blood only) 23.2 % (37.0-47.0); Mean Corpuscular Hemoglobin 32.1 pg (25.0-34.0); Mean Corpuscular Hgb Conc 34.5 g/dL (32.0-36.0); Mean Corpuscular Volume 93.2 fL (80.0-100.0); Mean Platelet Volume 9.3 fL (9.4-12.4); Platelet Count 204 K/uL (130-400); RDW Coefficient of Variation 14.6 % (11.5-14.5); RDW Standard Deviation 49.1 fL (36.4-46.3); Red Blood Count 2.49 M/uL (4.20-5.40); White Blood Count 4.52 K/ul (4.8-10.8)
[2022-10-07 08:07] LABS: Calcium 7.9 mg/dl (8.6-10.3); Creatinine Clr Calc Pharmacy 43.1 ml/min; Est GFR (African American) 66.9 ml/min; Est GFR (Non-African American) 57.7 ml/min; Magnesium 1.7 mg/dl (1.7-2.4); Phosphorus 3.7 mg/dl (2.5-4.9); Potassium 3.7 mmol/L (3.5-5.1)
[2022-10-07 08:21] LABS: Basophils # (auto) 0.01 K/uL (0-0.2); Basophils % (auto) 0.2 %; Eosinophils # (auto) 0.08 K/uL (0-0.50); Eosinophils % (auto) 1.8 %; Immature Granulocytes # (auto) 0.01 K/uL (0.01-0.20); Immature Granulocytes % (auto) 0.2 %; Lymphocytes # (auto) 2.47 K/uL (1.2-3.4); Lymphocytes % (auto) 54.6 %; Monocytes # (auto) 0.14 K/uL (0.11-0.59); Monocytes % (auto) 3.1 %; Neutrophils # (auto) 1.81 K/uL (1.40-6.50); Neutrophils % (auto) 40.1 %
[2022-10-07] MEDS ORDERED: MAGNESIUM OXIDE 400 MG TAB PO SCH (09:00)
--- NOTE | 2022-10-07 13:02 | Hospitalist Progress Note ---
Date of Service October 07, 2022 Assessment & Plan (1) Diarrhea: Plan: 72 yo F history of B12/iron deficiency anemia, hypertension, hyperlipidemia, diverticulitis s/p sigmoidectomy with end to side colorectal anastomosis admitted for hypovolemia and electrolyte disturbances due to high ostomy output. - S/p sigmoidectomy and colostomy on 08/06/22 with watery high output (this was done due to recurrent diverticulitis / colonic cyst). - Stool Biofire and Hemoccult negative, C. difficile negative. - Likely that the majority of her electrolyte derangement as described below is secondary to her high output ostomy causing multiple nutritional deficiencies and hypovolemia. - GI consult appreciated, started on octreotide SQ three times daily, however patient declines for today given no improvement in stools. manager diesel assisting patient to enroll with specialty pharmacy to see if octreotide will be covered as an outpatient should she elect to use it. - Ostomy output is improved from admission however still with liquid brown output, continue psyllium, given patient prefers Imodium will transition Lamotil to Imodium to see if it helps more. Patient reports better stool bulk when she was at rehab center (not on low fiber diet), so continue regular diet and see if stools improve as if viral gastroenteritis at this point should be able to escalate diet. Will need follow up with surgeon regarding possible reversal in the future of her ostomy. We discussed that given her surgery we anticipate at least some amount of loose stool chronically moving forward, but that a GI illness can cause her stools to become even more liquid than those without an ostomy. - Continue ostomy care; ostomy bag changed 10/05 due to leaking, no leaking since that time. - Continue sodium bicarb tabs for mild metabolic acidosis and mild hyponatremia, stable for last several days. (2) History of open sigmoidectomy: Plan: - Secondary to recurrent diverticulitis, see above. (3) Electrolyte disorder: Plan: - Since admission has been noted to have hypokalemia, hypomagnesemia, hypocalcemia, hyponatremia. - Suspect secondary to high output ostomy, hypovolemia and GI losses. - Calcium level stable at 7.9, noted to be in the setting of vitamin D deficiency, will replete both with oral supplementation to continue on discharge. - Magnesium level stable at 1.7, defer further IV supplementation in favor of continuing home Mag Oxide. - Potassium 3.7 today, continue daily KCl supplementation with daily BMP while admitted. - Hyponatremia stable with sodium tablets and improvement in ostomy output, continue sodium tablets 1 g p.o. twice daily. (4) Pancytopenia: Plan: Likely due to severe iron deficiency, B12 deficiency, and borderline low folate. No evidence of bleeding, and FOBT negative. Hemoglobin stable at 8.0, continue to monitor while admitted and will have follow up with PCP on discharge. Peripheral smear negative, Anaplasma/Babesia smear negative. Received B12 1000 mcg subcu x3 doses this admission, continue oral B12 500 mcg daily PO on discharge. Received IV Venofer x3 doses this admission, started daily iron supplement. (5) Flank pain: Plan: Presented with significant right flank pain and developed fever the day after admission. UA suggestive of infection but also could be contaminant given >30 epithelial cells. UCx with mixed chelsea and unfortunately not recollected. BCx negative to date. CTAP without evidence of pyelo, will treat as complicated UTI with Rocephin to complete 7 days of treatment. (6) Hypertension: Plan: History of, however with low BP in the setting of hypovolemia, and does have previous Hx of BP 90-100s systolic on previous admissions. Takes low dose Metoprolol at home, currently on hold. (7) GERD without esophagitis: Plan: Chronic/stable As noted, stopped PPI due to hypomagnesemia and started on Pepcid 40mg daily (8) Vitamin D deficiency: Plan: As above (9) B12 deficiency anemia: Plan: As above (10) Iron deficiency anemia: Plan: As above (11) Metabolic acidosis: Plan: Resolved. Continue sodium bicarbonate tablets. Treatment of high output ostomy as above. (12) Hyponatremia: Plan: As above (13) Fever: Plan: Patient refused Biofire viral respiratory panel but either way even if has a viral infection, supportive care would be indicated. Continue ceftriaxone as above for complicated UTI. (14) Adjustment disorder with anxiety: Plan: Related to recent colectomy and multiple prolonged hospitalizations. Has fear of needles but has been able to tolerate blood draws and some subcutaneous injections. Offered psychiatry evaluation this admission, but she declined offer from previous provider. Plan DVT prophylaxis - SCDs with ambulation on demand Disposition- Continued stay as ostomy output decreases so that she can keep up with hydration and electrolyte abnormalities without IV replacement PT/OT consults placed- home with home health services Possible discharge tomorrow. Relayed plan over VM to gustavo Soriano Admission and Anticipated Discharge Date Admission Date: September 30, 2022 Subjective No acute events overnight. Frustrated as feels that her stools were better on Imodium 2 tabs q6h at [facility]hab [facility]. Declines octreotide injections, feels they aren't helping. Miles a little nauseated during PT. Review of Systems Review of Systems: All systems reviewed & are unremarkable except as noted in Subjective Physical Exam Constitutional: WD/WN, vitals as above Respiratory: normal respiratory effort, lungs clear to auscultation Cardiovascular: RRR, no murmur, no edema Gastrointestinal (Abdomen): normal bowel sounds, soft, nontender, no hepatosplenomegaly Colostomy healthy and beefy red in appearance, brown liquid output noted, no leaking Skin: no rashes, warm and dry Psychiatric: A+Ox3, euthymic affect Results & Data Results & Data Vital Signs (Past 12 Hours) Vital Signs Temp Pulse Resp BP Pulse Ox O2 Del Method 10/07/22 08:20 36.7 C 83 16 104/64 97 Room Air PG Care Time/CCT Total # of Minutes Spent Total Time Spent with Patient: Total time spent is greater than 50% in coordination of care (as documented) at patient's floor/unit and/or counseling patient: Coding Level of Care Code 49441 SUB INP/OBS CARE 3/50MIN Diagnoses Diarrhea R19.7 History of open sigmoidectomy Z98.890; Z90.49 Electrolyte disorder E87.8 Pancytopenia D61.818 Flank pain R10.9 Hypertension I10 GERD without esophagitis K21.9 Vitamin D deficiency E55.9 B12 deficiency anemia D51.9 Iron deficiency anemia D50.9 Metabolic acidosis E87.20 Hyponatremia E87.1 Fever R50.9 Adjustment disorder with anxiety F43.22
[2022-10-07] MEDS: LOPERAMIDE HCL 2 MG CAP PO SCH (20:18)
[2022-10-07] MEDS: ATORVASTATIN 40 MG TAB PO SCH (20:18)
[2022-10-07] MEDS: ONDANSETRON INJ 2 MG/ML 2 ML VIAL IV PRN (20:27)
[2022-10-08 07:45] LABS: BUN Creatinine Ratio 6.6 (10-20); Calcium 8.4 mg/dl (8.6-10.3); Creatinine Clr Calc Pharmacy 40.3 ml/min; Est GFR (African American) 61.6 ml/min; Est GFR (Non-African American) 53.2 ml/min; Magnesium 1.7 mg/dl (1.7-2.4); Potassium 3.7 mmol/L (3.5-5.1)
[2022-10-08] MEDS: PSYLLIUM or GUAR GUM FIBER POWDER PACKET PO SCH ×3 (08:26→21:30)
[2022-10-08] MEDS: CHOLECALCIFEROL 5,000 UNITS 125 MCG TAB PO SCH (08:27)
[2022-10-08] MEDS: POTASSIUM CHLORIDE CRTAB 20 MEQ TABCR PO SCH (08:27)
[2022-10-08] MEDS: SODIUM BICARBONATE 650 MG TAB PO SCH (08:27)
[2022-10-08] MEDS: CYANOCOBALAMIN (B-12) 500 MCG TABLET PO SCH (08:27)
[2022-10-08] MEDS: CALCIUM CARBONATE 1250MG TAB PO SCH ×2 (08:27→21:29)
[2022-10-08] MEDS: SODIUM CHLORIDE 1 GM TABLET PO SCH ×2 (08:27→21:30)
[2022-10-08] MEDS ORDERED: MAGNESIUM OXIDE 400 MG TAB PO SCH (09:00)
[2022-10-08] MEDS ORDERED: PANTOprazole 40 MG TAB PO SCH (09:00)
[2022-10-08] MEDS ORDERED: FERROUS SULFATE 325 MG TAB PO SCH (09:00)
[2022-10-08] MEDS: LOPERAMIDE HCL 2 MG CAP PO SCH ×3 (09:10→21:30)
[2022-10-08] MEDS: ONDANSETRON INJ 2 MG/ML 2 ML VIAL IV PRN ×2 (09:12→14:50)
--- NOTE | 2022-10-08 09:42 | Hospitalist Progress Note ---
Date of Service October 08, 2022 Assessment & Plan (1) Diarrhea: Plan: 72 yo F history of B12/iron deficiency anemia, hypertension, hyperlipidemia, diverticulitis s/p sigmoidectomy with end to side colorectal anastomosis admitted for hypovolemia and electrolyte disturbances due to high ostomy output. S/p sigmoidectomy and colostomy on 08/06/22 with watery high output (this was done due to recurrent diverticulitis / colonic cyst). Stool Biofire and Hemoccult negative, C. difficile negative x2. Likely that the majority of her electrolyte derangement as described below is secondary to her high output ostomy causing multiple nutritional deficiencies and hypovolemia. GI consult appreciated, started on octreotide SQ; however without improvement in stools despite use for several days, so this was discontinued (especially given cost to patient for prescription). Case discussed today with patient's ostomy surgeon through [facility] Dr. Benítez, he recommended continuing psyllium and Imodium, and adding Lomotil as well. Imodium and Lomotil to be given at mealtime to promote their efficacy. Asked dietitian services to see patient and coordinate with food services regarding appropriate diet for stool thickening for ostomy. Have also adjusted timing of several medications to try to have patient take less pills at any one given time, as she is feeling most nauseated in the AM when she takes the most pills. Continue ostomy care; ostomy bag changed 10/05 due to leaking, no leaking since that time. Patient scheduled for appointment Tuesday 10/[address] Agarwal ([facility], out of [facility] office); hopeful to get patient to that appointment for consideration for ostomy reversal given ongoing issues. I do feel that patient's nausea is at least in part due to anxiety given that the symptoms reveal themselves in a worse way when she is feeling more anxious and when she is talking with her son, who she reports "makes her very anxious". However, if her symptoms continue and her output is not improving we may do a repeat CTAP to ensure no new pathology. Zofran and Ativan as needed for symptoms of nausea and anxiety. (2) History of open sigmoidectomy: Plan: Secondary to recurrent diverticulitis, see above. (3) Electrolyte disorder: Plan: Since admission has been noted to have improving hypokalemia, hypomagnesemia, hypocalcemia, hyponatremia. Suspect secondary to high output ostomy, hypovolemia and GI losses. Calcium level stable at 8.4, noted to be in the setting of vitamin D deficiency, will replete both with oral supplementation to continue on discharge. Magnesium level stable at 1.7, defer further IV supplementation in favor of continuing Mag Oxide. Potassium 3.7 today, continue daily KCl supplementation. Hyponatremia stable with sodium tablets and improvement in ostomy output, continue sodium tablets 1 g p.o. twice daily. Patient requests deferment of lab check tomorrow, I am amenable to this as her electrolytes have been stable for the last several days. Can repeat check on 10/10. (4) Pancytopenia: Plan: Likely due to severe iron deficiency, B12 deficiency, and borderline low folate. No evidence of bleeding, and FOBT negative. Hemoglobin stable at 8.0, continue to monitor intermittently while admitted and have follow-up with PCP on discharge. Peripheral smear negative, Anaplasma/Babesia smear negative. Received B12 1000 mcg subcu x3 doses this admission, continue oral B12 500 mcg daily PO on discharge. Received IV Venofer x3 doses this admission, started daily iron supplement. (5) Flank pain: Plan: Presented with significant right flank pain and developed fever the day after admission. UA suggestive of infection but also could be contaminant given >30 epithelial cells. UCx with mixed chelsea and unfortunately not recollected. BCx negative to date. CTAP without evidence of pyelo, treated as complicated UTI with Rocephin x7 day course. (6) Hypertension: Plan: History of, however with low BP in the setting of hypovolemia, and does have previous Hx of BP 90-100s systolic on previous admissions. Takes low dose Metoprolol at home, currently on hold. (7) GERD without esophagitis: Plan: Chronic/stable As noted, stopped PPI due to hypomagnesemia and started on Pepcid 40mg daily (8) Vitamin D deficiency: Plan: As above (9) B12 deficiency anemia: Plan: As above (10) Iron deficiency anemia: Plan: As above (11) Metabolic acidosis: Plan: Resolved. Treatment of high output ostomy as above. (12) Hyponatremia: Plan: As above. (13) Fever: Plan: Patient refused Biofire viral respiratory panel but either way even if had a viral infection, supportive care would be indicated. Ceftriaxone as above for complicated UTI. (14) Adjustment disorder with anxiety: Plan: Related to recent colectomy and multiple prolonged hospitalizations, child- related stressors. Has fear of needles but has been able to tolerate blood draws and some subcutaneous injections. Offered psychiatry evaluation this admission, but she declined offer from previous provider. Plan DVT prophylaxis - SCDs with ambulation on demand Disposition- Continued stay as ostomy output decreases so that she can keep up with hydration and electrolyte abnormalities without IV replacement PT/OT consults placed- home with home health services Possible discharge tomorrow if stools are bulking up. Relayed plan over phone to gustavo Soriano. services established. Follow up with Colorectal Surgery as soon as possible on discharge. Admission and Anticipated Discharge Date Admission Date: September 30, 2022 Subjective Patient without any acute events overnight. This morning while talking with patient and her son she noted nausea and feeling very anxious. Reports high output last night through her ostomy. Denies chest pain or trouble breathing, abdominal pain. Review of Systems Review of Systems: All systems reviewed & are unremarkable except as noted in Subjective Physical Exam Constitutional: WD/WN, vitals as above Respiratory: normal respiratory effort, lungs clear to auscultation Cardiovascular: RRR, no murmur, no edema Gastrointestinal (Abdomen): normal bowel sounds, soft, nontender, no hepatosplenomegaly Colostomy healthy and beefy red in appearance, brown liquid output noted, no leaking Skin: no rashes, warm and dry Psychiatric: A+Ox3, euthymic affect Results & Data Results & Data Vital Signs (Past 12 Hours) Vital Signs Temp Pulse Pulse Pulse Resp BP Pulse Ox 10/08/22 07:25 36.8 C 99 H 16 96/66 L 97 10/07/22 22:43 103 H 10/07/22 22:00 36.7 C 116 H 16 102/68 97 O2 Del Method 10/08/22 07:25 Room Air 10/07/22 22:43 10/07/22 22:00 Room Air PG Care Time/CCT Total # of Minutes Spent Total Time Spent with Patient: Total time spent is greater than 50% in coordination of care (as documented) at patient's floor/unit and/or counseling patient: Coding Level of Care Code 26316 SUB INP/OBS CARE 3/50MIN Diagnoses Diarrhea R19.7 History of open sigmoidectomy Z98.890; Z90.49 Electrolyte disorder E87.8 Pancytopenia D61.818 Flank pain R10.9 Hypertension I10 GERD without esophagitis K21.9 Vitamin D deficiency E55.9 B12 deficiency anemia D51.9 Iron deficiency anemia D50.9 Metabolic acidosis E87.20 Hyponatremia E87.1 Fever R50.9 Adjustment disorder with anxiety F43.22
[2022-10-08] MEDS: DIPHENOXYLATE/ATROPINE 2.5/0.025MG TAB PO SCH ×3 (10:31→21:29)
[2022-10-08] MEDS ORDERED: PROMETHAZINE HCL 12.5 MG in SODIUM CHLORIDE 0.9% 50 ML IV STA (12:21)
[2022-10-08] MEDS ORDERED: SODIUM CHLORIDE 0.9% 1000ML 1,000 ML IV ONE (12:21)
[2022-10-08] MEDS ORDERED: LORazepam 2 MG/1 ML VIAL IV STA (12:25)
[2022-10-08] MEDS: FERROUS SULFATE 325 MG TAB PO SCH (12:32)
[2022-10-08] MEDS ORDERED: LOPERAMIDE HCL 2 MG CAP PO SCH (16:30)
[2022-10-08] MEDS: ATORVASTATIN 40 MG TAB PO SCH (21:28)
[2022-10-08] MEDS: MAGNESIUM OXIDE 400 MG TAB PO SCH (21:30)
[2022-10-09] MEDS: SODIUM CHLORIDE 1 GM TABLET PO SCH ×2 (08:34→20:54)
[2022-10-09] MEDS: DIPHENOXYLATE/ATROPINE 2.5/0.025MG TAB PO SCH ×4 (08:34→20:55)
[2022-10-09] MEDS: PSYLLIUM or GUAR GUM FIBER POWDER PACKET PO SCH ×3 (08:34→20:55)
[2022-10-09] MEDS: CHOLECALCIFEROL 5,000 UNITS 125 MCG TAB PO SCH (08:35)
[2022-10-09] MEDS: LOPERAMIDE HCL 2 MG CAP PO SCH ×4 (08:35→20:54)
[2022-10-09] MEDS: CALCIUM CARBONATE 1250MG TAB PO SCH (08:35)
[2022-10-09] MEDS ORDERED: MULTIVITAMIN CHEWABLE TAB PO SCH (09:00)
--- NOTE | 2022-10-09 10:16 | Hospitalist Progress Note ---
Date of Service October 09, 2022 Assessment & Plan (1) Diarrhea: Plan: 72 yo F history of B12/iron deficiency anemia, hypertension, hyperlipidemia, diverticulitis s/p sigmoidectomy with end to side colorectal anastomosis admitted for hypovolemia and electrolyte disturbances due to high ostomy output. S/p sigmoidectomy and colostomy on 08/06/22 with watery high output (this was done due to recurrent diverticulitis / colonic cyst). Stool Biofire and Hemoccult negative, C. difficile negative x2. Likely that the majority of her electrolyte derangement as described below is secondary to her high output ostomy causing multiple nutritional deficiencies and hypovolemia. Case discussed with patient's ostomy surgeon through [facility] Dr. Benítez: Recommended psyllium, Imodium, and Lomotil for high output ostomy, Imodium/Lomotil around mealtimes to promote efficacy. Patient has been educated by dietitian services and myself regarding stool thickening foods/diet. Patient has an appointment with colorectal surgeon Dr. Agarwal 10/10 11:30 AM tomorrow; will discharge patient in the morning tomorrow so that patient/son can go straight to that appointment for further recommendations. Suspect that patient's nausea correlates with anxiety given that the symptoms reveal themselves in a worse way when she is feeling more anxious and when she is talking with her son, who she reports "makes her very anxious". Zofran and Ativan as needed for symptoms of nausea and anxiety. (2) History of open sigmoidectomy: Plan: Secondary to recurrent diverticulitis, see above. (3) Electrolyte disorder: Plan: Since admission has been noted to have improving hypokalemia, hypomagnesemia, hypocalcemia, hyponatremia. Suspect secondary to high output ostomy, hypovolemia and GI losses. Calcium level stable at 8.4, noted to be in the setting of vitamin D deficiency, prescribed vitamin D2 50,000 units weekly x4 weeks with follow-up lab work with primary care provider. Magnesium level stable at 1.7, continue magnesium oxide Potassium 3.7 on 10/08, continue daily KCl supplementation. Hyponatremia stable with sodium tablets and improvement in ostomy output, continue sodium tablets 1 g p.o. twice daily. Daily multivitamin chewable recommended by dietitian, added to regimen. Patient requests deferment of lab checks, I am amenable to this as her electrolytes had been stable for the last several days prior to cessation of lab checks. (4) Pancytopenia: Plan: Likely due to severe iron deficiency, B12 deficiency, and borderline low folate. No evidence of bleeding, and FOBT negative. Hemoglobin stable at 8.0 on last check 10/08, continue to monitor intermittently while admitted and have follow-up with PCP on discharge. Peripheral smear negative, Anaplasma/Babesia smear negative. Received B12 1000 mcg subcu x3 doses this admission, may need B12 injections outpatient, defer to primary care provider. Received IV Venofer x3 doses this admission, may need iron infusions if ongoing high output ostomy issues, defer to PCP. (5) Flank pain: Plan: Presented with significant right flank pain and developed fever the day after admission. UA suggestive of infection but also could be contaminant given >30 epithelial cells. UCx with mixed chelsea and unfortunately not recollected. BCx negative to date. CTAP without evidence of pyelo, treated as complicated UTI with Rocephin x7 day course. (6) Hypertension: Plan: History of, however with low BP in the setting of hypovolemia, and does have previous Hx of BP 90-100s systolic on previous admissions. Takes low dose Metoprolol at home, currently on hold. (7) GERD without esophagitis: Plan: Chronic/stable Continue PPI (8) Vitamin D deficiency: Plan: As above (9) B12 deficiency anemia: Plan: As above (10) Iron deficiency anemia: Plan: As above (11) Metabolic acidosis: Plan: Resolved. Treatment of high output ostomy as above. (12) Hyponatremia: Plan: As above. (13) Fever: Plan: Patient refused Biofire viral respiratory panel but either way even if had a viral infection, supportive care would be indicated. Ceftriaxone as above for complicated UTI. (14) Adjustment disorder with anxiety: Plan: Related to recent colectomy and multiple prolonged hospitalizations, child- related stressors. Has fear of needles but has been able to tolerate blood draws and some subcutaneous injections. Offered psychiatry evaluation this admission, but she declined offer from previous provider. Plan DVT prophylaxis - SCDs with ambulation on demand Disposition-anticipate discharge tomorrow unless output were to acutely worsen PT/OT consults placed- home with home health services Relayed plan over phone to gusatvo Portillo. services established. Follow up with Colorectal Surgery following discharge Admission and Anticipated Discharge Date Admission Date: September 30, 2022 Subjective Patient without any acute events overnight. With some decrease in her ostomy output today. Has some nausea when she gets nervous about her medical outlook. No complaints of chest pain or shortness of breath. No abdominal pain. Review of Systems Review of Systems: All systems reviewed & are unremarkable except as noted in Subjective Physical Exam Constitutional: WD/WN, vitals as above Respiratory: normal respiratory effort, lungs clear to auscultation Cardiovascular: RRR, no murmur, no edema Gastrointestinal (Abdomen): normal bowel sounds, soft, nontender, no hepatosplenomegaly Colostomy healthy and beefy red in appearance, brown liquid output noted with some more gelatinous stool, nonbloody, no leaking Skin: no rashes, warm and dry Psychiatric: A+Ox3, euthymic affect Results & Data Results & Data Vital Signs (Past 12 Hours) Vital Signs Temp Pulse Resp BP Pulse Ox O2 Del Method 10/09/22 07:42 36.3 C L 88 16 98/59 L 97 Room Air PG Care Time/CCT Total # of Minutes Spent Total Time Spent with Patient: Total time spent is greater than 50% in coordination of care (as documented) at patient's floor/unit and/or counseling patient: Coding Level of Care Code 09686 SUB INP/OBS CARE 3/50MIN Diagnoses Diarrhea R19.7 History of open sigmoidectomy Z98.890; Z90.49 Electrolyte disorder E87.8 Pancytopenia D61.818 Flank pain R10.9 Hypertension I10 GERD without esophagitis K21.9 Vitamin D deficiency E55.9 B12 deficiency anemia D51.9 Iron deficiency anemia D50.9 Metabolic acidosis E87.20 Hyponatremia E87.1 Fever R50.9 Adjustment disorder with anxiety F43.22
[2022-10-09] MEDS: CYANOCOBALAMIN (B-12) 500 MCG TABLET PO SCH (12:58)
[2022-10-09] MEDS: MULTIVITAMIN CHEWABLE TAB PO SCH (12:58)
[2022-10-09] MEDS: POTASSIUM CHLORIDE CRTAB 20 MEQ TABCR PO SCH (12:58)
[2022-10-09] MEDS: FERROUS SULFATE 325 MG TAB PO SCH (12:59)
[2022-10-09] MEDS: PANTOprazole 40 MG TAB PO SCH (13:01)
[2022-10-09] MEDS: ONDANSETRON INJ 2 MG/ML 2 ML VIAL IV PRN (19:07)
[2022-10-09] MEDS: MAGNESIUM OXIDE 400 MG TAB PO SCH (20:54)
[2022-10-09] MEDS: SODIUM BICARBONATE 650 MG TAB PO SCH (20:54)
[2022-10-09] MEDS: LORazepam 0.5 MG TAB PO PRN (20:54)
[2022-10-09] MEDS: ATORVASTATIN 40 MG TAB PO SCH (20:55)
[2022-10-10] MEDS ORDERED: SODIUM CHLORIDE 0.9% 1000ML 1,000 ML IV ONE (07:30)
--- NOTE | 2022-10-10 07:30 | Discharge Summary ---
Discharge Summary Date of Service October 10, 2022 Admission HPI Per Admitting Provider Alba Emanuel is a 72yo female with history fo HTN, HLP, GERD, FM, colostomy in place presenting with 5 days of nausea, vomiting and increased liquid output from her colostomy. Patient was recently admitted to [facility] from - 09/06/22 after presenting with suspected sepsis. Cultures were negative. Patient was treated with empiric antibiotics and ultimately discharged to rehab. She stayed in rehab for two weeks. Reports she greatly improved while at rehab - was able to walk without difficulty, had a good appetite and felt well. She returned home three days after which she developed nausea and vomiting as well as increased liquid output from her colostomy. Also with chills, generalized weakness, poor oral intake and one day of right flank pain. She denies chest pain, cough, SOB, diarrhea, dysuria, urinary frequency or urgency. No additional complaints at this time. In the ER she is afebrile, HR borderline high at 93bpm, blood pressure borderline low at 105/59. ER Course: Calcium gluconate x 1gm Fentanyl 25mcg IV x 2 doses Zofran 4mg IV NSS x 1L Principal Dx & Hospital Course #1 = Principal Diagnosis (1) Diarrhea: 72 yo F history of B12/iron deficiency anemia, hypertension, hyperlipidemia, diverticulitis s/p sigmoidectomy with end to side colorectal anastomosis admitted for hypovolemia and electrolyte disturbances due to high ostomy output. S/p sigmoidectomy and colostomy on 08/06/22 with watery high output (this was done due to recurrent diverticulitis / colonic cyst). Stool Biofire and Hemoccult negative, C. difficile negative x2. Likely that the majority of her electrolyte derangement as described below is secondary to her high output ostomy causing multiple nutritional deficiencies and hypovolemia. Case discussed with patient's ostomy surgeon through [facility] Dr. Benítez: Recommended psyllium, Imodium, and Lomotil for high output ostomy, I modium/Lomotil around mealtimes to promote efficacy. Patient has been educated by dietitian services and myself regarding stool thickening foods/diet. Patient has an appointment with colorectal surgeon Dr. Agarwal 10/10 11:30 AM tomorrow; will discharge patient in the morning tomorrow so that patient/son can go straight to that appointment for further recommendations. Suspect that patient's nausea correlates with anxiety given that the symptoms reveal themselves in a worse way when she is feeling more anxious and when she is talking with her son, who she reports "makes her very anxious". Zofran and Ativan as needed for symptoms of nausea and anxiety. (2) History of open sigmoidectomy: Secondary to recurrent diverticulitis, see above. (3) Electrolyte disorder: Since admission has been noted to have improving hypokalemia, hypomagnesemia, hypocalcemia, hyponatremia. Suspect secondary to high output ostomy, hypovolemia and GI losses. Calcium level stable at 8.4, noted to be in the setting of vitamin D deficiency, prescribed vitamin D2 50,000 units weekly x4 weeks with follow-up lab work with primary care provider. Magnesium level stable at 1.7, continue magnesium oxide Potassium 3.7 on 10/08, continue daily KCl supplementation. Hyponatremia stable with sodium tablets and improvement in ostomy output, continue sodium tablets 1 g p.o. twice daily. Daily multivitamin chewable recommended by dietitian, added to regimen. Patient requests deferment of lab checks, I am amenable to this as her electrolytes had been stable for the last several days prior to cessation of lab checks. (4) Pancytopenia: Likely due to severe iron deficiency, B12 deficiency, and borderline low folate. No evidence of bleeding, and FOBT negative. Hemoglobin stable at 8.0 on last check 10/08, continue to monitor intermittently while admitted and have follow-up with PCP on discharge. Peripheral smear negative, Anaplasma/Babesia smear negative. Received B12 1000 mcg subcu x3 doses this admission, may need B12 injections outpatient, defer to primary care provider. Received IV Venofer x3 doses this admission, may need iron infusions if ongoing high output ostomy issues, defer to PCP. (5) Flank pain: Presented with significant right flank pain and developed fever the day after admission. UA suggestive of infection but also could be contaminant given >30 epithelial cells. UCx with mixed chelsea and unfortunately not recollected. BCx negative to date. CTAP without evidence of pyelo, treated as complicated UTI with Rocephin x7 day course. (6) Hypertension: History of, however with low BP in the setting of hypovolemia, and does have previous Hx of BP 90-100s systolic on previous admissions. Takes low dose Metoprolol at home, currently on hold. (7) GERD without esophagitis: Chronic/stable Continue PPI (8) Vitamin D deficiency: As above (9) B12 deficiency anemia: As above (10) Iron deficiency anemia: As above (11) Metabolic acidosis: Resolved. Treatment of high output ostomy as above. (12) Hyponatremia: As above. (13) Fever: Patient refused Biofire viral respiratory panel but either way even if had a viral infection, supportive care would be indicated. Ceftriaxone as above for complicated UTI. (14) Adjustment disorder with anxiety: Related to recent colectomy and multiple prolonged hospitalizations, child- related stressors. Has fear of needles but has been able to tolerate blood draws and some subcutaneous injections. Offered psychiatry evaluation this admission, but she declined offer from previous provider. Plan DVT prophylaxis - SCDs with ambulation on demand Disposition-anticipate discharge tomorrow unless output were to acutely worsen PT/OT consults placed- home with home health services Relayed plan over phone to gustavo Portillo. services established. Follow up with Colorectal Surgery following discharge Updated Medication List Medication Instructions Recorded Confirmed Type atorvastatin 80 mg tablet 80 mg PO HS 03/20/22 09/30/22 History omeprazole 40 mg capsule,delayed 40 mg PO HS 03/20/22 09/30/22 History release ondansetron 4 mg disintegrating 4 mg PO Q8H PRN nausea and 07/24/22 09/30/22 Rx tablet vomiting #30 tabs metoprolol tartrate 25 mg tablet 12.5 mg PO BID #0 tabs 09/06/22 09/30/22 Rx diphenoxylate-atropine 2.5 2 tab PO ACHS 30 days #60 tabs 10/09/22 Rx mg-0.025 mg tablet ergocalciferol (vitamin D2) 1,250 50,000 unit PO .weekly 4 weeks #4 10/09/22 Rx mcg (50,000 unit) capsule (Vitamin caps D2) loperamide 2 mg capsule 4 mg PO QID #360 caps 10/09/22 Rx magnesium oxide 400 mg (241.3 mg 400 mg PO HS 30 days #30 tabs 10/09/22 Rx magnesium) tablet potassium chloride 40 mEq/15 mL 40 meq (15 mL) PO DAILY 30 days 10/09/22 Rx oral liquid #450 mL sodium bicarbonate 325 mg tablet 650 mg PO BID #60 tabs 10/09/22 Rx sodium chloride 1,000 mg soluble 1,000 mg PO TID 30 days #90 tabs 10/09/22 Rx tablet lorazepam 0.5 mg tablet 0.5 mg PO DAILY PRN severe anxiety 10/10/22 Rx #10 tabs Hospital Stay Data Consultations 09/30/22 01:44 ED Decision to Admit Stat 10/02/22 13:27 Consult Gastroenterology Routine 10/04/22 16:19 Consult [facility] maintenance supervisor 2nd shift Routine Diagnostic Imagining Performed 09/30/22 00:04 CT Abd and Pelvis [CT abd pelvis IV con only] Stat 09/30/22 13:10 US Mesentary Doppler [US duplex mesenteric] Routine Pending Results Patient Have Any Pending Studies at Discharge: No Discharge Instructions Given to Patient (Per Discharging Provider) You were admitted for evaluation and management of your high output ostomy, and also to manage the low electrolytes from this. On discharge you were on the supplements and diarrhea medications described below. Please keep the list of stool thickening foods given to you by the nutrition team. Stick to that list to help thicken up your diet. Keep your follow up appointment with Dr. Agarwal to discuss future ostomy reversal. We talked about how anxiety producing some of your nausea. Ativan is a good medication at times in the extremely short term, however it is not a good medication to use for anxiety at home. I did send a few tablets for you to the pharmacy, to be used only in extremely anxious circumstances. I would recommend you talk with your family doctor about help for health-related anxiety, as you are not alone in feeling anxious when dealing with a lot of changes in medical care. A daily medication, or counseling, or both, can help you with dealing with medical stress in the short and manager terminal. Coding Diagnoses Diarrhea R19.7 History of open sigmoidectomy Z98.890; Z90.49 Electrolyte disorder E87.8 Pancytopenia D61.818 Flank pain R10.9 Hypertension I10 GERD without esophagitis K21.9 Vitamin D deficiency E55.9 B12 deficiency anemia D51.9 Iron deficiency anemia D50.9 Metabolic acidosis E87.20 Hyponatremia E87.1 Fever R50.9 Adjustment disorder with anxiety F43.22
[2022-10-10] MEDS: PSYLLIUM or GUAR GUM FIBER POWDER PACKET PO SCH ×3 (08:06→21:08)
[2022-10-10] MEDS: DIPHENOXYLATE/ATROPINE 2.5/0.025MG TAB PO SCH ×4 (08:06→21:09)
[2022-10-10] MEDS: LOPERAMIDE HCL 2 MG CAP PO SCH ×4 (08:07→21:09)
[2022-10-10] MEDS: SODIUM BICARBONATE 650 MG TAB PO SCH ×2 (08:07→21:08)
[2022-10-10 09:32] LABS: BUN Creatinine Ratio 6.4 (10-20); Calcium 8.4 mg/dl (8.6-10.3); Creatinine Clr Calc Pharmacy 39.2 ml/min; Est GFR (African American) 59.6 ml/min; Est GFR (Non-African American) 51.4 ml/min; Potassium 3.8 mmol/L (3.5-5.1)
--- NOTE | 2022-10-10 10:31 | Hospitalist Progress Note ---
Date of Service October 10, 2022 Assessment & Plan (1) Diarrhea: Plan: 72 yo F history of B12/iron deficiency anemia, hypertension, hyperlipidemia, diverticulitis s/p sigmoidectomy with end to side colorectal anastomosis admitted for hypovolemia and electrolyte disturbances due to high ostomy output. S/p sigmoidectomy and colostomy on 08/06/22 with watery high output (this was done due to recurrent diverticulitis / colonic cyst). Stool Biofire and Hemoccult negative, C. difficile negative x2. Likely that the majority of her electrolyte derangement as described below is secondary to her high output ostomy causing multiple nutritional deficiencies and hypovolemia. Case discussed with patient's ostomy surgeon through [facility] Drs. Benítez and Stefano: Continue psyllium, Imodium, and Lomotil for high output ostomy, Imodium/Lomotil around mealtimes to promote efficacy. Patient has been educated by dietitian services and myself regarding stool thickening foods/diet. Consent/order placed for PICC line for IV fluids, to be done 3 times weekly at [facility] outpatient (patient's insurance would not cover at home fluids) Colorectal appointment with Dr. Agarwal rescheduled for Tuesday 10/24. Patient's nausea directly correlates with when she is feeling more anxious, Zofran and Ativan as needed for symptoms of nausea and anxiety. (2) History of open sigmoidectomy: Plan: Secondary to recurrent diverticulitis, see above. (3) Electrolyte disorder: Plan: Since admission has been noted to have improving hypokalemia, hypomagnesemia, hypocalcemia, hyponatremia. Suspect secondary to high output ostomy, hypovolemia and GI losses. Calcium level stable at 8.4, noted to be in the setting of vitamin D deficiency, prescribed vitamin D2 50,000 units weekly x4 weeks with follow-up lab work with primary care provider. Magnesium level stable at 1.7 on last check, continue magnesium oxide. Potassium 3.8 today, continue daily KCl supplementation. Hyponatremia 130 today due to high output, NSS 1L bolus ordered and NaCl tablets continued. Daily multivitamin chewable recommended by dietitian, added to regimen. Patient requests q2day lab checks during admission, I am amenable to this as her electrolytes had been relatively stable. (4) Pancytopenia: Plan: Likely due to severe iron deficiency, B12 deficiency, and borderline low folate. No evidence of bleeding, and FOBT negative. Hemoglobin stable at 8.0 on last check 10/08, continue to monitor intermittently while admitted and have follow-up with PCP on discharge. Peripheral smear negative, Anaplasma/Babesia smear negative. Received B12 1000 mcg subcu x3 doses this admission, may need B12 injections outpatient, defer to primary care provider/colorectal. Received IV Venofer x3 doses this admission, will likely need iron infusions if ongoing high output ostomy issues, defer to PCP/colorectal. (5) Flank pain: Plan: Presented with significant right flank pain and developed fever the day after admission. UA suggestive of infection but also could be contaminant given >30 epithelial cells. UCx with mixed chelsea and unfortunately not recollected. BCx negative to date. CTAP without evidence of pyelo, treated as complicated UTI with Rocephin x7 day course. (6) Hypertension: Plan: History of, however with low BP in the setting of hypovolemia, and does have pr evious Hx of BP 90-100s systolic on previous admissions. Takes low dose Metoprolol at home, currently on hold. (7) GERD without esophagitis: Plan: Chronic/stable. Continue PPI. (8) Vitamin D deficiency: Plan: As above (9) B12 deficiency anemia: Plan: As above (10) Iron deficiency anemia: Plan: As above (11) Metabolic acidosis: Plan: Resolved, continue sodium bicarbonate tablets. Treatment of high output ostomy as above. (12) Hyponatremia: Plan: As above. (13) Fever: Plan: Patient was treated for UTI. No evidence of fever for the last several days. (14) Adjustment disorder with anxiety: Plan: Related to recent colectomy and multiple prolonged hospitalizations, child- related stressors. Has fear of needles but has been able to tolerate blood draws and some subcutaneous injections. Offered psychiatry evaluation this admission, but she declined offer from previous provider. Plan DVT prophylaxis - SCDs with ambulation on demand Disposition-anticipate discharge tomorrow unless output were to acutely worsen PT/OT consults placed- home with home health services Relayed plan over phone to son Bandar. services established. Follow up with Colorectal Surgery following discharge Admission and Anticipated Discharge Date Admission Date: September 30, 2022 Subjective Patient without any acute events overnight. Continues to have a lot of anxiety around her overall health. Gets very nauseous when she gets very anxious. Denies any abdominal pain. No other complaints. Review of Systems Review of Systems: All systems reviewed & are unremarkable except as noted in Subjective Physical Exam Constitutional: WD/WN, vitals as above Respiratory: normal respiratory effort, lungs clear to auscultation Cardiovascular: RRR, no murmur, no edema Gastrointestinal (Abdomen): normal bowel sounds, soft, nontender, no hepatosplenomegaly Colostomy healthy and beefy red in appearance, brown liquid output noted with some more gelatinous stool, nonbloody, no leaking Skin: no rashes, warm and dry Psychiatric: A+Ox3, euthymic affect Results & Data Results & Data Vital Signs (Past 12 Hours) Vital Signs Temp Pulse Resp BP Pulse Ox O2 Del Method 10/10/22 07:45 36.7 C 95 H 16 100/67 97 Room Air 10/09/22 23:17 36.6 C 89 16 96/61 L 97 Room Air PG Care Time/CCT Total # of Minutes Spent Total Time Spent with Patient: Total time spent is greater than 50% in coordination of care (as documented) at patient's floor/unit and/or counseling patient: Coding Level of Care Code 55837 SUB INP/OBS CARE 3/50MIN Diagnoses Diarrhea R19.7 History of open sigmoidectomy Z98.890; Z90.49 Electrolyte disorder E87.8 Pancytopenia D61.818 Flank pain R10.9 Hypertension I10 GERD without esophagitis K21.9 Vitamin D deficiency E55.9 B12 deficiency anemia D51.9 Iron deficiency anemia D50.9 Metabolic acidosis E87.20 Hyponatremia E87.1 Fever R50.9 Adjustment disorder with anxiety F43.22
[2022-10-10] MEDS: LORazepam 0.5 MG TAB PO PRN ×2 (10:41→21:07)
[2022-10-10] MEDS: MULTIVITAMIN CHEWABLE TAB PO SCH (10:42)
[2022-10-10] MEDS: FERROUS SULFATE 325 MG TAB PO SCH (10:42)
[2022-10-10] MEDS: CYANOCOBALAMIN (B-12) 500 MCG TABLET PO SCH (10:42)
[2022-10-10] MEDS: PANTOprazole 40 MG TAB PO SCH (10:43)
[2022-10-10] MEDS: POTASSIUM CHLORIDE CRTAB 20 MEQ TABCR PO SCH (10:43)
--- NOTE | 2022-10-10 18:55 | XRay Report ---
XR chest 1V portable HISTORY: Right PICC line placement COMPARISON: Chest 09/03/2022. FINDINGS: The lungs are clear. Cardiac silhouette is normal in size. No pleural effusions. No pneumot horax. The right PICC terminates at the distal SVC. IMPRESSION: A right PICC terminates at the distal SVC. ACT 112: Negative or not required by law. Electronically signed by: Richard Alegria M.D. 10/10/2022 6:53 PM
[2022-10-10] MEDS: MAGNESIUM OXIDE 400 MG TAB PO SCH (21:08)
[2022-10-10] MEDS: SODIUM CHLORIDE 1 GM TABLET PO SCH (21:08)
[2022-10-10] MEDS: ATORVASTATIN 40 MG TAB PO SCH (21:08)
[2022-10-11] MEDS: DIPHENOXYLATE/ATROPINE 2.5/0.025MG TAB PO SCH (08:26)
[2022-10-11] MEDS: SODIUM BICARBONATE 650 MG TAB PO SCH (08:27)
[2022-10-11] MEDS: SODIUM CHLORIDE 1 GM TABLET PO SCH (08:28)
[2022-10-11] MEDS: PSYLLIUM or GUAR GUM FIBER POWDER PACKET PO SCH (08:28)
[2022-10-11] MEDS: LOPERAMIDE HCL 2 MG CAP PO SCH (08:28)
--- NOTE | 2022-10-11 09:20 | Discharge Summary ---
Discharge Summary Date of Service October 11, 2022 Notes For Next Care Provider Follow-up with Dr. Agarwal on 10/24/2022 for consideration and evaluation of ileostomy for reversal Ordered IV fluids 3 times weekly through [facility] to combat dehydration from high output ostomy Improvement in symptoms with Imodium, Lomotil, Metamucil, stool thickening diet, continue these Admission Exam Per Admitting Provider General: patient resting comfortably, NAD, non-toxic in appearance, AA&O x 4 Skin: warm, dry, intact, no rashes or lesions HEENT: NC/AT, PERRL, EOMI, anicteric sclera, conjunctiva without injection, external ear normal to inspection and nontender, nares patent, slightly dry mucus membranes, dentition intact, no oropharyngeal lesions, neck supple, trachea midline, no LAD, no thyromegaly, no JVD Heart: +S1/S2, regular, no m/r/g Lungs: equal air entry bilaterally, no rales/rhonchi/wheezes Abd: +BS hyperactive, soft, NT/ND, no masses/organomegaly/ascites, ostomy in place with liquid output Right flank pain present Ext: warm, 2+ pulses in UE/LE bilaterally, no clubbing/cyanosis or edema Neuro: nonfocal, patient AA&O x 4, speech intact, no facial droop, moving all extremities on command with equal strength 5/5 Principal Dx & Hospital Course #1 = Principal Diagnosis (1) Diarrhea: 72 yo F history of B12/iron deficiency anemia, hypertension, hyperlipidemia, diverticulitis s/p sigmoidectomy with end to side colorectal anastomosis admitted for hypovolemia and electrolyte disturbances due to high ostomy output. S/p sigmoidectomy and colostomy on 08/06/22 with watery high output (this was done due to recurrent diverticulitis / colonic cyst). Stool Biofire and Hemoccult negative, C. difficile negative x2. Case discussed with patient's ostomy surgeon through [facility] Drs. Benítez and Stefano: Continue psyllium, Imodium, and Lomotil for high output ostomy, Imodium/Lomotil around mealtimes to promote efficacy. Patient has been educated by dietitian services and myself regarding stool thickening foods/diet. Patient had PICC line placed, will have IV fluids 3 times weekly at [facility] outpatient (patient's insurance unfortunately would not cover at home fluids) Colorectal appointment with Dr. Agarwal scheduled for Tuesday 10/24. Patient's nausea directly correlates with when she is feeling more anxious, Zofran and Ativan as needed for symptoms of nausea and anxiety. (2) History of open sigmoidectomy: Secondary to recurrent diverticulitis, see above. (3) Electrolyte disorder: Since admission has been noted to have improving hypokalemia, hypomagnesemia, hypocalcemia, hyponatremia. Suspect secondary to high output ostomy, hypovolemia and GI losses. Calcium level stable at 8.4, noted to be in the setting of vitamin D deficiency, prescribed vitamin D2 50,000 units weekly x4 weeks with follow-up lab work with primary care provider. Magnesium level stable at 1.7 on last check, continue magnesium oxide. Potassium 3.8, continue daily KCl supplementation. Hyponatremia 130 due to high output, continue sodium chloride tablets and IV fluids outpatient. Daily multivitamin chewable recommended by dietitian. Repeat lab work next week for electrolyte evaluation. (4) Pancytopenia: Likely due to severe iron deficiency, B12 deficiency, and borderline low folate. No evidence of bleeding, and FOBT negative. Peripheral smear negative, Anaplasma/Babesia smear negative. Hemoglobin stable at 8.0 on last check 10/08, follow-up with PCP on discharge. Received B12 1000 mcg subcu x3 doses this admission, may need B12 injections outpatient, defer to primary care provider/colorectal. Received IV Venofer x3 doses this admission, will likely need iron infusions if ongoing high output ostomy issues, defer to PCP/colorectal. (5) Adjustment disorder with anxiety: Related to recent colectomy and multiple prolonged hospitalizations, child- related stressors. Has fear of needles but has been able to tolerate blood draws and some subcutaneous injections. Offered psychiatry evaluation this admission, but she declined offer from previous provider. Recommend follow-up with family doctor for daily anxiolytics. Patient given lorazepam x10 tablets for severe, debilitating anxiety. (6) Flank pain: Presented with right flank pain and developed fever the day after admission. UA suggestive of infection but also could be contaminant given >30 epithelial cells. UCx with mixed chelsea and unfortunately not recollected. BCx negative to date. CTAP without evidence of pyelo, treated as complicated UTI with Rocephin x7 day course. Did have some complaints of right side pain today, with associated point tenderness over muscles, no evidence of abnormalities of the ribs on x-ray, suspect muscle spasm as patient has been lying in bed at uncomfortable appearing ankles and not been out of bed to chair very much. Given Flexeril with improvement in symptoms, may continue twice daily as needed on discharge. (7) Hypertension: History of, however with low BP in the setting of hypovolemia, and does have previous Hx of BP 90-100s systolic on previous admissions. Takes low dose Metoprolol at home, continue to hold until evaluated by PCP. (8) GERD without esophagitis: Chronic/stable. Continue PPI. Patient does have a lot of belching and reflux symptoms, that get worse when she is particularly stressed. (9) Vitamin D deficiency: As above (10) B12 deficiency anemia: As above (11) Iron deficiency anemia: As above (12) Metabolic acidosis: Resolved, continue sodium bicarbonate tablets. Treatment of high output ostomy as above. (13) Hyponatremia: As above. (14) Fever: Patient was treated for UTI. No evidence of fever since day after admission. Plan Disposition: Home with home health services, care by patient/son, IV fluids 3 times weekly through [facility], and ultimately follow-up with Dr. Agarwal on 10/24 Discharge Exam Constitutional WD/WN, vitals as above Musculoskeletal Tender to palpation over lower thoracic paraspinal muscles Psychiatric A+Ox3, euthymic affect Genitourinary No CVA tenderness Updated Medication List Medication Instructions Recorded Confirmed Type atorvastatin 80 mg tablet 80 mg PO HS 03/20/22 09/30/22 History omeprazole 40 mg capsule,delayed 40 mg PO HS 03/20/22 09/30/22 History release ondansetron 4 mg disintegrating 4 mg PO Q8H PRN nausea and 07/24/22 09/30/22 Rx tablet vomiting #30 tabs metoprolol tartrate 25 mg tablet 12.5 mg PO BID #0 tabs 09/06/22 09/30/22 Rx PSYLLIUM or GUAR GUM FIBER SUP 1 pkg PO TID 30 days ##0 10/09/22 Rx [METAMUCIL or NUTRISOURCE FIBER SUPPLEMENT] diphenoxylate-atropine 2.5 2 tab PO ACHS 30 days #60 tabs 10/09/22 Rx mg-0.025 mg tablet ergocalciferol (vitamin D2) 1,250 50,000 unit PO .weekly 4 weeks #4 10/09/22 Rx mcg (50,000 unit) capsule (Vitamin caps D2) loperamide 2 mg capsule 4 mg PO QID #360 caps 10/09/22 Rx magnesium oxide 400 mg (241.3 mg 400 mg PO HS 30 days #30 tabs 10/09/22 Rx magnesium) tablet pediatric [id number] 1 tab PO DAILY@1200 #0 tabs 10/09/22 Rx (Flintstones Complete (iron) chewable tablet) potassium chloride 40 mEq/15 mL 40 meq (15 mL) PO DAILY 30 days 10/09/22 Rx oral liquid #450 mL sodium bicarbonate 325 mg tablet 650 mg PO BID #60 tabs 10/09/22 Rx sodium chloride 1,000 mg soluble 1,000 mg PO TID 30 days #90 tabs 10/09/22 Rx tablet lorazepam 0.5 mg tablet 0.5 mg PO DAILY PRN severe anxiety 10/10/22 Rx #10 tabs cyclobenzaprine 10 mg tablet 10 mg PO BID PRN muscle spasm #14 10/11/22 Rx tabs Hospital Stay Data Consultations 09/30/22 01:44 ED Decision to Admit Stat 10/02/22 13:27 Consult Gastroenterology Routine 10/04/22 16:19 Consult [facility] biosolids management technician Routine Diagnostic Imagining Performed 09/30/22 00:04 CT Abd and Pelvis [CT abd pelvis IV con only] Stat 09/30/22 13:10 US Mesentary Doppler [US duplex mesenteric] Routine Pending Results Patient Have Any Pending Studies at Discharge: No Discharge Instructions Given to Patient (Per Discharging Provider) You were admitted for evaluation and management of your high output ostomy, and also to manage the low electrolytes from this. On discharge you were on the supplements and diarrhea medications described below. Please keep the list of stool thickening foods given to you by the nutrition team. Stick to that list to help thicken up your diet. Keep your follow up appointment with Dr. Agarwal to discuss future ostomy reversal, this is scheduled for 10/24/2022. We also set you up for infusions, please see the information below. I placed orders for lab work for you to have sometime at the end of next week, your prescriptions should be attached to this paperwork and those labs will be sent to your primary care provider and to Dr. Agarwal. We talked about how anxiety producing some of your nausea. Ativan is a good medication at times in the extremely short term, however it is not a good medication to use for anxiety at home. I did send a few tablets for you to the pharmacy, to be used only in extremely anxious circumstances. I would recommend you talk with your family doctor about help for health-related anxiety, as you are not alone in feeling anxious when dealing with a lot of changes in medical care. A daily medication, or counseling, or both, can help you with dealing with medical stress in the short and custodial. You have a scheduled appointment with Kevan Simpson on 10/20. Please call his office if you have needs and need to be seen sooner. Total Time Total Time Spent Total Time Spent (In Minutes): 45 minutes Coding Level of Care Code 51400 INP/OBS DISCH >30 MIN Diagnoses Diarrhea R19.7 History of open sigmoidectomy Z98.890; Z90.49 Electrolyte disorder E87.8 Pancytopenia D61.818 Adjustment disorder with anxiety F43.22 Flank pain R10.9 Hypertension I10 GERD without esophagitis K21.9 Vitamin D deficiency E55.9 B12 deficiency anemia D51.9 Iron deficiency anemia D50.9 Metabolic acidosis E87.20 Hyponatremia E87.1 Fever R50.9
[2022-10-11] MEDS: ACETAMINOPHEN 325 MG TAB PO PRN (11:37)
[2022-10-11] MEDS ORDERED: CYCLOBENZAPRINE HCL 10 MG TAB PO STA (11:42)
[2022-10-11] MEDS: LORazepam 0.5 MG TAB PO PRN (11:53)
--- NOTE | 2022-10-11 12:16 | XRay Report ---
XR chest 1V portable CLINICAL HISTORY: care to right side TECHNIQUE: Single frontal radiograph of the chest was obtained. Comparison: Comparison is made to chest radiograph 10/10/2022 FINDINGS: Right PICC is stable. Calcified aortic knob is seen. The lungs are clear. No evidence of pleural effu avel or pneumothorax. No rib fractures are seen. IMPRESSION: No acute abnormalities in particular no right rib fractures are seen in this patient with right-sided tenderness. However, if clinical concern remains, a rib series or CT can be performed. ACT 112: Negative or not required by law. Electronically signed by: Pavan Moeller M.D. 10/11/2022 12:14 PM
== END 2022-10-11 13:36 | disposition home health service (06) | DRG 392 ==
LOC: 3N 23:26 → ED 23:26 → SUATTDRO 09-30 02:25 → 3N 09-30 04:03 → SUATTDRO 09-30 12:15

== ENCOUNTER 2022-12-27 15:46 | Inpatient (IN) ==
[2022-12-27] MEDS ORDERED: SODIUM CHLORIDE 0.9% 250 ML IV PRN ×2 (16:33→17:33)
--- NOTE | 2022-12-27 17:14 | Emergency Department Note ---
Impression & Plan Severe anemia, Thrombocytopenia, Hypokalemia, Hypomagnesemia, Pleural effusion, Urinary tract infection ED Provider Note NAME: BRENDA HENRY AGE: 72 SEX: F : 1950 ARRIVES VIA: Walk-In INFORMANT: Patient, ED PROVIDER(S): Leonel Walters DO CHIEF COMPLAINT: Anemia HPI: The patient is a 72-year-old female who presented to the emergency department for an evaluation of anemia. The patient is status post ostomy reversal. She had an ostomy placed because of severe diverticulitis. This was reversed recently at [facility]. She had a follow-up appointment with her surgeon last week. She has been doing very well. She denies having any rectal bleeding or black stool. She was called to come the emergency department because she had severe anemia. The patient denies having any chest pain or difficulty breathing but does note some weakness which is generalized. She denies having any fever or cough. ROS: See above HPI for pertinent positives & negatives. A total of 10 systems reviewed and were otherwise negative. PAST MEDICAL HISTORY: See Below PAST SURGICAL HISTORY: See Below FAMILY HISTORY: See Below SOCIAL HISTORY: See Below HOME MEDICATIONS: See Below ALLERGIES: See Below VITALS: See Below PHYSICAL EXAMINATION: GENERAL: Patient is awake alert in no acute distress patient is resting comfortably and showing no signs of anxiety EYES: The conjunctivae are clear. The pupils are round and reactive. EARS, NOSE, MOUTH AND THROAT: The nose is without any evidence of any deformity. NECK: The neck is nontender and supple. RESPIRATORY: Normal respiratory effort is noted there is no evidence of wheezing rhonchi or rales CARDIOVASCULAR: Regular rate and rhythm noted there no murmurs rubs or gallops normal S1 normal S2. GASTROINTESTINAL: The abdomen is soft. Abdomen is nontender. Rectal exam revealed brown stool which was heme-negative. PELVIS: The Pelvis is stable. No tenderness to palpation is noted. BACK: No midline tenderness or or step-off noted range of motion in flexion extension as well as rotation no signs of muscle spasm noted MUSCULOSKELETAL/EXTREMITIES: There is no evidence of gross deformity full range of motion is noted in the hips and shoulders. SKIN: There is no obvious evidence of any rash. There are no petechiae, pallor or cyanosis noted. NEUROLOGIC: Patient is awake alert and oriented x3 MEDICAL DECISION MAKING: The patient is a 72-year-old female who presented to the emergency department at the request of her primary surgeon. The patient has a history of abdominal surgery. She had an ostomy and then reversal recently. She had follow-up laboratory studies done which revealed significant anemia. The patient was told to go to the emergency department. She was also found to a low white count as well as thrombocytopenia. The patient was ordered a blood transfusion by myself. I did consent the patient for blood transfusion. I discussed the patient's laboratory and radiographic studies with her the patient was treated with IV magnesium as well as IV potassium. She was also given oral potassium. The patient was also found to have signs of urinary tract infection. I discussed the patient's condition with the on-call [facility]. They have agreed to evaluate the patient in the emergency department for further management and disposition. Triage Nursing notes reviewed. Prior medical records reviewed Vital Signs: reviewed and remarkable for no significant abnormalities Differential diagnosis: Infection, dehydration, metabolic abnormality, hypo/hyperglycemia, electrolyte disturbance, anemia, hypoxia, cardiac sources, intracerebral event, toxicologic, neurologic, as well as other pathologies. ER treatment provided: See below Diagnostics interpreted by me: ECG: EKG was obtained in the emergency department. My interpretation is normal sinus rhythm at 69 bpm. There is no ectopy. There was nonspecific ST segment abnormalities noted. QTc was prolonged at 490. This was compared to a tracing from October 01, 2022. At that time the QTc was 454. Otherwise the tracing was similar. Cardiac Monitoring: An order was placed for continuous cardiac monitoring. The monitor shows a rate of 76 bpm with sinus rhythm. Laboratory studies: As stated above and show below. Imaging studies: See below. Radiographic imaging was reviewed by myself Consultation(s): I discussed this case with Dr. Kim who is on-call for the [facility] group. ED COURSE: Procedures: none Critical Care: I have personally spent greater than 65 minutes of critical care time in the direct management of this patient. This includes bedside care, interpretation of diagnostic studies, and testing, discussion with consultants, patient, and family members, and other required patient management activities. This 65 minutes is in excess of all separately billable procedures. 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 Tobacco abuse still currently smokes Urticaria Vitamin D deficiency Surgical History H/O abdominoplasty History of cholecystectomy History of esophagogastroduodenoscopy (EGD) History of tonsillectomy Hx of appendectomy Hx of breast implants, bilateral Hx of colonoscopy Hx of exploratory laparotomy Hx of tubal ligation Previous back surgery 2016 Family History Mother Myocardial infarction Stroke Father Cancer Denies family history of Ovarian cancer Prostate cancer Breast cancer Colorectal cancer Social History Smoking Status: Former smoker Tobacco Type: Cigarettes Age Started Using Tobacco: 37; packs per day: 1; Cigarettes Per Day: 20; Second Hand Exposure: No; Do You Dip or Chew Tobacco: No; Hx Alcohol Use: No Hx Substance Use: No Preferred Language: Nigerien Communication Ability: Effective Visual Impairment: Limited Hearing Ability: Normal [employer] Required: No Beliefs That Will Affect Care: None marital status: Current Living Situation: Family Current Living Situation Comment: living w son How many Children do You have: 2 Feels Safe at Home: Yes Childhood Exposure to Second-Hand Smoke: Yes Diet: regular caffeine: Yes during the past year weight has: increased > 10 lbs Dental Care, Regularly: Yes Physical Activity Frequency: Does not Exercise Seatbelt Use: always Sunscreen Use: Yes Assistive Devices: Glasses and Walker Allergies Allergies Allergy/AdvReac Type Severity Reaction Status Date / Time No Known Allergies Allergy Verified 12/27/22 17:15 Home Meds Home Medications Medication Instructions Recorded Confirmed atorvastatin 80 mg tablet 80 mg PO HS 03/20/22 12/27/22 omeprazole 40 mg capsule,delayed 40 mg PO HS 03/20/22 12/27/22 release apixaban 5 mg tablet (Eliquis) 5 mg PO BID 11/18/22 12/27/22 ondansetron HCl 4 mg tablet 4 mg PO Q8H PRN nausea and vomiting 11/18/22 12/27/22 loperamide 2 mg capsule 2 mg PO BID 12/27/22 12/27/22 metoprolol tartrate 25 mg tablet 12.5 mg PO BID 12/27/22 12/27/22 pediatric [id number] 1 tab PO QDL 12/27/22 12/27/22 (Flintstones Complete (iron) chewable tablet) Previous Rx's Medication Instructions Recorded citalopram 10 mg tablet 10 mg PO DAILY #90 tabs 11/20/22 Results & Data (ED) Vital Signs Vital Signs - 24 hr 12/27/22 16:01 12/27/22 16:56 12/27/22 16:56 Temperature 36.3 C L Temperature Source Temporal Artery Scan Pulse Rate 68 70 Pulse Rate [Bilateral] 67 Pulse Rhythm Respiratory Rate 20 18 Respiratory Effort / Characteristics Non-Labored Spontaneous Respiratory Depth Normal Blood Pressure 120/53 L Blood Pressure [Right Arm] 117/43 L Blood Pressure Mean 75 Blood Pressure Mean [Right Arm] 67 Pulse Oximetry 97 97 Oxygen Delivery Method Room Air Room Air Oxygen Flow Rate Sepsis Recent Fever Within 48 Hours No Sepsis New/Unexplained Change in Mental Status N/A Sepsis Action Taken by Nursing No Action Required 12/27/22 18:00 12/27/22 19:45 12/27/22 20:00 Temperature 36.8 C 36.5 C Temperature Source Oral Oral Pulse Rate 80 76 Pulse Rate [Bilateral] 62 Pulse Rhythm Regular Respiratory Rate 18 25 H 24 Respiratory Effort / Characteristics Respiratory Depth Blood Pressure 124/69 120/62 Blood Pressure [Right Arm] Blood Pressure Mean 87 81 Blood Pressure Mean [Right Arm] Pulse Oximetry 98 94 96 Oxygen Delivery Method Room Air Oxygen Flow Rate Sepsis Recent Fever Within 48 Hours Sepsis New/Unexplained Change in Mental Status Sepsis Action Taken by Nursing 12/27/22 20:15 12/27/22 20:45 Temperature 36.5 C 36.6 C Temperature Source Oral Oral Pulse Rate 76 76 Pulse Rate [Bilateral] Pulse Rhythm Respiratory Rate 18 22 Respiratory Effort / Characteristics Respiratory Depth Blood Pressure 126/73 120/67 Blood Pressure [Right Arm] Blood Pressure Mean 90 84 Blood Pressure Mean [Right Arm] Pulse Oximetry 98 99 Oxygen Delivery Method Oxygen Flow Rate 2 2 Sepsis Recent Fever Within 48 Hours Sepsis New/Unexplained Change in Mental Status Sepsis Action Taken by [facility] Medications Current Medication List: was personally reviewed by me Laboratory Data Attestation: I reviewed the patient's lab results. 12/27/22 16:44 12/27/22 16:45 Lab Results 12/27/22 12/27/22 12/27/22 Range/Units 16:44 16:44 16:45 WBC 3.54 L (4.8-10.8) K/ul RBC 1.49 L (4.20-5.40) M/uL Hgb 5.5 L* (12.0-16.0) g/dl Hct 16.0 L* (37.0-47.0) % MCV 107.4 H (80.0-100.0) fL MCH 36.9 H (25.0-34.0) pg MCHC 34.4 (32.0-36.0) g/dL RDW Std Deviation 82.2 H (36.4-46.3) fL RDW Coeff of Armand 22.0 H (11.5-14.5) % Plt Count 69 L (130-400) K/uL MPV 9.6 (9.4-12.4) fL Reticulocyte % (Auto) (0.5-2.0) % Reticulocyte # (0.02-0.10) 10^6/uL Neutrophils % (Manual) 11 % Lymphocytes % (Manual) 88 % Eosinophils % (Manual) 1 % Neutrophils # (Manual) 0.39 L (1.40-6.50) K/uL Total Absolute Neuts 0.39 L* (1.4-6.5) K/uL Lymphocytes # (Manual) 3.12 (1.2-3.4) K/uL Total Abs Lymphocytes 3.12 (1.2-3.4) K/uL Eosinophils # (Manual) 0.04 (0-0.50) K/uL Polychromasia 1+ Hypochromasia Present Anisocytosis Present Peripher Smr Path Cons PT (9.0-12.0) Seconds INR (0.9-1.1) APTT (21.0-31.0) Seconds PTT Ratio Sodium 139 (136-145) mmol/L Potassium 2.2 L* (3.5-5.1) mmol/L Chloride 100 (98-107) mmol/L Carbon Dioxide 29 (21-32) mmol/L Anion Gap 10 (3-11) BUN 5 L (6-23) mg/dl Creatinine 0.95 (0.6-1.2) mg/dl Est Cr Clr Drug Dosing 45.6 ml/min Est GFR ( Amer) 70.3 ml/min Est GFR (Non-Af Amer) 60.7 ml/min BUN/Creatinine Ratio 5.3 L (10-20) Glucose 113 H (70-99(Fasting)) mg/dl Calcium 6.7 L (8.6-10.3) mg/dl Ionized Calcium (1.12-1.32) mmol/L Magnesium 1.0 L (1.7-2.4) mg/dl Iron (35-150) mcg/dl TIBC Unsaturated IBC (155-355) mcg/dl Transferrin % Sat Ferritin (8-388) ng/ml Total Bilirubin 0.4 (0.2-1.0) mg/dl AST 10 L (13-39) U/L ALT 5 L (7-52) U/L Alkaline Phosphatase 94 (34-104) U/L Lactate Dehydrogenase (86-244) U/L Troponin I High Sens 4.6 (0-14) pg/ml Total Protein 5.8 L (6.0-8.3) gm/dl Albumin 2.8 L (3.4-5.0) gm/dl Globulin 3.0 (2.5-4.0) gm/dl Albumin/Globulin Ratio 0.9 (0.9-2) Vitamin B12 (180-914) pg/ml Folate (>5.38) ng/ml Urine Color Urine Appearance (Clear) Urine pH (4.5-7.5) Ur Specific [place] (1.000-1.030) Urine Protein (Negative) Urine Glucose (UA) (Negative) Urine Ketones (Negative) Urine Blood (Negative) Urine Nitrite (Negative) Urine Bilirubin (Negative) Urine Urobilinogen (Negative) Ur Leukocyte Esterase (Negative) Urine WBC (Auto) (0-5) /hpf Urine RBC (Auto) (0-4) /hpf U Hyaline Cast (Auto) (0-5) /lpf U Epithel Cells (Auto) (0-5) /lpf Urine Bacteria (Auto) (Negative) Anaplasma Smear See Comment Babesia Smear See Comment Lyme Disease IgG Ab (Negative) Lyme Disease IgM Ab (Negative) Blood Type B Negative Blood Type Recheck Antibody Screen NEGATIVE Crossmatch See Detail 12/27/22 12/27/22 12/27/22 Range/Units 17:28 17:28 17:28 WBC (4.8-10.8) K/ul RBC (4.20-5.40) M/uL Hgb (12.0-16.0) g/dl Hct (37.0-47.0) % MCV (80.0-100.0) fL MCH (25.0-34.0) pg MCHC (32.0-36.0) g/dL RDW Std Deviation (36.4-46.3) fL RDW Coeff of Armand (11.5-14.5) % Plt Count (130-400) K/uL MPV (9.4-12.4) fL Reticulocyte % (Auto) 4.0 H (0.5-2.0) % Reticulocyte # 0.06 (0.02-0.10) 10^6/uL Neutrophils % (Manual) % Lymphocytes % (Manual) % Eosinophils % (Manual) % Neutrophils # (Manual) (1.40-6.50) K/uL Total Absolute Neuts (1.4-6.5) K/uL Lymphocytes # (Manual) (1.2-3.4) K/uL Total Abs Lymphocytes (1.2-3.4) K/uL Eosinophils # (Manual) (0-0.50) K/uL Polychromasia Hypochromasia Anisocytosis Peripher Smr Path Cons PT 11.6 (9.0-12.0) Seconds INR 1.1 (0.9-1.1) APTT 26.4 (21.0-31.0) Seconds PTT Ratio 0.9 Sodium (136-145) mmol/L Potassium (3.5-5.1) mmol/L Chloride (98-107) mmol/L Carbon Dioxide (21-32) mmol/L Anion Gap (3-11) BUN (6-23) mg/dl Creatinine (0.6-1.2) mg/dl Est Cr Clr Drug Dosing ml/min Est GFR ( Amer) ml/min Est GFR (Non-Af Amer) ml/min BUN/Creatinine Ratio (10-20) Glucose (70-99(Fasting)) mg/dl Calcium (8.6-10.3) mg/dl Ionized Calcium (1.12-1.32) mmol/L Magnesium (1.7-2.4) mg/dl Iron (35-150) mcg/dl TIBC Unsaturated IBC (155-355) mcg/dl Transferrin % Sat Ferritin (8-388) ng/ml Total Bilirubin (0.2-1.0) mg/dl AST (13-39) U/L ALT (7-52) U/L Alkaline Phosphatase (34-104) U/L Lactate Dehydrogenase (86-244) U/L Troponin I High Sens (0-14) pg/ml Total Protein (6.0-8.3) gm/dl Albumin (3.4-5.0) gm/dl Globulin (2.5-4.0) gm/dl Albumin/Globulin Ratio (0.9-2) Vitamin B12 (180-914) pg/ml Folate (>5.38) ng/ml Urine Color Urine Appearance (Clear) Urine pH (4.5-7.5) Ur Specific [place] (1.000-1.030) Urine Protein (Negative) Urine Glucose (UA) (Negative) Urine Ketones (Negative) Urine Blood (Negative) Urine Nitrite (Negative) Urine Bilirubin (Negative) Urine Urobilinogen (Negative) Ur Leukocyte Esterase (Negative) Urine WBC (Auto) (0-5) /hpf Urine RBC (Auto) (0-4) /hpf U Hyaline Cast (Auto) (0-5) /lpf U Epithel Cells (Auto) (0-5) /lpf Urine Bacteria (Auto) (Negative) Anaplasma Smear Babesia Smear Lyme Disease IgG Ab (Negative) Lyme Disease IgM Ab (Negative) Blood Type Blood Type Recheck B Negative Antibody Screen Crossmatch 12/27/22 12/27/22 12/27/22 Range/Units 18:16 18:16 18:16 WBC (4.8-10.8) K/ul RBC (4.20-5.40) M/uL Hgb (12.0-16.0) g/dl Hct (37.0-47.0) % MCV (80.0-100.0) fL MCH (25.0-34.0) pg MCHC (32.0-36.0) g/dL RDW Std Deviation (36.4-46.3) fL RDW Coeff of Armand (11.5-14.5) % Plt Count (130-400) K/uL MPV (9.4-12.4) fL Reticulocyte % (Auto) (0.5-2.0) % Reticulocyte # (0.02-0.10) 10^6/uL Neutrophils % (Manual) % Lymphocytes % (Manual) % Eosinophils % (Manual) % Neutrophils # (Manual) (1.40-6.50) K/uL Total Absolute Neuts (1.4-6.5) K/uL Lymphocytes # (Manual) (1.2-3.4) K/uL Total Abs Lymphocytes (1.2-3.4) K/uL Eosinophils # (Manual) (0-0.50) K/uL Polychromasia Hypochromasia Anisocytosis Peripher Smr Path Cons PT (9.0-12.0) Seconds INR (0.9-1.1) APTT (21.0-31.0) Seconds PTT Ratio Sodium (136-145) mmol/L Potassium (3.5-5.1) mmol/L Chloride (98-107) mmol/L Carbon Dioxide (21-32) mmol/L Anion Gap (3-11) BUN (6-23) mg/dl Creatinine (0.6-1.2) mg/dl Est Cr Clr Drug Dosing ml/min Est GFR ( Amer) ml/min Est GFR (Non-Af Amer) ml/min BUN/Creatinine Ratio (10-20) Glucose (70-99(Fasting)) mg/dl Calcium (8.6-10.3) mg/dl Ionized Calcium (1.12-1.32) mmol/L Magnesium (1.7-2.4) mg/dl Iron 123 (35-150) mcg/dl TIBC TNP Unsaturated IBC < 55 L (155-355) mcg/dl Transferrin % Sat TNP Ferritin 399.5 H (8-388) ng/ml Total Bilirubin (0.2-1.0) mg/dl AST (13-39) U/L ALT (7-52) U/L Alkaline Phosphatase (34-104) U/L Lactate Dehydrogenase 234 (86-244) U/L Troponin I High Sens 4.4 (0-14) pg/ml Total Protein (6.0-8.3) gm/dl Albumin (3.4-5.0) gm/dl Globulin (2.5-4.0) gm/dl Albumin/Globulin Ratio (0.9-2) Vitamin B12 247 (180-914) pg/ml Folate 4.43 L (>5.38) ng/ml Urine Color Urine Appearance (Clear) Urine pH (4.5-7.5) Ur Specific [place] (1.000-1.030) Urine Protein (Negative) Urine Glucose (UA) (Negative) Urine Ketones (Negative) Urine Blood (Negative) Urine Nitrite (Negative) Urine Bilirubin (Negative) Urine Urobilinogen (Negative) Ur Leukocyte Esterase (Negative) Urine WBC (Auto) (0-5) /hpf Urine RBC (Auto) (0-4) /hpf U Hyaline Cast (Auto) (0-5) /lpf U Epithel Cells (Auto) (0-5) /lpf Urine Bacteria (Auto) (Negative) Anaplasma Smear Babesia Smear Lyme Disease IgG Ab (Negative) Lyme Disease IgM Ab (Negative) Blood Type Blood Type Recheck Antibody Screen Crossmatch 12/27/22 12/27/22 12/27/22 Range/Units 18:16 18:16 18:28 WBC (4.8-10.8) K/ul RBC (4.20-5.40) M/uL Hgb (12.0-16.0) g/dl Hct (37.0-47.0) % MCV (80.0-100.0) fL MCH (25.0-34.0) pg MCHC (32.0-36.0) g/dL RDW Std Deviation (36.4-46.3) fL RDW Coeff of Armand (11.5-14.5) % Plt Count (130-400) K/uL MPV (9.4-12.4) fL Reticulocyte % (Auto) (0.5-2.0) % Reticulocyte # (0.02-0.10) 10^6/uL Neutrophils % (Manual) % Lymphocytes % (Manual) % Eosinophils % (Manual) % Neutrophils # (Manual) (1.40-6.50) K/uL Total Absolute Neuts (1.4-6.5) K/uL Lymphocytes # (Manual) (1.2-3.4) K/uL Total Abs Lymphocytes (1.2-3.4) K/uL Eosinophils # (Manual) (0-0.50) K/uL Polychromasia Hypochromasia Anisocytosis Peripher Smr Path Cons Cancelled PT (9.0-12.0) Seconds INR (0.9-1.1) APTT (21.0-31.0) Seconds PTT Ratio Sodium (136-145) mmol/L Potassium (3.5-5.1) mmol/L Chloride (98-107) mmol/L Carbon Dioxide (21-32) mmol/L Anion Gap (3-11) BUN (6-23) mg/dl Creatinine (0.6-1.2) mg/dl Est Cr Clr Drug Dosing ml/min Est GFR ( Amer) ml/min Est GFR (Non-Af Amer) ml/min BUN/Creatinine Ratio (10-20) Glucose (70-99(Fasting)) mg/dl Calcium (8.6-10.3) mg/dl Ionized Calcium 0.92 L (1.12-1.32) mmol/L Magnesium (1.7-2.4) mg/dl Iron (35-150) mcg/dl TIBC Unsaturated IBC (155-355) mcg/dl Transferrin % Sat Ferritin (8-388) ng/ml Total Bilirubin (0.2-1.0) mg/dl AST (13-39) U/L ALT (7-52) U/L Alkaline Phosphatase (34-104) U/L Lactate Dehydrogenase (86-244) U/L Troponin I High Sens (0-14) pg/ml Total Protein (6.0-8.3) gm/dl Albumin (3.4-5.0) gm/dl Globulin (2.5-4.0) gm/dl Albumin/Globulin Ratio (0.9-2) Vitamin B12 (180-914) pg/ml Folate (>5.38) ng/ml Urine Color Urine Appearance (Clear) Urine pH (4.5-7.5) Ur Specific [place] (1.000-1.030) Urine Protein (Negative) Urine Glucose (UA) (Negative) Urine Ketones (Negative) Urine Blood (Negative) Urine Nitrite (Negative) Urine Bilirubin (Negative) Urine Urobilinogen (Negative) Ur Leukocyte Esterase (Negative) Urine WBC (Auto) (0-5) /hpf Urine RBC (Auto) (0-4) /hpf U Hyaline Cast (Auto) (0-5) /lpf U Epithel Cells (Auto) (0-5) /lpf Urine Bacteria (Auto) (Negative) Anaplasma Smear Babesia Smear Lyme Disease IgG Ab Negative (Negative) Lyme Disease IgM Ab Negative (Negative) Blood Type Blood Type Recheck Antibody Screen Crossmatch 12/27/22 12/27/22 Range/Units 19:43 20:25 WBC (4.8-10.8) K/ul RBC (4.20-5.40) M/uL Hgb (12.0-16.0) g/dl Hct (37.0-47.0) % MCV (80.0-100.0) fL MCH (25.0-34.0) pg MCHC (32.0-36.0) g/dL RDW Std Deviation (36.4-46.3) fL RDW Coeff of Armand (11.5-14.5) % Plt Count (130-400) K/uL MPV (9.4-12.4) fL Reticulocyte % (Auto) (0.5-2.0) % Reticulocyte # (0.02-0.10) 10^6/uL Neutrophils % (Manual) % Lymphocytes % (Manual) % Eosinophils % (Manual) % Neutrophils # (Manual) (1.40-6.50) K/uL Total Absolute Neuts (1.4-6.5) K/uL Lymphocytes # (Manual) (1.2-3.4) K/uL Total Abs Lymphocytes (1.2-3.4) K/uL Eosinophils # (Manual) (0-0.50) K/uL Polychromasia Hypochromasia Anisocytosis Peripher Smr Path Cons PT (9.0-12.0) Seconds INR (0.9-1.1) APTT (21.0-31.0) Seconds PTT Ratio Sodium (136-145) mmol/L Potassium (3.5-5.1) mmol/L Chloride (98-107) mmol/L Carbon Dioxide (21-32) mmol/L Anion Gap (3-11) BUN (6-23) mg/dl Creatinine (0.6-1.2) mg/dl Est Cr Clr Drug Dosing ml/min Est GFR ( Amer) ml/min Est GFR (Non-Af Amer) ml/min BUN/Creatinine Ratio (10-20) Glucose (70-99(Fasting)) mg/dl Calcium (8.6-10.3) mg/dl Ionized Calcium (1.12-1.32) mmol/L Magnesium (1.7-2.4) mg/dl Iron (35-150) mcg/dl TIBC Unsaturated IBC (155-355) mcg/dl Transferrin % Sat Ferritin (8-388) ng/ml Total Bilirubin (0.2-1.0) mg/dl AST (13-39) U/L ALT (7-52) U/L Alkaline Phosphatase (34-104) U/L Lactate Dehydrogenase (86-244) U/L Troponin I High Sens (0-14) pg/ml Total Protein (6.0-8.3) gm/dl Albumin (3.4-5.0) gm/dl Globulin (2.5-4.0) gm/dl Albumin/Globulin Ratio (0.9-2) Vitamin B12 (180-914) pg/ml Folate (>5.38) ng/ml Urine Color Yellow Urine Appearance Clear (Clear) Urine pH 7.5 (4.5-7.5) Ur Specific [place] 1.018 (1.000-1.030) Urine Protein Negative (Negative) Urine Glucose (UA) Negative (Negative) Urine Ketones Negative (Negative) Urine Blood Negative (Negative) Urine Nitrite Positive A (Negative) Urine Bilirubin Negative (Negative) Urine Urobilinogen Negative (Negative) Ur Leukocyte Esterase 2+ H (Negative) Urine WBC (Auto) 10-30 H (0-5) /hpf Urine RBC (Auto) 0-4 (0-4) /hpf U Hyaline Cast (Auto) 0 (0-5) /lpf U Epithel Cells (Auto) 10-20 H (0-5) /lpf Urine Bacteria (Auto) 4+ H (Negative) Anaplasma Smear Cancelled Babesia Smear Cancelled Lyme Disease IgG Ab (Negative) Lyme Disease IgM Ab (Negative) Blood Type Blood Type Recheck Antibody Screen Crossmatch Administered Medications Discontinued Medications Potassium Chloride (K Nicolas / Wtr) 10 meq in 100 mls @ 100 mls/hr IV Q1H MARYLU Stop: 12/27/22 19:44 Last Admin: 12/27/22 20:36 Dose: 75 mls/hr Documented By: Infusion: 12/27/22 20:36 Dose: 0 mls/hr Documented By: Admin: 12/27/22 18:40 Dose: 100 mls/hr Documented By: KYLEE Pantoprazole Sodium 80 mg/ (Dextrose) 120 mls @ 400 mls/hr IV NOW ONE Stop: 12/27/22 18:05 Last Infusion: 12/27/22 19:15 Dose: 0 mls/hr Documented By: Admin: 12/27/22 18:40 Dose: 400 mls/hr Documented By: KYLEE Pantoprazole Sodium 40 mg/ (Dextrose) 100 mls @ 20 mls/hr IV Q5H MARYLU Stop: 01/26/23 18:14 Last Infusion: 12/27/22 20:51 Dose: 0 mg/hr, 0 mls/hr Documented By: Admin: 12/27/22 19:15 Dose: 8 mg/hr, 20 mls/hr Documented By: TI Magnesium Sulfate/Dextrose (Magnesium Sulfate / D5w) 1 gm in 100 mls @ 100 mls/hr IV Q1H [facility] Stop: 12/27/22 20:12 Last Admin: 12/27/22 20:37 Dose: 50 mls/hr Documented By: Infusion: 12/27/22 20:36 Dose: 0 mls/hr Documented By: Admin: 12/27/22 18:57 Dose: 100 mls/hr Documented By: TI Ioversol (Optiray 320 100ml) 92 ml IV ONCE ONE Stop: 12/27/22 19:28 Last Admin: 12/27/22 19:27 Dose: 92 ml Documented By: TOM Potassium Chloride (Potassium Chloride Crtab 20 Meq Tabcr) 40 meq PO NOW STA Stop: 12/27/22 17:34 Last Admin: 12/27/22 18:40 Dose: 40 meq Documented By: KYLEE Imaging Data Attestation: I personally reviewed and interpreted this imaging study as follows: My Impression: CT of the abdomen and pelvis was obtained in the emergency department. My interpretation is no free air or signs of bowel obstruction, final report below. Radiologist's Impression: Abdomen/Pelvis CT 12/27/22 17:43 CT SCAN OF THE ABDOMEN AND PELVIS WITH IV CONTRAST CLINICAL HISTORY: Postoperative anemia. COMPARISON STUDY: Abdominal CT dated 09/30/2022. TECHNIQUE: Following the IV administration of 92 cc of Optiray 320, CT scan of the abdomen and pelvis is performed from the lung bases to the proximal femora. Images are reviewed in the axial, sagittal, and coronal planes. IV contrast was administered without complication. A dose lowering technique was utilized adhering to the principles of ALARA. CT DOSE: 648.33 mGy.cm FINDINGS: Lung bases: The heart is mildly enlarged and without pericardial effusion. There are left larger than right pleural effusions with dependent consolidation. Intr alobular septal thickening is noted at the lung bases. Bilateral breast implants are partially imaged. There is a tiny hiatal hernia. Liver: The contrast-enhanced liver is normal in size, contour, and attenuation. There is no intrahepatic biliary ductal dilatation. The hepatic veins and portal veins are patent. Gallbladder: Surgically absent noting clips in the gallbladder fossa. Spleen: Normal in size and attenuation. There are calcified splenic granulomas. Pancreas: Unremarkable. Adrenal glands: Unremarkable. Kidneys: The contrast enhanced kidneys are normal in size and without hydronephrosis. The kidneys enhance symmetrically. A 10 mm cyst is seen on the right. Abdominal vasculature: The abdominal aorta is normal in course and caliber noting advanced atherosclerotic calcification. Bowel: There is postoperative change from sigmoid colon resection and colocolonic anastomosis. No bowel obstruction is seen. There is mild diverticulosis of the remaining colon without CT evidence of acute diverticulitis. A small bowel anastomosis in the right lower quadrant. There is mild stranding around the small bowel anastomosis. The appendix is not identified and reported surgically absent. Peritoneum/retroperitoneum: No intraperitoneal free air is identified. There is trace pelvic ascites. No retroperitoneal hematoma is identified. Postsurgical change is seen in the ventral abdominal wall. Lymphadenopathy: None. Pelvic viscera: The bladder wall is thickened and hyperemic with pericystic inflammation. The uterus and adnexa are normal as visualized. Skeletal structures: The skeletal structures are osteopenic. No lytic or blastic lesions are seen. 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 IMPRESSION: 1. Cardiomegaly with evidence of congestive failure. 2. Left larger than right pleural effusions with dependent consolidation. This likely represents atelectasis. Correlate clinically. 3. Cystitis. Correlate with clinical findings and urinalysis. 4. There is postsurgical change from interval ostomy takedown. No bowel obstruction is seen. Mild stranding around the small bowel anastomosis is likely on a postsurgical basis. 5. There is no intraperitoneal or retroperitoneal hemorrhage/hematoma. 6. Additional findings as above. ACT 112: Negative or not required by law. Electronically signed by: Narinder Velasquez M.D. 12/27/2022 8:02 PM Discharge Plan Visit Data Chief Complaint: Abnormal Labs/Diagnostic Testing Stated Complaint: HEMOGLOBIN 5.6, POTASSIUM 2.4 - REFERRED BY MD ED Provider: Leonel Walters Discharge Problem: Severe anemia, Thrombocytopenia, Hypokalemia, Hypomagnesemia, Pleural effusion, Urinary tract infection Patient Disposition: Being Evaluated by Hospitalist Forms Stand Alone Forms: My [facility] Prescriptions Prescriptions: No Action ondansetron HCl 4 mg tablet 4 mg PO Q8H PRN (Reason: nausea and vomiting) Patient Comments: CONFIRMED W/ PT AND ON [facility] DC SUMMARY 6.20 Eliquis 5 mg tablet 5 mg PO BID Patient Comments: CONFIRMED W/ PT AND ON [facility] DC SUMMARY 6.20 citalopram 10 mg tablet 10 mg PO DAILY Qty: 90 1RF atorvastatin 80 mg tablet 80 mg PO HS omeprazole 40 mg capsule,delayed release(DR/EC) 40 mg PO HS loperamide 2 mg capsule 2 mg PO BID Flintstones Complete (iron) Tablet,Chewable 1 tab PO QDL metoprolol tartrate 25 mg tablet 12.5 mg PO BID Referrals Referrals: Kevan Simpson CRNP [Primary Care Provider] -
[2022-12-27 17:29] LABS: Hemoglobin 5.5 g/dl (12.0-16.0); Mean Corpuscular Hemoglobin 36.9 pg (25.0-34.0); Mean Corpuscular Hgb Conc 34.4 g/dL (32.0-36.0); Mean Corpuscular Volume 107.4 fL (80.0-100.0); Mean Platelet Volume 9.6 fL (9.4-12.4); Platelet Count 69 K/uL (130-400); RDW Standard Deviation 82.2 fL (36.4-46.3); Red Blood Count 1.49 M/uL (4.20-5.40); White Blood Count 3.54 K/ul (4.8-10.8)
[2022-12-27 17:30] LABS: Albumin Globulin Ratio 0.9 (0.9-2); Albumin Level 2.8 gm/dl (3.4-5.0); BUN Creatinine Ratio 5.3 (10-20); Bilirubin,Total 0.4 mg/dl (0.2-1.0); Calcium 6.7 mg/dl (8.6-10.3); Creatinine Clr Calc Pharmacy 45.6 ml/min; Est GFR (African American) 70.3 ml/min; Est GFR (Non-African American) 60.7 ml/min; Potassium 2.2 mmol/L (3.5-5.1); Total Protein 5.8 gm/dl (6.0-8.3)
[2022-12-27] MEDS ORDERED: POTASSIUM CHLORIDE CRTAB 20 MEQ TABCR PO STA (17:33)
[2022-12-27 17:39] LABS: ALC (manual) 3.12 K/uL (1.2-3.4); ANC (manual) 0.39 K/uL (1.4-6.5); Anisocytosis Present; Eosinophils # (manual) 0.04 K/uL (0-0.50); Eosinophils % (manual) 1 %; Hypochromasia Present; Lymphocytes # (manual) 3.12 K/uL (1.2-3.4); Lymphocytes % (manual) 88 %; Neutrophils # (manual) 0.39 K/uL (1.40-6.50); Neutrophils % (manual) 11 %; Polychromasia 1+
[2022-12-27] MEDS ORDERED: PANTOprazole 80 MG in DEXTROSE 5% 100 ML IV ONE (17:48)
[2022-12-27] MEDS ORDERED: PANTOPRAZOLE BOLUS/DRIP 1 EACH IV STA (17:48)
[2022-12-27 17:51] LABS: Reticulocytes # 0.06 10^6/uL (0.02-0.10)
[2022-12-27 18:10] LABS: Troponin I High Sensitivity 4.6 pg/ml (0-14)
[2022-12-27] MEDS ORDERED: PANTOprazole 40 MG in DEXTROSE 5% 100 ML IV SCH (18:15)
[2022-12-27 18:16] LABS: INR 1.1 (0.9-1.1); Partial Thromboplastin Ratio 0.9; Partial Thromboplastin Time 26.4 Seconds (21.0-31.0); Prothrombin Time 11.6 Seconds (9.0-12.0)
[2022-12-27] MEDS: POTASSIUM CHLORIDE / WTR 10 MEQ/100 ML PLCT IV SCH ×2 (18:40→20:36)
[2022-12-27] MEDS: MAGNESIUM SULFATE / D5W 1 GM/100 ML BAG IV SCH ×2 (18:57→20:37)
[2022-12-27 19:03] LABS: Iron 123 mcg/dl (35-150); Lactate Dehydrogenase 234 U/L (86-244); Unsaturated Iron Binding Cap < 55 mcg/dl (155-355)
[2022-12-27 19:21] LABS: Ferritin 399.5 ng/ml (8-388)
[2022-12-27 19:26] LABS: Folate (Folic Acid),Ser orPlas 4.43 ng/ml (>5.38)
[2022-12-27] MEDS ORDERED: OPTIRAY 320 100ml IV ONE (19:27)
--- NOTE | 2022-12-27 20:04 | CT Scan Report ---
CT SCAN OF THE ABDOMEN AND PELVIS WITH IV CONTRAST CLINICAL HISTORY: Postoperative anemia. COMPARISON STUDY: Abdominal CT dated 09/30/2022. TECHNIQUE: Following the IV administration of 92 cc of Optiray 320, CT scan of the abdomen and pelvi s is performed from the lung bases to the proximal femora. Images are reviewed in the axial, sagittal , and coronal planes. IV contrast was administered without complication. A dose lowering technique wa s utilized adhering to the principles of ALARA. CT DOSE: 648.33 mGy.cm FINDINGS: Lung bases: The heart is mildly enlarged and without pericardial effusion. There are left larger than right pleural effusions with dependent consolidation. Intralobular septal thickening is noted at the lung bases. Bilateral breast implants are partially imaged. There is a tiny hiatal hernia. Liver: The contrast-enhanced liver is normal in size, contour, and attenuation. There is no intrahepa tic biliary ductal dilatation. The hepatic veins and portal veins are patent. Gallbladder: Surgically absent noting clips in the gallbladder fossa. Spleen: Normal in size and attenuation. There are calcified splenic granulomas. Pancreas: Unremarkable. Adrenal glands: Unremarkable. Kidneys: The contrast enhanced kidneys are normal in size and without hydronephrosis. The kidneys enh ance symmetrically. A 10 mm cyst is seen on the right. Abdominal vasculature: The abdominal aorta is normal in course and caliber noting advanced atheroscle rotic calcification. Bowel: There is postoperative change from sigmoid colon resection and colocolonic anastomosis. No bow el obstruction is seen. There is mild diverticulosis of the remaining colon without CT evidence of ac freddy diverticulitis. A small bowel anastomosis in the right lower quadrant. There is mild stranding ar ound the small bowel anastomosis. The appendix is not identified and reported surgically absent. Peritoneum/retroperitoneum: No intraperitoneal free air is identified. There is trace pelvic ascites. No retroperitoneal hematoma is identified. Postsurgical change is seen in the ventral abdominal wall . Lymphadenopathy: None. Pelvic viscera: The bladder wall is thickened and hyperemic with pericystic inflammation. The uterus and adnexa are normal as visualized. Skeletal structures: The skeletal structures are osteopenic. No lytic or blastic lesions are seen. Th ere is a right-sided pars defect at L5. IMPRESSION: 1. Cardiomegaly with evidence of congestive failure. 2. Left larger than right pleural effusions with dependent consolidation. This likely represents atel ectasis. Correlate clinically. 3. Cystitis. Correlate with clinical findings and urinalysis. 4. There is postsurgical change from interval ostomy takedown. No bowel obstruction is seen. Mild str anding around the small bowel anastomosis is likely on a postsurgical basis. 5. There is no intraperitoneal or retroperitoneal hemorrhage/hematoma. 6. Additional findings as above. ACT 112: Negative or not required by law. Electronically signed by: Narinder Velasquez M.D. 12/27/2022 8:02 PM
[2022-12-27 20:25] LABS: Lyme Ab IgG w/WB Rflx Negative (Negative); Lyme Ab IgM w/WB Rflx Negative (Negative)
--- NOTE | 2022-12-27 20:36 | History & Physical Report ---
Date of Service December 27, 2022 Assessment & Plan (1) Pancytopenia: Plan: Unclear definitive cause but suspect nutritional rather than ongoing bleed Regardless will start on pantoprazole 40mg IV BID until additional FOB sent and hold Eliquis for recent PE Transfuse 2 units of blood, repeat CBC in AM. Transfuse < 7 Replace B12 level to aim > 400 Peripheral smear Consult hematology (2) Asymptomatic bacteriuria: Plan: Given her neutropenia I am obliged to treat this. Will get blood cultures prior to starting ceftriaxone IV. (3) Hypokalemia: Plan: K 2.2 suspect from diarrheal state Start KCl 40 meq PO BID Repeat with AM labs (4) Hypomagnesemia: Plan: Mg level 1.0 2g IV Mg sulfate given over 2 hours in the ER, addition 4g IV with each given over 2 hours Continue to monitor magnesium level as total body level suspect very depltete (5) B12 deficiency: Plan: Cyanocobalamin 1000 mcg IM x3 doses (6) Diarrhea: Plan: Continue loperamide 2mg PO BID (7) Pulmonary embolus: Plan: Diagnosed post operatively, incidentally on CT November 11. Planned Eliquis for 3 moths. Placed on hold initially pending trend of hemoglobin and repeat FOB (8) Adjustment disorder with anxiety: Plan: Continue citalopram Plan VTE Prophyalxis - chemical contraindicated until GI bleed extensively ruled out Diet - regular Disposition - admit to PCU Admission and Anticipated Discharge Date Admission Date: December 27, 2022 History of Present Illness Chief Complaint: Abnormal blood test Primary Care Provider: EWA Escobar Alba Emanuel is a 72 year old female with recent reversal of her diverting ileostomy last month who presents to the ER due to abnormal outpatient labs. She reports the operation went as planned on November 06. She had been hospitalized for high output ileostomy prior to this requiring multiple electrolyte replacement. Incidental pulmonary embolism was picked up on CT A/P on post operative CT for i leus and she has been taking Eliquis for this. She has been having intermittent diarrhea since then and is taking Imodium 2mg PO BID but much better than when she had the ileostomy. She does note a lot of diarrhea on Thursday. No nausea, vomiting, abdominal pain, melena or hematochezia. No hemoptysis, hematemesis, epistaxis. She denies any respiratory or urinary complaints. No fever or chills. Regarding her anemia she reports some dizziness on standing, no chest pain or shortness of breath. Generalized fatigue present. Allergies Allergy/AdvReac Type Severity Reaction Status Date / Time No Known Allergies Allergy Verified 12/27/22 17:15 Home Medications Medication Instructions Recorded Confirmed Type atorvastatin 80 mg tablet 80 mg PO HS 03/20/22 12/27/22 History omeprazole 40 mg capsule,delayed 40 mg PO HS 03/20/22 12/27/22 History release apixaban 5 mg tablet (Eliquis) 5 mg PO BID 11/18/22 12/27/22 History ondansetron HCl 4 mg tablet 4 mg PO Q8H PRN nausea and vomiting 11/18/22 12/27/22 History citalopram 10 mg tablet 10 mg PO DAILY #90 tabs 11/20/22 12/27/22 Rx loperamide 2 mg capsule 2 mg PO BID 12/27/22 12/27/22 History metoprolol tartrate 25 mg tablet 12.5 mg PO BID 12/27/22 12/27/22 History pediatric [id number] 1 tab PO QDL 12/27/22 12/27/22 History (Flintstones Complete (iron) chewable tablet) 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 B12 deficiency anemia Colostomy present Depression Diverticulitis Fibromyalgia GERD without esophagitis History of diverticulitis History of flexible sigmoidoscopy History of open sigmoidectomy Hyperlipidemia Hypertension Iron deficiency anemia Osteoporosis last Dexa noted 2019 Pre-diabetes Slow to wake up after anesthesia "a long time ago after tonsillectomy as a child", no issues since 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 Tobacco abuse still currently smokes Urticaria Vitamin D deficiency Surgical History H/O abdominoplasty History of cholecystectomy History of esophagogastroduodenoscopy (EGD) History of tonsillectomy Hx of appendectomy Hx of breast implants, bilateral Hx of colonoscopy Hx of exploratory laparotomy Hx of tubal ligation Previous back surgery 2016 Family History Mother Myocardial infarction Stroke Father Cancer Denies family history of Ovarian cancer Prostate cancer Breast cancer Colorectal cancer Social History Smoking Status: Former smoker Tobacco Type: Cigarettes Age Started Using Tobacco: 37; packs per day: 1; Cigarettes Per Day: 20; Second Hand Exposure: No; Do You Dip or Chew Tobacco: No; Hx Alcohol Use: No Hx Substance Use: No Preferred Language: B[place] Communication Ability: Effective Visual Impairment: Limited Hearing Ability: Normal Membership Assistant Required: No Beliefs That Will Affect Care: None marital status: Current Living Situation: Family Current Living Situation Comment: living w son How many Children do You have: 2 Feels Safe at Home: Yes Childhood Exposure to Second-Hand Smoke: Yes Diet: regular caffeine: Yes during the past year weight has: increased > 10 lbs Dental Care, Regularly: Yes Physical Activity Frequency: Does not Exercise Seatbelt Use: always Sunscreen Use: Yes Assistive Devices: Glasses and Walker Review of Systems Review of Systems: All systems reviewed & are unremarkable except as noted in HPI & below Physical Exam Constitutional: WD/WN, vitals as above (pale appearing) Eyes: PERRL, conjunctivae normal, anicteric sclerae Respiratory: normal respiratory effort, lungs clear to auscultation Cardiovascular: RRR, no murmur, no edema Gastrointestinal (Abdomen): normal bowel sounds, soft, nontender, no hepatosplenomegaly (well healed surgical scars) Musculoskeletal: no cyanosis or clubbing, extremities motor strength 5/5 Skin: no rashes, warm and dry Neurologic: moves all extremities and awake; not confused Psychiatric: A+Ox3, euthymic affect Genitourinary: no CVA tenderness Results & Data Results & Data Vital Signs (Past 12 Hours) Vital Signs Temp Pulse Pulse Resp BP BP Pulse Ox 12/27/22 20:15 36.5 C 76 18 126/73 98 12/27/22 20:00 36.5 C 76 24 120/62 96 12/27/22 19:45 36.8 C 80 25 H 124/69 94 12/27/22 18:00 62 18 98 12/27/22 16:56 70 12/27/22 16:56 67 18 117/43 L 97 12/27/22 16:01 36.3 C L 68 20 120/53 L 97 O2 Del Method O2 Flow Rate 12/27/22 20:15 2 12/27/22 20:00 12/27/22 19:45 12/27/22 18:00 Room Air 12/27/22 16:56 12/27/22 16:56 Room Air 12/27/22 16:01 Room Air Laboratory Results Abnormal lab results 12/27/22 12/27/22 12/27/22 Range/Units 16:44 16:44 16:45 WBC 3.54 L (4.8-10.8) K/ul RBC 1.49 L (4.20-5.40) M/uL Hgb 5.5 L* (12.0-16.0) g/dl Hct 16.0 L* (37.0-47.0) % MCV 107.4 H (80.0-100.0) fL MCH 36.9 H (25.0-34.0) pg RDW Std Deviation 82.2 H (36.4-46.3) fL RDW Coeff of Armand 22.0 H (11.5-14.5) % Plt Count 69 L (130-400) K/uL Reticulocyte % (Auto) (0.5-2.0) % Neutrophils # (Manual) 0.39 L (1.40-6.50) K/uL Total Absolute Neuts 0.39 L* (1.4-6.5) K/uL Potassium 2.2 L* (3.5-5.1) mmol/L BUN 5 L (6-23) mg/dl BUN/Creatinine Ratio 5.3 L (10-20) Glucose 113 H (70-99(Fasting)) mg/dl Calcium 6.7 L (8.6-10.3) mg/dl Ionized Calcium (1.12-1.32) mmol/L Magnesium 1.0 L (1.7-2.4) mg/dl Unsaturated IBC (155-355) mcg/dl Ferritin (8-388) ng/ml AST 10 L (13-39) U/L ALT 5 L (7-52) U/L Total Protein 5.8 L (6.0-8.3) gm/dl Albumin 2.8 L (3.4-5.0) gm/dl Folate (>5.38) ng/ml Crossmatch See Detail 12/27/22 12/27/22 12/27/22 Range/Units 17:28 18:16 18:16 WBC (4.8-10.8) K/ul RBC (4.20-5.40) M/uL Hgb (12.0-16.0) g/dl Hct (37.0-47.0) % MCV (80.0-100.0) fL MCH (25.0-34.0) pg RDW Std Deviation (36.4-46.3) fL RDW Coeff of Armand (11.5-14.5) % Plt Count (130-400) K/uL Reticulocyte % (Auto) 4.0 H (0.5-2.0) % Neutrophils # (Manual) (1.40-6.50) K/uL Total Absolute Neuts (1.4-6.5) K/uL Potassium (3.5-5.1) mmol/L BUN (6-23) mg/dl BUN/Creatinine Ratio (10-20) Glucose (70-99(Fasting)) mg/dl Calcium (8.6-10.3) mg/dl Ionized Calcium (1.12-1.32) mmol/L Magnesium (1.7-2.4) mg/dl Unsaturated IBC < 55 L (155-355) mcg/dl Ferritin 399.5 H (8-388) ng/ml AST (13-39) U/L ALT (7-52) U/L Total Protein (6.0-8.3) gm/dl Albumin (3.4-5.0) gm/dl Folate 4.43 L (>5.38) ng/ml Crossmatch 12/27/22 Range/Units 18:16 WBC (4.8-10.8) K/ul RBC (4.20-5.40) M/uL Hgb (12.0-16.0) g/dl Hct (37.0-47.0) % MCV (80.0-100.0) fL MCH (25.0-34.0) pg RDW Std Deviation (36.4-46.3) fL RDW Coeff of Armand (11.5-14.5) % Plt Count (130-400) K/uL Reticulocyte % (Auto) (0.5-2.0) % Neutrophils # (Manual) (1.40-6.50) K/uL Total Absolute Neuts (1.4-6.5) K/uL Potassium (3.5-5.1) mmol/L BUN (6-23) mg/dl BUN/Creatinine Ratio (10-20) Glucose (70-99(Fasting)) mg/dl Calcium (8.6-10.3) mg/dl Ionized Calcium 0.92 L (1.12-1.32) mmol/L Magnesium (1.7-2.4) mg/dl Unsaturated IBC (155-355) mcg/dl Ferritin (8-388) ng/ml AST (13-39) U/L ALT (7-52) U/L Total Protein (6.0-8.3) gm/dl Albumin (3.4-5.0) gm/dl Folate (>5.38) ng/ml Crossmatch Diagnostic Findings CT SCAN OF THE ABDOMEN AND PELVIS WITH IV CONTRAST CLINICAL HISTORY: Postoperative anemia. COMPARISON STUDY: Abdominal CT dated 09/30/2022. TECHNIQUE: Following the IV administration of 92 cc of Optiray 320, CT scan of the abdomen and pelvis is performed from the lung bases to the proximal femora. Images are reviewed in the axial, sagittal, and coronal planes. IV contrast was administered without complication. A dose lowering technique was utilized adhering to the principles of ALARA. CT DOSE: 648.33 mGy.cm FINDINGS: Lung bases: The heart is mildly enlarged and without pericardial effusion. There are left larger than right pleural effusions with dependent consolidation. Intralobular septal thickening is noted at the lung bases. Bilateral breast implants are partially imaged. There is a tiny hiatal hernia. Liver: The contrast-enhanced liver is normal in size, contour, and attenuation. There is no intrahepatic biliary ductal dilatation. The hepatic veins and portal veins are patent. Gallbladder: Surgically absent noting clips in the gallbladder fossa. Spleen: Normal in size and attenuation. There are calcified splenic granulomas. Pancreas: Unremarkable. Adrenal glands: Unremarkable. Kidneys: The contrast enhanced kidneys are normal in size and without hydronephrosis. The kidneys enhance symmetrically. A 10 mm cyst is seen on the right. Abdominal vasculature: The abdominal aorta is normal in course and caliber noting advanced atherosclerotic calcification. Bowel: There is postoperative change from sigmoid colon resection and colocolonic anastomosis. No bowel obstruction is seen. There is mild diverticulosis of the remaining colon without CT evidence of acute diverticulitis. A small bowel anastomosis in the right lower quadrant. There is mild stranding around the small bowel anastomosis. The appendix is not identified and reported surgically absent. Peritoneum/retroperitoneum: No intraperitoneal free air is identified. There is trace pelvic ascites. No retroperitoneal hematoma is identified. Postsurgical change is seen in the ventral abdominal wall. Lymphadenopathy: None. Pelvic viscera: The bladder wall is thickened and hyperemic with pericystic inflammation. The uterus and adnexa are normal as visualized. Skeletal structures: The skeletal structures are osteopenic. No lytic or blastic lesions are seen. 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 IMPRESSION: 1. Cardiomegaly with evidence of congestive failure. 2. Left larger than right pleural effusions with dependent consolidation. This likely represents atelectasis. Correlate clinically. 3. Cystitis. Correlate with clinical findings and urinalysis. 4. There is postsurgical change from interval ostomy takedown. No bowel obstruction is seen. Mild stranding around the small bowel anastomosis is likely on a postsurgical basis. 5. There is no intraperitoneal or retroperitoneal hemorrhage/hematoma. 6. Additional findings as above. Medications Administered ER Medications Given: Potassium chloride 40meq PO Potassium 10 meq IV x2 ECG Rate (beats per minute): 69 Rhythm: normal sinus Findings: + nonspecific-ST abn and + prolonged QT (QTc 490ms) Comparison ECG Date: from (October 01, 2022) Change: no significant change Code Status & VTE Plan Code Status Full VTE Prophylaxis Plan VTE Prophylaxis will be ordered: No PG Care Time/CCT Total # of Minutes Spent Total Time Spent with Patient: Total time spent is greater than 50% in coordination of care (as documented) at patient's floor/unit and/or counseling patient: Coding Level of Care Code 33677 INT INP/OBS CARE 3/75MIN Diagnoses Pancytopenia D61.818 Asymptomatic bacteriuria R82.71 Hypokalemia E87.6 Hypomagnesemia E83.42 B12 deficiency E53.8 Diarrhea R19.7 Pulmonary embolus I26.99 Adjustment disorder with anxiety F43.22
[2022-12-27 20:45] LABS: Appearance Urine Clear (Clear); Bacteria Urine Automated 4+ (Negative); Bilirubin Urine Negative (Negative); Blood Urine Negative (Negative); Cast Urine Automated 0 /lpf (0-5); Color Urine Yellow; Glucose Urine UA Negative (Negative); Ketones Urine Negative (Negative); Leukocyte Esterase Urine 2+ (Negative); Nitrite Urine Positive (Negative); Protein Urine Negative (Negative); RBC Urine Automated 0-4 /hpf (0-4); Specific Gravity Urine 1.018 (1.000-1.030); Urobilinogen Urine Negative (Negative); pH Urine 7.5 (4.5-7.5)
[2022-12-27] MEDS ORDERED: ACETAMINOPHEN 325 MG TAB PO PRN (22:40)
[2022-12-27] MEDS: POTASSIUM CHLORIDE CRTAB 20 MEQ TABCR PO SCH (23:47)
[2022-12-27] MEDS: ATORVASTATIN 40 MG TAB PO SCH (23:50)
[2022-12-27] MEDS: LOPERAMIDE HCL 2 MG CAP PO SCH (23:51)
[2022-12-28] MEDS: MAGNESIUM SULFATE / D5W 1 GM/100 ML BAG IV SCH ×4 (00:09→06:15)
[2022-12-28] MEDS: cefTRIAXone SODIUM 2,000 MG in DEXTROSE 5% 50 ML IV SCH ×2 (00:13→23:32)
[2022-12-28] MEDS: METOPROLOL TARTRATE 25 MG TAB PO SCH ×3 (00:18→20:46)
[2022-12-28] MEDS: CYANOCOBALAMIN 1000 MCG/ML VIAL IM SCH ×2 (00:21→10:21)
[2022-12-28] MEDS ORDERED: Nursing to Pharmacy Communication SCH (02:30)
[2022-12-28 07:43] LABS: Hematocrit (blood only) 26.6 % (37.0-47.0); Hemoglobin 9.2 g/dl (12.0-16.0); Mean Corpuscular Hemoglobin 32.4 pg (25.0-34.0); Mean Corpuscular Hgb Conc 34.6 g/dL (32.0-36.0); Mean Corpuscular Volume 93.7 fL (80.0-100.0); Platelet Count 51 K/uL (130-400); RDW Coefficient of Variation 23.9 % (11.5-14.5); RDW Standard Deviation 71.8 fL (36.4-46.3); Red Blood Count 2.84 M/uL (4.20-5.40); White Blood Count 3.15 K/ul (4.8-10.8)
--- NOTE | 2022-12-28 07:44 | Hospitalist Progress Note ---
Date of Service December 28, 2022 Assessment & Plan (1) Hypokalemia: (2) Hypomagnesemia: (3) B12 deficiency: (4) Pulmonary embolus: (5) Adjustment disorder with anxiety: (6) Pancytopenia: (7) Diarrhea: (8) Asymptomatic bacteriuria: (9) Hypocalcemia: (10) Folate deficiency: (11) History of open sigmoidectomy: (12) Severe protein-calorie malnutrition: Plan #Pancytopenia: s/p transfusion of 2 units of blood, repeat Hgb 9.2 Replace B12 level, goal > 400 Folic acid supplementation Peripheral smear Consult hematology Pantoprazole 40mg BID #Neutropenia ANC 390 AM CBC #Asymptomatic bacteriuria: UA: 4+ bacteria, 2+ leukocyte esterase, nitrite positive Start Ceftriaxone Urine culture #Hypokalemia: K 2.2, likely d/t diarrhea repleted, repeat K 2.9 Start KCl 40 meq PO BID Repeat with AM labs #Hypomagnesemia: Mg level 1.0 2g IV Mg sulfate given over 2 hours in the ER, additional 4g IV was given over 2 hours Repeat Mag 2.8 #B12 deficiency: Cyanocobalamin 1000 mcg IM x3 doses #Folate Deficiency: 1mg folic acid daily #Diarrhea: Continue loperamide 2mg PO BID # Pulmonary embolus: Incidental finding post operatively, recommended Eliquis for 3 moths. Hold Eliquis pending trend of hemoglobin and repeat FOB #Adjustment disorder with anxiety: Continue citalopram VTE Prophyalxis - hold until GI bleed extensively ruled out Diet - regular Disposition - PCU Full code Admission and Anticipated Discharge Date Admission Date: December 27, 2022 Supervising Physician Co-Signing Physician Notes Attending Attestation and Progress Note: Pt seen/examined, chart reviewed, care plan d/w PGY1 Dr Justin Vela. I agree w/ the lal components of his documentation. Pt resting comfortably in bed during our rounds. Continues with diarrhea, 1-2 episodes/day. Chronic - has been present since her ileostomy reversal in early October 2022. No abd pain. No nausea/emesis. Had an episode today of seeing blood on tissue paper when wiping after a void. Has not had vaginal bleeding or hematuria at home prior to this admission. No overt hematochezia or melena. VSS, afebrile, sats wnl gen - thin, pale, NAD mouth - MMM neck - minimal JVD heart - RRR, s1 s2, no murmur lungs - b/l basilar fine rales abd - soft NT ND BS+ ext - no edema all labs reviewed A/P: 1. hypomagnesemia, hypokalemia, hypocalcemia 2. chronic diarrhea 3. severe protein calorie malnutrition - 10kg of weight loss since 2021 4. prolonged QTc 5. b/l rales on lung exam - r/o pulm edema given copious hydration & PRBCs 6. pancytopenia with B12 & folate deficiencies 7. leukopenia with severe neutropenia 8. h/o post-operative PE 10/2022 9. UTI 10. vaginal bleeding vs hematuria - favor latter in the setting of UTI but need to follow such 11. malabsorption in the setting of ileostomy reversal and prior sigmoidectomy B12/folate replacement replace low K/calcium cbc/bmp in am await additional recs from heme/onc - appreciate their consultation cxr - r/o pulmonary edema hold Eliquis in light of ?GI/ bleeding; await fecal occult blood; follow for recurrent vag bleeding vs hematuria nutrition consult repeat EKG am c diff testing due to diarrhea Vahid Guerra MD Subjective Patient is a 72 year old female with extensive PMH that includes recent reversal of diverting ileostomy about one month ago, presenting for evaluation of anemia found on outpatient lab results. Patient states that she has been having some diarrhea but denies melena or hematochezia. Denies nausea or vomiting. Incidental PE found last month, has been taking Eliquis since. Denies CP or SOB, denies dysuria, does endorse some general fatigue. Review of Systems Review of Systems: All systems reviewed & are unremarkable except as noted in HPI & below Physical Exam Constitutional: WD/WN, vitals as above no acute distress Respiratory: normal respiratory effort, lungs clear to auscultation Cardiovascular: RRR, no murmur, no edema Gastrointestinal (Abdomen): normal bowel sounds, soft, nontender, no hepatosplenomegaly Skin: no rashes, warm and dry Results & Data Results & Data Vital Signs (Past 12 Hours) Vital Signs Temp Pulse Pulse Resp BP BP BP 12/27/22 22:38 64 12/28/22 02:56 36.5 C 63 16 100/63 12/28/22 02:54 36.5 C 63 16 100/63 12/27/22 22:30 12/28/22 02:08 36.5 C 65 16 124/71 12/28/22 01:08 36.5 C 72 18 102/63 12/28/22 00:38 36.5 C 70 16 112/67 12/28/22 00:23 36.7 C 70 16 121/71 12/28/22 00:06 36.5 C 68 16 131/68 12/27/22 23:53 36.5 C 72 16 133/72 12/27/22 23:51 36.5 C 72 16 133/72 12/27/22 23:25 36.6 C 69 16 124/64 12/27/22 22:30 36.6 C 68 18 125/73 12/27/22 22:45 36.6 C 68 18 125/73 12/27/22 22:45 36.6 C 68 18 125/73 12/27/22 21:45 65 22 124/66 12/27/22 21:30 75 28 H 132/62 12/27/22 21:15 67 18 124/59 L 12/27/22 21:00 66 21 126/59 L 12/27/22 20:45 67 25 H 120/67 12/27/22 20:30 71 24 139/61 12/27/22 20:15 75 21 126/73 12/27/22 20:00 75 24 120/62 12/27/22 21:50 36.5 C 68 20 124/66 12/27/22 20:45 36.6 C 76 22 120/67 12/27/22 20:15 36.5 C 76 18 126/73 12/27/22 20:00 36.5 C 76 24 120/62 12/27/22 19:45 36.8 C 80 25 H 124/69 Pulse Ox O2 Del Method O2 Flow Rate 12/27/22 22:38 12/28/22 02:56 96 Room Air 12/28/22 02:54 96 12/27/22 22:30 Room Air 12/28/22 02:08 96 12/28/22 01:08 93 12/28/22 00:38 96 12/28/22 00:23 96 12/28/22 00:06 96 12/27/22 23:53 95 12/27/22 23:51 95 Room Air 12/27/22 23:25 96 12/27/22 22:30 97 Room Air 12/27/22 22:45 97 12/27/22 22:45 97 12/27/22 21:45 98 12/27/22 21:30 100 12/27/22 21:15 100 12/27/22 21:00 99 12/27/22 20:45 97 12/27/22 20:30 98 12/27/22 20:15 98 12/27/22 20:00 97 12/27/22 21:50 97 Room Air 12/27/22 20:45 99 2 12/27/22 20:15 98 2 12/27/22 20:00 96 12/27/22 19:45 94 Laboratory Results Laboratory Results - last 24 hr 12/28/22 12/28/22 12/28/22 07:05 07:05 17:42 WBC 3.15 L 3.21 L RBC 2.84 L 2.59 L Hgb 9.2 L D 8.5 L Hct 26.6 L 24.3 L MCV 93.7 D 93.8 MCH 32.4 32.8 MCHC 34.6 35.0 RDW Std Deviation 71.8 H 72.4 H RDW Coeff of Armand 23.9 H 24.1 H Plt Count 51 L 53 L MPV 10.0 10.1 Immature Gran % (Auto) 0.0 0.0 Neut % (Auto) 12.0 14.3 Lymph % (Auto) 85.4 82.6 Pine % (Auto) 1.0 1.2 Eos % (Auto) 1.6 1.9 Baso % (Auto) 0.0 0.0 Neut # (Auto) 0.38 L* 0.46 L* Lymph # (Auto) 2.69 2.65 Pine # (Auto) 0.03 L 0.04 L Eos # (Auto) 0.05 0.06 Baso # (Auto) 0.00 0.00 Immature Gran # (Auto) 0.00 L 0.00 L Polychromasia 1+ 1+ Anisocytosis Present Present Sodium 139 Potassium 2.9 L D Chloride 103 Carbon Dioxide 28 Anion Gap 8 BUN 5 L Creatinine 0.69 Est Cr Clr Drug Dosing 63.1 Est GFR ( Amer) 102.2 Est GFR (Non-Af Amer) 88.2 BUN/Creatinine Ratio 7.2 L Glucose 112 H Calcium 6.9 L Phosphorus 3.0 Magnesium 2.8 H Total Bilirubin 0.7 AST 10 L ALT 5 L Alkaline Phosphatase 82 Total Protein 5.5 L Albumin 2.6 L Globulin 2.9 Albumin/Globulin Ratio 0.9 Stool Occult Bld Scrn Stl C. diff Tox B Gene Resident Activity Tracking Resident Involvement: Resident Care Provided Care Provided: Adult [facility]
[2022-12-28 07:53] LABS: Anisocytosis Present; Eosinophils # (auto) 0.05 K/uL (0-0.50); Eosinophils % (auto) 1.6 %; Lymphocytes # (auto) 2.69 K/uL (1.2-3.4); Lymphocytes % (auto) 85.4 %; Monocytes # (auto) 0.03 K/uL (0.11-0.59); Neutrophils # (auto) 0.38 K/uL (1.40-6.50); Polychromasia 1+
[2022-12-28 08:30] LABS: Albumin Globulin Ratio 0.9 (0.9-2); Albumin Level 2.6 gm/dl (3.4-5.0); BUN Creatinine Ratio 7.2 (10-20); Bilirubin,Total 0.7 mg/dl (0.2-1.0); Calcium 6.9 mg/dl (8.6-10.3); Creatinine Clr Calc Pharmacy 63.1 ml/min; Est GFR (African American) 102.2 ml/min; Est GFR (Non-African American) 88.2 ml/min; Globulin 2.9 gm/dl (2.5-4.0); Magnesium 2.8 mg/dl (1.7-2.4); Potassium 2.9 mmol/L (3.5-5.1); Total Protein 5.5 gm/dl (6.0-8.3)
[2022-12-28] MEDS: CITALOPRAM 20 MG TAB PO SCH (10:19)
[2022-12-28] MEDS: POTASSIUM CHLORIDE CRTAB 20 MEQ TABCR PO SCH ×2 (10:20→17:51)
[2022-12-28] MEDS: LOPERAMIDE HCL 2 MG CAP PO SCH ×2 (10:20→20:46)
[2022-12-28] MEDS: PANTOprazole 40 MG in SYRINGE 0 ML IV SCH ×2 (11:05→20:46)
--- NOTE | 2022-12-28 11:13 | Electrocardiogram Report ---
Test Reason : Blood Pressure : / mmHG Vent. Rate : 069 BPM Atrial Rate : 069 BPM P-R Int : 194 ms QRS Dur : 076 ms QT Int : 458 ms P-R-T Axes : 015 016 039 degrees QTc Int : 490 ms Normal sinus rhythm Nonspecific T wave abnormality Prolonged QT Abnormal ECG When compared with ECG of 01-OCT-2022 01:58, Vent. rate has decreased BY 46 BPM Criteria for Septal infarct are no longer Present Minimal criteria for Inferior infarct are no longer Present Confirmed by Ismael Kyle ([id number]) on 12/28/2022 11:13:16 AM Referred By: REFERRED SELF Confirmed By:Ismael Kyle
[2022-12-28] MEDS ORDERED: FOLIC ACID 5 MG/ML VIAL IM SCH (11:30)
[2022-12-28] MEDS ORDERED: STAT IV STA (11:30)
[2022-12-28] MEDS ORDERED: CALCIUM GLUCONATE 10% 1,000 MG in DEXTROSE 5% 50 ML IV ONE (11:45)
--- NOTE | 2022-12-28 12:35 | Consultation ---
Date of Consultation December 28, 2022 Assessment & Plan (1) Pulmonary embolus: Apparent incidentally discovered pulmonary embolism concomitant with her reversal surgery treated appropriately with anticoagulation. While there is some ongoing uncertainty as to the differential approach to incidental versus symptomatic pulmonary embolism, for the most part that is approached with "routine" anticoagulation for at least 3 months. There does not seem to be a significant personal or family history to suggest a hypercoagulable syndrome and she did not have a frankly diagnosed malignancy. There is reasonably good endothelialization after just 6 weeks of anticoagulation at which point the risk for recurrent thromboembolism is reduced though certainly not eliminated. Brief interruption of anticoagulation now as there is an assessment as to the presence or absence of GI bleeding is certainly worthwhile. Given that there are other potential explanations for the pancytopenia as below, we do not need to invoke GI bleed as the cause for her current anemia and if quick work-up does not suggest that, cautious resumption of anticoagulation could be considered. If there are ongoing contraindications, will have to discuss the pros and cons of placement of an IVC filter though the role of that is less well-defined both in this context of an incidental pulmonary embolism but also given that the source of her pulmonary emboli may well have been abdominal and therefore potentially above the level where the IVC filter would be placed. ' If anticoagulation is resumed may be worthwhile to give an initial "prophylactic" dose of enoxaparin and observe for 12 to 24 hours to make sure no bleeding occurs before transitioning back to either full dose enoxaparin or apixaban. Given the somewhat volatile situation, it may be worthwhile to use full dose enoxaparin for at least 5 to 7 days (2) Pancytopenia: Pancytopenia evolved in the context of her bowel dysfunction and was associated with B12 deficiency at one time (though that is currently stable on supplements) and now with folic acid deficiency. Her iron level and ferritin are technically normal, the latter frankly elevated. Even with "acute phase reactant" modulation of the ferritin levels this does suggest that she has reasonably adequate iron stores. She does have a Red cell deficit, however, and may be at least incipiently iron deficient. She did receive 2 units of red cells overnight which would have delivered 400 mg of iron and thus at this point iron deficiency does not seem to be an immediately threatening process. She is on both B12 and folic acid supplementation and overall the current picture could very much be consistent with a nutritional deficiency, which could easily be a cause of bowel dysfunction and partial small bowel resection. Await pathologist review of the peripheral smear but in the absence of immediately threatening malignant like changes on that smear, probably will be most prudent to simply observe with nutritional supplementation to see response before resorting to bone marrow aspiration and biopsy as the latter may be distorted by those previous deficiencies. Notably the reticulocyte count is low, bilirubin is not elevated, and she responded quite well to transfusion all suggesting against a significant hemolytic anemia or isolated blood loss. This is a more hypoproductive process again consistent with nutritional deficiency. With worship of reasonable hemoglobin levels and further transfusions probably not immediately required in the absence of further loss and hemoglobin drop. 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 Will need long-term monitoring of her nutritional levels Plan Transfusion has immediately stabilized her hemoglobin and good response along with low reticulocyte count and other labs has also largely excluded major hemolysis Certainly need to vigorously supplement folic acid and would supplement B12 ongoing. Do not need to immediately resort to intravenous iron though we will need to monitor iron levels as well as her ongoing B12 and folic acid levels given the concern over ongoing malabsorption Probably did not need immediate intravenous iron but may need that in the future 48-hour hold on anticoagulation as we assess for GI bleeding is probably associated with only minimal risk of immediate further threatening thromboembolism. If we cannot comfortably quickly restore anticoagulation, there will need to be some discussion as to the role for IVC filter though as above the source of pulmonary embolism and the original incidental nature of the pulmonary embolism may make the role for IVC filter a little bit less straightforward If anticoagulation is to be resumed but there is any ongoing concern as to the potential for GI bleed, initial "lower dose" anticoagulation and the temporary reversion to enoxaparin would be a consideration as above If there are no immediately concerning forms seen on pathologist review of the peripheral smear, not clear that marrow aspiration and biopsy would be immediately helpful in terms of management. 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 I am working remotely and unable to speak directly with the patient or examine her. I reviewed both the records from the current admission and a scanned note from [facility] hematology/oncology which was part of her treatment and evaluation shortly after her ileostomy reversal. These seem to be an accurate source of relevant information but I am completely reliant on that for my conclusions and perspectives. If there are urgent concerns regarding the need for more direct [id number] review, you should consider transferring the patient to [place] who has been coordinating her hematology care prior to this. I or one of my colleagues can also/will follow up with the patient in a [id number] meeting at a later date to augment if desired. The evaluation is consultative in nature and all patient care and treatment decisions can either be accepted or rejected by the patient's primary hospital- based treating physician using their own independent medical judgment for the patient. Patient is a 72-year-old woman with no specifically diagnosed history of relevant hematologic or other malignancy. In the spring she had a worsening issue of GI dysfunction ultimately diagnosed with recurrent diverticulitis with fistula formation - to address that, she is status post 08/06/2022 segmental resection of the sigmoid with temporary ileostomy placement. Pathology from that resection specimen showed diverticula with pericolic abscess, 7 lymph nodes resected were benign, there was also marked transmural acute and chronic inflammation with mucosal hemorrhage in the resected small intestine. No specific mention was made of Crohn's or ulcerative colitis. 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 She continues to have some diarrhea in the wake of that though apparently much improved from that seen during the time of the ileostomy's functioning. We note that at the time of the ileostomy reversal she was pancytopenic with a moderate anemia hemoglobin 8.0 and a moderate thrombocytopenia. Baseline laboratories from June do show normal white count, hemoglobin, and platelet count but she was developing cytopenias even leading into her initial sigmoid surgery. We do see that B12 levels were also significantly low in September during the time of her high output syndrome with ileostomy in place. Immediately post reversal, imaging apparently diagnosed an incidental pulmonary embolism and for that she was treated with enoxaparin transitioning to apixaban She is now admitted with dizziness and symptomatic anemia associated with concomitant neutropenia and thrombocytopenia. She has responded quite well to 2 unit packed red cell transfusion overnight with hemoglobin returning to much better range. See labs below Allergies Allergy/AdvReac Type Severity Reaction Status Date / Time No Known Allergies Allergy Verified 12/27/22 17:15 Home Medications Medication Instructions Recorded Confirmed Type atorvastatin 80 mg tablet 80 mg PO HS 03/20/22 12/27/22 History omeprazole 40 mg capsule,delayed 40 mg PO HS 03/20/22 12/27/22 History release apixaban 5 mg tablet (Eliquis) 5 mg PO BID 11/18/22 12/27/22 History ondansetron HCl 4 mg tablet 4 mg PO Q8H PRN nausea and vomiting 11/18/22 12/27/22 History citalopram 10 mg tablet 10 mg PO DAILY #90 tabs 11/20/22 12/27/22 Rx loperamide 2 mg capsule 2 mg PO BID 12/27/22 12/27/22 History metoprolol tartrate 25 mg tablet 12.5 mg PO BID 12/27/22 12/27/22 History pediatric [id number] 1 tab PO QDL 12/27/22 12/27/22 History (Flintstones Complete (iron) chewable tablet) Patient History Medical History Abnormal CT scan, sigmoid colon (06/27/22) 8 cm 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 B12 deficiency anemia Colostomy present Depression Diverticulitis Fibromyalgia GERD without esophagitis History of diverticulitis History of flexible sigmoidoscopy History of open sigmoidectomy Hyperlipidemia Hypertension Iron deficiency anemia Osteoporosis last Dexa noted 2019 Pre-diabetes Slow to wake up after anesthesia "a long time ago after tonsillectomy as a child", no issues since 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 Tobacco abuse still currently smokes Urticaria Vitamin D deficiency Surgical History H/O abdominoplasty History of cholecystectomy History of esophagogastroduodenoscopy (EGD) History of tonsillectomy Hx of appendectomy Hx of breast implants, bilateral Hx of colonoscopy Hx of exploratory laparotomy Hx of tubal ligation Previous back surgery 2016 Family History Mother Myocardial infarction Stroke Father Cancer Denies family history of Ovarian cancer Prostate cancer Breast cancer Colorectal cancer Social History Smoking Status: Never smoker Tobacco Type: Cigarettes Age Started Using Tobacco: 37; packs per day: 1; Cigarettes Per Day: 20; Second Hand Exposure: No; Do You Dip or Chew Tobacco: No; Hx Alcohol Use: No Hx Substance Use: No Preferred Language: Bhutanese Communication Ability: Effective Visual Impairment: Limited Hearing Ability: Normal Timber Bucker Required: No Beliefs That Will Affect Care: None marital status: Current Living Situation: Family Current Living Situation Comment: living w son How many Children do You have: 2 Other Information That Helps Us Care for You: No Feels Safe at Home: Yes Safety Concerns: Feels Safe At This Time Childhood Exposure to Second-Hand Smoke: Yes Diet: regular caffeine: Yes during the past year weight has: increased > 10 lbs Dental Care, Regularly: Yes Physical Activity Frequency: Does not Exercise Seatbelt Use: always Sunscreen Use: Yes Assistive Devices: None Physical Exam Physical Exam: Vital signs are stable. This is an electronic consultation and I was not able to perform my own physical examination but the reported examination seems otherwise stable Results & Data Vital Signs (Past 12 Hours) Vital Signs Temp Pulse Pulse Resp BP BP Pulse Ox 12/28/22 11:24 36.6 C 65 16 119/72 96 12/28/22 08:17 68 16 118/70 97 12/28/22 02:56 36.5 C 63 16 100/63 96 12/28/22 02:54 36.5 C 63 16 100/63 96 12/28/22 02:08 36.5 C 65 16 124/71 96 12/28/22 01:08 36.5 C 72 18 102/63 93 12/28/22 00:38 36.5 C 70 16 112/67 96 O2 Del Method 12/28/22 11:24 Room Air 12/28/22 08:17 Room Air 07/30/23 02:56 Room Air 12/28/22 02:54 12/28/22 02:08 12/28/22 01:08 12/28/22 00:38 Laboratory Results Laboratory Results - last 24 hr 12/27/22 12/27/22 12/27/22 16:44 16:44 16:45 WBC 3.54 L RBC 1.49 L Hgb 5.5 L* Hct 16.0 L* MCV 107.4 H MCH 36.9 H MCHC 34.4 RDW Std Deviation 82.2 H RDW Coeff of Armand 22.0 H Plt Count 69 L MPV 9.6 Immature Gran % (Auto) Neut % (Auto) Lymph % (Auto) [place] % (Auto) Eos % (Auto) Baso % (Auto) Reticulocyte % (Auto) Neut # (Auto) Lymph # (Auto) [place] # (Auto) Eos # (Auto) Baso # (Auto) Reticulocyte # Immature Gran # (Auto) Neutrophils % (Manual) 11 Lymphocytes % (Manual) 88 Eosinophils % (Manual) 1 Neutrophils # (Manual) 0.39 L Total Absolute Neuts 0.39 L* Lymphocytes # (Manual) 3.12 Total Abs Lymphocytes 3.12 Eosinophils # (Manual) 0.04 Polychromasia 1+ Hypochromasia Present Anisocytosis Present Peripher Smr Path Cons Pending Haptoglobin PT INR APTT PTT Ratio Sodium 139 Potassium 2.2 L* Chloride 100 Carbon Dioxide 29 Anion Gap 10 BUN 5 L Creatinine 0.95 Est Cr Clr Drug Dosing 45.6 Est GFR ( Amer) 70.3 Est GFR (Non-Af Amer) 60.7 BUN/Creatinine Ratio 5.3 L Glucose 113 H Calcium 6.7 L Ionized Calcium Phosphorus Magnesium 1.0 L Iron TIBC Unsaturated IBC Transferrin % Sat Ferritin Total Bilirubin 0.4 AST 10 L ALT 5 L Alkaline Phosphatase 94 Lactate Dehydrogenase Troponin I High Sens 4.6 Total Protein 5.8 L Albumin 2.8 L Globulin 3.0 Albumin/Globulin Ratio 0.9 Vitamin B12 Folate Urine Color Urine Appearance Urine pH Ur Specific Conception Urine Protein Urine Glucose (UA) Urine Ketones Urine Blood Urine Nitrite Urine Bilirubin Urine Urobilinogen Ur Leukocyte Esterase Urine WBC (Auto) Urine RBC (Auto) U Hyaline Cast (Auto) U Epithel Cells (Auto) Urine Bacteria (Auto) Anaplasma Smear See Comment A. phagocytophilum DNA Babesia Smear See Comment Babesia microti DNA PCR Lyme Disease IgG Ab Lyme Disease IgM Ab B.burgdorferi DNA Sourc B.miyamotoi IgM Ab B.miyamotoi IgG Ab Borrelia miyamotoi (PCR) B.miyamotoi Sero Interp E.chaffeensis DNA (PCR) Q Fever Phase I IgG Ab Q Fever Phase I IgM Ab Q Fever Phase II IgG Ab Q Fever Phase II IgM Ab Rickettsia IgG Ab Rickettsia IgM Ab Typhus Fever IgG Ab Typhus Fever IgM Ab Blood Type B Negative Blood Type Recheck Antibody Screen NEGATIVE Crossmatch See Detail 12/27/22 12/27/22 12/27/22 17:28 17:28 17:28 WBC RBC Hgb Hct MCV MCH MCHC RDW Std Deviation RDW Coeff of Armand Plt Count MPV Immature Gran % (Auto) Neut % (Auto) Lymph % (Auto) [place] % (Auto) Eos % (Auto) Baso % (Auto) Reticulocyte % (Auto) 4.0 H Neut # (Auto) Lymph # (Auto) [place] # (Auto) Eos # (Auto) Baso # (Auto) Reticulocyte # 0.06 Immature Gran # (Auto) Neutrophils % (Manual) Lymphocytes % (Manual) Eosinophils % (Manual) Neutrophils # (Manual) Total Absolute Neuts Lymphocytes # (Manual) Total Abs Lymphocytes Eosinophils # (Manual) Polychromasia Hypochromasia Anisocytosis Peripher Smr Path Cons Haptoglobin PT 11.6 INR 1.1 APTT 26.4 PTT Ratio 0.9 Sodium Potassium Chloride Carbon Dioxide Anion Gap BUN Creatinine Est Cr Clr Drug Dosing Est GFR ( Amer) Est GFR (Non-Af Amer) BUN/Creatinine Ratio Glucose Calcium Ionized Calcium Phosphorus Magnesium Iron TIBC Unsaturated IBC Transferrin % Sat Ferritin Total Bilirubin AST ALT Alkaline Phosphatase Lactate Dehydrogenase Troponin I High Sens Total Protein Albumin Globulin Albumin/Globulin Ratio Vitamin B12 Folate Urine Color Urine Appearance Urine pH Ur Specific Conception Urine Protein Urine Glucose (UA) Urine Ketones Urine Blood Urine Nitrite Urine Bilirubin Urine Urobilinogen Ur Leukocyte Esterase Urine WBC (Auto) Urine RBC (Auto) U Hyaline Cast (Auto) U Epithel Cells (Auto) Urine Bacteria (Auto) Anaplasma Smear A. phagocytophilum DNA Babesia Smear Babesia microti DNA PCR Lyme Disease IgG Ab Lyme Disease IgM Ab B.burgdorferi DNA Sourc B.miyamotoi IgM Ab B.miyamotoi IgG Ab Borrelia miyamotoi (PCR) B.miyamotoi Sero Interp E.chaffeensis DNA (PCR) Q Fever Phase I IgG Ab Q Fever Phase I IgM Ab Q Fever Phase II IgG Ab Q Fever Phase II IgM Ab Rickettsia IgG Ab Rickettsia IgM Ab Typhus Fever IgG Ab Typhus Fever IgM Ab Blood Type Blood Type Recheck B Negative Antibody Screen Crossmatch 12/27/22 12/27/22 12/27/22 18:16 18:16 18:16 WBC RBC Hgb Hct MCV MCH MCHC RDW Std Deviation RDW Coeff of Armand Plt Count MPV Immature Gran % (Auto) Neut % (Auto) Lymph % (Auto) [place] % (Auto) Eos % (Auto) Baso % (Auto) Reticulocyte % (Auto) Neut # (Auto) Lymph # (Auto) [place] # (Auto) Eos # (Auto) Baso # (Auto) Reticulocyte # Immature Gran # (Auto) Neutrophils % (Manual) Lymphocytes % (Manual) Eosinophils % (Manual) Neutrophils # (Manual) Total Absolute Neuts Lymphocytes # (Manual) Total Abs Lymphocytes Eosinophils # (Manual) Polychromasia Hypochromasia Anisocytosis Peripher Smr Path Cons Haptoglobin PT INR APTT PTT Ratio Sodium Potassium Chloride Carbon Dioxide Anion Gap BUN Creatinine Est Cr Clr Drug Dosing Est GFR ( Amer) Est GFR (Non-Af Amer) BUN/Creatinine Ratio Glucose Calcium Ionized Calcium Phosphorus Magnesium Iron 123 TIBC TNP Unsaturated IBC < 55 L Transferrin % Sat TNP Ferritin 399.5 H Total Bilirubin AST ALT Alkaline Phosphatase Lactate Dehydrogenase 234 Troponin I High Sens 4.4 Total Protein Albumin Globulin Albumin/Globulin Ratio Vitamin B12 247 Folate 4.43 L Urine Color Urine Appearance Urine pH Ur Specific Conception Urine Protein Urine Glucose (UA) Urine Ketones Urine Blood Urine Nitrite Urine Bilirubin Urine Urobilinogen Ur Leukocyte Esterase Urine WBC (Auto) Urine RBC (Auto) U Hyaline Cast (Auto) U Epithel Cells (Auto) Urine Bacteria (Auto) Anaplasma Smear A. phagocytophilum DNA Babesia Smear Babesia microti DNA PCR Lyme Disease IgG Ab Lyme Disease IgM Ab B.burgdorferi DNA Sourc B.miyamotoi IgM Ab B.miyamotoi IgG Ab Borrelia miyamotoi (PCR) B.miyamotoi Sero Interp E.chaffeensis DNA (PCR) Q Fever Phase I IgG Ab Q Fever Phase I IgM Ab Q Fever Phase II IgG Ab Q Fever Phase II IgM Ab Rickettsia IgG Ab Rickettsia IgM Ab Typhus Fever IgG Ab Typhus Fever IgM Ab Blood Type Blood Type Recheck Antibody Screen Crossmatch 12/27/22 12/27/22 12/27/22 18:16 18:16 18:16 WBC RBC Hgb Hct MCV MCH MCHC RDW Std Deviation RDW Coeff of Armand Plt Count MPV Immature Gran % (Auto) Neut % (Auto) Lymph % (Auto) [place] % (Auto) Eos % (Auto) Baso % (Auto) Reticulocyte % (Auto) Neut # (Auto) Lymph # (Auto) [place] # (Auto) Eos # (Auto) Baso # (Auto) Reticulocyte # Immature Gran # (Auto) Neutrophils % (Manual) Lymphocytes % (Manual) Eosinophils % (Manual) Neutrophils # (Manual) Total Absolute Neuts Lymphocytes # (Manual) Total Abs Lymphocytes Eosinophils # (Manual) Polychromasia Hypochromasia Anisocytosis Peripher Smr Path Cons Cancelled Haptoglobin Pending PT INR APTT PTT Ratio Sodium Potassium Chloride Carbon Dioxide Anion Gap BUN Creatinine Est Cr Clr Drug Dosing Est GFR ( Amer) Est GFR (Non-Af Amer) BUN/Creatinine Ratio Glucose Calcium Ionized Calcium 0.92 L Phosphorus Magnesium Iron TIBC Unsaturated IBC Transferrin % Sat Ferritin Total Bilirubin AST ALT Alkaline Phosphatase Lactate Dehydrogenase Troponin I High Sens Total Protein Albumin Globulin Albumin/Globulin Ratio Vitamin B12 Folate Urine Color Urine Appearance Urine pH Ur Specific Conception Urine Protein Urine Glucose (UA) Urine Ketones Urine Blood Urine Nitrite Urine Bilirubin Urine Urobilinogen Ur Leukocyte Esterase Urine WBC (Auto) Urine RBC (Auto) U Hyaline Cast (Auto) U Epithel Cells (Auto) Urine Bacteria (Auto) Anaplasma Smear A. phagocytophilum DNA Babesia Smear Babesia microti DNA PCR Lyme Disease IgG Ab Lyme Disease IgM Ab B.burgdorferi DNA Sourc B.miyamotoi IgM Ab B.miyamotoi IgG Ab Borrelia miyamotoi (PCR) B.miyamotoi Sero Interp E.chaffeensis DNA (PCR) Q Fever Phase I IgG Ab Q Fever Phase I IgM Ab Q Fever Phase II IgG Ab Q Fever Phase II IgM Ab Rickettsia IgG Ab Rickettsia IgM Ab Typhus Fever IgG Ab Typhus Fever IgM Ab Blood Type Blood Type Recheck Antibody Screen Crossmatch 12/27/22 12/27/22 12/27/22 18:28 19:43 19:43 WBC RBC Hgb Hct MCV MCH MCHC RDW Std Deviation RDW Coeff of Armand Plt Count MPV Immature Gran % (Auto) Neut % (Auto) Lymph % (Auto) [place] % (Auto) Eos % (Auto) Baso % (Auto) Reticulocyte % (Auto) Neut # (Auto) Lymph # (Auto) [place] # (Auto) Eos # (Auto) Baso # (Auto) Reticulocyte # Immature Gran # (Auto) Neutrophils % (Manual) Lymphocytes % (Manual) Eosinophils % (Manual) Neutrophils # (Manual) Total Absolute Neuts Lymphocytes # (Manual) Total Abs Lymphocytes Eosinophils # (Manual) Polychromasia Hypochromasia Anisocytosis Peripher Smr Path Cons Haptoglobin PT INR APTT PTT Ratio Sodium Potassium Chloride Carbon Dioxide Anion Gap BUN Creatinine Est Cr Clr Drug Dosing Est GFR ( Amer) Est GFR (Non-Af Amer) BUN/Creatinine Ratio Glucose Calcium Ionized Calcium Phosphorus Magnesium Iron TIBC Unsaturated IBC Transferrin % Sat Ferritin Total Bilirubin AST ALT Alkaline Phosphatase Lactate Dehydrogenase Troponin I High Sens Total Protein Albumin Globulin Albumin/Globulin Ratio Vitamin B12 Folate Urine Color Urine Appearance Urine pH Ur Specific Conception Urine Protein Urine Glucose (UA) Urine Ketones Urine Blood Urine Nitrite Urine Bilirubin Urine Urobilinogen Ur Leukocyte Esterase Urine WBC (Auto) Urine RBC (Auto) U Hyaline Cast (Auto) U Epithel Cells (Auto) Urine Bacteria (Auto) Anaplasma Smear Cancelled A. phagocytophilum DNA Babesia Smear Cancelled Babesia microti DNA PCR Lyme Disease IgG Ab Negative Lyme Disease IgM Ab Negative B.burgdorferi DNA [facility] B.miyamotoi IgM Ab B.miyamotoi IgG Ab Borrelia miyamotoi (PCR) B.miyamotoi Sero Interp E.chaffeensis DNA (PCR) Pending Q Fever Phase I IgG Ab Q Fever Phase I IgM Ab Q Fever Phase II IgG Ab Q Fever Phase II IgM Ab Rickettsia IgG Ab Rickettsia IgM Ab Typhus Fever IgG Ab Typhus Fever IgM Ab Blood Type Blood Type Recheck Antibody Screen Crossmatch 12/27/22 12/27/22 12/27/22 19:43 19:43 19:43 WBC RBC Hgb Hct MCV MCH MCHC RDW Std Deviation RDW Coeff of Armand Plt Count MPV Immature Gran % (Auto) Neut % (Auto) Lymph % (Auto) [place] % (Auto) Eos % (Auto) Baso % (Auto) Reticulocyte % (Auto) Neut # (Auto) Lymph # (Auto) [place] # (Auto) Eos # (Auto) Baso # (Auto) Reticulocyte # Immature Gran # (Auto) Neutrophils % (Manual) Lymphocytes % (Manual) Eosinophils % (Manual) Neutrophils # (Manual) Total Absolute Neuts Lymphocytes # (Manual) Total Abs Lymphocytes Eosinophils # (Manual) Polychromasia Hypochromasia Anisocytosis Peripher Smr Path Cons Haptoglobin PT INR APTT PTT Ratio Sodium Potassium Chloride Carbon Dioxide Anion Gap BUN Creatinine Est Cr Clr Drug Dosing Est GFR ( Amer) Est GFR (Non-Af Amer) BUN/Creatinine Ratio Glucose Calcium Ionized Calcium Phosphorus Magnesium Iron TIBC Unsaturated IBC Transferrin % Sat Ferritin Total Bilirubin AST ALT Alkaline Phosphatase Lactate Dehydrogenase Troponin I High Sens Total Protein Albumin Globulin Albumin/Globulin Ratio Vitamin B12 Folate Urine Color Urine Appearance Urine pH Ur Specific Conception Urine Protein Urine Glucose (UA) Urine Ketones Urine Blood Urine Nitrite Urine Bilirubin Urine Urobilinogen Ur Leukocyte Esterase Urine WBC (Auto) Urine RBC (Auto) U Hyaline Cast (Auto) U Epithel Cells (Auto) Urine Bacteria (Auto) Anaplasma Smear A. phagocytophilum DNA Pending Babesia Smear Babesia microti DNA PCR Pending Lyme Disease IgG Ab Lyme Disease IgM Ab B.burgdorferi DNA Sourc Pending B.miyamotoi IgM Ab Pending B.miyamotoi IgG Ab Pending Borrelia miyamotoi (PCR) Pending B.miyamotoi Sero Interp Pending E.chaffeensis DNA (PCR) Q Fever Phase I IgG Ab Pending Q Fever Phase I IgM Ab Pending Q Fever Phase II IgG Ab Pending Q Fever Phase II IgM Ab Pending Rickettsia IgG Ab Pending Rickettsia IgM Ab Pending Typhus Fever IgG Ab Pending Typhus Fever IgM Ab Pending Blood Type Blood Type Recheck Antibody Screen Crossmatch 12/27/22 12/28/22 12/28/22 20:25 07:05 07:05 WBC 3.15 L RBC 2.84 L Hgb 9.2 L D Hct 26.6 L MCV 93.7 D MCH 32.4 MCHC 34.6 RDW Std Deviation 71.8 H RDW Coeff of Armand 23.9 H Plt Count 51 L MPV 10.0 Immature Gran % (Auto) 0.0 Neut % (Auto) 12.0 Lymph % (Auto) 85.4 [place] % (Auto) 1.0 Eos % (Auto) 1.6 Baso % (Auto) 0.0 Reticulocyte % (Auto) Neut # (Auto) 0.38 L* Lymph # (Auto) 2.69 [place] # (Auto) 0.03 L Eos # (Auto) 0.05 Baso # (Auto) 0.00 Reticulocyte # Immature Gran # (Auto) 0.00 L Neutrophils % (Manual) Lymphocytes % (Manual) Eosinophils % (Manual) Neutrophils # (Manual) Total Absolute Neuts Lymphocytes # (Manual) Total Abs Lymphocytes Eosinophils # (Manual) Polychromasia 1+ Hypochromasia Anisocytosis Present Peripher Smr Path Cons Haptoglobin PT INR APTT PTT Ratio Sodium 139 Potassium 2.9 L D Chloride 103 Carbon Dioxide 28 Anion Gap 8 BUN 5 L Creatinine 0.69 Est Cr Clr Drug Dosing 63.1 Est GFR ( Amer) 102.2 Est GFR (Non-Af Amer) 88.2 BUN/Creatinine Ratio 7.2 L Glucose 112 H Calcium 6.9 L Ionized Calcium Phosphorus 3.0 Magnesium 2.8 H Iron TIBC Unsaturated IBC Transferrin % Sat Ferritin Total Bilirubin 0.7 AST 10 L ALT 5 L Alkaline Phosphatase 82 Lactate Dehydrogenase Troponin I High Sens Total Protein 5.5 L Albumin 2.6 L Globulin 2.9 Albumin/Globulin Ratio 0.9 Vitamin B12 Folate Urine Color Yellow Urine Appearance Clear Urine pH 7.5 Ur Specific Conception 1.018 Urine Protein Negative Urine Glucose (UA) Negative Urine Ketones Negative Urine Blood Negative Urine Nitrite Positive A Urine Bilirubin Negative Urine Urobilinogen Negative Ur Leukocyte Esterase 2+ H Urine WBC (Auto) 10-30 H Urine RBC (Auto) 0-4 U Hyaline Cast (Auto) 0 U Epithel Cells (Auto) 10-20 H Urine Bacteria (Auto) 4+ H Anaplasma Smear A. phagocytophilum DNA Babesia Smear Babesia microti DNA PCR Lyme Disease IgG Ab Lyme Disease IgM Ab B.burgdorferi DNA Sourc B.miyamotoi IgM Ab B.miyamotoi IgG Ab Borrelia miyamotoi (PCR) B.miyamotoi Sero Interp E.chaffeensis DNA (PCR) Q Fever Phase I IgG Ab Q Fever Phase I IgM Ab Q Fever Phase II IgG Ab Q Fever Phase II IgM Ab Rickettsia IgG Ab Rickettsia IgM Ab Typhus Fever IgG Ab Typhus Fever IgM Ab Blood Type Blood Type Recheck Antibody Screen Crossmatch Diagnostic Findings Abdomen/Pelvis CT 12/27/22 17:43 CT SCAN OF THE ABDOMEN AND PELVIS WITH IV CONTRAST CLINICAL HISTORY: Postoperative anemia. COMPARISON STUDY: Abdominal CT dated 09/30/2022. TECHNIQUE: Following the IV administration of 92 cc of Optiray 320, CT scan of the abdomen and pelvis is performed from the lung bases to the proximal femora. Images are reviewed in the axial, sagittal, and coronal planes. IV contrast was administered without complication. A dose lowering technique was utilized adhering to the principles of ALARA. CT DOSE: 648.33 mGy.cm FINDINGS: Lung bases: The heart is mildly enlarged and without pericardial effusion. There are left larger than right pleural effusions with dependent consolidation. Intralobular septal thickening is noted at the lung bases. Bilateral breast implants are partially imaged. There is a tiny hiatal hernia. Liver: The contrast-enhanced liver is normal in size, contour, and attenuation. There is no intrahepatic biliary ductal dilatation. The hepatic veins and portal veins are patent. Gallbladder: Surgically absent noting clips in the gallbladder fossa. Spleen: Normal in size and attenuation. There are calcified splenic granulomas. Pancreas: Unremarkable. Adrenal glands: Unremarkable. Kidneys: The contrast enhanced kidneys are normal in size and without hydronephrosis. The kidneys enhance symmetrically. A 10 mm cyst is seen on the right. Abdominal vasculature: The abdominal aorta is normal in course and caliber noting advanced atherosclerotic calcification. Bowel: There is postoperative change from sigmoid colon resection and colocolonic anastomosis. No bowel obstruction is seen. There is mild diverticulosis of the remaining colon without CT evidence of acute diverticulitis. A small bowel anastomosis in the right lower quadrant. There is mild stranding around the small bowel anastomosis. The appendix is not identified and reported surgically absent. Peritoneum/retroperitoneum: No intraperitoneal free air is identified. There is trace pelvic ascites. No retroperitoneal hematoma is identified. Postsurgical change is seen in the ventral abdominal wall. Lymphadenopathy: None. Pelvic viscera: The bladder wall is thickened and hyperemic with pericystic inflammation. The uterus and adnexa are normal as visualized. Skeletal structures: The skeletal structures are osteopenic. No lytic or blastic lesions are seen. 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 IMPRESSION: 1. Cardiomegaly with evidence of congestive failure. 2. Left larger than right pleural effusions with dependent consolidation. This likely represents atelectasis. Correlate clinically. 3. Cystitis. Correlate with clinical findings and urinalysis. 4. There is postsurgical change from interval ostomy takedown. No bowel obstruction is seen. Mild stranding around the small bowel anastomosis is likely on a postsurgical basis. 5. There is no intraperitoneal or retroperitoneal hemorrhage/hematoma. 6. Additional findings as above. ACT 112: Negative or not required by law. Electronically signed by: Narinder Velasquez M.D. 12/27/2022 8:02 PM PG Care Time/CCT Total # of Minutes Spent Total Time Spent with Patient: Total time spent is greater than 50% in coordination of care (as documented) at patient's floor/unit and/or counseling patient: Coding Level of Care Code 94428 IN/OBS CONSULT LVL 3,45M Diagnoses Pulmonary embolus I26.99 Pancytopenia D61.818 Malabsorption K90.9
[2022-12-28] MEDS: FOLIC ACID 1 MG in SYRINGE 9.8 ML IV SCH (12:39)
[2022-12-28] MEDS: POTASSIUM CHLORIDE / WTR 10 MEQ/100 ML PLCT IV SCH ×2 (12:40→15:55)
[2022-12-28 18:19] LABS: Hematocrit (blood only) 24.3 % (37.0-47.0); Hemoglobin 8.5 g/dl (12.0-16.0); Mean Corpuscular Hemoglobin 32.8 pg (25.0-34.0); Mean Corpuscular Volume 93.8 fL (80.0-100.0); Mean Platelet Volume 10.1 fL (9.4-12.4); Platelet Count 53 K/uL (130-400); RDW Coefficient of Variation 24.1 % (11.5-14.5); RDW Standard Deviation 72.4 fL (36.4-46.3); Red Blood Count 2.59 M/uL (4.20-5.40); White Blood Count 3.21 K/ul (4.8-10.8)
[2022-12-28 19:02] LABS: Anisocytosis Present; Polychromasia 1+
[2022-12-28 19:03] LABS: Eosinophils # (auto) 0.06 K/uL (0-0.50); Eosinophils % (auto) 1.9 %; Lymphocytes # (auto) 2.65 K/uL (1.2-3.4); Lymphocytes % (auto) 82.6 %; Monocytes # (auto) 0.04 K/uL (0.11-0.59); Monocytes % (auto) 1.2 %; Neutrophils # (auto) 0.46 K/uL (1.40-6.50); Neutrophils % (auto) 14.3 %
[2022-12-28] MEDS: ATORVASTATIN 40 MG TAB PO SCH (20:46)
[2022-12-28] MEDS ORDERED: ONDANSETRON 4 MG OD TAB PO PRN (23:41)
--- NOTE | 2022-12-29 06:12 | Billing Data ---
Date of Service December 28, 2022 Coding Level of Care Code 78980 SUB INP/OBS CARE MIN
[2022-12-29 07:40] LABS: Hematocrit (blood only) 26.8 % (37.0-47.0); Hemoglobin 9.1 g/dl (12.0-16.0); Mean Corpuscular Hemoglobin 31.8 pg (25.0-34.0); Mean Corpuscular Volume 93.7 fL (80.0-100.0); Mean Platelet Volume 10.1 fL (9.4-12.4); Platelet Count 53 K/uL (130-400); RDW Coefficient of Variation 24.8 % (11.5-14.5); RDW Standard Deviation 77.8 fL (36.4-46.3); Red Blood Count 2.86 M/uL (4.20-5.40)
[2022-12-29 07:58] LABS: BUN Creatinine Ratio 4.8 (10-20); Calcium 7.4 mg/dl (8.6-10.3); Creatinine Clr Calc Pharmacy 69.3 ml/min; Est GFR (African American) 105.3 ml/min; Est GFR (Non-African American) 90.9 ml/min; Magnesium 2.2 mg/dl (1.7-2.4)
--- NOTE | 2022-12-29 08:00 | Hospitalist Progress Note ---
Date of Service December 29, 2022 Assessment & Plan (1) Hypokalemia: (2) Hypomagnesemia: (3) B12 deficiency: (4) Pulmonary embolus: (5) Adjustment disorder with anxiety: (6) Pancytopenia: (7) Diarrhea: (8) Asymptomatic bacteriuria: Plan 1) Pancytopenia: * s/p transfusion of 2 units of blood, repeat Hgb 9.2 * Replete B12 level, goal > 400 -- * Folic acid supplementation * Peripheral smear -- results pending Hematology consulted * Pancytopenia most likely due to malnutrition. Unlikely to be hemolytic process given low retic count and normal bilirubin. Low likelihood malignancy at this time, pending read of smear. -Continue folic acid and B12 supplementation. Iron supplementation not necessary at this time due to recent transfusion * Anticoagulation is resumed may be worthwhile to give an initial "prophylactic" dose of enoxaparin and observe for 12 to 24 hours to make sure no bleeding occurs before transitioning back to either full dose enoxaparin or apixaban. Given the somewhat volatile situation, it may be worthwhile to use full dose enoxaparin for at least 5 to 7 days. * Possible GI bleed-- continue to hold anticoag? -Pantoprazole 40mg BID #Neutropenia ANC 390 AM CBC 2) Asymptomatic bacteriuria: * UA: 4+ bacteria, 2+ leukocyte esterase, nitrite positive -Start Ceftriaxone -- precaution due to patient's neutropenia -Urine culture -- e. coli -Blood cultures no growth in 1 day 3) Hypokalemia: * K 2.2, likely d/t diarrhea - repleted, repeat K 4 today - Start KCl 40 meq PO BID - Repeat with AM labs 4) Hypomagnesemia: * Mg level 1.0 -2g IV Mg sulfate given over 2 hours in the ER, additional 4g IV was given over 2 hours - Repeat Mag 2.2 today 5) B12 deficiency: * 247 on 12/27 - Cyanocobalamin 1000 mcg IM x3 doses 6) Folate Deficiency: * 4.43 on admission -1mg folic acid daily 7) Diarrhea: * Chronic since ileostomy, most likely cause of nutritional deficiencies and pancytopenia - Continue loperamide 2mg PO BID 8) Pulmonary embolus: * Incidental finding post operatively, recommended Eliquis for 3 moths. - Hold Eliquis pending trend of hemoglobin and repeat FOB ? * Heme consulted, recommendations as above 9) Adjustment disorder with anxiety: * Patient's mood is improved today -Continue citalopram VTE Prophyalxis - hold until GI bleed extensively ruled out Diet - regular Disposition - PCU Full code Admission and Anticipated Discharge Date Admission Date: December 27, 2022 Subjective This morning Alba is feeling well. She had a CXR for wheezing, but reports no shortness of breath and no chest pain or pressure. She has no pain, and her only complaint is continued diarrhea. She had 3 bowel movements last night, all lo ose. Physical Exam Physical Exam: Constitutional: WD/WN, vitals as above (pale appearing) Eyes: PERRL, conjunctivae normal, anicteric sclerae Respiratory: normal respiratory effort, lungs clear to auscultation Cardiovascular: RRR, no murmur, no edema Gastrointestinal (Abdomen): loud bowel sounds, soft, nontender, no hepatosplenomegaly, well healed surgical scars Musculoskeletal: no cyanosis or clubbing, extremities motor strength 5/5 Skin: no rashes, warm and dry Neurologic: moves all extremities and awake; not confused Results & Data Results & Data Vital Signs (Past 12 Hours) Vital Signs Temp Pulse Pulse Resp BP BP Pulse Ox 12/29/22 07:14 36.5 C 56 L 16 121/68 95 12/29/22 03:00 36.5 C 62 18 118/71 95 12/28/22 23:09 57 L 12/28/22 23:00 36.9 C 62 18 114/69 96 12/28/22 20:41 36.7 C 66 16 116/65 95 O2 Del Method 12/29/22 07:14 Room Air 12/29/22 03:00 Room Air 12/28/22 23:09 12/28/22 23:00 Room Air 12/28/22 20:41 Room Air
[2022-12-29 08:27] LABS: Anisocytosis Present; Eosinophils # (auto) 0.06 K/uL (0-0.50); Eosinophils % (auto) 2.1 %; Lymphocytes # (auto) 2.35 K/uL (1.2-3.4); Lymphocytes % (auto) 83.9 %; Monocytes # (auto) 0.03 K/uL (0.11-0.59); Monocytes % (auto) 1.1 %; Neutrophils # (auto) 0.36 K/uL (1.40-6.50); Neutrophils % (auto) 12.9 %; Polychromasia 1+
[2022-12-29] MEDS: POTASSIUM CHLORIDE CRTAB 20 MEQ TABCR PO SCH (09:29)
[2022-12-29] MEDS: METOPROLOL TARTRATE 25 MG TAB PO SCH (09:30)
[2022-12-29] MEDS: LOPERAMIDE HCL 2 MG CAP PO SCH (09:31)
[2022-12-29] MEDS: PANTOprazole 40 MG in SYRINGE 0 ML IV SCH (09:32)
[2022-12-29] MEDS: FOLIC ACID 1 MG in SYRINGE 9.8 ML IV SCH (09:32)
[2022-12-29] MEDS: CITALOPRAM 20 MG TAB PO SCH (09:33)
[2022-12-29] MEDS: CYANOCOBALAMIN 1000 MCG/ML VIAL IM SCH (09:34)
--- NOTE | 2022-12-29 11:23 | XRay Report ---
XR chest 2V PA/lateral CLINICAL HISTORY: b/l basilar rales COMPARISON STUDY: Chest CT September 03, 2022. Chest radiograph October 11, 2022. FINDINGS: There is no pneumothorax. Small bilateral pleural effusions are noted. There is mild inters titial thickening. Mild bibasilar opacities are present. No definite consolidation to suggest pneumon ia. IMPRESSION: Interstitial pulmonary edema with small bilateral pleural effusions. ACT 112: Negative or not required by law. Electronically signed by: Duong Chen M.D. 12/29/2022 11:21 AM
--- NOTE | 2022-12-29 17:19 | Discharge Summary ---
Date of Service December 29, 2022 Admission HPI Per Admitting Provider Alba Emanuel is a 72 year old female with recent reversal of her diverting ileostomy last month who presents to the ER due to abnormal outpatient labs. She reports the operation went as planned on November 06. She had been hospitalized for high output ileostomy prior to this requiring multiple electrolyte replacement. Incidental pulmonary embolism was picked up on CT A/P on post operative CT for ileus and she has been taking Eliquis for this. She has been having intermittent diarrhea since then and is taking Imodium 2mg PO BID but much better than when she had the ileostomy. She does note a lot of diarrhea on Thursday. No nausea, vomiting, abdominal pain, melena or hematochezia. No hemoptysis, hematemesis, epistaxis. She denies any respiratory or urinary complaints. No fever or chills. Regarding her anemia she reports some dizziness on standing, no chest pain or shortness of breath. Generalized fatigue present. Admission Exam (Per Admitting) Constitutional Constitutional: WD/WN, vitals as above (pale appearing) Eyes: PERRL, conjunctivae normal, anicteric sclerae Respiratory: normal respiratory effort, lungs clear to auscultation Cardiovascular: RRR, no murmur, no edema Gastrointestinal (Abdomen): normal bowel sounds, soft, nontender, no hepatosplenomegaly (well healed surgical scars) Musculoskeletal: no cyanosis or clubbing, extremities motor strength 5/5 Skin: no rashes, warm and dry Neurologic: moves all extremities and awake; not confused Psychiatric: A+Ox3, euthymic affect Genitourinary: no CVA tenderness Discharge Data Consultations 12/27/22 17:43 ED Decision to Admit Stat 12/27/22 22:40 Consult Hematology Routine Hospital Course (1) Hypokalemia: 1)Pancytopenia: Pancytopenia in the context of recent ileostomy was most likely due to malnutrition. Unlikely that it was hemolytic process given low reticulocyte count and normal bilirubin. Given stable hemoglobin post transfusion, unlikely that it was an acute GI bleed. Per hematology, low concern for malignancy at this time. * Hgb 9.2 at discharge, s/p transfusion of 2 units of blood * Continue B12 supplementation, goal > 400 * Continue folic acid supplementation Hematology consulted * Pancytopenia most likely due to malnutrition. Unlikely to be hemolytic process given low reticulocyte count and normal bilirubin. Low likelihood malignancy at this time, pending read of smear. -Continue folic acid and B12 supplementation. Iron supplementation not necessary at this time due to recent transfusion * Resume home Eliquis 2) Positive stool occult blood test: given stable hemoglobin, unlikely to be an acute GI bleed. Given patient's recent and frequent colonoscopies, finding does not necessitate repeat colonoscopy to rule out colon cancer. Most likely due to GI epithelial irritation from frequent diarrhea. -Continue Pantoprazole 40mg BID? 3)Uncomplicated Cystitis: Patient had blood in urine/irritation with urination which resolved. UA: 4+ bacteria, 2+ leukocyte esterase, nitrite positive -Urine culture -- e. coli -Blood cultures no growth in 2 days - 2 days Ceftriaxone inpatient and discharged with 1 day 2 doses of cefdinir for a total of 3 days of treatment. - Patient counseled to contact their PCP if any recurrence of symptoms. 3)Hypokalemia: K 2.2 on admission, likely d/t diarrhea. Repleted, repeat K 4 on discharge 4)Hypomagnesemia: Mg level 1.0 on admission, likely d/t diarrhea. Repleted, Mag 2.2 on discharge 5)B12 deficiency: 247 on admission. -Continue Cyanocobalamin 1000mcg daily oral supplementation, goal >400. -Recheck level in 1 month for evidence of upward trend 6)Folate Deficiency: 4.43 on admission. -Continue supplementation 1mg folic acid daily. -Recheck level in 1 month for evidence of upward trend 7)Diarrhea: Chronic since ileostomy, most likely cause of nutritional deficiencies and pancytopenia - Continue loperamide 2mg PO BID 8)Pulmonary embolus: Incidental finding post operatively, recommended Eliquis for 3 months. - Resume Eliquis due to stable hemoglobin and low clinical suspicion for GI bleed. 9)Adjustment disorder with anxiety: -Continue citalopram DISCHARGE EXAM: Physical Exam: Constitutional: WD/WN, vitals as above (pale appearing) Eyes: PERRL, conjunctivae normal, anicteric sclerae Respiratory: normal respiratory effort, lungs clear to auscultation Cardiovascular: RRR, no murmur, no edema Gastrointestinal (Abdomen): loud bowel sounds, soft, nontender, no hepatosplenomegaly, well healed surgical scars Musculoskeletal: no cyanosis or clubbing, extremities motor strength 5/5 Skin: no rashes, warm and dry Neurologic: moves all extremities and awake; not confused (2) Hypomagnesemia: (3) B12 deficiency: (4) Pulmonary embolus: (5) Adjustment disorder with anxiety: (6) Pancytopenia: (7) Diarrhea: (8) Asymptomatic bacteriuria: Supervising Physician Co-Signing Physician Notes I personally examined the patient and verified all lal points of history and exam, discussed case, and agree with decision making with Juliet Vail MS4 and Dr Vela Feeling okay. Would like to go home. Discussed working diagnoses and plans. Vitals noted, in general she is awake and alert pleasant no distress. HEENT normocephalic atraumatic mucous membranes moist. Breathing unlabored no accessory muscle use good effort. Skin shows no rashes no pallor or icterus. Neuro without focal deficits. Pancytopenialikely malnutrition drivenlow B12 and folate as evidence of this. Replace. Now that she is able to eat regular foods again, this will hopefully be helpful as well. Finish treatment with UTI with another day of antibiotics in the form of cefdinir. Discussed short treatment to try to minimize upset of GI tract, but also to follow her symptoms if they recur. Would repeat B12 and folate in about a monthnot that I would expect him to be better by then, but as long as replacement is helping, I would expect things to be trending in the right direction. After she has been on supplementation for a while and as long as she is tolerating regular diet, if her levels normalize, then it is possible that supplementation could be stoppedprobably in 4-6 months otherwise as above
--- NOTE | 2022-12-29 19:22 | Billing Data ---
Date of Service December 29, 2022 Coding Level of Care Code 33973 IN/OBS DISCH 30 MIN/LESS
--- NOTE | 2022-12-31 05:37 | Electrocardiogram Report ---
Test Reason : Blood Pressure : / mmHG Vent. Rate : 058 BPM Atrial Rate : 058 BPM P-R Int : 188 ms QRS Dur : 070 ms QT Int : 486 ms P-R-T Axes : 024 014 029 degrees QTc Int : 477 ms Sinus bradycardia Otherwise normal ECG When compared with ECG of 27-DEC-2022 17:41, Nonspecific T wave abnormality no longer evident in Anterior leads Confirmed by Gustavo Almanzar ([id number]) on 12/31/2022 5:36:57 AM Referred By: REFERRED SELF Confirmed By:Gustavo Almanzar
--- NOTE | 2022-12-31 13:31 | Hospitalist Progress Note ---
Date of Service December 31, 2022 Assessment & Plan (1) Severe protein-calorie malnutrition: Plan: Please see previous in-hospital consult. Patient has been discharged for close follow-up with her PCP. Communicated by Ray text that she would likely significantly improve with appropriate nutrition and specific vitamin replenishment. Offered that we can see her in hematology if she does not show good improvement or if new issues arise Plan Will be followed by her PCP and we will be contingently available for incomplete response or new issues Admission and Anticipated Discharge Date Admission Date: December 27, 2022 Subjective Discharged PG Care Time/CCT Total # of Minutes Spent Total Time Spent with Patient: Total time spent is greater than 50% in coordination of care (as documented) at patient's floor/unit and/or counseling patient: Coding Level of Care Code None Diagnoses Severe protein-calorie malnutrition E43
[2022-12-31 21:17] LABS: Babesia microti DNA Not Detected (Not Detected)
[2023-01-02 08:13] LABS: Ehrlichia chaff DNA Bld Negative (Negative)
== END 2022-12-29 18:01 | disposition home or self-care (01) | DRG 808 ==
LOC: ED 15:46 → 2S 20:29 → SUATTDRO 20:29 → 2S 21:59

== ENCOUNTER 2023-01-25 16:43 | Inpatient (IN) ==
[2023-01-25] MEDS ORDERED: ONDANSETRON INJ 2 MG/ML 2 ML VIAL IV STA (17:00)
[2023-01-25] MEDS ORDERED: SODIUM CHLORIDE 0.9% 1000ML 1,000 ML IV STA (17:00)
--- NOTE | 2023-01-25 17:03 | Emergency Department Note ---
Impression & Plan Partial obstruction of small intestine, Diarrhea, Vomiting, Neutropenia ED Provider Note NAME: BRENDA HENRY AGE: 72 SEX: F : 1950 ARRIVES VIA: Walk-In INFORMANT: Patient, ED PROVIDER(S): Leonel Walters DO CHIEF COMPLAINT: Vomiting HPI: The patient is a 72-year-old female who presented to the emergency department for an evaluation of nausea vomiting. The patient has a history of ostomy reversal in October of this year. This was at [facility]. The patient started having problems with nausea vomiting and possible GI bleeding and was seen in our facility at the end of November. The patient was admitted but was found to have pancytopenia. This was secondary to malnutrition. She has been trying to increase her intake. She still has some problems with intermittent episodes of diarrhea but over the last 48 hours she has been noticing increasing nausea vomiting and diarrhea. She denies having any fever. She has had back pain. She denies having any chest pain or difficulty breathing. She states that she has been compliant with her outpatient medications. She called her family doctor today. The on-call physician referred her to the emergency department for further evaluation. ROS: See above HPI for pertinent positives & negatives. A total of 10 systems reviewed and were otherwise negative. PAST MEDICAL HISTORY: See Below PAST SURGICAL HISTORY: See Below FAMILY HISTORY: See Below SOCIAL HISTORY: See Below HOME MEDICATIONS: See Below ALLERGIES: See Below VITALS: See Below PHYSICAL EXAMINATION: GENERAL: Patient is awake alert in no acute distress patient is resting comfort ably and showing no signs of anxiety EYES: The conjunctivae are clear. The pupils are round and reactive. EARS, NOSE, MOUTH AND THROAT: The nose is without any evidence of any deformity. Mucous membranes are moist. Tongue is midline. NECK: The neck is nontender and supple. RESPIRATORY: Normal respiratory effort is noted there is no evidence of wheezing rhonchi or rales CARDIOVASCULAR: Tachycardic rate with regular rhythm was noted. There is no definite murmur. GASTROINTESTINAL: The abdomen was mildly distended. There is upper abdominal tenderness to palpation but no guarding rigidity MUSCULOSKELETAL/EXTREMITIES: There is no evidence of gross deformity full range of motion is noted in the hips and shoulders. SKIN: There is no obvious evidence of any rash. There are no petechiae, pallor or cyanosis noted. NEUROLOGIC: Patient is awake alert and oriented x3. Prescription MEDICAL DECISION MAKING: The patient is a 72-year-old female who has a history of bowel resection with recent reanastomosis who presented to the emergency department with nausea vomiting and abdominal pain. The patient also started having some diarrhea. I discussed the patient's laboratory and radiographic studies with her. She was treated with IV fluids and antiemetics. On reevaluation she was somewhat improved. The patient was found to have signs of a partial small bowel obstruction. She does have a history of pancytopenia which was felt to be secondary to malabsorption. Given her low white count at this time I am very concerned that this partial small bowel obstruction could lead to an infectious process. For this reason she was treated with IV antibiotics in emergency department. I will discuss her case with the on-call [facility] hospitalist. Triage Nursing notes reviewed. Prior medical records reviewed Vital Signs: reviewed and remarkable for elevated blood pressure. Differential diagnosis: Etiologies such as appendicitis, diverticulitis, obstruction, inflammatory bowel disease, renal colic, PUD, biliary pathology, pancreatitis, mesenteric ischemia, aortic pathology, infections, genitourinary, UTI, perforated viscus, as well as others were entertained. ER treatment provided: See below Diagnostics interpreted by me: ECG: EKG was obtained in the emergency department. My interpretation is normal sinus rhythm at 82 bpm. There is no ectopy. There is no acute ST segment abnormalities noted. This was compared to a tracing from December 29, 2022. No changes were noted. Cardiac Monitoring: An order was placed for continuous cardiac monitoring. The monitor shows a rate of 81 bpm with sinus rhythm. Laboratory studies: As stated above and show below. Imaging studies: See below. Radiographic imaging was reviewed by myself Consultation(s): I discussed this case with Dr. Marc who is on-call for the [facility] hospitalist group. 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 Tobacco abuse still currently smokes Urticaria Vitamin D deficiency Surgical History H/O abdominoplasty History of cholecystectomy History of esophagogastroduodenoscopy (EGD) History of open sigmoidectomy History of tonsillectomy Hx of appendectomy Hx of breast implants, bilateral Hx of colonoscopy Hx of exploratory laparotomy Hx of tubal ligation Previous back surgery 2016 Family History Mother Myocardial infarction Stroke Father Cancer Denies family history of Ovarian cancer Prostate cancer Breast cancer Colorectal cancer Social History Smoking Status: Never smoker Tobacco Type: Cigarettes Age Started Using Tobacco: 37; packs per day: 1; Second Hand Exposure: No; Do You Dip or Chew Tobacco: No; Hx Alcohol Use: No Hx Substance Use: No Preferred Language: Turkmen Communication Ability: Effective Visual Impairment: Limited Hearing Ability: Normal Learning Strategist Required: No Beliefs That Will Affect Care: None marital status: Current Living Situation: Family Current Living Situation Comment: living w son How many Children do You have: 2 Other Information That Helps Us Care for You: No Feels Safe at Home: Yes Safety Concerns: Feels Safe At This Time Childhood Exposure to Second-Hand Smoke: Yes Diet: regular caffeine: Yes during the past year weight has: increased > 10 lbs Dental Care, Regularly: Yes Physical Activity Frequency: Does not Exercise Seatbelt Use: always Sunscreen Use: Yes Assistive Devices: None and Walker Allergies Allergies Allergy/AdvReac Type Severity Reaction Status Date / Time No Known Allergies Allergy Verified 01/01/23 10:43 Home Meds Home Medications Medication Instructions Recorded Confirmed atorvastatin 80 mg tablet 80 mg PO HS 03/20/22 01/25/23 apixaban 5 mg tablet (Eliquis) 5 mg PO BID 11/18/22 01/25/23 loperamide 2 mg capsule 2 mg PO BID 12/27/22 01/25/23 metoprolol tartrate 25 mg tablet 12.5 mg PO Q12 12/27/22 01/25/23 pediatric [id number] 1 tab PO QDL 12/27/22 01/25/23 (Flintstones Complete (iron) chewable tablet) Previous Rx's Medication Instructions Recorded citalopram 10 mg tablet 10 mg PO DAILY #90 tabs 11/20/22 cyanocobalamin (vitamin B-12) 1,000 mcg PO DAILY #30 caps 12/29/22 1,000 mcg capsule folic acid 1 mg tablet 1,000 mcg PO DAILY #30 tabs 12/29/22 magnesium oxide 400 mg PO DAILY #30 tabs 01/02/23 pantoprazole 40 mg tablet,delayed 40 mg PO DAILY #30 tabs 01/14/23 release (Protonix) Results & Data (ED) Vital Signs Vital Signs - 24 hr 01/25/23 16:45 01/25/23 18:52 01/25/23 19:03 Temperature 36.6 C Temperature Source Temporal Artery Scan Pulse Rate 122 H Pulse Rate [Finger] 81 Respiratory Rate 16 18 Respiratory Effort / Characteristics Non-Labored Spontaneous Respiratory Depth Normal Blood Pressure 116/78 Blood Pressure [Right Arm] 143/78 H Blood Pressure Mean 90 Blood Pressure Mean [Right Arm] 99 Pulse Oximetry 100 99 98 Oxygen Delivery Method Room Air Room Air Sepsis Recent Fever Within 48 Hours No Sepsis New/Unexplained Change in Mental Status N/A Sepsis Action Taken by Nursing No Action Required 01/25/23 19:53 Temperature Temperature Source Pulse Rate 93 H Pulse Rate [Finger] Respiratory Rate Respiratory Effort / Characteristics Respiratory Depth Blood Pressure Blood Pressure [Right Arm] Blood Pressure Mean Blood Pressure Mean [Right Arm] Pulse Oximetry Oxygen Delivery Method Sepsis Recent Fever Within 48 Hours Sepsis New/Unexplained Change in Mental Status Sepsis Action Taken by [facility] Medications Current Medication List: was personally reviewed by me Laboratory Data Attestation: I reviewed the patient's lab results. 01/25/23 17:16 01/25/23 17:16 Lab Results 01/25/23 01/25/23 01/25/23 Range/Units 17:16 17:16 17:16 WBC 1.51 L (4.8-10.8) K/ul RBC 2.74 L (4.20-5.40) M/uL Hgb 9.5 L (12.0-16.0) g/dl Hct 27.6 L (37.0-47.0) % MCV 100.7 H (80.0-100.0) fL MCH 34.7 H (25.0-34.0) pg MCHC 34.4 (32.0-36.0) g/dL RDW Std Deviation 77.6 H (36.4-46.3) fL RDW Coeff of Armand 22.4 H (11.5-14.5) % Plt Count 90 L (130-400) K/uL MPV 10.0 (9.4-12.4) fL Immature Gran % (Auto) 0.0 % Neut % (Auto) 43.0 % Lymph % (Auto) 54.3 % Miller % (Auto) 1.3 % Eos % (Auto) 0.7 % Baso % (Auto) 0.7 % Neut # (Auto) 0.65 L* (1.40-6.50) K/uL Lymph # (Auto) 0.82 L (1.20-3.40) K/uL Miller # (Auto) 0.02 L (0.11-0.59) K/uL Eos # (Auto) 0.01 (0.00-0.50) K/uL Baso # (Auto) 0.01 (0.00-0.20) K/uL Immature Gran # (Auto) 0.00 L (0.01-0.20) K/uL Anisocytosis Present PT 10.6 (9.0-12.0) Seconds INR 1.0 (0.9-1.1) APTT 22.9 (21.0-31.0) Seconds PTT Ratio 0.8 Sodium 138 (136-145) mmol/L Potassium 3.6 (3.5-5.1) mmol/L Chloride 102 (98-107) mmol/L Carbon Dioxide 25 (21-32) mmol/L Anion Gap 11 (3-11) BUN 9 (6-23) mg/dl Creatinine 0.78 (0.6-1.2) mg/dl Est Cr Clr Drug Dosing 50.6 ml/min Est GFR ( Amer) 89.3 ml/min Est GFR (Non-Af Amer) 77.0 ml/min BUN/Creatinine Ratio 11.5 (10-20) Glucose 202 H (70-99(Fasting)) mg/dl Calcium 9.8 (8.6-10.3) mg/dl Magnesium 1.6 L (1.7-2.4) mg/dl Total Bilirubin 1.1 H (0.2-1.0) mg/dl AST 13 (13-39) U/L ALT 5 L (7-52) U/L Alkaline Phosphatase 88 (34-104) U/L Troponin I High Sens 2.6 (0-14) pg/ml Total Protein 7.6 (6.0-8.3) gm/dl Albumin 4.0 (3.4-5.0) gm/dl Globulin 3.6 (2.5-4.0) gm/dl Albumin/Globulin Ratio 1.1 (0.9-2) Lipase 18 (11-82) U/L Urine Color Urine Appearance (Clear) Urine pH (4.5-7.5) Ur Specific [place] (1.000-1.030) Urine Protein (Negative) Urine Glucose (UA) (Negative) Urine Ketones (Negative) Urine Blood (Negative) Urine Nitrite (Negative) Urine Bilirubin (Negative) Urine Urobilinogen (Negative) Ur Leukocyte Esterase (Negative) Urine WBC (Auto) (0-5) /hpf Urine RBC (Auto) (0-4) /hpf U Hyaline Cast (Auto) (0-5) /lpf U Epithel Cells (Auto) (0-5) /lpf Urine Bacteria (Auto) (Negative) Ur Renal Epithelial Cell Urine Yeast Stl C. cayetanensis PCR (NotDetected) Stool Rotavirus A PCR (NotDetected) Stl Adenov F 40/41 PCR (NotDetected) Stool Astrovirus (PCR) (NotDetected) Stool Campylobacter PCR (NotDetected) Stl C. diff Tox B Gene (Neg) Stool Cryptosporidium PCR (NotDetected) Stl E.coli Shiga Tox PCR (NotDetected) Stl Enterotoxigenic E PCR (NotDetected) Stool EPEC (PCR) (NotDetected) Stool EAEC (PCR) (NotDetected) Stl E. histolytica PCR (NotDetected) Stool Giardia Lamblia PCR (NotDetected) Stool Salmonella PCR (NotDetected) Stool Sapovirus (PCR) (NotDetected) Stl P. shigelloides PCR (NotDetected) Stl Shigella/EIEC PCR (NotDetected) St Y.enterocolitica PCR (NotDetected) Stool Vibrio (PCR) (NotDetected) Stl Vibrio cholerae PCR (NotDetected) Stl Norovirus GI/GII PCR (NotDetected) 01/25/23 01/25/23 01/25/23 Range/Units 18:56 18:56 18:56 WBC (4.8-10.8) K/ul RBC (4.20-5.40) M/uL Hgb (12.0-16.0) g/dl Hct (37.0-47.0) % MCV (80.0-100.0) fL MCH (25.0-34.0) pg MCHC (32.0-36.0) g/dL RDW Std Deviation (36.4-46.3) fL RDW Coeff of Armand (11.5-14.5) % Plt Count (130-400) K/uL MPV (9.4-12.4) fL Immature Gran % (Auto) % Neut % (Auto) % Lymph % (Auto) % Miller % (Auto) % Eos % (Auto) % Baso % (Auto) % Neut # (Auto) (1.40-6.50) K/uL Lymph # (Auto) (1.20-3.40) K/uL Miller # (Auto) (0.11-0.59) K/uL Eos # (Auto) (0.00-0.50) K/uL Baso # (Auto) (0.00-0.20) K/uL Immature Gran # (Auto) (0.01-0.20) K/uL Anisocytosis PT (9.0-12.0) Seconds INR (0.9-1.1) APTT (21.0-31.0) Seconds PTT Ratio Sodium (136-145) mmol/L Potassium (3.5-5.1) mmol/L Chloride (98-107) mmol/L Carbon Dioxide (21-32) mmol/L Anion Gap (3-11) BUN (6-23) mg/dl Creatinine (0.6-1.2) mg/dl Est Cr Clr Drug Dosing ml/min Est GFR ( Amer) ml/min Est GFR (Non-Af Amer) ml/min BUN/Creatinine Ratio (10-20) Glucose (70-99(Fasting)) mg/dl Calcium (8.6-10.3) mg/dl Magnesium (1.7-2.4) mg/dl Total Bilirubin (0.2-1.0) mg/dl AST (13-39) U/L ALT (7-52) U/L Alkaline Phosphatase (34-104) U/L Troponin I High Sens (0-14) pg/ml Total Protein (6.0-8.3) gm/dl Albumin (3.4-5.0) gm/dl Globulin (2.5-4.0) gm/dl Albumin/Globulin Ratio (0.9-2) Lipase (11-82) U/L Urine Color Yellow Urine Appearance Cloudy A (Clear) Urine pH >= 9.0 H (4.5-7.5) Ur Specific [place] 1.017 (1.000-1.030) Urine Protein Trace H (Negative) Urine Glucose (UA) Negative (Negative) Urine Ketones Negative (Negative) Urine Blood Negative (Negative) Urine Nitrite Negative (Negative) Urine Bilirubin Negative (Negative) Urine Urobilinogen Negative (Negative) Ur Leukocyte Esterase 1+ H (Negative) Urine WBC (Auto) 1-5 (0-5) /hpf Urine RBC (Auto) 0-4 (0-4) /hpf U Hyaline Cast (Auto) 10-30 H (0-5) /lpf U Epithel Cells (Auto) >30 H (0-5) /lpf Urine Bacteria (Auto) 1+ H (Negative) Ur Renal Epithelial Cell Not Reportable Urine Yeast Not Reportable Stl C. cayetanensis PCR Not Detected (NotDetected) Stool Rotavirus A PCR Not Detected (NotDetected) Stl Adenov F 40/41 PCR Not Detected (NotDetected) Stool Astrovirus (PCR) Not Detected (NotDetected) Stool Campylobacter PCR Not Detected (NotDetected) Stl C. diff Tox B Gene Negative Cdiff Gene (Neg) Stool Cryptosporidium PCR Not Detected (NotDetected) Stl E.coli Shiga Tox PCR Not Detected (NotDetected) Stl Enterotoxigenic E PCR Not Detected (NotDetected) Stool EPEC (PCR) Not Detected (NotDetected) Stool EAEC (PCR) Not Detected (NotDetected) Stl E. histolytica PCR Not Detected (NotDetected) Stool Giardia Lamblia PCR Not Detected (NotDetected) Stool Salmonella PCR Not Detected (NotDetected) Stool Sapovirus (PCR) Not Detected (NotDetected) Stl P. shigelloides PCR Not Detected (NotDetected) Stl Shigella/EIEC PCR Not Detected (NotDetected) St Y.enterocolitica PCR Not Detected (NotDetected) Stool Vibrio (PCR) Not Detected (NotDetected) Stl Vibrio cholerae PCR Not Detected (NotDetected) Stl Norovirus GI/GII PCR Not Detected (NotDetected) Administered Medications Acetaminophen (Acetaminophen 325 Mg Tab) 650 mg PO Q4H PRN PRN Reason: pain/fever Stop: 02/24/23 21:45 Last Admin: 01/25/23 22:48 Dose: 650 mg Documented By: ERICK Apixaban (Apixaban 5 Mg Tablet) 5 mg PO BID [facility] Stop: 02/24/23 21:59 Last Admin: 01/25/23 22:47 Dose: 5 mg Documented By: ERICK Atorvastatin Calcium (Atorvastatin 40 Mg Tab) 80 mg PO HS [facility] Stop: 02/24/23 21:59 Last Admin: 01/25/23 22:47 Dose: 80 mg Documented By: ERICK Lactated Ringer's (Lr) 1,000 mls @ 80 mls/hr IV .[id number] [facility] Stop: 01/26/23 10:29 Last Admin: 01/25/23 22:37 Dose: 80 mls/hr Documented By: ERICK Magnesium Sulfate/Dextrose (Magnesium Sulfate / D5w) 1 gm in 100 mls @ 50 mls/hr IV Q2H [facility] Stop: 01/26/23 03:59 Last Admin: 01/25/23 22:40 Dose: 50 mls/hr Documented By: ERICK Metoprolol Tartrate (Metoprolol Tartrate 25 Mg Tab) 12.5 mg PO Q12 [facility] Stop: 02/24/23 21:59 Last Admin: 01/25/23 22:45 Dose: 12.5 mg Documented By: ERICK Ondansetron HCl (Ondansetron Inj 2 Mg/Ml 2 Ml Vial) 4 mg IV Q6H PRN PRN Reason: Nausea And Vomiting Stop: 02/24/23 21:45 Last Admin: 01/25/23 22:51 Dose: 4 mg Documented By: ERICK Discontinued Medications Sodium Chloride (Nss 1000ml) 1,000 mls @ 999 mls/hr IV .Q1H1M STA Stop: 01/25/23 18:00 Last Infusion: 01/25/23 19:03 Dose: 0 mls/hr Documented By: Admin: 01/25/23 17:19 Dose: 999 mls/hr Documented By: LEOBARDO Piperacillin Sod/Tazobactam Sod (Zosyn) 4.5 gm in 120 mls @ 240 mls/hr IV NOW ONE Stop: 01/25/23 20:07 Last Infusion: 01/25/23 20:38 Dose: 0 mls/hr Documented By: Admin: 01/25/23 19:46 Dose: 240 mls/hr Documented By: CAROLYN Ioversol (Optiray 320 100ml) 91 ml IV ONCE ONE Stop: 01/25/23 18:45 Last Admin: 01/25/23 18:44 Dose: 91 ml Documented By: TOM Ondansetron HCl (Ondansetron Inj 2 Mg/Ml 2 Ml Vial) 4 mg IV NOW STA Stop: 01/25/23 17:01 Last Admin: 01/25/23 19:43 Dose: Not Given Documented By: CAROLYN Imaging Data Attestation: I personally reviewed and interpreted this imaging study as follows: My Impression: CT of the abdomen and pelvis was obtained in the emergency department. My interpretation is no free air, dilated loops of small bowel were noted, final report below. Radiologist's Impression: Abdomen/Pelvis CT 01/25/23 17:[address] WITH IV CONTRAST CT DOSE: 628.47 mGy.cm HISTORY: vomiting TECHNIQUE: Multiaxial CT images of the abdomen and pelvis were performed following the use of intravenous contrast. A dose lowering technique was utilized adhering to the principles of ALARA. COMPARISON STUDY: Abdomen and pelvis CT 12/27/2022. FINDINGS: A trace right pleural effusion has improved in the interval. Bilateral breast implants are partially visualized. Linear scarlike densities are noted at the right lower lobe. The left lung base is clear. No pneumoperitoneum. No pneumatosis. A right L5 pars defect is again noted. No acute fractures. Prior cholecystectomy. The main portal vein is patent. There are few punctate calcified granulomas within the liver and spleen. Subcentimeter peripheral hypod ense foci within the posterior segment of the right hepatic lobe remains stable. These are too small to characterize but are statistically benign. The pancreas and adrenal glands are unremarkable. No hydronephrosis. Stable right renal hypodense lesions which favor cysts. Calcified plaque within the normal caliber abdominal aorta. No retroperitoneal or pelvic lymphadenopathy. The uterus and bilateral adnexa are unremarkable. There is a small amount of pelvic fluid. Prior rectosigmoid anastomosis. A few colonic diverticula. No evidence for acute diverticulitis. Fluid-filled nondistended colon. Postoperative changes consistent with a prior small bowel anastomosis within the right lower quadrant. Fluid-filled mildly dilated loops of small bowel seen within the abdomen. These measure up to 2.7 cm in diameter. Possible transition point at the small bowel anastomosis within the right lower quadrant on image 161. Therefore, this favors a partial small bowel obstruction. A few of the dilated loops of small bowel in the deep pelvis and the distal colon may demonstrate a slightly thickened and hyperenhancing wall. Therefore, a superimposed enterocolitis is not excluded. This may account for the fluid filled loops of large and small bowel suggesting a diarrheal illness. The stomach is also mildly distended and fluid-filled. Mesenteric edema within the pelvis has progressed in the interval. IMPRESSION: 1. Fluid-filled mildly dilated loops of small bowel seen within the abdomen. These measure up to 2.7 cm in diameter. Possible transition point at the small bowel anastomosis within the right lower quadrant. Therefore, this favors a pa rtial small bowel obstruction. This has progressed in the interval. 2. A few of the dilated loops of small bowel in the deep pelvis and the distal colon may demonstrate a slightly thickened and hyperenhancing wall. Therefore, a superimposed enterocolitis is not excluded. This may account for the fluid filled loops of large and small bowel suggesting a diarrheal illness. 3. Mesenteric edema and a small amount of fluid within the pelvis has progressed in the interval. 4. Postoperative changes as described above. 5 a trace right pleural effusions improved. 6. Additional findings as described above. ACT 112: Negative or not required by law. Electronically signed by: Richard Alegria M.D. 01/25/2023 7:13 PM Discharge Plan Visit Data Chief Complaint: Vomiting Stated Complaint: BAD CRAMPS, VOMITING, CAN NOT RETAIN FLUID ED Provider: Leonel Walters Discharge Problem: Partial obstruction of small intestine, Diarrhea, Vomiting, Neutropenia Patient Disposition: Admitted As Inpatient Discharge Instructions Interventions: ED Discharge Assessment Last Done: 01/25/23 21:29 Diarrhea Qualifiers: Diarrhea type: unspecified type Qualified Code(s): R19.7 - Diarrhea, unspecified Vomiting Qualifiers: Vomiting type: unspecified Nausea presence: with nausea Qualified Code(s): R11.2 - Nausea with vomiting, unspecified Neutropenia Qualifiers: Neutropenia type: unspecified Qualified Code(s): D70.9 - Neutropenia, unspecified
[2023-01-25 17:45] LABS: Hematocrit (blood only) 27.6 % (37.0-47.0); Hemoglobin 9.5 g/dl (12.0-16.0); Mean Corpuscular Hemoglobin 34.7 pg (25.0-34.0); Mean Corpuscular Hgb Conc 34.4 g/dL (32.0-36.0); Mean Corpuscular Volume 100.7 fL (80.0-100.0); Platelet Count 90 K/uL (130-400); RDW Coefficient of Variation 22.4 % (11.5-14.5); RDW Standard Deviation 77.6 fL (36.4-46.3); Red Blood Count 2.74 M/uL (4.20-5.40); White Blood Count 1.51 K/ul (4.8-10.8)
[2023-01-25 17:56] LABS: Albumin Globulin Ratio 1.1 (0.9-2); BUN Creatinine Ratio 11.5 (10-20); Bilirubin,Total 1.1 mg/dl (0.2-1.0); Calcium 9.8 mg/dl (8.6-10.3); Creatinine Clr Calc Pharmacy 50.6 ml/min; Est GFR (African American) 89.3 ml/min; Globulin 3.6 gm/dl (2.5-4.0); Magnesium 1.6 mg/dl (1.7-2.4); Potassium 3.6 mmol/L (3.5-5.1); Total Protein 7.6 gm/dl (6.0-8.3)
[2023-01-25 17:57] LABS: Anisocytosis Present
[2023-01-25 18:01] LABS: Basophils # (auto) 0.01 K/uL (0.00-0.20); Basophils % (auto) 0.7 %; Eosinophils # (auto) 0.01 K/uL (0.00-0.50); Eosinophils % (auto) 0.7 %; Lymphocytes # (auto) 0.82 K/uL (1.20-3.40); Lymphocytes % (auto) 54.3 %; Monocytes # (auto) 0.02 K/uL (0.11-0.59); Monocytes % (auto) 1.3 %; Neutrophils # (auto) 0.65 K/uL (1.40-6.50)
[2023-01-25 18:02] LABS: Troponin I High Sensitivity 2.6 pg/ml (0-14)
[2023-01-25 18:13] LABS: Partial Thromboplastin Ratio 0.8; Partial Thromboplastin Time 22.9 Seconds (21.0-31.0); Prothrombin Time 10.6 Seconds (9.0-12.0)
[2023-01-25] MEDS ORDERED: OPTIRAY 320 100ml IV ONE (18:44)
--- NOTE | 2023-01-25 19:15 | CT Scan Report ---
ABDOMEN AND PELVIS CT WITH IV CONTRAST CT DOSE: 628.47 mGy.cm HISTORY: vomiting TECHNIQUE: Multiaxial CT images of the abdomen and pelvis were performed following the use of intrave nous contrast. A dose lowering technique was utilized adhering to the principles of ALARA. COMPARISON STUDY: Abdomen and pelvis CT 12/27/2022. FINDINGS: A trace right pleural effusion has improved in the interval. Bilateral breast implants are partially visualized. Linear scarlike densities are noted at the right lower lobe. The left lung base is clear. No pneumoperitoneum. No pneumatosis. A right L5 pars defect is again noted. No acute fract ures. Prior cholecystectomy. The main portal vein is patent. There are few punctate calcified granulo mas within the liver and spleen. Subcentimeter peripheral hypodense foci within the posterior segment of the right hepatic lobe remains stable. These are too small to characterize but are statistically benign. The pancreas and adrenal glands are unremarkable. No hydronephrosis. Stable right renal hypod ense lesions which favor cysts. Calcified plaque within the normal caliber abdominal aorta. No retrop eritoneal or pelvic lymphadenopathy. The uterus and bilateral adnexa are unremarkable. There is a sma ll amount of pelvic fluid. Prior rectosigmoid anastomosis. A few colonic diverticula. No evidence for acute diverticulitis. Fluid-filled nondistended colon. Postoperative changes consistent with a prior small bowel anastomosis within the right lower quadrant. Fluid-filled mildly dilated loops of small bowel seen within the abdomen. These measure up to 2.7 cm in diameter. Possible transition point at t he small bowel anastomosis within the right lower quadrant on image 161. Therefore, this favors a par tial small bowel obstruction. A few of the dilated loops of small bowel in the deep pelvis and the di stal colon may demonstrate a slightly thickened and hyperenhancing wall. Therefore, a superimposed en terocolitis is not excluded. This may account for the fluid filled loops of large and small bowel sug gesting a diarrheal illness. The stomach is also mildly distended and fluid-filled. Mesenteric edema within the pelvis has progressed in the interval. IMPRESSION: 1. Fluid-filled mildly dilated loops of small bowel seen within the abdomen. These measure up to 2.7 cm in diameter. Possible transition point at the small bowel anastomosis within the right lower quadr ant. Therefore, this favors a partial small bowel obstruction. This has progressed in the interval. 2. A few of the dilated loops of small bowel in the deep pelvis and the distal colon may demonstrate a slightly thickened and hyperenhancing wall. Therefore, a superimposed enterocolitis is not excluded . This may account for the fluid filled loops of large and small bowel suggesting a diarrheal illness . 3. Mesenteric edema and a small amount of fluid within the pelvis has progressed in the interval. 4. Postoperative changes as described above. 5 a trace right pleural effusions improved. 6. Additional findings as described above. ACT 112: Negative or not required by law. Electronically signed by: Richard Alegria M.D. 01/25/2023 7:13 PM
[2023-01-25 19:27] LABS: Appearance Urine Cloudy (Clear); Bacteria Urine Automated 1+ (Negative); Bilirubin Urine Negative (Negative); Blood Urine Negative (Negative); Color Urine Yellow; Epithelial Cell Urine Auto >30 /lpf (0-5); Glucose Urine UA Negative (Negative); Ketones Urine Negative (Negative); Leukocyte Esterase Urine 1+ (Negative); Nitrite Urine Negative (Negative); Specific Gravity Urine 1.017 (1.000-1.030); Urobilinogen Urine Negative (Negative); pH Urine >= 9.0 (4.5-7.5)
[2023-01-25 19:28] LABS: Protein Urine Trace (Negative)
[2023-01-25] MEDS ORDERED: PIPERACILLIN/TAZOBACTAM 4.5 GM/120 ML BAG IV ONE (19:38)
[2023-01-25 19:44] LABS: RBC Urine Automated 0-4 /hpf (0-4)
--- NOTE | 2023-01-25 20:22 | History & Physical Report ---
Date of Service January 25, 2023 Assessment & Plan (1) Partial obstruction of small intestine: Plan: 72yo female with history of diverticulitis s/p open sigmoidectomy with ileostomy placement s/p reversal in October 2022 presenting with abdominal pain, nausea, vomiting and diarrhea. CT abdomen as above concerning for partial SBO. Patient has been advancing her diet slowly as instructed by her GI providers. She did eat two ears of corn prior to symptom onset. Still with diarrhea now - no further nausea, abdominal pain or cramping at this time. No distention. -Admit to medical -Keep NPO -IVF - LR at 80mL/hr x 1L -Electrolyte repletion -Zofran as needed for nausea -Check KUB in AM -General Surgery consultation if symptoms persist or worsen - at this time her symptoms seem to be improving and her abdomen is non-tender with no additional nausea (2) Pancytopenia: Plan: Patient with pancytopenia - Hgb/Hct and Platelets seem to be stable to improving. WBC count is decreased today at 1.51 with neutropenia and lymphopenia. No fever. Abdominal exam is largely benign. CBC is being followed by outpatient team and she is being referred to Hematology for possible bone marrow biopsy. -Neutropenic precautions -Monitor closely for fever -Repeat CBC in AM -If abdominal pain worsens or patient clinically deteriorates would repeat CT Abdomen (3) Pulmonary embolus: Plan: Incidentally discovered during last hospital stay. No CP, SOB or hypoxia -Continue Apixaban 5mg po BID (4) B12 deficiency: Plan: Chronic. Patient is compliant with her daily supplementation. Last B12 level on 12/27/22 = 247 -Continue supplementation -Continue daily Folic acid 1000mcg PO -Continue Flintstones complete MVI daily (5) Hypertension: Plan: Blood pressure mildly elevated -Continue Metoprolol 12.5mg po BID -Monitor (6) GERD without esophagitis: Plan: Chronic. Stable. -Continue Protonix 40mg po daily (7) Hyperlipidemia: Plan: Chronic. Stable -Continue Atorvastatin History of Present Illness Chief Complaint: nausea, vomiting, diarrhea Primary Care Provider: EWA Escobar Adelfo is a 72yo female with nausea, vomiting, diarrhea and concern for partial SBO. She has a complicated history of prior abdominal surgeries. 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 She had a sigmoidectomy performed at [facility] on 08/06/22 with end-to-side colorectal anastomosis and diverting loop ileostomy. She was admitted to [facility] in September 2022 with high output from her ileostomy resulting in dehydration and electrolyte disturbance. She was noted to be pancytopenic at that time thought to be secondary to nutritional disorders. Patient had ileostomy reversal at [facility] on 11/06/22. She has been following with GI since her ileostomy takedown. Her diet was recently liberated at the end of November and she has been slowly reintroducing some different foods. She ate dinner last night including two ears of corn after which she had an episode of watery diarrhea. This morning she woke up and felt fairly well. She had a normal bowel movement in the morning then had breakfast consisting of tea, a cupcake, a carnation instant breakfast and her morning medications. Shortly after her breakfast she developed nausea and several episodes of non-bloody/non-bilious emesis. She had severe abdominal pain and cramping - continued to have several episodes of emesis - at least 4. Last emesis was prior to arrival to the ER. Also with ongoing diarrhea - 4-5 episodes of watery diarrhea with corn. She reports her abdominal pain has resolved. No distention. No additional complaints such as fever, chills, chest pain, cough, SOB or dysuria. In regards to her pancytopenia - patient was evaluated by Hematology during an inpatient admission on 12/28/22. Pancytopenia thought likely due to nutritional deficiencies and ongoing bowel dysfunction. She was transfused 2u PRBCs. She has been compliant with daily B12 and Folate supplements. Her CBC is being followed closely by her PCP. She last had outpatient blood work performed on 01/23/23 which revealed ongoing pancytopenia with WBC=2.79, Hgb=8, Hct=24.2 and Platelets=68. Given these most recent results, PCP will be referring patient to Hematology for continued workup and possible bone marrow biopsy. Allergies Allergy/AdvReac Type Severity Reaction Status Date / Time No Known Allergies Allergy Verified 01/01/23 10:43 Home Medications Medication Instructions Recorded Confirmed Type atorvastatin 80 mg tablet 80 mg PO HS 03/20/22 01/25/23 History apixaban 5 mg tablet (Eliquis) 5 mg PO BID 11/18/22 01/25/23 History citalopram 10 mg tablet 10 mg PO DAILY #90 tabs 11/20/22 01/25/23 Rx loperamide 2 mg capsule 2 mg PO BID 12/27/22 01/25/23 History metoprolol tartrate 25 mg tablet 12.5 mg PO Q12 12/27/22 01/25/23 History pediatric xdiqescn-jzhd-laa 1 tab PO QDL 12/27/22 01/25/23 History (Flintstones Complete (iron) chewable tablet) cyanocobalamin (vitamin B-12) 1,000 mcg PO DAILY #30 caps 12/29/22 01/25/23 Rx 1,000 mcg capsule folic acid 1 mg tablet 1,000 mcg PO DAILY #30 tabs 12/29/22 01/25/23 Rx magnesium oxide 400 mg PO DAILY #30 tabs 01/02/23 01/25/23 Rx pantoprazole 40 mg tablet,delayed 40 mg PO DAILY #30 tabs 01/14/23 01/25/23 Rx release (Protonix) Past Med/Surg History Medical History (Updated 01/25/23 @ 20:49 by Melissa Marc DO) Abnormal CT scan, sigmoid colon (06/27/22) 8 cm 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 B12 deficiency anemia Depression Diverticulitis Fibromyalgia GERD without esophagitis Hyperlipidemia Hypertension Iron deficiency anemia Osteoporosis last Dexa noted 2019 Pre-diabetes Sepsis Slow to wake up after anesthesia "a long time ago after tonsillectomy as a child", no issues since 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 Tobacco abuse still currently smokes Urticaria Vitamin D deficiency Surgical History H/O abdominoplasty History of cholecystectomy History of esophagogastroduodenoscopy (EGD) History of open sigmoidectomy History of tonsillectomy Hx of appendectomy Hx of breast implants, bilateral Hx of colonoscopy Hx of exploratory laparotomy Hx of tubal ligation Previous back surgery 2016 Family History Mother Myocardial infarction Stroke Father Cancer Denies family history of Ovarian cancer Prostate cancer Breast cancer Colorectal cancer Social History Smoking Status: Never smoker Tobacco Type: Cigarettes Age Started Using Tobacco: 37; packs per day: 1; Cigarettes Per Day: 20; Second Hand Exposure: No; Do You Dip or Chew Tobacco: No; Hx Alcohol Use: No Hx Substance Use: No Preferred Language: Cypriot Communication Ability: Effective Visual Impairment: Limited Hearing Ability: Normal Stitchdown Toe Former Required: No Beliefs That Will Affect Care: None marital status: Current Living Situation: Family Current Living Situation Comment: living w son How many Children do You have: 2 Feels Safe at Home: Yes Childhood Exposure to Second-Hand Smoke: Yes Diet: regular caffeine: Yes during the past year weight has: increased > 10 lbs Dental Care, Regularly: Yes Physical Activity Frequency: Does not Exercise Seatbelt Use: always Sunscreen Use: Yes Assistive Devices: Walker Review of Systems Review of Systems: All systems reviewed & are unremarkable except as noted in HPI & below Physical Exam Physical Exam: General: patient resting comfortably, NAD, non-toxic in appearance, AA&O x 4 Skin: warm, dry, intact, no rashes or lesions HEENT: NC/AT, PERRL, EOMI, anicteric sclera, conjunctiva without injection, external ear normal to inspection and nontender, nares patent, moist mucus membranes, dentition intact, no oropharyngeal lesions, neck supple, trachea midline, no LAD, no thyromegaly, no JVD Heart: +S1/S2, regular, no m/r/g Lungs: equal air entry bilaterally, no rales/rhonchi/wheezes Abd: +BS mildly hyperactive, soft, NT/ND, no masses/organomegaly/ascites Ext: warm, 2+ pulses in UE/LE bilaterally, no clubbing/cyanosis or edema Neuro: nonfocal, patient AA&O x 4, speech intact, no facial droop, moving all extremities on command with equal strength 5/5 Results & Data Results & Data Vital Signs (Past 12 Hours) Vital Signs Temp Pulse Pulse Resp BP BP Pulse Ox 01/25/23 19:53 93 H 01/25/23 19:03 98 01/25/23 18:52 81 18 143/78 H 99 01/25/23 16:45 36.6 C 122 H 16 116/78 100 O2 Del Method 01/25/23 19:53 01/25/23 19:03 Room Air 01/25/23 18:52 Room Air 01/25/23 16:45 Laboratory Results Laboratory Results WBC 1.51 K/ul (4.8-10.8) L 01/25/23 17:16 RBC 2.74 M/uL (4.20-5.40) L 01/25/23 17:16 Hgb 9.5 g/dl (12.0-16.0) L 01/25/23 17:16 Hct 27.6 % (37.0-47.0) L 01/25/23 17:16 MCV 100.7 fL (80.0-100.0) H 01/25/23 17:16 MCH 34.7 pg (25.0-34.0) H 01/25/23 17:16 MCHC 34.4 g/dL (32.0-36.0) 01/25/23 17:16 RDW Std Deviation 77.6 fL (36.4-46.3) H 01/25/23 17:16 RDW Coeff of Armand 22.4 % (11.5-14.5) H 01/25/23 17:16 Plt Count 90 K/uL (130-400) L 01/25/23 17:16 MPV 10.0 fL (9.4-12.4) 01/25/23 17:16 Immature Gran % (Auto) 0.0 % 01/25/23 17:16 Neut % (Auto) 43.0 % 01/25/23 17:16 Lymph % (Auto) 54.3 % 01/25/23 17:16 [place] % (Auto) 1.3 % 01/25/23 17:16 Eos % (Auto) 0.7 % 01/25/23 17:16 Baso % (Auto) 0.7 % 01/25/23 17:16 Neut # (Auto) 0.65 K/uL (1.40-6.50) L* 01/25/23 17:16 Lymph # (Auto) 0.82 K/uL (1.20-3.40) L 01/25/23 17:16 [place] # (Auto) 0.02 K/uL (0.11-0.59) L 01/25/23 17:16 Eos # (Auto) 0.01 K/uL (0.00-0.50) 01/25/23 17:16 Baso # (Auto) 0.01 K/uL (0.00-0.20) 01/25/23 17:16 Immature Gran # (Auto) 0.00 K/uL (0.01-0.20) L 01/25/23 17:16 Anisocytosis Present 01/25/23 17:16 PT 10.6 Seconds (9.0-12.0) 01/25/23 17:16 INR 1.0 (0.9-1.1) 01/25/23 17:16 APTT 22.9 Seconds (21.0-31.0) 01/25/23 17:16 PTT Ratio 0.8 01/25/23 17:16 Sodium 138 mmol/L (136-145) 01/25/23 17:16 Potassium 3.6 mmol/L (3.5-5.1) 01/25/23 17:16 Chloride 102 mmol/L (98-107) 01/25/23 17:16 Carbon Dioxide 25 mmol/L (21-32) 01/25/23 17:16 Anion Gap 11 (3-11) 01/25/23 17:16 BUN 9 mg/dl (6-23) 01/25/23 17:16 Creatinine 0.78 mg/dl (0.6-1.2) 01/25/23 17:16 Est Cr Clr Drug Dosing 50.6 ml/min 01/25/23 17:16 Est GFR ( Amer) 89.3 ml/min 01/25/23 17:16 Est GFR (Non-Af Amer) 77.0 ml/min 01/25/23 17:16 BUN/Creatinine Ratio 11.5 (10-20) 01/25/23 17:16 Glucose 202 mg/dl (70-99(Fasting)) H 01/25/23 17:16 Calcium 9.8 mg/dl (8.6-10.3) 01/25/23 17:16 Magnesium 1.6 mg/dl (1.7-2.4) L 01/25/23 17:16 Total Bilirubin 1.1 mg/dl (0.2-1.0) H 01/25/23 17:16 AST 13 U/L (13-39) 01/25/23 17:16 ALT 5 U/L (7-52) L 01/25/23 17:16 Alkaline Phosphatase 88 U/L (34-104) 01/25/23 17:16 Troponin I High Sens 2.6 pg/ml (0-14) 01/25/23 17:16 Total Protein 7.6 gm/dl (6.0-8.3) 01/25/23 17:16 Albumin 4.0 gm/dl (3.4-5.0) 01/25/23 17:16 Globulin 3.6 gm/dl (2.5-4.0) 01/25/23 17:16 Albumin/Globulin Ratio 1.1 (0.9-2) 01/25/23 17:16 Lipase 18 U/L (11-82) 01/25/23 17:16 Urine Color Yellow 01/25/23 18:56 Urine Appearance Cloudy (Clear) A 01/25/23 18:56 Urine pH >= 9.0 (4.5-7.5) H 01/25/23 18:56 Ur Specific [place] 1.017 (1.000-1.030) 01/25/23 18:56 Urine Protein Trace (Negative) H 01/25/23 18:56 Urine Glucose (UA) Negative (Negative) 01/25/23 18:56 Urine Ketones Negative (Negative) 01/25/23 18:56 Urine Blood Negative (Negative) 01/25/23 18:56 Urine Nitrite Negative (Negative) 01/25/23 18:56 Urine Bilirubin Negative (Negative) 01/25/23 18:56 Urine Urobilinogen Negative (Negative) 01/25/23 18:56 Ur Leukocyte Esterase 1+ (Negative) H 01/25/23 18:56 Urine WBC (Auto) 1-5 /hpf (0-5) 01/25/23 18:56 Urine RBC (Auto) 0-4 /hpf (0-4) 01/25/23 18:56 U Hyaline Cast (Auto) 10-30 /lpf (0-5) H 01/25/23 18:56 U Epithel Cells (Auto) >30 /lpf (0-5) H 01/25/23 18:56 Urine Bacteria (Auto) 1+ (Negative) H 01/25/23 18:56 Ur Renal Epithelial Cell Not Reportable 01/25/23 18:56 Urine Yeast Not Reportable 01/25/23 18:56 Stl C. cayetanensis PCR Not Detected (NotDetected) 01/25/23 18:56 Stool Rotavirus A PCR Not Detected (NotDetected) 01/25/23 18:56 Stl Adenov F 40/41 PCR Not Detected (NotDetected) 01/25/23 18:56 Stool Astrovirus (PCR) Not Detected (NotDetected) 01/25/23 18:56 Stool Campylobacter PCR Not Detected (NotDetected) 01/25/23 18:56 Stl C. diff Tox B Gene Negative Cdiff Gene (Neg) 01/25/23 18:56 Stool Cryptosporidium PCR Not Detected (NotDetected) 01/25/23 18:56 Stl E.coli Shiga Tox PCR Not Detected (NotDetected) 01/25/23 18:56 Stl Enterotoxigenic E PCR Not Detected (NotDetected) 01/25/23 18:56 Stool EPEC (PCR) Not Detected (NotDetected) 01/25/23 18:56 Stool EAEC (PCR) Not Detected (NotDetected) 01/25/23 18:56 Stl E. histolytica PCR Not Detected (NotDetected) 01/25/23 18:56 Stool Giardia Lamblia PCR Not Detected (NotDetected) 01/25/23 18:56 Stool Salmonella PCR Not Detected (NotDetected) 01/25/23 18:56 Stool Sapovirus (PCR) Not Detected (NotDetected) 01/25/23 18:56 Stl P. shigelloides PCR Not Detected (NotDetected) 01/25/23 18:56 Stl Shigella/EIEC PCR Not Detected (NotDetected) 01/25/23 18:56 St Y.enterocolitica PCR Not Detected (NotDetected) 01/25/23 18:56 Stool Vibrio (PCR) Not Detected (NotDetected) 01/25/23 18:56 Stl Vibrio cholerae PCR Not Detected (NotDetected) 01/25/23 18:56 Stl Norovirus GI/GII PCR Not Detected (NotDetected) 01/25/23 18:56 Impressions Abdomen/Pelvis CT 01/25/23 17:[address] WITH IV CONTRAST CT DOSE: 628.47 mGy.cm HISTORY: vomiting TECHNIQUE: Multiaxial CT images of the abdomen and pelvis were performed fol lowing the use of intravenous contrast. A dose lowering technique was utilized adhering to the principles of ALARA. COMPARISON STUDY: Abdomen and pelvis CT 12/27/2022. FINDINGS: A trace right pleural effusion has improved in the interval. Bilateral breast implants are partially visualized. Linear scarlike densities are noted at the right lower lobe. The left lung base is clear. No pneumoperitoneum. No pneumatosis. A right L5 pars defect is again noted. No acute fractures. Prior cholecystectomy. The main portal vein is patent. There are few punctate calcified granulomas within the liver and spleen. Subcentimeter peripheral hypodense foci within the posterior segment of the right hepatic lobe remains stable. These are too small to characterize but are statistically benign. The pancreas and adrenal glands are unremarkable. No hydronephrosis. Stable right renal hypodense lesions which favor cysts. Calcified plaque within the normal caliber abdominal aorta. No retroperitoneal or pelvic lymphadenopathy. The uterus and bilateral adnexa are unremarkable. There is a small amount of pelvic fluid. Prior rectosigmoid anastomosis. A few colonic diverticula. No evidence for acute diverticulitis. Fluid-filled nondistended colon. Postoperative changes consistent with a prior small bowel anastomosis within the right lower quadrant. Fluid-filled mildly dilated loops of small bowel seen within the abdomen. These measure up to 2.7 cm in diameter. Possible transition point at the small bowel anastomosis within the right lower quadrant on image 161. Therefore, this favors a partial small bowel obstruction. A few of the dilated loops of small bowel in the deep pelvis and the distal colon may demonstrate a slightly thickened and hyperenhancing wall. Therefore, a superimposed enterocolitis is not excluded. This may account for the fluid filled loops of large and small bowel suggesting a diarrheal illness. The stomach is also mildly distended and fluid-filled. Mesenteric edema within the pelvis has progressed in the interval. IMPRESSION: 1. Fluid-filled mildly dilated loops of small bowel seen within the abdomen. These measure up to 2.7 cm in diameter. Possible transition point at the small bowel anastomosis within the right lower quadrant. Therefore, this favors a partial small bowel obstruction. This has progressed in the interval. 2. A few of the dilated loops of small bowel in the deep pelvis and the distal colon may demonstrate a slightly thickened and hyperenhancing wall. Therefore, a superimposed enterocolitis is not excluded. This may account for the fluid filled loops of large and small bowel suggesting a diarrheal illness. 3. Mesenteric edema and a small amount of fluid within the pelvis has progressed in the interval. 4. Postoperative changes as described above. 5 a trace right pleural effusions improved. 6. Additional findings as described above. ACT 112: Negative or not required by law. Electronically signed by: Richard Alegria M.D. 01/25/2023 7:13 PM Code Status & VTE Plan VTE Prophylaxis Plan VTE Prophylaxis will be ordered: Yes PG Care Time/CCT Total # of Minutes Spent Total Time Spent with Patient: Total time spent is greater than 50% in coordination of care (as documented) at patient's floor/unit and/or counseling patient: Coding Level of Care Code 27533 INT INP/OBS CARE 3/75MIN Diagnoses Partial obstruction of small intestine K56.600 Pancytopenia D61.818 Pulmonary embolus I26.99 B12 deficiency E53.8 Hypertension I10 GERD without esophagitis K21.9 Hyperlipidemia E78.5 Hyperlipidemia type: unspecified (7) Hyperlipidemia Hyperlipidemia type: unspecified Qualified Code(s): E78.5 - Hyperlipidemia, unspecified
[2023-01-25 20:43] LABS: Adenovirus F 40/41 PCR Not Detected (NotDetected); Astrovirus PCR Not Detected (NotDetected); Campylobacter PCR Not Detected (NotDetected); Cryptosporidium PCR Not Detected (NotDetected); Cyclospora cayetanensis PCR Not Detected (NotDetected); Entamoeba histolytica PCR Not Detected (NotDetected); Enteroaggregative E.coli(EAEC) Not Detected (NotDetected); Enteropathogenic E.coli (EPEC) Not Detected (NotDetected); Enterotoxigenic E.coli (ETEC) Not Detected (NotDetected); Giardia lamblia PCR Not Detected (NotDetected); Norovirus GI/GII PCR Not Detected (NotDetected); Plesiomonas shigelloides PCR Not Detected (NotDetected); Rotavirus A PCR Not Detected (NotDetected); Salmonella PCR Not Detected (NotDetected); Sapovirus PCR Not Detected (NotDetected); Shiga-like Toxin E.coli (STEC) Not Detected (NotDetected); Shigella/Enteroinvasive E.coli Not Detected (NotDetected); Vibrio cholerae PCR Not Detected (NotDetected); Vibrio species PCR Not Detected (NotDetected); Yersinia enterocolitica PCR Not Detected (NotDetected)
[2023-01-25] MEDS ORDERED: ONDANSETRON INJ 2 MG/ML 2 ML VIAL IV PRN (21:46)
[2023-01-25] MEDS ORDERED: LACTATED RINGER'S 1,000 ML IV SCH (22:00)
[2023-01-25] MEDS: MAGNESIUM SULFATE / D5W 1 GM/100 ML BAG IV SCH (22:40)
[2023-01-25] MEDS: METOPROLOL TARTRATE 25 MG TAB PO SCH (22:45)
[2023-01-25] MEDS: APIXABAN 5 MG TABLET PO SCH (22:47)
[2023-01-25] MEDS: ATORVASTATIN 40 MG TAB PO SCH (22:47)
[2023-01-25] MEDS: ACETAMINOPHEN 325 MG TAB PO PRN (22:48)
[2023-01-26] MEDS: MAGNESIUM SULFATE / D5W 1 GM/100 ML BAG IV SCH ×2 (00:46→02:49)
[2023-01-26 07:14] LABS: Hematocrit (blood only) 21.4 % (37.0-47.0); Hemoglobin 7.2 g/dl (12.0-16.0); Mean Corpuscular Hemoglobin 34.3 pg (25.0-34.0); Mean Corpuscular Hgb Conc 33.6 g/dL (32.0-36.0); Mean Corpuscular Volume 101.9 fL (80.0-100.0); Platelet Count 62 K/uL (130-400); White Blood Count 2.51 K/ul (4.8-10.8)
[2023-01-26 07:33] LABS: Eosinophils # (auto) 0.03 K/uL (0.00-0.50); Eosinophils % (auto) 1.2 %; Immature Granulocytes # (auto) 0.01 K/uL (0.01-0.20); Immature Granulocytes % (auto) 0.4 %; Lymphocytes % (auto) 83.7 %; Monocytes # (auto) 0.04 K/uL (0.11-0.59); Monocytes % (auto) 1.6 %; Neutrophils # (auto) 0.33 K/uL (1.40-6.50); Neutrophils % (auto) 13.1 %; Polychromasia 1+; Tear Drop Cells 1+
--- NOTE | 2023-01-26 07:37 | XRay Report ---
KUB CLINICAL HISTORY: assess SBO COMPARISON STUDY: CT of the abdomen and pelvis January 25, 2023 6:43 PM. FINDINGS: Incidental note is made of contrast within the collecting systems, ureters and bladder from recent contrast-enhanced CT. Several loops of dilated small bowel measure up to 3.8 cm in caliber. S imilar findings were shown on prior CT. Although sensitivity is diminished on this supine exam, there is no evidence for free air. IMPRESSION: No significant change in small bowel dilatation which suggests a persistent small bowel obstruction. ACT 112: Negative or not required by law. Electronically signed by: Duong Chen M.D. 01/26/2023 7:36 AM
[2023-01-26 07:42] LABS: Albumin Level 3.1 gm/dl (3.4-5.0); BUN Creatinine Ratio 9.1 (10-20); Bilirubin Direct 0.1 mg/dl (0-0.2); Bilirubin,Total 0.8 mg/dl (0.2-1.0); Calcium 8.6 mg/dl (8.6-10.3); Creatinine Clr Calc Pharmacy 51.3 ml/min; Est GFR (African American) 90.7 ml/min; Est GFR (Non-African American) 78.2 ml/min; Potassium 3.6 mmol/L (3.5-5.1); Total Protein 5.7 gm/dl (6.0-8.3)
[2023-01-26] MEDS: APIXABAN 5 MG TABLET PO SCH ×2 (09:01→20:07)
[2023-01-26] MEDS: CITALOPRAM 20 MG TAB PO SCH (09:02)
[2023-01-26] MEDS: CYANOCOBALAMIN (B-12) 500 MCG TABLET PO SCH (09:02)
[2023-01-26] MEDS: PANTOprazole 40 MG TAB PO SCH (09:02)
[2023-01-26] MEDS: FOLIC ACID 1 MG TAB PO SCH (09:02)
[2023-01-26] MEDS: METOPROLOL TARTRATE 25 MG TAB PO SCH ×2 (09:02→20:07)
--- NOTE | 2023-01-26 10:04 | XRay Report ---
KUB CLINICAL HISTORY: Small bowel obstruction. FINDINGS: 2 AP, portable, supine abdominal radiographs are compared to abdominal radiographs and CT d ated 01/25/2023. Cholecystectomy clips are seen in the right upper quadrant and suture material projec ts over the right mid abdomen. There is continued gaseous distention of small bowel loops in the uppe r abdomen suggesting persistent partial small bowel obstruction. Gas is noted throughout the colon. P hleboliths are seen in the pelvis. The lung bases are clear as visualized. The skeletal structures ar e osteopenic and appear intact. IMPRESSION: Findings suggest persistent partial small bowel obstruction. Correlate clinically. Electronically signed by: Narinder Velasquez M.D. 01/26/2023 10:03 AM
[2023-01-26] MEDS: ACETAMINOPHEN 325 MG TAB PO PRN (10:06)
[2023-01-26] MEDS: MULTIVITAMIN CHEWABLE TAB PO SCH (11:53)
--- NOTE | 2023-01-26 12:33 | Hospitalist Progress Note ---
Date of Service January 26, 2023 Assessment & Plan (1) Partial obstruction of small intestine: Plan: 72yo female with history of diverticulitis s/p open sigmoidectomy with ileostomy placement s/p reversal in October 2022 presenting with abdominal pain, nausea, vomiting and diarrhea. CT abdomen/pelvis concerning for partial SBO. Patient has been advancing her diet slowly as instructed by her GI providers prior to admission since ostomy reversal. She did eat two ears of corn prior to symptom onset. Likely from adhesions Improving now with bowel rest. No NGT placed. Nausea and pain resolved. Passing flatus and loose nonbloody stools KUB 01/26 still residual PSBO but clinically much improved -dc IVFs -adv diet to clears -Electrolyte repletion-was given 3 grams IV magnesium overnight -Zofran as needed for nausea -Check KUB again in AM -General Surgery consultation if symptoms persist or worsen - at this time her symptoms seem to be improving and her abdomen is non-tender with no additional nausea (2) Pancytopenia: Plan: Patient with pancytopenia and neutropenia, No fever. Hgb dropped today to 7.2 but no bleeding-suspect hemodilution from IVFs Plts also dropped to 62 from 90-again, felt hemodilutional from baseline CBC is being followed by outpatient team and she is being referred to Hematology for possible bone marrow biopsy. -Neutropenic precautions -Monitor closely for fever -Repeat CBC in AM -no need for transfusion today (3) Pulmonary embolus: Plan: Incidentally discovered during last hospital stay. No CP, SOB or hypoxia -Continue Apixaban 5mg po BID (4) B12 deficiency: Plan: Chronic. Patient is compliant with her daily supplementation. Last B12 level on 12/27/22 = 247 -Continue supplementation -Continue daily Folic acid 1000mcg PO -Continue Flintstones complete MVI daily (5) Hypertension: Plan: Blood pressure controlled -Continue Metoprolol 12.5mg po BID -Monitor (6) GERD without esophagitis: Plan: Chronic. Stable. -Continue Protonix 40mg po daily (7) Hyperlipidemia: Plan: Chronic. Stable -Continue Atorvastatin Plan Dispo-continued stay on med/surg, likely dc to home tomorrow if tolerating advancement of diet Admission and Anticipated Discharge Date Admission Date: January 25, 2023 Subjective Feelin gmuch better, no further abd pains, no nausea. Is having some loose stools, passing flatus. Feels ready to have liquids Denies other concerns. No bleeding from stool or vomit yesterday Physical Exam Constitutional: WD/WN, vitals as above Neck: trachea midline, no thyromegaly Respiratory: normal respiratory effort, lungs clear to auscultation Cardiovascular: RRR, no murmur, no edema Chest (Breasts): Chest: normal inspection of chest Gastrointestinal (Abdomen): Inspection/Auscultation: normal bowel sounds; abdomen not distended Percussion/Palpation: + abdomen tender (mild in left mid abdomen,no guarding or rebound) and abdomen soft Musculoskeletal: Extremities: extremities normal to inspection; no cyanosis and no clubbing Skin: no rashes, warm and dry Neurologic: moves all extremities and awake; no focal motor deficits Psychiatric: A+Ox3, euthymic affect Lymphatic: no lymphedema Results & Data Results & Data Vital Signs (Past 12 Hours) Vital Signs Temp Pulse Resp BP Pulse Ox O2 Del Method 01/26/23 09:01 103/65 01/26/23 07:13 36.7 C 81 16 97/55 L 98 Room Air Laboratory Results CBC,CMP, magnesium reviewed PG Care Time/CCT Total # of Minutes Spent Total Time Spent with Patient: Total time spent is greater than 50% in coordination of care (as documented) at patient's floor/unit and/or counseling patient: Coding Level of Care Code 93525 SUB INP/OBS CARE 2/35MIN Diagnoses Partial obstruction of small intestine K56.600 Pancytopenia D61.818 Pulmonary embolus I26.99 B12 deficiency E53.8 Hypertension I10 GERD without esophagitis K21.9 Hyperlipidemia E78.5 Hyperlipidemia type: unspecified (7) Hyperlipidemia Hyperlipidemia type: unspecified Qualified Code(s): E78.5 - Hyperlipidemia, unspecified
[2023-01-26] MEDS: ATORVASTATIN 40 MG TAB PO SCH (20:07)
--- NOTE | 2023-01-26 21:48 | Electrocardiogram Report ---
Test Reason : Blood Pressure : / mmHG Vent. Rate : 082 BPM Atrial Rate : 082 BPM P-R Int : 166 ms QRS Dur : 070 ms QT Int : 396 ms P-R-T Axes : 045 015 050 degrees QTc Int : 462 ms Normal sinus rhythm Low voltage QRS Borderline ECG When compared with ECG of 29-DEC-2022 06:06, No significant change was found Confirmed by Gustavo Almanzar ([id number]) on 01/26/2023 9:48:00 PM Referred By: REFERRED SELF Confirmed By:Gustavo Almanzar
[2023-01-27] MEDS: ACETAMINOPHEN 325 MG TAB PO PRN (07:46)
[2023-01-27] MEDS: METOPROLOL TARTRATE 25 MG TAB PO SCH (07:48)
[2023-01-27] MEDS: CYANOCOBALAMIN (B-12) 500 MCG TABLET PO SCH (07:48)
[2023-01-27] MEDS: CITALOPRAM 20 MG TAB PO SCH (07:48)
[2023-01-27] MEDS: APIXABAN 5 MG TABLET PO SCH (07:48)
[2023-01-27 07:49] LABS: BUN Creatinine Ratio 6.8 (10-20); Calcium 8.5 mg/dl (8.6-10.3); Creatinine Clr Calc Pharmacy 54.1 ml/min; Est GFR (African American) 96.7 ml/min; Est GFR (Non-African American) 83.4 ml/min; Potassium 3.7 mmol/L (3.5-5.1)
[2023-01-27] MEDS: FOLIC ACID 1 MG TAB PO SCH (07:49)
[2023-01-27] MEDS: PANTOprazole 40 MG TAB PO SCH (07:49)
[2023-01-27 07:57] LABS: Hematocrit (blood only) 20.5 % (37.0-47.0); Hemoglobin 6.9 g/dl (12.0-16.0); Mean Corpuscular Hemoglobin 34.8 pg (25.0-34.0); Mean Corpuscular Hgb Conc 33.7 g/dL (32.0-36.0); Mean Corpuscular Volume 103.5 fL (80.0-100.0); Mean Platelet Volume 9.5 fL (9.4-12.4); Platelet Count 60 K/uL (130-400); RDW Standard Deviation 78.3 fL (36.4-46.3); Red Blood Count 1.98 M/uL (4.20-5.40); White Blood Count 1.82 K/ul (4.8-10.8)
[2023-01-27 07:58] LABS: Eosinophils # (auto) 0.02 K/uL (0.00-0.50); Eosinophils % (auto) 1.1 %; Lymphocytes # (auto) 1.45 K/uL (1.20-3.40); Lymphocytes % (auto) 79.7 %; Monocytes # (auto) 0.03 K/uL (0.11-0.59); Monocytes % (auto) 1.6 %; Neutrophils # (auto) 0.32 K/uL (1.40-6.50); Neutrophils % (auto) 17.6 %; Polychromasia 1+; Tear Drop Cells 1+
[2023-01-27] MEDS ORDERED: SODIUM CHLORIDE 0.9% 250 ML IV PRN (08:07)
[2023-01-27 08:08] LABS: Ferritin 339.1 ng/ml (8-388)
[2023-01-27 08:41] LABS: Folate (Folic Acid),Ser orPlas > 22.30 ng/ml (>5.38)
[2023-01-27 08:42] LABS: Vitamin B12 400 pg/ml (180-914)
--- NOTE | 2023-01-27 09:49 | XRay Report ---
KUB CLINICAL HISTORY: f/u partial SBO COMPARISON STUDY: CT of the abdomen and pelvis January 25, 2023. KUB January 26, 2023. FINDINGS: A few loops of mildly dilated small bowel are noted. Small bowel dilatation has slightly de creased since prior CT and KUB. Cholecystectomy clips are noted. Right abdominal bowel anastomosis is present. No evidence for free air on this supine exam. IMPRESSION: A few loops of mildly dilated small bowel, decreased since prior exam. The findings sugg est a persistent but improving partial small bowel obstruction. ACT 112: Negative or not required by law. Electronically signed by: Duong Chen M.D. 01/27/2023 9:48 AM
[2023-01-27] MEDS: MULTIVITAMIN CHEWABLE TAB PO SCH (12:09)
--- NOTE | 2023-01-27 18:20 | Discharge Summary ---
Discharge Summary Date of Service January 27, 2023 Notes For Next Care Provider Needs Hematology follow up Medication Changes From Visit made Imodium prn rather than scheduled Admission HPI Per Admitting Provider Denies Adelfo is a 72yo female with nausea, vomiting, diarrhea and concern for partial SBO. She has a complicated history of prior abdominal surgeries. 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 She had a sigmoidectomy performed at [facility] on 08/06/22 with end-to-side colorectal anastomosis and diverting loop ileostomy. She was admitted to [facility] in September 2022 with high output from her ileostomy resulting in dehydration and electrolyte disturbance. She was noted to be pancytopenic at that time thought to be secondary to nutritional disorders. Patient had ileostomy reversal at [facility] on 11/06/22. She has been following with GI since her ileostomy takedown. Her diet was recently liberated at the end of November and she has been slowly reintroducing some different foods. She ate dinner last night including two ears of corn after which she had an episode of watery diarrhea. This morning she woke up and felt fairly well. She had a normal bowel movement in the morning then had breakfast consisting of tea, a cupcake, a carnation instant breakfast and her morning medications. Shortly after her breakfast she developed nausea and several episodes of non-bloody/non-bilious emesis. She had severe abdominal pain and cramping - continued to have several episodes of emesis - at least 4. Last emesis was prior to arrival to the ER. Also with ongoing diarrhea - 4-5 episodes of watery diarrhea with corn. She reports her abdominal pain has resolved. No distentio n. No additional complaints such as fever, chills, chest pain, cough, SOB or dysuria. In regards to her pancytopenia - patient was evaluated by Hematology during an inpatient admission on 12/28/22. Pancytopenia thought likely due to nutritional deficiencies and ongoing bowel dysfunction. She was transfused 2u PRBCs. She has been compliant with daily B12 and Folate supplements. Her CBC is being followed closely by her PCP. She last had outpatient blood work performed on 01/23/23 which revealed ongoing pancytopenia with WBC=2.79, Hgb=8, Hct=24.2 and Platelets=68. Given these most recent results, PCP will be referring patient to Hematology for continued workup and possible bone marrow biopsy. Principal Dx & Hospital Course #1 = Principal Diagnosis (1) Partial obstruction of small intestine: 72yo female with history of diverticulitis s/p open sigmoidectomy with ileostomy placement s/p reversal in October 2022 presenting with abdominal pain, nausea, vomiting and diarrhea. CT abdomen/pelvis concerning for partial SBO. Patient has been advancing her diet slowly as instructed by her GI providers prior to admission since ostomy reversal. She did eat two ears of corn prior to symptom onset. Likely from adhesions Improving now with bowel rest, IVF hydration, and electrolyte repletion. No NGT placed. Nausea and pain resolved. Passing flatus and loose nonbloody stools KUB 01/26 still residual PSBO but clinically much improved 01/27, she is tolerating low fiber diet, minimal pain, ambulating halls -advised to minimize Imodium use at home continue low fiber diet at home x 2 weeks (2) Pancytopenia: Patient with pancytopenia and neutropenia, No fever. Hgb dropped here to 6.9 but no bleeding-suspect hemodilution from IVFs on preexisting anemia Plts also dropped to 62 from 90-again, felt hemodilutional from baseline CBC is being followed by outpatient team and she is being referred to Hematology for possible bone marrow biopsy. Transfused 1 unit PRBCs on day of discharge and she felt improved Checked B12, folate, and Fe studies and all are replete Follow up with Heme as planned within 2 weeks and repeat CBC then (3) Pulmonary embolus: Incidentally discovered during last hospital stay. No CP, SOB or hypoxia -Continue Apixaban 5mg po BID (4) B12 deficiency: Chronic. Patient is compliant with her daily supplementation. Last B12 level on 12/27/22 = 247 -Continue supplementation -Continue daily Folic acid 1000mcg PO -Continue Flintstones complete MVI daily checked B12 level here and is good at 400 (5) Hypertension: Blood pressure controlled -Continue Metoprolol 12.5mg po BID -Monitor (6) GERD without esophagitis: Chronic. Stable. -Continue Protonix 40mg po daily (7) Hyperlipidemia: Chronic. Stable -Continue Atorvastatin Plan Dispo-dc to home Discharge Exam Constitutional WD/WN, vitals as above Neck trachea midline, no thyromegaly Respiratory normal respiratory effort, lungs clear to auscultation Cardiovascular RRR, no murmur, no edema Chest (Breasts) Chest: normal inspection of chest Gastrointestinal (Abdomen) Inspection/Auscultation: normal bowel sounds; abdomen not distended Percussion/Palpation: abdomen soft; abdomen nontender and no guarding Musculoskeletal Extremities: extremities normal to inspection; no cyanosis and no clubbing Skin no rashes, warm and dry Neurologic moves all extremities and awake; no focal motor deficits Psychiatric A+Ox3, euthymic affect Lymphatic no lymphedema Updated Medication List Medication Instructions Recorded Confirmed Type atorvastatin 80 mg tablet 80 mg PO HS 03/20/22 01/25/23 History apixaban 5 mg tablet (Eliquis) 5 mg PO BID 11/18/22 01/25/23 History citalopram 10 mg tablet 10 mg PO DAILY #90 tabs 11/20/22 01/25/23 Rx loperamide 2 mg capsule 2 mg PO BID 12/27/22 01/25/23 History metoprolol tartrate 25 mg tablet 12.5 mg PO Q12 12/27/22 01/25/23 History pediatric [id number] 1 tab PO QDL 12/27/22 01/25/23 History (Flintstones Complete (iron) chewable tablet) cyanocobalamin (vitamin B-12) 1,000 mcg PO DAILY #30 caps 12/29/22 01/25/23 Rx 1,000 mcg capsule folic acid 1 mg tablet 1,000 mcg PO DAILY #30 tabs 12/29/22 01/25/23 Rx magnesium oxide 400 mg PO DAILY #30 tabs 01/02/23 01/25/23 Rx pantoprazole 40 mg tablet,delayed 40 mg PO DAILY #30 tabs 01/14/23 01/25/23 Rx release (Protonix) Hospital Stay Data Consultations 01/25/23 19:50 ED Decision to Admit Stat Diagnostic Imagining Performed 01/25/23 17:00 CT abd pelvis IV con only Stat Pending Results Patient Have Any Pending Studies at Discharge: No Discharge Instructions Given to Patient (Per Discharging Provider) Please continue to eat a low fiber diet for at least 2 weeks. You were given a blood transfusion for your severe anemia. Please follow up with the Patient Portal Concierge as discussed. Try not to use the Imodium too frequently as this can cause your bowels to not function and lead to future obstructions. Total Time Total Time Spent Total Time Spent (In Minutes): 40 min Coding Level of Care Code 46637 INP/OBS DISCH >30 MIN Diagnoses Partial obstruction of small intestine K56.600 Pancytopenia D61.818 Pulmonary embolus I26.99 B12 deficiency E53.8 Hypertension I10 GERD without esophagitis K21.9 Hyperlipidemia E78.5 Hyperlipidemia type: unspecified
== END 2023-01-27 19:40 | disposition home or self-care (01) | DRG 389 ==
LOC: ED 16:43 → SUATTDRO 20:22 → 3N 20:22
DX: F32.A Depression, unspecified; K21.9 Gastro-esophageal reflux disease without esophagitis; E78.5 Hyperlipidemia, unspecified; Z79.899 Other long term (current) drug therapy; Z79.01 Long term (current) use of anticoagulants; E53.8 Deficiency of other specified B group vitamins; D61.818 Other pancytopenia; Z86.711 Personal history of pulmonary embolism; K56.51 Intestinal adhesions [bands], with partial obstruction; D50.9 Iron deficiency anemia, unspecified; I10 Essential (primary) hypertension

== ENCOUNTER 2023-11-11 12:36 | Inpatient (IN) ==
[2023-11-11 13:49] LABS: Hematocrit (blood only) 28.2 % (37.0-47.0); Hemoglobin 10.1 g/dl (12.0-16.0); Mean Corpuscular Hemoglobin 30.4 pg (25.0-34.0); Mean Corpuscular Hgb Conc 35.8 g/dL (32.0-36.0); Mean Corpuscular Volume 84.9 fL (80.0-100.0); Mean Platelet Volume 10.6 fL (9.4-12.4); Platelet Count 23 K/uL (130-400); RDW Coefficient of Variation 16.7 % (11.5-14.5); Red Blood Count 3.32 M/uL (4.20-5.40); White Blood Count 1.66 K/ul (4.8-10.8)
--- NOTE | 2023-11-11 13:57 | Emergency Department Note ---
Impression & Plan Positive blood culture, Thrombocytopenia, Neutropenia, AML (acute myeloid leukemia) ED Provider Note NAME: BRENDA HENRY AGE: 73 SEX: F : 1950 ARRIVES VIA: Walk-In INFORMANT: Patient ED PROVIDER(S): Peter Medina MD CHIEF COMPLAINT: Positive blood culture referred. PLAN: Disposition: Admit MEDICAL DECISION MAKING: The patient is a pleasant 73-year-old woman with a past medical history of AML with ongoing neutropenia and thrombocytopenia who presents to the emergency department via walk-in referred by her oncology office at the [facility] for results of a positive blood culture from blood work obtained on Thursday which is growing in the aerobic bottle of the set drawn from her port. Otherwise no additional growth in the remaining 3 bottles to date. The patient did receive a transfusion of PRBCs and platelets on Thursday and her counts have showed some improvement. She denies any fevers but reports she has felt "cold" and this has been more prominent over the past week. Patient did have a biopsy done at [facility] [place] [place] on 11/04 from her right posterior iliac crest which she reports has caused no discomfort and she has had no skin changes at the site. She denies any cough congestion. She denies any chest pain, shortness of breath. She denies nausea or vomiting. She reports her stools remain their current baseline which vary from soft to loose. She denies urinary symptoms including burning urination dysuria or frequency. Of note, the patient did arrive to emergency department during time of high volume, acuity and prolonged emergency department waiting times. Critical pathways initiated from triage. On evaluation, the patient is in no distress, afebrile with stable vital signs. She appears clinically dry. Patient's right upper chest wall port site is clean dry and intact without tenderness. Patient's bone marrow biopsy site of her right posterior iliac crest is unremarkable without erythema, discoloration, induration or tenderness. EKG without overt acute ischemia. CXR negative for acute cardiopulmonary process per my personal preliminary review/interpretation. WBC 1.6 with ANC of 0.6. H/H 10.1/20.2 increased from 12/20 days ago. Platelets are 23 K increased from 13 K. Chemistry without metabolic acidosis. Potassium 3.3. LFTs unremarkable. UA without convincing evidence of infection. Covid-19 PCR negative. Influenza and RSV PCR negative. Case was discussed with the patient's oncologist, Dr. Agarwal. Appreciate consultation recommendations. Agrees with plan for admission for empiric IV antibiotics while awaiting new set of blood cultures drawn today for antibiotics. Empiric IV cefepime and vancomycin ordered. Case was discussed with SCOT Garcia PAC, with SCOT Galindo hospitalist who will evaluate the patient for admission. Triage Nursing notes reviewed and agree them. Prior/external medical records reviewed Vital Signs: reviewed Differential diagnosis: Infection, dehydration, metabolic abnormality, hypo/hyperglycemia, electrolyte disturbance, anemia, hypoxia, cardiac sources, intracerebral event, toxicologic, neurologic, as well as other pathologies. ER treatment provided: See below. Diagnostics interpreted by me: ECG: Normal sinus rhythm, 65 bpm, no ectopy, no overt ST elevation or depression, QTc 430, QRS 78. Cardiac Monitoring: An order for continuous cardiac monitoring was placed and demonstrated Normal sinus rhythm, 65 bpm, no ectopy. Laboratory studies: See below Imaging studies: See below Consultation(s): Dr. Agarwal, Hematology-oncology. SCOT Garcia PAC, with SCOT Galindo hospitalist HPI: The patient is a pleasant 73-year-old woman with a past medical history of AML with ongoing neutropenia and thrombocytopenia who presents to the emergency department via walk-in referred by her oncology office at the [facility] for results of a positive blood culture from blood work obtained on Thursday which is growing in the aerobic bottle of the set drawn from her port. Otherwise no additional growth in the remaining 3 bottles to date. The patient did receive a transfusion of PRBCs and platelets on Thursday and her counts have showed some improvement. She denies any fevers but reports she has felt "cold" and this has been more prominent over the past week. Patient did have a biopsy done at [facility] [place] [place] on 11/04 from her right posterior iliac crest which she reports has caused no discomfort and she has had no skin changes at the site. She denies any cough congestion. She denies any chest pain, shortness of breath. She denies nausea or vomiting. She reports her stools remain their current baseline which vary from soft to loose. She denies urinary symptoms including burning urination dysuria or frequency. ROS: See above HPI for pertinent positives & negatives. A total of 10 systems reviewed and were otherwise negative. VITALS:See Below PHYSICAL EXAMINATION: GENERAL: Awake, alert, in no distress HENT: Normocephalic, atraumatic. Oropharynx with dry mucous membranes and otherwise unremarkable. EYES: Normal conjunctiva. Sclera non-icteric. NECK: Supple. No nuchal rigidity. FROM. No JVD. RESPIRATORY: Clear to auscultation. CARDIAC: Regular rate, normal rhythm. Extremities warm and well perfused. Pulses equal. ABDOMEN: Soft, non-distended. No tenderness to palpation. No rebound or guarding. No masses. MUSCULOSKELETAL: Chest examination reveals no tenderness. Right upper chest wall port site is clean dry and intact without tenderness. Patient's bone marrow biopsy site of her right posterior iliac crest is unremarkable without erythema, discoloration, induration or tenderness. The back is symmetrical on inspection without obvious abnormality. There is no CVA tenderness to palpation. No joint edema. LOWER EXTREMITIES: Calves are equal size bilaterally and non-tender. No edema. No discoloration. NEURO: Normal sensorium. No sensory or motor deficits noted. SKIN: No rash or jaundice noted. ED COURSE: Critical Care: I have personally spent greater than 35 minutes of critical care time in the direct management of this patient. This includes bedside care, interpretation of diagnostic studies, and testing, discussion with consultants, patient, and family members, and other required patient management activities. This 35 minutes is in excess of all separately billable procedures. Peter Medina MD Past Med/Surg History Problem List (Updated 11/11/23 @ 19:16 by Peter Medina MD) AML (acute myeloid leukemia) (Acute) Positive blood culture (Acute) Hypokalemia Positive blood cultures Encounter for pre-operative examination Neutropenia (Acute) Partial obstruction of small intestine (Acute) Folate deficiency Hypocalcemia Pulmonary embolus B12 deficiency Hypomagnesemia Thrombocytopenia (Acute) Severe anemia (Acute) Status post reversal of ileostomy Adjustment disorder with anxiety Pancytopenia Hyponatremia Diverticulitis (Acute) Abnormal CT scan, sigmoid colon (06/27/22) 8 cm 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 Vaginal laceration Cervical polyp Postcoital bleeding Influenza A (~07/30/21) hx Capsular contracture of breast implant, initial encounter Pre-diabetes diet controlled per pt, no meds Pulmonary nodule Iron deficiency anemia Vitamin D deficiency Hypertension History of open sigmoidectomy Osteoporosis last Dexa noted 2018 GERD without esophagitis 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, (per pt, was not able to get all of it so follow up is pending for treatment plan) Tobacco abuse quit August 2022 per pt Depression Fibromyalgia Hyperlipidemia Medical History 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 Moderate severity dynamic LV outflow tract obstruction Severe anemia blood transfusions at [facility] Mar 2023 Pulmonary embolism dx October 2022 > s/p surgery > Eliquis DC'ed Mar 20, 2023 Severe protein-calorie malnutrition Urticaria Sepsis pt unaware Diverticulitis no issues at present Slow to wake up after anesthesia "a long time ago after tonsillectomy as a child", no issues since Surgical History H/O ileostomy with reversal Hx of exploratory laparotomy Hx of tubal ligation Hx of appendectomy History of esophagogastroduodenoscopy (EGD) Hx of colonoscopy History of tonsillectomy History of cholecystectomy H/O abdominoplasty Hx of breast implants, bilateral Previous back surgery thoracic tumor, attempted removal but incomplete, follow up pending Family History Mother Myocardial infarction Stroke Father Cancer Denies family history of Ovarian cancer Prostate cancer Breast cancer Colorectal cancer Social History Smoking Status: Current every day smoker Tobacco Type: Cigarettes Age Started Using Tobacco: 37; packs per day: 1; Second Hand Exposure: Yes (son smokes); Do You Dip or Chew Tobacco: No; Hx Alcohol Use: No Hx Substance Use: No Preferred Language: Zambian Communication Ability: Effective Visual Impairment: Limited Hearing Ability: Normal Talent Development Manager Required: No Beliefs That Will Affect Care: None marital status: Current Living Situation: Family Current Living Situation Comment: living w son How many Children do You have: 2 Feels Safe at Home: Yes Childhood Exposure to Second-Hand Smoke: Yes Diet: regular caffeine: Yes during the past year weight has: increased > 10 lbs Dental Care, Regularly: Yes Physical Activity Frequency: Does not Exercise Seatbelt Use: always Sunscreen Use: Yes Assistive Devices: Glasses Allergies Allergies Allergy/AdvReac Type Severity Reaction Status Date / Time No Known Allergies Allergy Verified 11/11/23 17:12 Home Meds Home Medications Medication Instructions Recorded Confirmed acyclovir 200 mg capsule 400 mg PO BID 11/11/23 11/11/23 citalopram 20 mg tablet 20 mg PO DAILY 11/11/23 11/11/23 letermovir 480 mg tablet (Prevymis) 480 mg PO DAILY 11/11/23 11/11/23 levofloxacin 500 mg tablet 500 mg PO DAILY 11/11/23 11/11/23 oxycodone 5 mg tablet 5 mg PO HS PRN Sleep 11/11/23 11/11/23 posaconazole 100 mg tablet,delayed 300 mg PO DAILY 11/11/23 11/11/23 release potassium chloride 20 mEq See Rx Instructions .Route .COMPLEX 11/11/23 11/11/23 tablet,extended release Results & Data (ED) Vital Signs Vital Signs - 24 hr 11/11/23 12:41 11/11/23 14:00 11/11/23 14:06 Temperature 36.7 C Temperature Source Temporal Artery Scan Pulse Rate 71 66 Pulse Rate [Left Apical] 71 Respiratory Rate 20 19 Respiratory Effort / Characteristics Non-Labored Spontaneous Respiratory Depth Normal Respiratory Pattern Regular Blood Pressure 151/71 H Blood Pressure [Right Arm] 139/70 Blood Pressure Mean 97 Blood Pressure Mean [Right Arm] 93 Pulse Oximetry 98 Oxygen Delivery Method Sepsis Recent Fever Within 48 Hours No Sepsis New/Unexplained Change in Mental Status N/A Sepsis Action Taken by Nursing No Action Required 11/11/23 14:39 11/11/23 15:09 Temperature Temperature Source Pulse Rate 64 65 Pulse Rate [Left Apical] Respiratory Rate 21 22 Respiratory Effort / Characteristics Respiratory Depth Respiratory Pattern Blood Pressure 156/71 H 152/75 H Blood Pressure [Right Arm] Blood Pressure Mean 99 100 Blood Pressure Mean [Right Arm] Pulse Oximetry 100 Oxygen Delivery Method Room Air Sepsis Recent Fever Within 48 Hours Sepsis New/Unexplained Change in Mental Status Sepsis Action Taken by Nursing Laboratory Data Attestation: I reviewed the patient's lab results. 11/11/23 13:32 11/11/23 13:32 Lab Results 11/11/23 11/11/23 11/11/23 Range/Units 13:32 14:10 15:28 WBC 1.66 L (4.8-10.8) K/ul RBC 3.32 L (4.20-5.40) M/uL Hgb 10.1 L (12.0-16.0) g/dl Hct 28.2 L (37.0-47.0) % MCV 84.9 D (80.0-100.0) fL MCH 30.4 (25.0-34.0) pg MCHC 35.8 (32.0-36.0) g/dL RDW Std Deviation 45.0 (36.4-46.3) fL RDW Coeff of Armand 16.7 H (11.5-14.5) % Plt Count 23 L* (130-400) K/uL MPV 10.6 (9.4-12.4) fL Immature Gran % (Auto) 7.2 % Neut % (Auto) 36.2 % Lymph % (Auto) 34.3 % [place] % (Auto) 22.3 % Eos % (Auto) 0.0 % Baso % (Auto) 0.0 % Neut # (Auto) 0.60 L* (1.40-6.50) K/uL Lymph # (Auto) 0.57 L (1.20-3.40) K/uL [place] # (Auto) 0.37 (0.11-0.59) K/uL Eos # (Auto) 0.00 (0.00-0.50) K/uL Baso # (Auto) 0.00 (0.00-0.20) K/uL Immature Gran # (Auto) 0.12 (0.01-0.20) K/uL Absolute Nucleated RBC 0.00 (0.00-0.12) K/uL Nucleated RBC % (auto) 0.0 % Toxic Granulation 1+ Dohle Bodies 1+ Platelet Estimate Signific. Decreased L (Normal) Polychromasia 1+ Sodium 138 (136-145) mmol/L Potassium 3.3 L (3.5-5.1) mmol/L Chloride 106 (98-107) mmol/L Carbon Dioxide 24 (21-32) mmol/L Anion Gap 8 (3-11) BUN 7 (6-23) mg/dl Creatinine 0.68 (0.6-1.2) mg/dl Est Cr Clr Drug Dosing 57.3 ml/min Est GFR ( Amer) 102.0 ml/min Est GFR (Non-Af Amer) 88.0 ml/min BUN/Creatinine Ratio 10.3 (10-20) Glucose 126 H (70-99(Fasting)) mg/dl Lactate 1.9 (0.4-2.0) mmol/L Calcium 8.6 (8.6-10.3) mg/dl Phosphorus 3.6 (2.5-4.9) mg/dl Magnesium 1.8 (1.7-2.4) mg/dl Total Bilirubin 0.7 (0.2-1.0) mg/dl AST 13 (13-39) U/L ALT 10 (7-52) U/L Alkaline Phosphatase 88 (34-104) U/L Total Protein 6.0 (6.0-8.3) gm/dl Albumin 3.6 (3.4-5.0) gm/dl Globulin 2.4 L (2.5-4.0) gm/dl Albumin/Globulin Ratio 1.5 (0.9-2) Urine Color Yellow Urine Appearance Clear (Clear) Urine pH 6.0 (4.5-7.5) Ur Specific [place] 1.006 (1.000-1.030) Urine Protein Negative (Negative) Urine Glucose (UA) Negative (Negative) Urine Ketones Negative (Negative) Urine Blood Negative (Negative) Urine Nitrite Negative (Negative) Urine Bilirubin Negative (Negative) Urine Urobilinogen Negative (Negative) Ur Leukocyte Esterase Negative (Negative) SARS-CoV-2 (PCR) NEGATIVE (Negative) Influenza Type A (PCR) Negative (Neg) Influenza Type B (PCR) Negative (Neg) RSV (RT-PCR) Negative (Neg) Administered Medications Magnesium Sulfate/Dextrose (Magnesium Sulfate / D5w) 1 gm in 100 mls @ 50 mls/hr IV Q2H MARYLU Stop: 11/11/23 19:59 Last Admin: 11/11/23 17:13 Dose: 50 mls/hr Documented By: ES Discontinued Medications Sodium Chloride (Nss) 1,000 mls @ 999 mls/hr IV .Q1H1M ONE Stop: 11/11/23 15:01 Last Infusion: 11/11/23 15:23 Dose: Infused Documented By: [facility] Admin: 11/11/23 14:10 Dose: 999 mls/hr Documented By: [facility] Cefepime HCl (Maxipime) 2,000 mg in 20 mls @ 5 mls/min IV NOW STA; Protocol Stop: 11/11/23 15:02 Last Admin: 11/11/23 15:44 Dose: 5 mls/min Documented By: ANUJ Vancomycin HCl 1,250 mg/ (Sodium Chloride) 525 mls @ 200 mls/hr IV NOW ONE Stop: 11/11/23 17:36 Last Admin: 11/11/23 15:49 Dose: 200 mls/hr Documented By: ANUJ Potassium Chloride (Potassium Chloride Crtab 20 Meq Tabcr) 40 meq PO NOW STA Stop: 11/11/23 15:51 Last Admin: 11/11/23 16:51 Dose: 40 meq Documented By: ANUJ Imaging Data Radiologist's Impression: Chest X-Ray 11/11/23 13:59 XR chest 1V portable CLINICAL HISTORY: neutropenic fever TECHNIQUE: Single frontal radiograph of the chest was obtained. Comparison: Comparison is made to chest radiograph 11/09/2023 FINDINGS: Lines and tubes are stable. Calcified aortic knob is seen. The lungs are clear. No evidence of pleural effusion or pneumothorax. IMPRESSION: No acute abnormalities and in particular no radiographic evidence of pneumonia. ACT 112: Negative or not required by law. Electronically signed by: Pavan Moeller M.D. 11/11/2023 2:26 PM Discharge Plan Visit Data Chief Complaint: Referred by Doctor Stated Complaint: BLOOD INFECTION, SENT BY CANCER CARE ED Provider: Peter Medina Discharge Problem: Positive blood culture, Thrombocytopenia, Neutropenia, AML (acute myeloid leukemia) Discharge Problem: Neutropenia Qualifiers: Neutropenia type: unspecified Qualified Code(s): D70.9 - Neutropenia, unspecified AML (acute myeloid leukemia) Qualifiers: Leukemia Active/Remission status: without remission Qualified Code(s): C92.00 - Acute myeloblastic leukemia, not having achieved remission
[2023-11-11 14:05] LABS: Albumin Globulin Ratio 1.5 (0.9-2); Albumin Level 3.6 gm/dl (3.4-5.0); BUN Creatinine Ratio 10.3 (10-20); Bilirubin,Total 0.7 mg/dl (0.2-1.0); Calcium 8.6 mg/dl (8.6-10.3); Creatinine Clr Calc Pharmacy 57.3 ml/min; Globulin 2.4 gm/dl (2.5-4.0); Potassium 3.3 mmol/L (3.5-5.1)
[2023-11-11] MEDS: SODIUM CHLORIDE 0.9% 1,000 ML IV ONE (14:10)
[2023-11-11 14:19] LABS: Influenza A virus by PCR Negative (Neg); Influenza B virus by PCR Negative (Neg); RSV by PCR Negative (Neg); SARS CoV2 RNA(COVID-19) Ceph NEGATIVE (Negative)
--- NOTE | 2023-11-11 14:28 | XRay Report ---
XR chest 1V portable CLINICAL HISTORY: neutropenic fever TECHNIQUE: Single frontal radiograph of the chest was obtained. Comparison: Comparison is made to chest radiograph 11/09/2023 FINDINGS: Lines and tubes are stable. Calcified aortic knob is seen. The lungs are clear. No evidence of pleura l effusion or pneumothorax. IMPRESSION: No acute abnormalities and in particular no radiographic evidence of pneumonia. ACT 112: Negative or not required by law. Electronically signed by: Pavan Moeller M.D. 11/11/2023 2:26 PM
[2023-11-11 14:39] LABS: Magnesium 1.8 mg/dl (1.7-2.4); Phosphorus 3.6 mg/dl (2.5-4.9)
[2023-11-11] MEDS ORDERED: VANCOMYCIN CONSULT ACTIVE PRN (14:59)
[2023-11-11 15:06] LABS: Dohle Bodies 1+; Platelet Estimate Signific. Decreased (Normal); Polychromasia 1+; Toxic Granulation 1+
[2023-11-11 15:10] LABS: Immature Granulocytes # (auto) 0.12 K/uL (0.01-0.20); Immature Granulocytes % (auto) 7.2 %; Lymphocytes # (auto) 0.57 K/uL (1.20-3.40); Lymphocytes % (auto) 34.3 %; Monocytes # (auto) 0.37 K/uL (0.11-0.59); Monocytes % (auto) 22.3 %; Neutrophils % (auto) 36.2 %
--- NOTE | 2023-11-11 15:30 | History & Physical Report ---
Date of Service November 11, 2023 Assessment & Plan (1) Positive blood cultures: Plan: Admit to med/telemetry Currently stable and nontoxic-appearing Was advised to come to the ED today after 1 set of aerobic bottle blood cultures noted a preliminary result of gram-positive bacilli Patient denies recent infectious symptoms Due to her immunocompromise state we will admit her for empiric antibiotics until repeat blood cultures obtained in the ED today have resulted Continue neutropenic precautions started in the ED Chest x-ray, UA, and COVID-19/influenza/RSV swab were negative for infection Denies recent GI symptoms, no signs of skin infection Will be receiving a dose of cefepime and vancomycin shortly, will continue with process for now Will consult oncology to follow while admitted as she is tentatively scheduled for stem cell transplant at [facility] on 11/18/2023 Bilateral LOPEZ stockings for DVT prophylaxis Heart healthy diet AM CBC, CMP, mag, PT/INR (2) Neutropenia: Plan: Patient has been neutropenic since 10/19/23, thought to be due to chemotherapy treatment in her AML No recent fevers Continue neutropenic precautions Rest of care per positive blood cultures plan (3) Hypokalemia: Plan: Potassium noted to be 3.3 today, mag noted to be 1.8 Likely due to chronic diarrhea and decreased p.o. intake with ongoing chemotherapy for AML No acute EKG changes Will order 40 mEq p.o. KCl and 2 bags of 1 g IV mag sulfate on admission Continue monitor on telemetry and monitor a.m. renal function and electrolytes (4) AML (acute myeloblastic leukemia): Plan: Chemotherapy is currently on hold as she is scheduled for stem cell transplant on 11/18/2023 at [facility] Oncology consult has been placed at the time of admission Continue to follow-up with heme/onc on discharge Plan The patient was discussed with Dr. Kim The admission History of Present Illness Chief Complaint: Positive blood cultures Primary Care Provider: EWA Escobar Alba is a 73-year-old female with a past medical history significant for AML with recent hospitalization at [facility] for symptomatic anemia/pancytopenia due to chemotherapy (On Azacitidine/Venetoclax)/recurrent ma lignancy, hypertension, dyslipidemia, tobacco use, previous PE, recurrent diverticulosis status post ileostomy with reversal who presented to the [facility] emergency department on 11/11/2023 after [facility]2023 were preliminarily positive for gram positive bacilli. She reportedly received 2 units of packed red blood cells and 1 unit of platelets on 11/10/2023.The patient remained stable while in the ED. Labs were significant for ongoing pancytopenia with white blood cell count of 1.66, stable hemoglobin of 10, platelets of 23 neutropenia of 0.60, potassium of 3.3, COVID-19/influenza/RSV negative. Prior to admission the patient was given 1 L normal saline, a dose cefepime, and a dose of vancomycin. Patient was sitting in bed in no acute distress at the time of exam. States that her chemotherapy is currently being held as she is scheduled for cell transplants at [facility] on 11/18/2023. Confirms that she did have the 2 units packed red blood cells and 1 unit of platelets on 11/10/2023. Has been experiencing chills since yesterday, which blood blood cultures were obtained. Denies recent fevers, chest pains, shortness of breath, cough, Mediport pain/erythema abdominal pain, nausea/vomiting, dysuria, hematuria, lower extremity swelling, recent skin infection/wounds, and recent trauma. S tates that she has had baseline diarrhea since her ileostomy was reversed and denies recent changes in bowel habits. She is a full code and would want her son to make medical decisions for her if she cannot make them herself. Please refer to Dr. Kim's attestation for any changes to the treatment plan Allergies Allergy/AdvReac Type Severity Reaction Status Date / Time No Known Allergies Allergy Verified 11/11/23 17:12 Home Medications Medication Instructions Recorded Confirmed Type acyclovir 200 mg capsule 400 mg PO BID 11/11/23 11/11/23 History citalopram 20 mg tablet 20 mg PO DAILY 11/11/23 11/11/23 History letermovir 480 mg tablet (Prevymis) 480 mg PO DAILY 11/11/23 11/11/23 History levofloxacin 500 mg tablet 500 mg PO DAILY 11/11/23 11/11/23 History oxycodone 5 mg tablet 5 mg PO HS PRN Sleep 11/11/23 11/11/23 History posaconazole 100 mg tablet,delayed 300 mg PO DAILY 11/11/23 11/11/23 History release potassium chloride 20 mEq See Rx Instructions .Route .COMPLEX 11/11/23 11/11/23 History tablet,extended release Past Med/Surg History Problem List (Updated 11/11/23 @ 19:16 by Peter Medina MD) AML (acute myeloid leukemia) (Acute) Positive blood culture (Acute) Hypokalemia Positive blood cultures Encounter for pre-operative examination Neutropenia (Acute) Partial obstruction of small intestine (Acute) Folate deficiency Hypocalcemia Pulmonary embolus B12 deficiency Hypomagnesemia Thrombocytopenia (Acute) Severe anemia (Acute) Status post reversal of ileostomy Adjustment disorder with anxiety Pancytopenia Hyponatremia Diverticulitis (Acute) Abnormal CT scan, sigmoid colon (06/27/22) 8 cm 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 Vaginal laceration Cervical polyp Postcoital bleeding Influenza A (~07/30/21) hx Capsular contracture of breast implant, initial encounter Pre-diabetes diet controlled per pt, no meds Pulmonary nodule Iron deficiency anemia Vitamin D deficiency Hypertension History of open sigmoidectomy Osteoporosis last Dexa noted 2018 GERD without esophagitis 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, (per pt, was not able to get all of it so follow up is pending for treatment plan) Tobacco abuse quit August 2022 per pt Depression Fibromyalgia Hyperlipidemia Medical History 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 Moderate severity dynamic LV outflow tract obstruction Severe anemia blood transfusions at [place] [facility] Mar 2023 Pulmonary embolism dx October 2022 > s/p surgery > Elijeremiah MARINA'ed Mar 20, 2023 Severe protein-calorie malnutrition Urticaria Sepsis pt unaware Diverticulitis no issues at present Slow to wake up after anesthesia "a long time ago after tonsillectomy as a child", no issues since Surgical History H/O ileostomy with reversal Hx of exploratory laparotomy Hx of tubal ligation Hx of appendectomy History of esophagogastroduodenoscopy (EGD) Hx of colonoscopy History of tonsillectomy History of cholecystectomy H/O abdominoplasty Hx of breast implants, bilateral Previous back surgery thoracic tumor, attempted removal but incomplete, follow up pending Family History Mother Myocardial infarction Stroke Father Cancer Denies family history of Ovarian cancer Prostate cancer Breast cancer Colorectal cancer Social History Smoking Status: Former smoker Tobacco Type: Cigarettes Age Started Using Tobacco: 37; packs per day: 1; Second Hand Exposure: No; Do You Dip or Chew Tobacco: No; Hx Alcohol Use: No Hx Substance Use: No Preferred Language: Montserratian Communication Ability: Effective Visual Impairment: Limited Hearing Ability: Normal Rehab Department Manager Required: No Beliefs That Will Affect Care: None marital status: Current Living Situation: Family Current Living Situation Comment: lives with son Bandar How many Children do You have: 2 Other Information That Helps Us Care for You: No Feels Safe at Home: Yes Safety Concerns: Feels Safe At This Time Childhood Exposure to Second-Hand Smoke: Yes Diet: regular caffeine: Yes during the past year weight has: increased > 10 lbs Dental Care, Regularly: Yes Physical Activity Frequency: Does not Exercise Seatbelt Use: always Sunscreen Use: Yes Assistive Devices: Glasses and Hospital Bed Physical Exam Physical Exam: Physical Exam: General: In no acute distress, stated age, chronically ill-appearing but non- toxic HEENT: Normocephalic, atraumatic, no scleral icterus, pupils around round, symmetrical, and reactive to light, moist mucus membranes, trachea midline, no thyromegaly Chest/Pulm: Mediport located in the right upper chest is without signs of infection, No respiratory distress, symmetrical chest expansion, clear breath sounds throughout Cardiac: RRR, no murmurs noted Abdomen: Negative for ascites and bruising, normoactive bowel sounds, soft, non-tender to palpation throughout Musculoskeletal: Symmetrical and without signs of acute trauma, upper and lower extremities with full ROM, no atrophy, spasticity, or flaccidity Extremities: Radial, dorsalis pedis, and posterior tibial pulses are intact and symmetrical, no edema noted in the BL LE's Skin: Warm, dry, no rashes , lesions, or scars noted Neuro: Alert and oriented to person, place, month, year, and president, no focal defects, no tremors noted Psych: No acute distress, calm and cooperative during the exam Results & Data Results & Data Vital Signs (Past 12 Hours) Vital Signs Temp Pulse Pulse Resp BP BP Pulse Ox 11/11/23 14:06 66 11/11/23 14:00 71 19 139/70 11/11/23 12:41 36.7 C 71 20 151/71 H 98 Laboratory Results Chest X-Ray 11/11/23 13:59 XR chest 1V portable CLINICAL HISTORY: neutropenic fever TECHNIQUE: Single frontal radiograph of the chest was obtained. Comparison: Comparison is made to chest radiograph 11/09/2023 FINDINGS: Lines and tubes are stable. Calcified aortic knob is seen. The lungs are clear. No evidence of pleural effusion or pneumothorax. IMPRESSION: No acute abnormalities and in particular no radiographic evidence of pneumonia. ACT 112: Negative or not required by law. Electronically signed by: Pavan Moeller M.D. 11/11/2023 2:26 PM ECG Additional Comments: Normal sinus rhythm Normal ECG When compared with ECG of 15-JUL-2023 16:01, Questionable change in QRS axis Code Status & VTE Plan Code Status Full code VTE Prophylaxis Plan VTE Prophylaxis will be ordered: Yes Supervising Physician Co-Signing Physician Notes I personally saw and examined the patient. I verified all lal points and agree with Clif Carrasco PA-C with the following exceptions and/or additions: 73 year old female with AML presents to the ER with 1/4 positive blood cultures for GPB. No respiratory, urinary of gastrointestinal symptoms. No fever or chills. Otherwise feels at her baseline. No further rigors since blood cultures taken. O/E A&Ox3, Frail appearing, no cellulitis, Mediport without sign of infection, HS RRR, no murmurs, Chest CTAB, Abdo SNT A/P GPB bacteremia - repeat BC, cefepime/vancomycin pending speciation and sensitivities. Neutropenia - neutropenic precautions PG Care Time/CCT Total # of Minutes Spent Total Time Spent with Patient: Total time spent is greater than 50% in coordination of care (as documented) at patient's floor/unit and/or counseling patient: C[place] [address] INT INP/OBS CARE 2/55MIN Patient Type Established Medical Decision Making Moderate Complexity Diagnoses Positive blood cultures R78.81 Neutropenia D70.9 Neutropenia type: unspecified Hypokalemia E87.6 AML (acute myeloblastic leukemia) C92.00 (2) Neutropenia Neutropenia type: unspecified Qualified Code(s): D70.9 - Neutropenia, unspecified
[2023-11-11 15:40] LABS: Appearance Urine Clear (Clear); Bilirubin Urine Negative (Negative); Blood Urine Negative (Negative); Color Urine Yellow; Glucose Urine UA Negative (Negative); Ketones Urine Negative (Negative); Leukocyte Esterase Urine Negative (Negative); Nitrite Urine Negative (Negative); Protein Urine Negative (Negative); Specific Gravity Urine 1.006 (1.000-1.030); Urobilinogen Urine Negative (Negative)
[2023-11-11] MEDS: CEFEPIME 2,000 MG/20 ML VIAL IV STA (15:44)
[2023-11-11] MEDS ORDERED: ACETAMINOPHEN 325 MG TAB PO PRN (15:48)
[2023-11-11] MEDS: VANCOMYCIN HCL 1,250 MG in SODIUM CHLORIDE 0.9% 500 ML IV ONE (15:49)
[2023-11-11] MEDS: POTASSIUM CHLORIDE CRTAB 20 MEQ TABCR PO STA (16:51)
[2023-11-11] MEDS: MAGNESIUM SULFATE / D5W 1 GM/100 ML BAG IV SCH (17:13)
--- NOTE | 2023-11-11 17:46 | Electrocardiogram Report ---
Test Reason : Blood Pressure : / mmHG Vent. Rate : 065 BPM Atrial Rate : 065 BPM P-R Int : 190 ms QRS Dur : 078 ms QT Int : 414 ms P-R-T Axes : 038 007 041 degrees QTc Int : 430 ms Normal sinus rhythm Normal ECG Confirmed by Brian Painter ([id number]) on 11/11/2023 5:46:31 PM Referred By: Confirmed By:Bruce Painter
[2023-11-11] MEDS ORDERED: oxyCODONE HCL IR 5 MG TAB (IMMEDIATE RELEASE) PO PRN (21:06)
[2023-11-11] MEDS: ACYCLOVIR 200 MG CAP PO SCH (22:40)
[2023-11-11] MEDS: POTASSIUM CHLORIDE CRTAB 20 MEQ TABCR PO SCH (22:41)
[2023-11-11] MEDS: CEFEPIME 2,000 MG in SYRINGE 0 ML IV SCH (22:44)
[2023-11-12] MEDS: VANCOMYCIN HCL 750 MG in SODIUM CHLORIDE 0.9% 250 ML IV SCH (00:41)
[2023-11-12 06:45] LABS: Hematocrit (blood only) 23.8 % (37.0-47.0); Hemoglobin 8.4 g/dl (12.0-16.0); Mean Corpuscular Hemoglobin 30.8 pg (25.0-34.0); Mean Corpuscular Hgb Conc 35.3 g/dL (32.0-36.0); Mean Corpuscular Volume 87.2 fL (80.0-100.0); Platelet Count 19 K/uL (130-400); RDW Coefficient of Variation 16.4 % (11.5-14.5); RDW Standard Deviation 45.3 fL (36.4-46.3); Red Blood Count 2.73 M/uL (4.20-5.40); White Blood Count 1.48 K/ul (4.8-10.8)
[2023-11-12 07:00] LABS: BUN Creatinine Ratio 6.9 (10-20); Calcium 7.8 mg/dl (8.6-10.3); Creatinine Clr Calc Pharmacy 54.1 ml/min; Est GFR (African American) 97.7 ml/min; Est GFR (Non-African American) 84.3 ml/min; Magnesium 2.2 mg/dl (1.7-2.4); Potassium 3.6 mmol/L (3.5-5.1)
[2023-11-12 07:34] LABS: Immature Granulocytes # (auto) 0.01 K/uL (0.01-0.20); Immature Granulocytes % (auto) 0.7 %; Lymphocytes # (auto) 0.49 K/uL (1.20-3.40); Lymphocytes % (auto) 33.1 %; Monocytes # (auto) 0.35 K/uL (0.11-0.59); Monocytes % (auto) 23.6 %; Neutrophils # (auto) 0.63 K/uL (1.40-6.50); Neutrophils % (auto) 42.6 %
[2023-11-12] MEDS: CITALOPRAM 20 MG TAB PO SCH (08:45)
[2023-11-12] MEDS: POTASSIUM CHLORIDE CRTAB 20 MEQ TABCR PO SCH (08:45)
--- NOTE | 2023-11-12 08:53 | Oncology Consultation ---
Date of Consultation November 12, 2023 Assessment & Plan (1) AML (acute myeloid leukemia): (2) Positive blood culture: Plan -Recommend evaluation by infectious disease to see if anything needs to be done regarding central line as well as to discuss antibiotic coverage. Can be discharged home once cleared by infectious disease. -Continue to hold systemic therapy with azacitidine/venetoclax up until transplant on 11/25/2023. Continue with levofloxacin, posaconazole and acyclovir for infectious prophylaxis Outpatient Thank you for this consult. Hematology will follow peripherally while she is in the hospital. Please feel free to call if you have any further questions History of Present Illness Reason for Consultation: AML Attending Physician: Jonathan Morgan History of Present Illness 73-year-old female with history of AML for which she is s/p induction chemotherapy with azacitidine/venetoclax from 04/17/2023 to 04/23/2023 at [facility] with post induction bone marrow biopsy demonstrating good response to treatment. She has since been being on consolidation chemotherapy with azacitidine/venetoclax started on 06/29/2023. Most recently received treatment with cycle 4, day 1-7 of azacitidine on 10/05/2023 to 10/13/2023. Presented for cycle 5, day 1 of treatment on 11/09/2023 and complained of chills and fatigue for which blood cultures, urinalysis and x-ray were obtained. As a result of this, she did not receive treatment. Urinalysis and chest x-ray were unremarkable. Blood culture from central line however revealed gram-positive bacilli for which she was advised to present to the ER. She feels well and denies any fever, chills or any other issues She is scheduled for stem cell transplant at [facility] on 11/25/2023 Allergies Allergy/AdvReac Type Severity Reaction Status Date / Time No Known Allergies Allergy Verified 11/11/23 17:12 Home Medications Medication Instructions Recorded Confirmed Type acyclovir 200 mg capsule 400 mg PO BID 11/11/23 11/11/23 History citalopram 20 mg tablet 20 mg PO DAILY 11/11/23 11/11/23 History letermovir 480 mg tablet (Prevymis) 480 mg PO DAILY 11/11/23 11/11/23 History levofloxacin 500 mg tablet 500 mg PO DAILY 11/11/23 11/11/23 History oxycodone 5 mg tablet 5 mg PO HS PRN Sleep 11/11/23 11/11/23 History posaconazole 100 mg tablet,delayed 300 mg PO DAILY 11/11/23 11/11/23 History release potassium chloride 20 mEq See Rx Instructions .Route .COMPLEX 11/11/23 11/11/23 History tablet,extended release Patient History Medical History 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 Moderate severity dynamic LV outflow tract obstruction Severe anemia blood transfusions at [place] [facility] Mar 2023 Pulmonary embolism dx October 2022 > s/p surgery > Eliquis DC'ed Mar 20, 2023 Severe protein-calorie malnutrition Urticaria Sepsis pt unaware Diverticulitis no issues at present Slow to wake up after anesthesia "a long time ago after tonsillectomy as a child", no issues since Surgical History H/O ileostomy with reversal Hx of exploratory laparotomy Hx of tubal ligation Hx of appendectomy History of esophagogastroduodenoscopy (EGD) Hx of colonoscopy History of tonsillectomy History of cholecystectomy H/O abdominoplasty Hx of breast implants, bilateral Previous back surgery thoracic tumor, attempted removal but incomplete, follow up pending Family History Mother Myocardial infarction Stroke Father Cancer Denies family history of Ovarian cancer Prostate cancer Breast cancer Colorectal cancer Social History Smoking Status: Former smoker Tobacco Type: Cigarettes Age Started Using Tobacco: 37; packs per day: 1; Second Hand Exposure: No; Do You Dip or Chew Tobacco: No; Hx Alcohol Use: No Hx Substance Use: No Preferred Language: Maori Communication Ability: Effective Visual Impairment: Limited Hearing Ability: Normal Inside Sales Person Required: No Beliefs That Will Affect Care: None marital status: Current Living Situation: Family Current Living Situation Comment: lives with son Bandar How many Children do You have: 2 Other Information That Helps Us Care for You: No Feels Safe at Home: Yes Safety Concerns: Feels Safe At This Time Childhood Exposure to Second-Hand Smoke: Yes Diet: regular caffeine: Yes during the past year weight has: increased > 10 lbs Dental Care, Regularly: Yes Physical Activity Frequency: Does not Exercise Seatbelt Use: always Sunscreen Use: Yes Assistive Devices: None Results & Data Vital Signs (Past 12 Hours) Vital Signs Temp Pulse Pulse Pulse Resp BP BP 11/12/23 07:21 37.0 C 75 18 122/65 11/12/23 03:04 37.4 C 73 18 114/59 L 11/11/23 22:00 76 11/11/23 21:07 72 11/11/23 20:56 36.6 C 80 18 127/72 Pulse Ox O2 Del Method 11/12/23 07:21 96 Room Air 11/12/23 03:04 96 Room Air 11/11/23 22:00 11/11/23 21:07 11/11/23 20:56 98 Room Air (1) AML (acute myeloid leukemia) Leukemia Active/Remission status: without remission Qualified Code(s): C92.00 - Acute myeloblastic leukemia, not having achieved remission
--- NOTE | 2023-11-12 11:20 | Pharmacy Report ---
Pharmacy PK ABX Note - Date of Service November 12, 2023 - Assessment and Plan Assessment 73 year old F receiving Vancomycin for treatment of bacteremia. Pertinent microbiologic data includes: preliminary blood culture from 11/09/23- 1 out of 4 growing Gram positive bacilli. Sensitivities pending. Repeat blood cultures obtained yesterday. Patient has history of AML and recent chemotherapy. Currently neutropenic. She is also receiving Cefepime empirically. Today is Day #2 of Vancomycin therapy. Plan Vancomycin * Loading dose: 1250 mg IV x 1 given yesterday * Maintenance dose: 750 mg IV every 12 hours started last night. * Regimen is predicted to achieve target AUC/MARY LOU of 400-600 mg/L.hr * Random level ordered for: 11/12 @ 0700 Pharmacy will continue to follow and will adjust dose/frequency as necessary. Thank you. Pharmacy has transitioned to AUC monitoring for vancomycin. AUC/MARY LOU is the preferred PK/PD target and is associated with decreased risk of nephrotoxicity compared to traditional trough targets.
--- NOTE | 2023-11-12 12:11 | XCELERA ---
[id number]
--- NOTE | 2023-11-12 16:19 | Hospitalist Progress Note ---
Date of Service November 12, 2023 Assessment & Plan (1) Positive blood cultures: Plan: Admit to med/telemetry Currently stable and nontoxic-appearing Was advised to come to the ED today after 1 set of aerobic bottle blood cultures noted a preliminary result of gram-positive bacilli Patient denies recent infectious symptoms Due to her immunocompromise state we will admit her for empiric antibiotics until repeat blood cultures obtained in the ED today have resulted Continue neutropenic precautions started in the ED Chest x-ray, UA, and COVID-19/influenza/RSV swab were negative for infection Denies recent GI symptoms, no signs of skin infection continue cefepime/vanco Will consult oncology Awaiting sensitivities on 11/11 Patient reports feeling well. Awaiting transplant. (2) Neutropenia: Plan: Patient has been neutropenic since 10/19/23, thought to be due to chemotherapy treatment in her AML No recent fevers Continue neutropenic precautions Rest of care per positive blood cultures plan (3) Hypokalemia: Plan: Potassium noted to be 3.3 today, mag noted to be 1.8 Likely due to chronic diarrhea and decreased p.o. intake with ongoing chemotherapy for AML No acute EKG changes Will order 40 mEq p.o. KCl and 2 bags of 1 g IV mag sulfate on admission Continue monitor on telemetry and monitor a.m. renal function and electrolytes (4) AML (acute myeloblastic leukemia): Plan: Chemotherapy is currently on hold as she is scheduled for stem cell transplant on 11/18/2023 at [facility] Oncology consult has been placed at the time of admission Continue to follow-up with heme/onc on discharge Admission and Anticipated Discharge Date Admission Date: November 11, 2023 Subjective Patient reports feeling well. Review of Systems Review of Systems: All systems reviewed & are unremarkable except as noted in HPI & below Physical Exam Physical Exam: General: In no acute distress, stated age, chronically ill-appearing but non- toxic HEENT: Normocephalic, atraumatic Chest/Pulm: Mediport located in the right upper chest is without signs of infection, No respiratory distress, symmetrical chest expansion, clear breath sounds throughout Cardiac: RRR, no murmurs noted Abdomen: Negative for ascites and bruising, normoactive bowel sounds, soft, non-tender to palpation throughout Musculoskeletal: Symmetrical and without signs of acute trauma, upper and lower extremities with full ROM, no atrophy, spasticity, or flaccidity Extremities: Radial, dorsalis pedis, and posterior tibial pulses are intact and symmetrical, no edema noted in the BL LE's Psych: No acute distress, calm and cooperative during the exam Results & Data Results & Data Vital Signs (Past 12 Hours) Vital Signs Temp Pulse Pulse Resp BP Pulse Ox O2 Del Method 11/12/23 16:15 96 H 11/12/23 15:46 36.8 C 66 16 131/61 96 Room Air 11/12/23 11:35 36.7 C 68 16 100/56 L 96 Room Air 11/12/23 08:00 80 11/12/23 07:21 37.0 C 75 18 122/65 96 Room Air PG Care Time/CCT Total # of Minutes Spent Total Time Spent with Patient: Total time spent is greater than 50% in coordination of care (as documented) at patient's floor/unit and/or counseling patient: Coding Level of Care Code 89330 SUB INP/OBS CARE 2/35MIN Diagnoses Positive blood cultures R78.81 Neutropenia D70.9 Neutropenia type: unspecified Hypokalemia E87.6 AML (acute myeloblastic leukemia) C92.00 (2) Neutropenia Neutropenia type: unspecified Qualified Code(s): D70.9 - Neutropenia, unspecified
[2023-11-12] MEDS: CEFEPIME 2,000 MG in SYRINGE 0 ML IV SCH (17:36)
[2023-11-13 07:05] LABS: Hematocrit (blood only) 24.6 % (37.0-47.0); Hemoglobin 8.6 g/dl (12.0-16.0); Mean Corpuscular Hemoglobin 30.5 pg (25.0-34.0); Mean Corpuscular Volume 87.2 fL (80.0-100.0); Mean Platelet Volume 11.9 fL (9.4-12.4); Platelet Count 14 K/uL (130-400); RDW Coefficient of Variation 15.9 % (11.5-14.5); RDW Standard Deviation 44.2 fL (36.4-46.3); Red Blood Count 2.82 M/uL (4.20-5.40); White Blood Count 1.93 K/ul (4.8-10.8)
[2023-11-13 07:20] LABS: BUN Creatinine Ratio 12.1 (10-20); C Reactive Protein 6.24 mg/dl (0-0.5); Calcium 8.3 mg/dl (8.6-10.3); Est GFR (Non-African American) 88.9 ml/min; Magnesium 2.2 mg/dl (1.7-2.4); Potassium 4.2 mmol/L (3.5-5.1)
[2023-11-13 07:29] LABS: Dohle Bodies 2+; Immature Granulocytes # (auto) 0.03 K/uL (0.01-0.20); Immature Granulocytes % (auto) 1.6 %; Lymphocytes % (auto) 46.6 %; Monocytes # (auto) 0.41 K/uL (0.11-0.59); Monocytes % (auto) 21.2 %; Neutrophils # (auto) 0.59 K/uL (1.40-6.50); Neutrophils % (auto) 30.6 %
[2023-11-13 08:33] LABS: A calco-baum cmplx NotReported Not Detected (NotDetected); Bact fragilis Not Reported Not Detected (NotDetected); Blood Culture Id Panel PCR Panel Negative (NotDetected); C auris Not Reported Not Detected (NotDetected); Calbicans Not Reported Not Detected (NotDetected); Candida glabrata Not Reported Not Detected (NotDetected); Candida krusei Not Reported Not Detected (NotDetected); Cneoformans/gatti Not Reported Not Detected (NotDetected); Cparapsilosis Not Reported Not Detected (NotDetected); E cloacae compx Not Reported Not Detected (NotDetected); Efaecalis Not Reported Not Detected (NotDetected); Efaecium Not Reported Not Detected (NotDetected); Enterobacterales Not Reported Not Detected (NotDetected); Escherichia coli Not Reported Not Detected (NotDetected); H influenzae Not Reported Not Detected (NotDetected); K aerogenes Not Reported Not Detected (NotDetected); Koxytoca Not Reported Not Detected (NotDetected); Kpneumoniae grp Not Reported Not Detected (NotDetected); Lmonocyt Not Reported Not Detected (NotDetected); N meningitidis Not Reported Not Detected (NotDetected); P aeruginosa Not Reported Not Detected (NotDetected); Proteus spp Not Reported Not Detected (NotDetected); Salmonella spp Not Reported Not Detected (NotDetected); Smarcescens Not Reported Not Detected (NotDetected); Staph lugdunensis Not Reported Not Detected (NotDetected); Staph spp. Not Reported Not Detected (NotDetected); Staphaureus Not Reported Not Detected (NotDetected); Staphepi Not Reported Not Detected (NotDetected); Stenmaltophilia Not Reported Not Detected (NotDetected); Strep agal(GrpB) Not Reported Not Detected (NotDetected); Strep pneum Not Reported Not Detected (NotDetected); Strep pyog (GrpA) Not Reported Not Detected (NotDetected); Strep spp Not Reported Not Detected (NotDetected)
--- NOTE | 2023-11-13 11:26 | Pharmacy Report ---
Pharmacy PK ABX Note - Date of Service November 13, 2023 - Assessment and Plan Assessment 11/12: Random Vancomycin level resulted this AM = 12.6 mcg/ml at 0700 AM. Today is Day #3 of therapy. Renal function remains stable. Blood culture from 11/08 pending ID of Gram negative bacilli. 11/10 Blood cultures pending. 11/12/23: 73 year old F receiving Vancomycin for treatment of bacteremia. Pertinent microbiologic data includes: preliminary blood culture from 11/09/23- 1 out of 4 growing Gram positive bacilli. Sensitivities pending. Repeat blood cultures obtained yesterday. Patient has history of AML and recent chemotherapy. Currently neutropenic. She is also receiving Cefepime empirically. Today is Day #2 of Vancomycin therapy. Plan Vancomycin * Current regimen: 750 mg IV every 12 hours * Random] level obtained 11/13/23 AM resulted as 12.6 mcg/mL. This is predicted to achieve target AUC/MARY LOU of 400-600 mg/L.hr * Predicted AUC at steady state: 463 mg/L.hr * Continue Vancomycin 750 mg IV every 12 hours * Will repeat level in the next 48-72 hours if therapy is continued and/or change in patient clinical status Pharmacy will continue to follow and will adjust dose/frequency as necessary. Thank you. Pharmacy has transitioned to AUC monitoring for vancomycin. AUC/MARY LOU is the preferred PK/PD target and is associated with decreased risk of nephrotoxicity compared to traditional trough targets.
--- NOTE | 2023-11-13 15:06 | Infectious Disease Consult ---
Date of Consultation November 13, 2023 Assessment & Plan (1) Bacteremia: (2) AML (acute myeloid leukemia): (3) Pancytopenia: Plan 73yo F with h/o AML on Azacitidine/Venetoclax, plans for upcoming alloSCT, pancytopenia, prior PE, diverticulitis s/p ileostomy with reversal, thoracic spine tumor s/p surgery 2017, HTN, HLD who presented on 11/10 with positive blood cultures from cancer center. On 11/09 she had received prbc and platelet transfusions. She reported having chills since the day prior to admission, which was when BCX were obtained. No other symptoms per HPI. Hase baseline diarrhea, no worsening. She is planned for SCT on 11/17 at [place]. Here, she has been afebrile, vss. Pancytopenic, ANC 600. Cr 0.68. LFT wnl. PCT 2.77>1.07. UA negative. COIVD/Flu/RSV neg. BCx from 11/08 and 11/10 with GPR. CXR negative. TTE negative for mass or vegetation. She has been getting vancomycin and cefepime. ID consulted 11/12. Gram positive rods are often contaminant, however she has multiple culture bottles positive which raises suspicion for true bacteremia. GPRs include Bacillus, Listeria, Corynebacterium, Clostridia. She has been getting vancomycin and cefepime. I will change cefepime to Unasyn. Most likely etiology would be central line and therefore I would advise removing her chest port. She will also need to delay her stem cell transplant until abx treatment is completed. Final regimen depending on speciation and susceptibility. I have asked micro lab to run sensi on culture regardless of organism. Micro: 11/08 BCX: GPR in 2 of 4 bottles 11/10 BCX: GPR in 1 of 4 bottles # GPR bacteremia # AML on chemo, plans for alloSCT next week # Chest port # h/o thoracic tumor s/p surgery - would advise removing chest port - repeat BCx ordered - would ensure she doesnt have any other localizing sites of infection (ie new back pain/spinal tenderness, joint swelling/pain/redness, abdominal pain/tenderness for psoas abscess) - Nargis stopped cefepime and started unasyn 3g IV q6h - continue vancomycin pharmacy dosed protocol - final regimen and duration pending BCx results - would advise delaying stem cell transplant until current infection is treated ID will continue to follow. If questions or concerns, contact Infectious Disease Call Center . Neha Rosales MD [facility], Division of Infectious Diseases [facility]: [phone] Consultation Information This patient recommendation is based on a telemedicine consult request which was completed asynchronously through chart review and information provided by the primary physician. The patient was not seen or examined today. The evaluation is consultative in nature and all patient care and treatment decisions can either be accepted or rejected by the patient's primary hospital-based treating physician using their own independent medical judgment for their patient. [employer] contact information: Please call [facility] Call Center . (Phone Number For Physician Use Only) Time Spent Reviewing Chart: 31+ minutes History of Present Illness Reason for Consultation: bacteremia Attending Physician: Jonathan Morgan History of Present Illness 73yo F with h/o AML on Azacitidine/Venetoclax, plans for upcoming alloSCT, pancytopenia, prior PE, diverticulitis s/p ileostomy with reversal, HTN, HLD who presented on 11/10 with positive blood cultures from cancer center. On 11/09 she had received prbc and platelet transfusions. She reported having chills since the day prior to admission, which was when BCX were obtained. No fevers, SOB, chest pain, abdominal pain, nausea/vomiting, dysuria, rashes/wounds, recent trauma, leg swelling. Denied having any erythema or pain of her chest port. Hase baseline diarrhea, no worsening. She is planned for SCT on 11/17 at [place]. Here, she has been afebrile, vss. Pancytopenic, ANC 600. Cr 0.68. LFT wnl. PCT 2.77>1.07. UA negative. COIVD/Flu/RSV neg. BCx from 11/08 and 11/10 with GPR. CXR negative. TTE negative for mass or vegetation. She has been getting vancomycin and cefepime. ID consulted 11/12. No telepresenter available at this time. Allergies Allergy/AdvReac Type Severity Reaction Status Date / Time No Known Allergies Allergy Verified 11/11/23 17:12 Home Medications Medication Instructions Recorded Confirmed Type acyclovir 200 mg capsule 400 mg PO BID 11/11/23 11/11/23 History citalopram 20 mg tablet 20 mg PO DAILY 11/11/23 11/11/23 History letermovir 480 mg tablet (Prevymis) 480 mg PO DAILY 11/11/23 11/11/23 History levofloxacin 500 mg tablet 500 mg PO DAILY 11/11/23 11/11/23 History oxycodone 5 mg tablet 5 mg PO HS PRN Sleep 11/11/23 11/11/23 History posaconazole 100 mg tablet,delayed 300 mg PO DAILY 11/11/23 11/11/23 History release potassium chloride 20 mEq See Rx Instructions .Route .COMPLEX 11/11/23 11/11/23 History tablet,extended release Patient History Medical History 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 Moderate severity dynamic LV outflow tract obstruction Severe anemia blood transfusions at [facility] ED Mar 2023 Pulmonary embolism dx October 2022 > s/p surgery [facility], 2023 Severe protein-calorie malnutrition Urticaria Sepsis pt unaware Diverticulitis no issues at present Slow to wake up after anesthesia "a long time ago after tonsillectomy as a child", no issues since Surgical History H/O ileostomy with reversal Hx of exploratory laparotomy Hx of tubal ligation Hx of appendectomy History of esophagogastroduodenoscopy (EGD) Hx of colonoscopy History of tonsillectomy History of cholecystectomy H/O abdominoplasty Hx of breast implants, bilateral Previous back surgery thoracic tumor, attempted removal but incomplete, follow up pending Family History Mother Myocardial infarction Stroke Father Cancer Denies family history of Ovarian cancer Prostate cancer Breast cancer Colorectal cancer Social History Smoking Status: Former smoker Tobacco Type: Cigarettes Age Started Using Tobacco: 37; packs per day: 1; Second Hand Exposure: No; Do You Dip or Chew Tobacco: No; Hx Alcohol Use: No Hx Substance Use: No Preferred Language: Andorran Communication Ability: Effective Visual Impairment: Limited Hearing Ability: Normal In Processing Instructor Required: No Beliefs That Will Affect Care: None marital status: Current Living Situation: Family Current Living Situation Comment: lives with son Bandar How many Children do You have: 2 Other Information That Helps Us Care for You: No Feels Safe at Home: Yes Safety Concerns: Feels Safe At This Time Childhood Exposure to Second-Hand Smoke: Yes Diet: regular caffeine: Yes during the past year weight has: increased > 10 lbs Dental Care, Regularly: Yes Physical Activity Frequency: Does not Exercise Seatbelt Use: always Sunscreen Use: Yes Assistive Devices: None Results & Data Vital Signs (Past 12 Hours) Vital Signs Temp Pulse Pulse Resp BP BP Pulse Ox 11/13/23 11:29 36.6 C 64 18 111/68 97 11/13/23 09:15 11/13/23 07:49 36.4 C L 61 18 128/55 L 96 11/13/23 07:32 56 L 11/13/23 03:20 36.6 C 60 18 103/58 L 98 O2 Del Method 11/13/23 11:29 Room Air 11/13/23 09:15 Room Air 11/13/23 07:49 Room Air 11/13/23 07:32 11/13/23 03:20 Room Air Laboratory Results Labs reviewed. Diagnostic Findings Imaging reviewed. (2) AML (acute myeloid leukemia) Leukemia Active/Remission status: without remission Qualified Code(s): C92.00 - Acute myeloblastic leukemia, not having achieved remission
[2023-11-13] MEDS: AMPICILLIN/SULBACTAM SOD 3,000 MG in SODIUM CHLOR 0.9% MINI-B 100 ML IV SCH (16:03)
--- NOTE | 2023-11-13 16:26 | Surgery Consultation ---
Date of Consultation November 13, 2023 Assessment & Plan (1) Bacteremia: This is a 73yF with a PMH of AML with port placement at [facility] in 04/23 who presents to the [facility] ED on 11/10 after being informed of + blood cultures. She was seen at the [facility] on 11/08 and reported feeling chills/cold and hence blood cultures were drawn. They were + on 11/08 and 11/10 for gram + bacilli. We have been consulted today as ID has been on board and recommending port removal. Patient states she feels very good at this time and denies any fevers/chills, abdominal complaints, chest issues, etc. She states the port is in good shape and works well. She denies any issues with the port or any signs of surrounding infection. The patient states that she and the [facility] have been stringent regarding clean techniques when utilizing the port. She is insistent that she does not want the port removed until she talks to her care team at [facility]. She is scheduled for stem cell transplant later this month and expresses strong wishes that she does not want this to be delayed [id number]. Today's blood work shows WBC 1.9, plt 14, Hbg 8.4, neutrophils 0.5. She is afebrile with stable vital signs. + GPB on 11/08 and 11/10 with ID raising concern for true infection with the port the most likely source as other workup including CXR and UA thus far are negative. On exam port is accessed without surrounding signs of skin infections/erythema. Again patient wishes to have discussions with her [facility] providers prior to agreeing to port removal and is adamant about this. I have informed the hospitalists regarding the situation. We will follow up again tomorrow to check in on status and further discussions with the patient. (2) AML (acute myeloid leukemia): History of Present Illness Attending Physician: Jonathan Morgan History of Present Illness This is a 73yF with a PMH of AML with port placement at [facility] in 04/23 who presents to the [facility] ED on 11/10 after being informed of + blood cultures. She was seen at the [facility] on 11/08 and reported feeling chills/cold and hence blood cultures were drawn. They were + on 11/08 and 6/12 for gram + bacilli. We have been consulted today as ID has been on board and recommending port removal. Patient states she feels very good at this time and denies any fevers/chills, abdominal complaints, chest issues, etc. She states the port is in good shape and works well. She denies any issues with the port or any signs of surrounding infection. The patient states that she and the cancer center have been stringent regarding clean techniques when utilizing the port. She is insistent that she does not want the port removed until she talks to her care team at [facility]. She is scheduled for stem cell transplant later this month and expresses strong wishes that she does not want this to be delayed [id number]. Allergies Allergy/AdvReac Type Severity Reaction Status Date / Time No Known Allergies Allergy Verified 11/11/23 17:12 Home Medications Medication Instructions Recorded Confirmed Type acyclovir 200 mg capsule 400 mg PO BID 11/11/23 11/11/23 History citalopram 20 mg tablet 20 mg PO DAILY 11/11/23 11/11/23 History letermovir 480 mg tablet (Prevymis) 480 mg PO DAILY 11/11/23 11/11/23 History levofloxacin 500 mg tablet 500 mg PO DAILY 11/11/23 11/11/23 History oxycodone 5 mg tablet 5 mg PO HS PRN Sleep 11/11/23 11/11/23 History posaconazole 100 mg tablet,delayed 300 mg PO DAILY 11/11/23 11/11/23 History release potassium chloride 20 mEq See Rx Instructions .Route .COMPLEX 11/11/23 11/11/23 History tablet,extended release Patient History Medical History 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 Moderate severity dynamic LV outflow tract obstruction Severe anemia blood transfusions at [facility] Mar 2023 Pulmonary embolism dx October 2022 > s/p surgery > Eli[facility] DC'ed Mar 20, 2023 Severe protein-calorie malnutrition Urticaria Sepsis pt unaware Diverticulitis no issues at present Slow to wake up after anesthesia "a long time ago after tonsillectomy as a child", no issues since Surgical History H/O ileostomy with reversal Hx of exploratory laparotomy Hx of tubal ligation Hx of appendectomy History of esophagogastroduodenoscopy (EGD) Hx of colonoscopy History of tonsillectomy History of cholecystectomy H/O abdominoplasty Hx of breast implants, bilateral Previous back surgery thoracic tumor, attempted removal but incomplete, follow up pending Family History Mother Myocardial infarction Stroke Father Cancer Denies family history of Ovarian cancer Prostate cancer Breast cancer Colorectal cancer Social History Smoking Status: Former smoker Tobacco Type: Cigarettes Age Started Using Tobacco: 37; packs per day: 1; Second Hand Exposure: No; Do You Dip or Chew Tobacco: No; Hx Alcohol Use: No Hx Substance Use: No Preferred Language: Swedish Communication Ability: Effective Visual Impairment: Limited Hearing Ability: Normal 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 Beliefs That Will Affect Care: None marital status: Current Living Situation: Family Current Living Situation Comment: lives with son Bandar How many Children do You have: 2 Other Information That Helps Us Care for You: No Feels Safe at Home: Yes Safety Concerns: Feels Safe At This Time Childhood Exposure to Second-Hand Smoke: Yes Diet: regular caffeine: Yes during the past year weight has: increased > 10 lbs Dental Care, Regularly: Yes Physical Activity Frequency: Does not Exercise Seatbelt Use: always Sunscreen Use: Yes Assistive Devices: None Review of Systems Constitutional: + chills (few days ago, but nothing now) ; no fever Respiratory: no dyspnea Gastrointestinal: no abdominal pain Integumentary: no issues with port or surrounding skin Physical Exam Physical Exam: awake/alert, no distress Constitutional: well developed; no acute distress Respiratory: normal respiratory effort Cardiovascular: Rate/Rhythm: regular rate Chest (Breasts): Additional Comments: Port site intact to R chest, no signs of skin redness/infection Results & Data Vital Signs (Past 12 Hours) Vital Signs Temp Pulse Pulse Resp BP Pulse Ox O2 Del Method 11/13/23 16:15 65 11/13/23 16:00 98.1 F 58 L 18 135/77 98 Room Air 11/13/23 11:29 97.9 F 64 18 111/68 97 Room Air 11/13/23 09:15 Room Air 11/13/23 07:49 97.5 F L 61 18 128/55 L 96 Room Air 11/13/23 07:32 56 L PG Care Time/CCT Total # of Minutes Spent Total Time Spent with Patient: Total time spent is greater than 50% in coordination of care (as documented) at patient's floor/unit and/or counseling patient: Coding Level of Care Code 97373 INT INP/OBS CARE 40MIN Diagnoses Bacteremia R78.81 AML (acute myeloid leukemia) C92.00 Leukemia Active/Remission status: without remission (2) AML (acute myeloid leukemia) Leukemia Active/Remission status: without remission Qualified Code(s): C92.00 - Acute myeloblastic leukemia, not having achieved remission
--- NOTE | 2023-11-14 08:08 | Discharge Summary ---
Date of Service November 13, 2023 Admission HPI Per Admitting Provider Alba is a 73-year-old female with a past medical history significant for AML with recent hospitalization at [facility] for symptomatic anemia/pancytopenia due to chemotherapy (On Azacitidine/Venetoclax)/recurrent malignancy, hypertension, dyslipidemia, tobacco use, previous PE, recurrent diverticulosis status post ileostomy with reversal who presented to the [facility] emergency department on 11/11/2023 after aerobic blood cultures [facility]2023 were preliminarily positive for gram positive bacilli. She reportedly received 2 units of packed r ed blood cells and 1 unit of platelets on 11/10/2023.The patient remained stable while in the ED. Labs were significant for ongoing pancytopenia with white blood cell count of 1.66, stable hemoglobin of 10, platelets of 23 neutropenia of 0.60, potassium of 3.3, COVID-19/influenza/RSV negative. Prior to admission the patient was given 1 L normal saline, a dose cefepime, and a dose of vancomycin. Patient was sitting in bed in no acute distress at the time of exam. States that her chemotherapy is currently being held as she is scheduled for cell transplants at [facility] on 11/18/2023. Confirms that she did have the 2 units packed red blood cells and 1 unit of platelets on 11/10/2023. Has been experiencing chills since yesterday, which blood blood cultures were obtained. Denies recent fevers, chest pains, shortness of breath, cough, Mediport pain/erythema abdominal pain, nausea/vomiting, dysuria, hematuria, lower extremity swelling, recent skin infection/wounds, and recent trauma. States that she has had baseline diarrhea since her ileostomy was reversed and denies recent changes in bowel habits. She is a full code and would want her son to make medical decisions for her if she cannot make them herself. Principal Diagnosis bacteremia Discharge Exam General: In no acute distress, stated age, chronically ill-appearing but non- toxic HEENT: Normocephalic, atraumatic Chest/Pulm: Mediport located in the right upper chest is without signs of infection, No respiratory distress, symmetrical chest expansion, clear breath sounds throughout Cardiac: RRR, no murmurs noted Abdomen: Negative for ascites and bruising, normoactive bowel sounds, soft, non-tender to palpation throughout Musculoskeletal: Symmetrical and without signs of acute trauma, upper and lower extremities with full ROM, no atrophy, spasticity, or flaccidity Extremities: Radial, dorsalis pedis, and posterior tibial pulses are intact and symmetrical, no edema noted in the BL LE's Psych: No acute distress, calm and cooperative during the exam Discharge Data Allergies Allergy/AdvReac Type Severity Reaction Status Date / Time No Known Allergies Allergy Verified 11/11/23 17:12 Consultations 11/11/23 15:03 ED Decision to Admit Stat 11/11/23 15:48 Consult Oncology Routine 11/13/23 14:05 Consult Infectious Diseases Routine 11/13/23 15:33 Consult General Surgery Routine Hospital Course (1) Positive blood cultures: Admitted to med/telemetry Currently stable and nontoxic-appearing Was advised to come to the ED today after 1 set of aerobic bottle blood cultures noted a preliminary result of gram-positive bacilli Patient denies recent infectious symptoms Due to her immunocompromise state we will admit her for empiric antibiotics until repeat blood cultures obtained in the ED today have resulted Continue neutropenic precautions started in the ED Chest x-ray, UA, and COVID-19/influenza/RSV swab were negative for infection Denies recent GI symptoms, no signs of skin infection continue amp sulbactam/vanco D/W [facility], patient will be transferred due proximity of allo stem cell transplant and likely need for IV antibiotics/ platelets. Given that the cultures were obtained from the port and a peripheral vein. iT is likely the port is contaminanted and will need to be removed. (2) Neutropenia: Chemotherapy induced pancytopenia Patient has been neutropenic since 10/19/23, thought to be due to chemotherapy treatment in her AML No recent fevers Continue neutropenic precautions Rest of care per positive blood cultures plan (3) Hypokalemia: Potassium noted to be 3.3 today, mag noted to be 1.8 Likely due to chronic diarrhea and decreased p.o. intake with ongoing chemotherapy for AML No acute EKG changes Will order 40 mEq p.o. KCl and 2 bags of 1 g IV mag sulfate on admission Continue monitor on telemetry and monitor a.m. renal function and electrolytes (4) AML (acute myeloblastic leukemia): Chemotherapy is currently on hold as she is scheduled for stem cell transplant on 11/18/2023 at [facility] Oncology consult has been placed at the time of admission Continue to follow-up with heme/onc on discharge Total Time Total Time Spent Total Time Spent (In Minutes): 65 Discharge Plan Discharge Items Patient Disposition: Transfer Acute Care Hospital Reason For Visit: POSITIVE BLOOD CULTURES, PANCYTOPENIA/NEUTROPENIA Discharge Diagnosis: positive blood cultures/ pancytopenia/neutropenia Activity: Resume your previous activity Non-emergency contact: Primary Care Provider Call non-emergency contact if: you have any medication questions Follow-up/Referrals: Kevan Simpson CRNP [Primary Care Provider] - Diet: Heart Healthy Addtl Attending Provider Instructions: Vancomycin @1200 750 mg q12h ampicillin sodium/sulbactam 3 gr IV q6h Pending Studies at Discharge: No Stand-Alone Forms: [facility] [employer] Skilled Items Patient informed of condition?: No DNR: No Discharge Level of Care: Other Communicable Disease: No Discharge Prognosis: Stable Lines: PICC Urinary Catheter: No Medications and DC Order Prescriptions: Continued citalopram 20 mg tablet 20 mg PO DAILY acyclovir 200 mg capsule 400 mg PO BID oxycodone 5 mg tablet 5 mg PO HS PRN (Reason: Sleep) posaconazole 100 mg tablet,delayed release (DR/EC) 300 mg PO DAILY potassium chloride 20 mEq tablet extended release See Rx Instructions .ROUTE .COMPLEX Rx Instructions: Take 40meq by mouth in the morning and 20meq by mouth in the evening Prevymis 480 mg tablet 480 mg PO DAILY Held levofloxacin 500 mg tablet 500 mg PO DAILY Hold Instructions: Resume on 11/13/23. Discharge Orders: Discharge Order (Routine); Ordered 11/13/23 Ordered By: Jonathan Morgan Admission Data Admit Date/Time: 11/11/23 15:31 Attending Provider: Jonathan Morgan Admit Provider: Vahid Kim Primary Care Provider: Kevan Simpson Other Providers: Vahid Kim; Jean Carlos Sanchez; Judy Barron; Annita Chavez; Neha Rosales; Ashish Ro; Marie Romero; Negar Bhatti; Jessica Gifford; Carson Oliva; Lonnie Martinez; Kevan Regan; Jose Moura; Ammy Chong; Martin Fair; Arley Lynn; Duke Dwyer; Cj Prado. Coding Level of Care Code 47211 INP/OBS DISCH >30 MIN Diagnoses Positive blood cultures R78.81 Neutropenia D70.9 Neutropenia type: unspecified Hypokalemia E87.6 AML (acute myeloblastic leukemia) C92.00
== END 2023-11-13 22:50 | disposition short-term general hospital (02) | DRG 871 ==
LOC: ED 12:36 → SUATTDRO 15:31 → EDINP 15:31 → 2N 20:11